=== PATIENT | male | born 1975 | race Caucasian/White ===

== ENCOUNTER 2023-10-17 08:27 | Emergency (ER) | payer OTHER, SELFPAY ==
[2023-10-17] VITALS (18 sets, daily range): BP systolic 139–250; BP diastolic 83–184; PULSE 68–95; O2SAT 97–100; BMI 28.7
--- NOTE | 2023-10-17 08:30 | CT_ITS ---
The [address] [address] Patient Name: LEANN HALL MRN: [id number] date: 1975 Sex: M Assigned Patient Location: ER Current Patient Location: ER Accession/Order Number: [id number] Exam Date: 10/17/2023 08:30 Report Date: 10/17/2023 08:56 At the request of: WALDEMAR LYNNE Procedure: CT stroke head/brain wo con EXAMINATION: CT stroke head/brain wo con HISTORY: Altered mental status COMPARISON: No relevant comparison available. TECHNIQUE: Axial CT images were obtained without IV contrast. Dose reduction techniques were achieved by using automated exposure control and/or adjustment of mA and/or kV according to patient size and/or use of iterative reconstruction technique. FINDINGS: BRAIN: 5.6 x 3.7 cm area of hypoattenuation with loss of casillas-white differentiation the right frontal lobe with extensive acute hemorrhage measuring 5.4 x 2.4 cm on axial image #28 this causes some mass effect with 3 mm of [id number] shift of the falx as well as compression of the right frontal horn CSF SPACES: No hydrocephalus, subarachnoid hemorrhage, or mass. Appropriate for age. SKULL: No fracture, mass, or other significant visible lesion. SINUSES: No significant mucosal thickening or fluid on the limited views. ORBITS: No appreciable abnormality on the limited views. OTHER: Findings discussed with Dr. Lynne by telephone 8:[address]/CT stroke head/brain wo con IMPRESSION: Large right frontal hemorrhagic infarct with mass effect, JESICA distribution Electronically authenticated by: CARLA DUNCAN Date: 10/17/2023 08:56
--- NOTE | 2023-10-17 08:30 | XR_ITS ---
The [address] [address] Patient Name: LEANN HALL MRN: [id number] date: 1975 Sex: M Assigned Patient Location: ED.MAIN Current Patient Location: ER Accession/Order Number: [id number] Exam Date: 10/17/2023 09:00 Report Date: 10/17/2023 09:22 At the request of: WALDEMAR NUNEZ Procedure: XR chest 1V EXAM: Chest x-ray HISTORY: . Altered mental status COMPARISON: None. TECHNIQUE: Single view of the chest. FINDINGS: Endotracheal tube is noted with the tip 4 cm above the amando. Heart and vascularity are unremarkable. Lungs are free of focal infiltrates. EKG leads overlie the chest. XR/XR chest 1V Impression: 1. Endotracheal tube noted with the tip 4 cm above the amando. 2. No acute heart or lung disease identified. Electronically authenticated by: CARLA KENDRICK Date: 10/17/2023 09:22
[2023-10-17 08:46] LABS: Glucometer 137 mg/dL (74-106)
[2023-10-17] MEDS: FENTANYL CITRATE/PF 100 MCG/2 ML VIAL IV (08:54)
[2023-10-17] MEDS: LABETALOL HCL 20 MG/4 ML SYRINGE IVP (08:55)
[2023-10-17] MEDS: THIAMINE HCL 200 MG/2 ML VIAL 100 MG IV (08:56)
[2023-10-17] MEDS: LORAZEPAM 2 MG/ML VIAL IV (08:57)
[2023-10-17] MEDS: ROCURONIUM BROMIDE 50 MG/5 ML VIAL 100 MG IV (09:01)
[2023-10-17] MEDS: PROPOFOL 200 MG/20 ML VIAL 100 MG IVP (09:02)
[2023-10-17] MEDS: ONDANSETRON PF 4 MG/2 ML VIAL IV (09:09)
--- NOTE | 2023-10-17 09:12 | ED.AMS1 ---
HPI - Altered Mental Status General Chief Complaint: Altered Mental Status Stated Complaint: ALTERED MENTAL STATUS Time Seen by Provider: 10/17/23 08:30 Source comment: EMS Mode of arrival: ambulance History of Present Illness HPI narrative: 48-year-old male to the emergency department chief complaint of altered mental status. Patient unable to write history. History is obtained from EMS. Family reported he has been altered for the last 48 hours. He is a daily drinker. Noncompliant hypertensive. He has been increasingly confused. Related Data Home Medications ?Medication ?Instructions ?Recorded ?Confirmed Unobtainable 10/17/23 10/17/23 Allergies Allergy/AdvReac Type Severity Reaction Status Date / Time Unable to Assess Allergy Verified 10/17/23 08:32 Review of Systems ROS Status of ROS 10 or more systems reviewed and unremarkable except as noted in history and below Exam Narrative Exam Narrative: VITALS: I have reviewed the triage vital signs. GENERAL: Confused adult male. NEURO: Alert and oriented x0. GCS 7 ([id number]). NIHSS as below. EYES: PERRL. No scleral icterus or conjunctival injection. No discharge. HENT: Normocephalic, atraumatic. Hearing is grossly intact. Nares grossly patent and without discharge. Mucous membranes dry. NECK: No JVD. Patient moves neck without restriction. CARDIO: Rhythm regular. Normal rate. No murmur, rub, or gallop. Pulses equal bilaterally in the upper and lower extremity. No lower extremity edema. PULM: Lungs clear to auscultation in all moy. No wheezes, rales, or rhonchi. No conversational dyspnea. No splinting, stridor, or accessory muscle use. GI/: Abdomen is soft and non-tender. Normoactive bowel sounds. EXTREMITIES: Symmetric muscle bulk. No joint swelling. No clubbing, cyanosis, or deformity. SKIN: Warm and dry. Normal turgor. No rash or lesions appreciated. PSYCH: Unable to assess NIH Stroke Scale: Level of Consciousness: 2 Current month and age: 2 Open and close eyes/remote sensing technologist release hand: 2 Best gaze: Normal = 0 Visual field testing: No visual field loss = 0 Facial paresis: Normal symmetric movement = 0 Motor function left arm: Normal = 0 Motor function right arm: Normal = 0 Motor function left leg: Normal = 0 Motor function right leg: Normal = 0 Limb ataxia: Unable to test = 0 Sensory: Normal, withdraws in all 4 = 0 Best language: No aphasia =2 Dysarthria: Unable to test, did not speak = 0 Extinction and inattention: Normal = 0 Total Score (severe deficit >22): 8 Constitutional Vital Signs, click to edit/add: Last Vital Signs Pulse 95 H 10/17/23 08:29 Resp 22 H 10/17/23 08:29 BP 230/120 H 10/17/23 08:29 Pulse Ox 97 10/17/23 08:29 O2 Del Method Room Air 10/17/23 08:29 Course Vital Signs Vital signs: Vital Signs Pulse Rate 95 H 10/17/23 08:29 Respiratory Rate 22 H 10/17/23 08:29 Blood Pressure 230/120 H 10/17/23 08:29 Pulse Oximetry 97 10/17/23 08:29 Oxygen Delivery Method Room Air 10/17/23 08:29 Pulse Rate 95 H 10/17/23 08:29 Respiratory Rate 22 H 10/17/23 08:29 Blood Pressure 230/120 H 10/17/23 08:29 Pulse Oximetry 97 10/17/23 08:29 Oxygen Delivery Method Room Air 10/17/23 08:29 MDM - Altered Mental Status MDM Narrative Medical decision making narrative: 48-year-old male to the emergency department chief complaint of altered mental status via EMS. Patient unable to provide history. GCS 7 but protecting airway. Decision made to proceed directly to CT scan. CT scan showed a large right frontal intraparenchymal hemorrhage. NIHSS is not mostly untestable as he does not follow commands. Head of bed at 30 degrees. No anticoagulants to reverse. Blood pressure goal <140. Labetalol 20 mg ordered. Placed in a C-Collar as unknown recent history. Decision was made to proceed with intubation given his altered mental status and need for flight to tertiary care. A call was placed to the local stroke center [facility]. Patient was accepted to the service of Dr. Daigle, NeuroICU. HEMS called. Rapid sequence intubation for altered mental status. Pretreated with Zofran, fentanyl 100 mcg. RSI with 100 mg rocuronium was given. 50 mg propofol bolus given. Successful intubation, see note. Confirmed by chest x-ray. Difficulty in controlling the patient's blood pressure. Several doses of labetalol were given. Decision was made to initiate Cardene drip. Handoff was given at the bedside to the HEMS crew. Lab Data Labs: Lab Results 10/17/23 Range/Units 08:44 POC Glucose 137 H (74-106) mg/dL Critical Care Time Critical Care Time Critical Care Time: Yes Total Critical Care Time: 55 Attestation: Critical Care Procedure Note Authorized and Performed by: Gt Lynne DO Total critical care time: 55 min Due to a high probability of clinically significant, life threatening deterioration, the patient required my highest level of preparedness to intervene emergently and I personally spent this critical care time directly and personally managing the patient. This critical care time included obtaining a history; examining the patient; pulse oximetry; ordering and review of studies; arranging urgent treatment with development of a management plan; evaluation of patient's response to treatment; frequent reassessment; and, discussions with other providers. This critical care time was performed to assess and manage the high probability of imminent, life-threatening deterioration that could result in multi-organ failure. It was exclusive of separately billable procedures and treating other patients and teaching time. Please see MDM section and the rest of the note for further information on patient assessment and treatment. Discharge Plan Discharge Chief Complaint: Altered Mental Status Clinical Impression: Hemorrhagic stroke, Hypertensive emergency Patient Disposition: [facility] Time of Disposition Decision: 09:23 Discharge Location: [facility] Condition: Critical Mode of Transportation: Life Flight Prescriptions / Home Meds: No Action Unobtainable Print Language: Kosovan Referrals: Physician,Non-Staff, MD [Primary Care Provider] - 1 week Procedures ED Procedure Instructions Procedures Procedures: Procedure: Intubation Indication: The patient required emergent endotracheal intubation. Contraindications: None Medications: Propofol, rocuronium After the patient was adequately sedated and paralyzed an S4 blade was used to directly visualize the patient?s vocal cords. Under direct visualization a 8.0 tube was passed easily through the cords. The tube was inserted to a depth of 26 cm at the teeth. The patient bagged easily. Breath sounds were equal bilaterally and there was no gurgling over the gastrum. Qualitative capnography showed appropriate color change with bagging. Tube was secured in the standard fashion. Patient tolerated the procedure well. Chest x-ray confirms tube placement in the appropriate position above the amando. Gt Lynne DO, FAAEM
[2023-10-17] MEDS: LABETALOL HCL 20 MG/4 ML SYRINGE 40 MG IVP (09:13)
[2023-10-17 09:14] LABS: Hematocrit 43.1 % (42.0-54.0); Hemoglobin 15.8 g/dL (14.0-18.0); Mean Corpuscular HGB Conc 36.7 g/dL (29.9-35.2); Mean Corpuscular Hemoglobin 30.9 pg (25.9-34.0); Mean Corpuscular Volume 84.3 fL (80.0-94.0); Mean Platelet Volume 9.6 fL (9.5-13.5); Platelet Count 427 10^3/uL (150-450); Red Blood Count 5.11 10^6/uL (4.70-6.10); Red Cell Distribution Width 13.6 % (11.0-15.0)
[2023-10-17] MEDS: FENTANYL CITRATE/PF 1,000 MCG in 0.9 % SODIUM CHLORIDE 80 ML 4.536 MCG IV (09:14)
[2023-10-17] MEDS: PROPOFOL 1,000 MG/100 ML VIAL 2.722 MG IV ×2 (09:15→10:30)
[2023-10-17 09:16] LABS: Glucometer 125 mg/dL (74-106)
[2023-10-17 09:17] LABS: Ammonia 32 umol/L (11-32)
[2023-10-17 09:22] LABS: White Blood Count 42.1 10^3/uL (4.0-11.0)
[2023-10-17 09:23] LABS: Alanine Aminotransferase 39 U/L (16-63); Albumin Level 3.9 g/dL (3.4-5.0); Alkaline Phosphatase 138 U/L (46-116); Anion Gap 16.3; Aspartate Amino Transferase 57 U/L (15-37); BUN Creatinine Ratio 12.1; Bilirubin Total 1.6 mg/dL (0.2-1.0); Calcium 9.2 mg/dL (8.5-10.1); Carbon Dioxide 26.2 mmol/L (21.0-32.0); Estimated GFR (African America >60 (>=60); Estimated GFR (Non-African Ame >60 (>=60); Glucose 112 mg/dL (74-106); Total Protein 7.9 g/dL (6.4-8.2)
[2023-10-17 09:25] LABS: INR 0.99; Prothrombin Time 10.5 sec (9.0-11.6)
[2023-10-17] MEDS: NICARDIPINE IN NACL, ISO-OSM 40 MG/200 ML PIGGYBACK 25 MG IV (09:26)
[2023-10-17 09:31] LABS: Ethanol <3 mg/dL; Thyroid Stimulating Hormone 0.806 uIU/mL (0.358-3.740)
--- NOTE | 2023-10-17 09:35 | PC.NURSE ---
pt arrived per EMS from home for altered LOC. per ems LKW was 2 days ago and pt has an ETOH history. pt taken for head CT on arrival and nuclear test technician reports bleed upon bringing pt back to ER. Dr. Trevino notified and pt moved to ER room 5 for critical care with intubation. 0900 vitals 236/137 99% RA, [address] Trevino, RT, 3 RNs at bedside for intubation. 0901 meds administered and intubation attempted. [address] trevino good color change with chest rise and audible bilateral breath sounds. Vitals after intubation 209/134, 100% BVM, 88 HR. 0906 RT hooking pt up to vent. 0907 Xray at bedside. 918 C-collar applied per verbal order from dr. Trevino. 923 Labatolol 20mg IV push. 924 18G IV placed in right hand. 930 Mckeon catheter placed.
[2023-10-17 09:37] LABS: Potassium 2.5 mmol/L (3.5-5.1); Sodium 115 mmol/L (136-145)
[2023-10-17 09:38] LABS: Chloride 75 mmol/L (98-107); Lactate/Lactic Acid 4.9 mmol/L (0.4-2.0); Troponin I High Sensitivity 175.8 pg/mL (4.0-76.1)
[2023-10-17 09:45] LABS: Bilirubin Urine NEGATIVE (NEGATIVE); Blood Urine LARGE (NEGATIVE); Clarity Urine CLEAR (CLEAR); Color Urine LT. YELLOW (YELLOW); Glucose Urine UA 250 mg/dL (NEGATIVE); Ketones Urine TRACE mg/dL (NEGATIVE); Leukocyte Esterase Urine NEGATIVE (NEGATIVE); Nitrite Urine NEGATIVE (NEGATIVE); Protein Urine 100 mg/dL (NEG/TRACE); Specific Gravity Urine 1.015 (1.005-1.025); Urobilinogen Urine 0.2 EU/dL (0.2-1.0)
[2023-10-17] MEDS: SODIUM CHLORIDE 3 % 100 ML IV (09:55)
[2023-10-17 09:56] LABS: Amphetamine Screen Urine NEGATIVE (NEGATIVE); Barbiturates Screen Urine NEGATIVE (NEGATIVE); Benzodiazepines Screen Urine NEGATIVE (NEGATIVE); Buprenorphine Screen Urine NEGATIVE (NEGATIVE); Cannabinoid Screen Urine POSITIVE (NEGATIVE); Cocaine Screen Urine NEGATIVE (NEGATIVE); Methadone Screen Urine NEGATIVE (NEGATIVE); Methamphetamines Screen Urine NEGATIVE (NEGATIVE); Opiate Screen Urine NEGATIVE (NEGATIVE); Oxycodone Screen Urine NEGATIVE (NEGATIVE); Phencyclidine Screen Urine NEGATIVE (NEGATIVE); Tricyclic Antidepressant Urine NEGATIVE (NEGATIVE)
[2023-10-17] MEDS: POTASSIUM CHLORIDE 40 MEQ in 0.9 % SODIUM CHLORIDE 250 ML 67.5 MEQ IV (09:56)
[2023-10-17] MEDS: MAGNESIUM SULFATE IN WATER 2 GM/50 ML PREMIX IV (10:00)
[2023-10-17 10:06] LABS: Mucus Urine NONE SEEN (NONE SEEN); Squamous Epithelial Cell Urine RARE #/LPF (NONE/RARE)
[2023-10-17 10:08] LABS: WBC Urine 0-2 #/HPF (NONE SEEN)
[2023-10-17 10:09] LABS: Bacteria Urine TRACE #/HPF (NONE SEEN); Cast Seen? NONE SEEN #/LPF (NONE SEEN); Crystals Seen? None Seen #/HPF (None Seen)
[2023-10-17 10:25] LABS: Lymphocytes Absolute Manual 0.84 10^3/uL (1.20-3.80); Segmented Neut Absolute Manual 38.73 10^3/uL (1.4-6.5)
[2023-10-17 10:26] LABS: Monocytes Absolute Manual 2.52 10^3/uL (0.30-0.80)
== END 2023-10-17 10:54 | disposition short-term general hospital (02) ==
PROVIDERS: Emergency Provider Student in an Organized Health Care Education/Training Program
DX: I62.9 Nontraumatic intracranial hemorrhage, unspecified (principal); R41.82 Altered mental status, unspecified; R29.708 NIHSS score 8; I10 Essential (primary) hypertension
CPT/HCPCS: 31500; 36415; 70450; 71045; 80053; 80307; 80320; 81001; 82140; 82805; 83605; 84443; 84484; 85007; 85027; 85610; 87040; 93005; 94002; 96365; 96366; 96368; 96375; 96376; 99285; J1290; J2060; J2404; J2405; J2704; J3010; J3411; J3475; J3480; J7131

== ENCOUNTER 2024-02-16 00:45 | Emergency (ER) | payer OTHER, SELFPAY ==
[2024-02-16] VITALS (16 sets, daily range): BP systolic 119–157; BP diastolic 81–90; PULSE 53–64; TEMP 36.7; O2SAT 96–100; BMI 22.7
--- OUTSIDE RECORDS SUMMARY | 2024-02-16 00:51 | XMS_ITS | CCD ---
Author Organization [facility] Care Team Providers Care Teenage Babysitter Name Role Phone CHRISS GREEN Attending Unavailable CHRISS GREEN Admitting Unavailable REQUEST, NONE LISTED Primary Care Unavaila igor ZIJANEY, DR JOSSUE Weber Consulting Unavailable CHRISS GREEN Consulting Unavailable REQUEST, DR ALFONSO LISTED Primary Care Unavaila ble MARCIA, DR GARNETT Attending Unavailable HAY, DR GARNETT Admitting Unavailable HAY, DR GARNETT Consulting Unavailable MARKER, DR OSUNA Consulting Unavailable TROTTI, SUZAN Consulting Unavailable DAVE, ISH Consulting Unavailable KLCARLA ROGERS Consulting Unavailable RODRIGUEZ, CHRISTOPHER Referring Unavailable RODRIGUEZ, CHRISTOPHER Referring Unavailable RODRIGUEZ, CHRISTOPHER Referring Unavailable ESSIE GARDNER Attending Unageneti lable RODRIGUEZ, CHRISTOPHER Referring Unavailable RODRIGUEZ, CHRISTOPHER Referring Unavailable RODRIGUEZ, CHRISTOPHER Referring Unavailable RODRIGUEZ, CHRISTOPHER Referring Unavailable RODRIGUEZ, CHRISTOPHER Referring Unavailable RODRIGUEZ, CHRISTOPHER Referring Unavailable RODRIGUEZ, CHRISTOPHER Referring Unavailable RODRIGUEZ, CHRISTOPHER Referring Unavailable RODRIGUEZ, CHRISTOPHER Referring Unavailable CHA BENITEZ Referring Unavailable RODRIGUEZ, FATEMEH Attending Unavailable SELF, REFERRED Referring Unavailable MARKER, THAO West Referring Unavailable STUART LEIGH Attending Unavailable RODRIGUEZ, CHRISTOPHER Admitting Unavailable RODRIGUEZ, CHRISTOPHER Referring Unavailable RODRIGUEZ, CHRISTOPHER Referring Unavailable RODRIGUEZ, CHRISTOPHER Attending Unavailable RODRIGUEZ, CHRISTOPHER Attending Unavailable RODRIGUEZ, CHRISTOPHER Attending Unavailable JOSE, ELY Referring Unavailable JENN JADE Attending Unavailable RODRIGUEZ, CHRISTOPHER Attending Unavailable RODRIGUEZ, CHRISTOPHER Admitting Unavailable RODRIGUEZ, CHRISTOPHER Attending Unavailable RODRIGUEZ, CHRISTOPHER Attending Unavailable RODRIGUEZ, CHRISTOPHER Referring Unavailable ELY GARCIA Referring Unavailable ANGELES ORTIZ Attending Unavailable RODRIGUEZ, CHRISTOPHER Referring Unavailable DAYAN NUNEZ Attending Unavailable ESSIE GARDNER Attending FATEMEH Leung Referring Unavailable MICHAEL, FATEMEH Attending Unavailable SELF, REFERRED Referring Unavailable RODRIGUEZ, FATEMEH Referring Unavailable RODRIGUEZ, FATEMEH Referring Unavailable PROVIDER, UNKNOWN Attending Unavailable PROVIDER, UNKNOWN Admitting Unavailable TIGIST GRECO Attending Unavailable FRANDY WALDROND A Admitting Unavailable GT BLACKBURN Consulting Unavailable AICHHOLZ, SHITAL J Primary Care Unavailable DIONE LÓPEZ Consulting Unavailable QUINN WILLIS Consulting Unavailable LAURIE CRAMER Consulting Unavailable SHALINI WHITTAKER Consulting Unavailable AYLIN, BRIANA F Consulting Unavailable CASTILLOENEIDA Consulting Unavailable AYLIN, BRIANA F Admitting Unavailable AYLIN, BRIANA F Attending Unavailable AICHHOLZ, SHITAL J Primary Care Unavailable BIBI RUDD Consulting Unavailable SELENA PATRICK Consulting Unavailable ANMOL REYNOSO Consulting Unavailable AMADO GAY Consulting Unavailable JUMAA, SHIRLEYUHAMMAD A Consulting Unavailable ALAINAMAA, SHIRLEYUHAMMAD A Attending Unavailable GABBYA, FRANDYD A Referring Unavailable AICHHOLZ, SHITAL J Primary Care Unavailable AICHHOLZ, SHITAL J Referring Unavailable AICHHOLZ, SHITAL J Primary Care Unavailable AICHHOLZ, SHITAL J Primary Care Unavailable AICHHOLZ, SHITAL J Primary Care Unavailable AICHHOLZ, SHITAL J Referring Unavailable AICHHOLZ, SHITAL J Primary Care Unavailable MIKE CHISHOLM Attending Unavailable AICHHOLZ, SHITAL J Referring Unavailable AICHHOLZ, SHITAL J Primary Care Unavailable DAGO, EHAD Attending Unavailable Colby Vickers MD Primary Care Provider Aichholz HEAVY FORGING MACHINE OPERATOR, Shital Unavailable AICHHOLZ, SHITAL Attending Unavailable AICHHOLZ, SHITAL Attending Unavailable Aichholz NAVA, Shital J Primary Care Provider FATEMEH DOBBS Referring Unavailabl e AICHHOLZ, SHITAL J Primary Care Unavailable SAMI ELLISON Attending Unavailable AICHHOLZ, SHITAL J Referring Unavailable AICHHOLZ, SHITAL J Primary Care Unavailable SAMI ELLISON Referring Unavailable AICHHOLZ, SHITAL J Primary Care Unavailable LURING, CHRISTOPHER B Referring SHITAL Horn Primary Care Unavailable FATEMEH DOBBS Referring SHITAL Horn Primary Care Unavailable Medications Current Medications Medication Drug Class(es) Dates Sig (Normalized) Sig (Original) acetaminophen 325 mg oral tablet (12 sources) Start: 11-02-2023 take 2 tablets by mouth every six hours as needed for pain and headache acetaminophen (TYLENOL) 325 mg tablet Take 2 tablets (650 mg total) by mouth every 6 (six) hours as needed for pain or headaches. 11/02/2023 Active aspirin 81 mg delayed release oral tablet (12 sources) Platelet Aggregation Inhibitor, Nonsteroidal Anti-inflammatory Drug Start: 11-15-2023 take 1 tablet by mouth in the morning aspirin 81 mg Take 1 tablet (81 mg total) by mouth in the morning. 11/15/2023 Active carvedilol 25 mg oral tablet (13 sources) alpha-Adrenergic Steve, beta-Adrenergic Steve Start: 11-14-2023 End: 02-14-2024 take 1 tablet by mouth in the morning, then take 1 tablet by mouth at bedtime carvediloL (COREG) 25 mg tablet Take 1 tablet (25 mg total) by mouth in the morning and 1 tablet (25 mg total) before bedtime. For blood pressure. 60 tablet 1 11/14/2023 Active cloNIDine hydrochloride 0.3 mg oral tablet (13 sources) Central alpha-2 Adrenergic Agonist Start: 11-14-2023 End: 02-27-2024 take 1 tablet by mouth three times daily cloNIDine (CATAPRES) 0.3 mg tablet Take 1 tablet (0.3 mg total) by mouth 3 (three) times a day. For blood pressure 90 tablet 11/14/2023 Active diclofenac sodium 0.01 mg/mg topical gel (12 sources) Nonsteroidal Anti-inflammatory Drug Start: 11-14-2023 diclofenac sodium (VOLTAREN) 1 % gel Apply 2 g topically 4 (four) times a day as needed (pain). 11/14/2023 Active gabapentin 100 mg oral capsule (12 sources) Anti-epileptic Agent Start: 11-14-2023 End: 02-12-2024 take 1 capsule by mouth three times daily gabapentin (NEURONTIN) 100 mg capsule Indications: Intraparenchymal hemorrhage of brain (CMS-HCC) Take 1 capsule (100 mg total) by mouth 3 (three) times a day for 90 days. 270 capsule 11/14/2023 02/12/2024 Active losartan potassium 100 mg oral tablet (12 sources) Angiotensin 2 Receptor Steve Start: 11-15-2023 take 1 tablet by mouth in the morning losartan (COZAAR) 100 mg tablet Take 1 tablet (100 mg total) by mouth in the morning. For blood pressure. 90 tablet 11/15/2023 Active 24 hr nicotine 0.292 mg/hr transdermal system (11 sources) Cholinergic Nicotinic Agonist Start: 02-08-2024 End: 03-09-2024 nicotine (Nicoderm CQ) 7 MG/24HR patch Indications: Nicotine abuse Place 1 patch over 24 hours on the skin 1 (one) time each day at the same time 30 patch 02/08/2024 02/08/2024 Discontinued Start: 02-08-2024 End: 03-07-2024 nicotine (Nicoderm, Step 3) 7 MG/24HR patch Indications: Nicotine abuse Place 1 patch on the skin 1 (one) time each day at the same time for 28 days 28 patch 02/08/2024 03/07/2024 Active Start: 12-17-2023 End: 02-08-2024 nicotine (Nicoderm, Step 2) 14 MG/24HR patch Indications: Nicotine abuse Place 1 patch on the skin 1 (one) time each day at the same time for 28 days 28 patch 12/20/2023 02/08/2024 Discontinued NIFEdipine 90 mg osmotic 24 hr extended release oral tablet (12 sources) Dihydropyridine Calcium Channel Steve Start: 11-14-2023 End: 02-12-2024 take 1 tablet by mouth every twenty-four hours in the morning NIFEdipine XL (PROCARDIA XL) 90 mg 24 hr tablet Take 1 tablet (90 mg total) by mouth in the morning for 90 days. For blood pressure. 90 tablet 11/14/2023 02/12/2024 Active pantoprazole 40 mg delayed release oral tablet (12 sources) Proton Pump Inhibitor Start: 11-14-2023 End: 02-12-2024 take 1 tablet by mouth once daily before breakfast pantoprazole (PROTONIX) 40 mg EC tablet Indications: Gastroesophageal reflux disease, unspecified whether esophagitis present , Coffee ground emesis , Melena Take 1 tablet (40 mg total) by mouth every morning before breakfast. 90 tablet 3 12/03/2023 Active QUEtiapine 25 mg oral tablet (12 sources) Atypical Antipsychotic Start: 11-14-2023 take 1 tablet by mouth in the morning, then take 1 tablet by mouth at bedtime QUEtiapine (SEROquel) 25 mg tablet Indications: bipolar disorder in remission Take 1 tablet (25 mg total) by mouth in the morning and 1 tablet (25 mg total) before bedtime. Indications: bipolar disorder in remission. 60 tablet 1 11/14/2023 Active terazosin 5 mg oral capsule (10 sources) alpha-Adrenergic Steve Start: 11-14-2023 End: 02-14-2024 take 1 capsule by mouth at bedtime terazosin (Hytrin) 5 MG capsule Indications: Primary hypertension (CMS/HCC) Take 1 capsule (5 mg) by mouth at bedtime 30 capsule 2 01/15/2024 02/14/2024 Active Problems Active Problems Problem Classification Problem Date Documented Da te Episodic/Chronic Acute cerebrovascular disease (20 sources) Cerebral infarction, unspecified; Translations: [Nontraumatic intracerebral hemorrhage in hemisphere, unspecified] Onset: 4 11-21-2023 Chronic Alcohol-related disorders (14 sources) Alcohol dependence, uncomplicated; Translations: [Alcohol abuse, in remission] Onset: 2 11-21-2023 Chronic Anxiety disorders (2 sources) Post-traumatic stress disorder, unspecified; Translations: [Anxiety disorder, unspecified] Onset: 2 Chronic Cardiac dysrhythmias (1 source) Bradycardia, unspecified; Translations: [Bradycardia, unspecified] Onset: 4 Episodic Diseases of white blood cells (8 sources) Leukocytosis; Translations: [Elevated white blood cell count, unspecified] Onset: 6 11-21-2023 Chronic Esophageal disorders (1 source) Gastro-esophageal reflux disease without esophagitis; Translations: [Gastro-esophageal reflux disease without esophagitis] Onset: 4 Chronic Essential hypertension (20 sources) Essential (primary) hypertension; Translations: [Hypertensive disorder] Onset: 2 Chronic Fluid and electrolyte disorders (2 sources) Dehydration; Translations: [Hypo-osmolality and hyponatremia] Onset: 2 Episodic Fracture of neck of femur (hip) (2 sources) Displaced intertrochanteric fracture of right femur, subsequent encounter for closed fracture with delayed healing; Translations: [Displaced intertrochanteric fracture of right femur, subsequent encounter for closed fracture with delayed healing] Onset: 3 Episodic Gastrointestinal hemorrhage (2 sources) Hematemesis; Translations: [Melena] Onset: 4 Episodic Late effects of cerebrovascular disease (20 sources) Dysphagia following cerebral infarction; Translations: [Unspecified sequelae of cerebral infarction] Onset: 4 11-21-2023 Chronic Mood disorders (16 sources) Bipolar disorder, unspecified; Translations: [Bipolar disorder, current episode depressed, mild or moderate severity, unspecified] Onset: 8 11-21-2023 Chronic Neoplasms of unspecified nature or uncertain behavior (9 sources) Essential thrombocythemia; Translations: [Essential (hemorrhagic) thrombocythemia] Onset: 4 11-21-2023 Chronic Other and ill-defined heart disease (1 source) Cardiomegaly; Translations: [Cardiomegaly] Onset: 4 Chronic Other male genital disorders (12 sources) Male erectile dysfunction, unspecified; Translations: [Impotence of organic origin] Onset: 4 12-26-2023 Chronic Other nervous system disorders (1 source) Unsteadiness on feet; Translations: [Unsteadiness on feet] Onset: 4 Episodic Other nervous system disorders (11 sources) Abnormal gait; Translations: [Unsteadiness on feet] Onset: 4 12-26-2023 Episodic Other screening for suspected conditions (not mental disorders or infectious disease) (2 sources) Abnormal electrocardiogram [ECG] [EKG]; Translations: [Encounter for screening for malignant neoplasm of colon] Onset: 4 Episodic Residual codes; unclassified (1 source) Tobacco use; Translations: [Tobacco use] Onset: 4 Episodic Residual codes; unclassified (1 source) Other amnesia; Translations: [Other amnesia] Onset: 4 Episodic Residual codes; unclassified (1 source) Pain, unspecified; Translations: [Pain, unspecified] Onset: 4 Episodic Residual codes; unclassified (11 sources) Harmful pattern of use of nicotine; Translations: [Tobacco use] Onset: 4 12-20-2023 Episodic Residual codes; unclassified (11 sources) Memory impairment; Translations: [Other amnesia] Onset: 4 12-26-2023 Episodic Respiratory failure; insufficiency; arrest (adult) (1 source) Dependence on respirator [ventilator] status; Translations: [Dependence on respirator (ventilator) status] Onset: 4 Chronic Respiratory failure; insufficiency; arrest (adult) (1 source) Acute respiratory failure, unspecified whether with hypoxia or hypercapnia; Translations: [Acute respiratory failure, unspecified whether with hypoxia or hypercapnia] Onset: 4 Episodic Substance-related disorders (7 sources) Cannabis abuse, uncomplicated; Translations: [Nicotine dependence, cigarettes, uncomplicated] Onset: 2 12-24-2023 Chronic Unclassified (1 source) CONTACT W/AND (SUSP) EXPOS COVID-19; Translations: [CONTACT W/AND (SUSP) EXPOS COVID-19] Onset: 2 Unclassified (1 source) Resistant hypertension; Translations: [Resistant hypertension] Onset: 4 Unclassified (1 source) Supraventricular tachycardia, unspecified; Translations: [Supraventricular tachycardia, unspecified] Onset: 4 Unclassified (1 source) EMS/STROKE ALERT Onset: 4 Past or Other Problems Problem Classification Problem Date Documented Date Episodic/Chronic Acute cerebrovascular disease (1 source) Acute cerebrovascular disease 02-01-2024 Blindness and vision defects (14 sources) Diplopia; Translations: [Diplopia] Onset: 4 11-21-2023 Episodic Fracture of lower limb (2 sources) Unspecified fracture of left femur, initial encounter for closed fracture; Translations: [Unspecified fracture of left femur, initial encounter for closed fracture] Onset: 3 Episodic Fracture of neck of femur (hip) (14 sources) Displaced intertrochanteric fracture of left femur, subsequent encounter for closed fracture with delayed healing; Translations: [Displaced intertrochanteric fracture of left femur, subsequent encounter for closed fracture with routine healing] Onset: 3 Episodic Mood disorders (3 sources) Mood disorders Onset: 4 12-24-2023 Nausea and vomiting (4 sources) Nausea with vomiting, unspecified; Translations: [NAUSEA WITH VOMITING UNSPECIFIED] Onset: 2 Episodic Other aftercare (1 source) Other salvage determiner (current) drug therapy; Translations: [OTH CUSTODIAL CURRENT DRUG THERAPY] Onset: 2 Episodic Other aftercare (2 sources) Encounter for other specified surgical aftercare; Translations: [Encounter for other specified surgical aftercare] Onset: 3 Episodic Other lower respiratory disease (3 sources) Personal history of other diseases of the respiratory system; Translations: [Personal history of other diseases of the respiratory system] Onset: 4 Episodic Other lower respiratory disease (12 sources) History of acute respiratory failure; Translations: [Personal history of other diseases of the respiratory system] Onset: 4 11-21-2023 Episodic Results Test Name Value Interpretation Reference Range Facility COMPLETE BLOOD COUNTon 11-13 Erythrocyte distribution width (RBC) [Ratio] 15.7 % High 11.5-15.0 [facility] Comment on above: Performed By: #### C BC ####[facility] ([id number])5200 [place] [address] Hematocrit (Bld) [Volume fraction] 32.9 % Low 39-49 [facility] Comment on above: Performed By: #### C BC ####[facility] ([id number])5200 [place] [address] Hemoglobin (Bld) [Mass/Vol] 11.4 g/dL Low 13.0-17.0 [facility] Comment on above: Performed By: #### C BC ####[facility] ([id number])5200 [place] [address] MCH (RBC) [Entitic mass] 30.9 pg Normal 27-34 [facility] Comment on above: Performed By: #### C BC ####[facility] ([id number])5[address] [place] [address] MCHC (RBC) [Mass/Vol] 34.5 g/dL Normal 32-36 [facility] Comment on above: Performed By: #### C BC ####[facility] ([id number])5200 [place] [address] MCV (RBC) [Entitic vol] 90 fL Normal 80-100 [facility] Comment on above: Performed By: #### C BC ####[facility] ([id number])5200 [place] [address] Platelet mean volume (Bld) [Entitic vol] 7.1 fL Normal 7-12 [facility] Comment on above: Performed By: #### C BC ####[facility] ([id number])5200 [place] [address] Platelets (Bld) [#/Vol] 603 10*3/uL High 150-450 [facility] Comment on above: Performed By: #### C BC ####[facility] ([id number])5200 [place] [address] RBC COUNT 3.67 X10E12/L Low 4.10-5.70 [facility] Comment on above: Performed By: #### C BC ####[facility] ([id number])5200 [place] [address] WBC (Bld) [#/Vol] 7.1 10*3/uL Normal 4.0-11.0 [facility] Comment on above: Performed By: #### C BC ####[facility] ([id number])5200 [place] [address] COMPLETE BLOOD COUNTon 11-12 Erythrocyte distribution width (RBC) [Ratio] 16.5 % High 11.5-15.0 [facility] Comment on above: Performed By: #### C BC ####[facility] ([id number])5200 [place] [address] Hematocrit (Bld) [Volume fraction] 33.1 % Low 39-49 [facility] Comment on above: Performed By: #### C BC ####[facility] ([id number])5200 [facility] [address] Hemoglobin (Bld) [Mass/Vol] 11.3 g/dL Low 13.0-17.0 [facility] Comment on above: Performed By: #### C BC ####[facility] ([id number])5200 [facility] [address] MCH (RBC) [Entitic mass] 30.6 pg Normal 27-34 [facility] Comment on above: Performed By: #### C BC ####[facility] ([id number])5200 [facility] [address] MCHC (RBC) [Mass/Vol] 34.2 g/dL Normal 32-36 [facility] Comment on above: Performed By: #### C BC ####[facility] ([id number])5200 [place] [address] MCV (RBC) [Entitic vol] 90 fL Normal 80-100 [facility] Comment on above: Performed By: #### C BC ####[facility] ([id number])5200 [facility] [address] Platelet mean volume (Bld) [Entitic vol] 6.8 fL Low 7-12 [facility] Comment on above: Performed By: #### C BC ####[facility] ([id number])5200 [facility] [address] Platelets (Bld) [#/Vol] 681 10*3/uL High 150-450 [facility] Comment on above: Performed By: #### C BC ####[facility] ([id number])5200 [facility] [address] RBC COUNT 3.70 X10E12/L Low 4.10-5.70 [facility] Comment on above: Performed By: #### C BC ####[facility] ([id number])5200 [place] [address] WBC (Bld) [#/Vol] 6.8 10*3/uL Normal 4.0-11.0 [facility] Comment on above: Performed By: #### C BC ####[facility] ([id number])5200 [place] [address] BASIC METABOLIC PANLon 11-11 Anion gap [Moles/Vol] 8 mmol/L Normal 5-15 [facility] Comment on above: Performed By: #### C BC, BMP ####[facility] ([id number])5200 [facility] [place] [address] Calcium [Mass/Vol] 9.6 mg/dL Normal 8.5-10.5 [facility] Comment on above: Performed By: #### C BC, BMP ####[facility] ([id number])5200 [facility] [address] Chloride [Moles/Vol] 107 mmol/L Normal 98-109 [facility] Comment on above: Performed By: #### C BC, BMP ####[facility] ([id number])5200 [facility] [place] [address] CO2 [Moles/Vol] 23 mmol/L Normal 22-32 [facility] Comment on above: Performed By: #### C BC, BMP ####[facility] ([id number])5200 [facility] [place] [address] Creatinine [Mass/Vol] 1.23 mg/dL Normal 0.60-1.30 [facility] Comment on above: Result Comment: METH OD TRACEABLE TO IDMS STANDARD Performed By: #### C BC, BMP ####[facility] ([id number])5200 [facility] [place] [address] GFR/1.73 sq M.predicted among non-blacks MDRD (S/P/Bld) [Vol rate/Area] 72 mL/min/{1.73_m2} Normal >59 [facility] Comment on above: Result Comment: Repo rted eGFR is based on theD-EPI 2020 equation that doesnot use a race coefficient. Performed By: #### C BC, BMP ####[facility] ([id number])5200 [place] [address] Glucose [Mass/Vol] 89 mg/dL Normal 65-99 [facility] Comment on above: Performed By: #### C BC, BMP ####[facility] ([id number])5200 [facility] [address] Potassium [Moles/Vol] 3.7 mmol/L Normal 3.5-5.0 [facility] Comment on above: Performed By: #### C BC, BMP ####[facility] ([id number])5200 [facility] [address] Sodium [Moles/Vol] 138 mmol/L Normal 134-146 [facility] Comment on above: Performed By: #### C BC, BMP ####[facility] ([id number])5200 [facility] [address] Urea nitrogen [Mass/Vol] 18 mg/dL Normal 5-23 [facility] Comment on above: Performed By: #### C BC, BMP ####[facility] ([id number])5200 [facility] [place] [address] COMPLETE BLOOD COUNTon 11-11 Erythrocyte distribution width (RBC) [Ratio] 16.4 % High 11.5-15.0 [facility] Comment on above: Performed By: #### C BC, BMP ####[facility] ([id number])5200 [facility] [place] [address] Hematocrit (Bld) [Volume fraction] 33.9 % Low 39-49 [facility] Comment on above: Performed By: #### C BC, BMP ####[facility] ([id number])5200 [facility] [address] Hemoglobin (Bld) [Mass/Vol] 11.5 g/dL Low 13.0-17.0 [facility] Comment on above: Performed By: #### C BC, BMP ####[facility] ([id number])5200 [facility] [place] [address] MCH (RBC) [Entitic mass] 30.3 pg Normal 27-34 [facility] Comment on above: Performed By: #### C BC, BMP ####[facility] ([id number])5200 [place] [address] MCHC (RBC) [Mass/Vol] 33.8 g/dL Normal 32-36 [facility] Comment on above: Performed By: #### C BC, BMP ####[facility] ([id number])5200 [place] [address] MCV (RBC) [Entitic vol] 90 fL Normal 80-100 [facility] [facility] Comment on above: Performed By: #### C BC, BMP ####[facility] ([id number])5200 [place] [address] Platelet mean volume (Bld) [Entitic vol] 6.9 fL Low 7-12 [facility] Comment on above: Performed By: #### C BC, BMP ####[facility] ([id number])5200 [place] [address] Platelets (Bld) [#/Vol] 713 10*3/uL High 150-450 [facility] Comment on above: Performed By: #### C BC, BMP ####[facility] ([id number])5200 [place] [address] RBC COUNT 3.78 X10E12/L Low 4.10-5.70 [facility] Comment on above: Performed By: #### C BC, BMP ####[facility] ([id number])5200 [place] [address] WBC (Bld) [#/Vol] 7.3 10*3/uL Normal 4.0-11.0 [facility] Comment on above: Performed By: #### C BC, BMP ####[facility] ([id number])5200 [place] [address] COMPLETE BLOOD COUNTon 11-10 Erythrocyte distribution width (RBC) [Ratio] 16.0 % High 11.5-15.0 [facility] Comment on above: Performed By: #### C BC ####[facility] ([id number])5[address] [place] [facility] [place] [address] Hematocrit (Bld) [Volume fraction] 32.0 % Low 39-49 [facility] Comment on above: Performed By: #### C BC ####[facility] ([id number])5200 [facility] [address] Hemoglobin (Bld) [Mass/Vol] 11.1 g/dL Low 13.0-17.0 [facility] Comment on above: Performed By: #### C BC ####[facility] ([id number])5200 [facility] [address] MCH (RBC) [Entitic mass] 31.2 pg Normal 27-34 [facility] Comment on above: Performed By: #### C BC ####[facility] ([id number])5200 [facility] [address] MCHC (RBC) [Mass/Vol] 34.9 g/dL Normal 32-36 [facility] Comment on above: Performed By: #### C BC ####[facility] ([id number])5200 [facility] [address] MCV (RBC) [Entitic vol] 90 fL Normal 80-100 [facility] Comment on above: Performed By: #### C BC ####[facility] ([id number])5200 [facility] [address] Platelet mean volume (Bld) [Entitic vol] 7.0 fL Normal 7-12 [facility] Comment on above: Performed By: #### C BC ####[facility] ([id number])5200 [facility] [address] Platelets (Bld) [#/Vol] 818 10*3/uL High 150-450 [facility] Comment on above: Performed By: #### C BC ####[facility] ([id number])5200 [place] [address] RBC COUNT 3.57 X10E12/L Low 4.10-5.70 [facility] Comment on above: Performed By: #### C BC ####[facility] ([id number])5200 [facility] [place] [address] WBC (Bld) [#/Vol] 6.8 10*3/uL Normal 4.0-11.0 [facility] Comment on above: Performed By: #### C BC ####[facility] ([id number])5200 [place] [address] COMPLETE BLOOD COUNTon 11-09 Erythrocyte distribution width (RBC) [Ratio] 15.8 % High 11.5-15.0 [facility] Comment on above: Performed By: #### C BC ####[facility] ([id number])5200 [facility] [place] [address] Hematocrit (Bld) [Volume fraction] 30.2 % Low 39-49 [facility] Comment on above: Performed By: #### C BC ####[facility] ([id number])5200 [facility] [place] [address] Hemoglobin (Bld) [Mass/Vol] 10.3 g/dL Low 13.0-17.0 [facility] Comment on above: Performed By: #### C BC ####[facility] ([id number])5200 [facility] [place] [address] MCH (RBC) [Entitic mass] 30.6 pg Normal 27-34 [facility] Comment on above: Performed By: #### C BC ####[facility] ([id number])5200 [facility] [place] [address] MCHC (RBC) [Mass/Vol] 34.2 g/dL Normal 32-36 [facility] Comment on above: Performed By: #### C BC ####[facility] ([id number])5[address] [place] [facility] [place] [address] MCV (RBC) [Entitic vol] 90 fL Normal 80-100 [facility] Comment on above: Performed By: #### C BC ####[facility] ([id number])5200 [facility] [address] Platelet mean volume (Bld) [Entitic vol] 7.0 fL Normal 7-12 [facility] Comment on above: Performed By: #### C BC ####[facility] ([id number])5200 [facility] [place] [address] Platelets (Bld) [#/Vol] 813 10*3/uL High 150-450 [facility] Comment on above: Performed By: #### C BC ####[facility] ([id number])5200 [facility] [address] RBC COUNT 3.37 X10E12/L Low 4.10-5.70 [facility] Comment on above: Performed By: #### C BC ####[facility] ([id number])5200 [facility] [address] WBC (Bld) [#/Vol] 7.3 10*3/uL Normal 4.0-11.0 [facility] Comment on above: Performed By: #### C BC ####[facility] ([id number])5200 [facility] [address] COMPLETE BLOOD COUNTon 11-08 Erythrocyte distribution width (RBC) [Ratio] 15.7 % High 11.5-15.0 [facility] Comment on above: Performed By: #### C BC ####[facility] ([id number])5200 [facility] [address] Hematocrit (Bld) [Volume fraction] 31.8 % Low 39-49 [facility] Comment on above: Performed By: #### C BC ####[facility] ([id number])5200 [place] [address] Hemoglobin (Bld) [Mass/Vol] 11.0 g/dL Low 13.0-17.0 [facility] Comment on above: Performed By: #### C BC ####[facility] ([id number])5200 [place] [address] MCH (RBC) [Entitic mass] 31.2 pg Normal 27-34 [facility] Comment on above: Performed By: #### C BC ####[facility] ([id number])5[address] [place] [address] MCHC (RBC) [Mass/Vol] 34.7 g/dL Normal 32-36 [facility] Comment on above: Performed By: #### C BC ####[facility] ([id number])5200 [facility] [address] MCV (RBC) [Entitic vol] 90 fL Normal 80-100 [facility] Comment on above: Performed By: #### C BC ####[facility] ([id number])5200 [place] [address] Platelet mean volume (Bld) [Entitic vol] 7.1 fL Normal 7-12 [facility] Comment on above: Performed By: #### C BC ####[facility] ([id number])5200 [place] [address] Platelets (Bld) [#/Vol] 941 10*3/uL High 150-450 [facility] Comment on above: Performed By: #### C BC ####[facility] ([id number])5200 [place] [address] RBC COUNT 3.54 X10E12/L Low 4.10-5.70 [facility] Comment on above: Performed By: #### C BC ####[facility] ([id number])5200 [place] [address] WBC (Bld) [#/Vol] 8.5 10*3/uL Normal 4.0-11.0 [facility] Comment on above: Performed By: #### Kely BC ####[facility] ([id number])5200 [facility] [place] [address] BASIC METABOLIC PANLon 11-07 Anion gap [Moles/Vol] 7 mmol/L Normal 5-15 [facility] Comment on above: Performed By: #### C BC, BMP ####[facility] ([id number])5200 [place] [address]#### 2284-8, 2131-11 ####[facility] ([id number])[address] [address] Calcium [Mass/Vol] 9.5 mg/dL Normal 8.5-10.5 [facility] Comment on above: Performed By: #### Kely FELIX, BMP ####[facility] ([id number])5200 [place] [address]#### 2284-8, 2131-11 ####[facility] ([id number])[address], [address] [place] [address] Chloride [Moles/Vol] 106 mmol/L Normal 98-109 [facility] Comment on above: Performed By: #### Kely FELIX, BMP ####[facility] ([id number])5200 [place] [address]#### 2284-8, 2131-11 ####[facility] ([id number])[address], [address] [place] [address] CO2 [Moles/Vol] 23 mmol/L Normal 22-32 [facility] Comment on above: Performed By: #### C BC, BMP ####[facility] ([id number])5200 [place] [address]#### 2284-8, 2131-11 ####[facility] ([id number])[address], [address], [place] [address] Creatinine [Mass/Vol] 1.17 mg/dL Normal 0.60-1.30 [facility] Comment on above: Result Comment: METH OD TRACEABLE TO IDMS STANDARD Performed By: #### C ISIDRO, BMP ####[facility] ([id number])5200 [place] [address]#### 2284-8, 2131-11 ####[facility] ([id number])[address], [address] [place] [address] GFR/1.73 sq M.predicted among non-blacks MDRD (S/P/Bld) [Vol rate/Area] 76 mL/min/{1.73_m2} Normal >59 [facility] Comment on above: Result Comment: Repo rted eGFR is based on theCKD-EPI 2020 equation that doesnot use a race coefficient. Performed By: #### Kely FELIX, BMP ####[facility] ([id number])5199 [place] [address]#### 2284-8, 2131-11 ####[facility] ([id number])[address], [address] [place] [address] Glucose [Mass/Vol] 92 mg/dL Normal 65-99 [facility] Comment on above: Performed By: #### Kely FELIX, BMP ####[facility] ([id number])0 [place] [address]#### 2284-8, 2131-11 ####[facility] ([id number])[address], [address] [place] [address] Potassium [Moles/Vol] 4.2 mmol/L Normal 3.5-5.0 [facility] Comment on above: Performed By: #### Kely FELIX, BMP ####[facility] ([id number])0 [place] [address]#### 2284-8, 2131-11 ####[facility] ([id number])[address], [address] [place] [address] Sodium [Moles/Vol] 136 mmol/L Normal 134-146 [facility] Comment on above: Performed By: #### C BC, BMP ####[facility] ([id number])5200 [place] [address]#### 2284-8, 2131-11 ####[facility] ([id number])2130 [facility], [address] [place] [address] Urea nitrogen [Mass/Vol] 18 mg/dL Normal 5-23 [facility] Comment on above: Performed By: #### C ISIDRO, BMP ####[facility] ([id number])5200 [place] [address]#### 2284-8, 2131-11 ####[facility] ([id number])2130 [facility], [address] [place] [address] COMPLETE BLOOD COUNTon 11-07 Erythrocyte distribution width (RBC) [Ratio] 16.2 % High 11.5-15.0 [facility] Comment on above: Performed By: #### C ISIDRO, BMP ####[facility] ([id number])5200 [place] [address]#### 2284-8, 2131-11 ####[facility] ([id number])[address], [address] [place] [address] Hematocrit (Bld) [Volume fraction] 31.4 % Low 39-49 [facility] Comment on above: Performed By: #### C BC, BMP ####[facility] ([id number])5200 [place] [address]#### 2284-8, 2131-11 ####[facility] ([id number])[address], [address], [place] [address] Hemoglobin (Bld) [Mass/Vol] 10.8 g/dL Low 13.0-17.0 [facility] Comment on above: Performed By: #### Kely BC, BMP ####[facility] ([id number])5200 [place] [address]#### 2284-8, 2131-11 ####[facility] ([id number])0 [address] [address] [place] [address] MCH (RBC) [Entitic mass] 30.9 pg Normal 27-34 [facility] Comment on above: Performed By: #### Kely FELIX, BMP ####[facility] ([id number])5199 [place] [address]#### 2284-8, 2131-11 ####[facility] ([id number])[address]129 [address] [address] [place] [address] MCHC (RBC) [Mass/Vol] 34.3 g/dL Normal 32-36 [facility] Comment on above: Performed By: #### Kely FELIX, BMP ####[facility] ([id number])0 [place] [address]#### 2284-8, 2131-11 ####[facility] ([id number])0 [address] [address] [place] [address] MCV (RBC) [Entitic vol] 90 fL Normal 80-100 [facility] Comment on above: Performed By: #### Kely BC, BMP ####[facility] ([id number])5200 [place] [address]#### 2284-8, 2131-11 ####[facility] ([id number])0 [address] [address] [place] [address] Platelet mean volume (Bld) [Entitic vol] 7.1 fL Normal 7-12 [facility] Comment on above: Performed By: #### C BC, BMP ####[facility] ([id number])5200 [place] [address]#### 2284-8, 9 ####[facility] ([id number])[address], [address], [place] [address] Platelets (Bld) [#/Vol] 920 10*3/uL High 150-450 [facility] Comment on above: Performed By: #### C BC, BMP ####[facility] ([id number])5200 [place] [address]#### 2284-8, 9 ####[facility] ([id number])2130 [facility], [address], [place] [address] RBC COUNT 3.49 X10E12/L Low 4.10-5.70 [facility] Comment on above: Performed By: #### C BC, BMP ####[facility] ([id number])5200 [place] [address]#### 2284-8, 9 ####[facility] ([id number])2130 [facility], [address], [place] [address] WBC (Bld) [#/Vol] 8.5 10*3/uL Normal 4.0-11.0 [facility] Comment on above: Performed By: #### C BC, BMP ####[facility] ([id number])5200 [place] [address]#### 2284-8, 2131-11 ####[facility] ([id number])2130 [facility], [address], [place] [address] Folate [Mass/Vol]on 11-08-19 24 FOLIC ACID 10.6 ng/mL Normal >5.8 [facility] Comment on above: Result Comment: NEW REFERENCE RANGE Performed By: #### C BC, BMP ####[facility] ([id number])5200 [place] [address]#### 2284-8, 2131-11 ####[facility] ([id number])2130 [facility], [address] [place] [address] VITAMIN B12on 11-08-2023 Cobalamin (Vitamin B12) [Mass/Vol] 334 pg/mL Normal 180-914 [facility] Comment on above: Performed By: #### C BC, BMP ####[facility] ([id number])5200 [place] [address]#### 2284-8, 9 ####[facility] ([id number])0 [facility], [address] [place] [address] COMPLETE BLOOD COUNTon 11-06 Erythrocyte distribution width (RBC) [Ratio] 16.1 % High 11.5-15.0 [facility] Comment on above: Performed By: #### C BC, DIFFA, 6-4, 51936-7 ####[facility] ([id number])5200 [place] [address]#### FEPR ####[facility] ([id number])[address] [address] Hematocrit (Bld) [Volume fraction] 32.2 % Low 39-49 [facility] Comment on above: Performed By: #### C BC, DIFFA, 6-4, 50460-7 ####[facility] ([id number])5200 [place] [address]#### FEPR ####[facility] ([id number])2130 [facility], [address], [place] [address] Hemoglobin (Bld) [Mass/Vol] 11.1 g/dL Low 13.0-17.0 [facility] Comment on above: Performed By: #### C BC, DIFFA, 2276-4, 14027-7 ####[facility] ([id number])5200 [place] [address]#### FEPR ####[facility] ([id number])[address], [place] [address] MCH (RBC) [Entitic mass] 31.2 pg Normal 27-34 [facility] Comment on above: Performed By: #### C BC, DIFFA, 6-4, 17139-3 ####[facility] ([id number])5200 [place] [address]#### FEPR ####[facility] ([id number])[address], [address] [place] [address] MCHC (RBC) [Mass/Vol] 34.5 g/dL Normal 32-36 [facility] Comment on above: Performed By: #### C BC, DIFFA, 2275-4, 56299-1 ####[facility] ([id number])5200 [place] [address]#### FEPR ####[facility] ([id number])0 [address] [address] [place] [address] MCV (RBC) [Entitic vol] 90 fL Normal 80-100 [facility] Comment on above: Performed By: #### C BC, DIFFA, 6-4, 84539-1 ####[facility] ([id number])5200 [place] [address]#### FEPR ####[facility] ([id number])[address] [address] Platelet mean volume (Bld) [Entitic vol] 6.8 fL Low 7-12 [facility] Comment on above: Performed By: #### C BC, DIFFA, 6-4, 11935-5 ####[facility] ([id number])5200 [place] [address]#### FEPR ####[facility] ([id number])2130 [facility], [address] [place] [address] Platelets (Bld) [#/Vol] 932 10*3/uL High 150-450 [facility] Comment on above: Performed By: #### C BC, DIFFA, 2276-4, 30388-8 ####[facility] ([id number])5200 [place] [address]#### FEPR ####[facility] ([id number])2130 [facility], [address] [place] [address] RBC COUNT 3.56 X10E12/L Low 4.10-5.70 [facility] Comment on above: Performed By: #### C BC, DIFFA, 2276-4, 15581-7 ####[facility] ([id number])5200 [place] [address]#### FEPR ####[facility] ([id number])[address] [place] [address], [address] [address] WBC (Bld) [#/Vol] 8.3 10*3/uL Normal 4.0-11.0 [facility] Comment on above: Performed By: #### C BC, DIFFA, 2276-4, 57650-7 ####[facility] ([id number])5200 [place] [address]#### FEPR ####[facility] ([id number])2130 [facility], [address] [address] Clinical Pathology Blood Sme ar Reviewon 11-07-2023 Clinical Pathology Blood Smear Review Normal [facility] Comment on above: Result Comment: [facility] [address] [place] [address] Clinical Pathology ReportPatient Name:PARISH HALL JR.:1975 (Age: 48)Gender:MTaken:4Reported:11/15/2023hysician(s):Briana Michaels MD ([phone])Copy To: Rec. #:[id number]: #[id number] Pathologic DiagnosisPeripheral blood smear: The thrombocytosis may be reactive, however, an underlying myeloproliferative neoplasm cannot be excluded. Clinical correlation recommended. Report Electronically Signed Outlms/11/15/2023Sydney Dillon MD PhDInter[place] [address], License number: [id number].Clinical YyokwglT40.9, I63.9. BLOOD SMEAR EVALUATIONCBC (11/07/2023 0704): WBC = 8.3 X10E9/L; HGB = 11.1 g/dL; HCT = 32.2%; MCV = 90 fL; PLT = 932 X10E9/LBLOOD SMEAR:Leukocytes: Adequate granulocytes, lymphocytes and monocytes. Unremarkable leukocyte morphology.Erythrocytes: Normocytic, normochromic anemia. No significant RBC morphology.Platelets: Increased in number.Specimen(s) Received Blood Smear ReviewFee Codes(s):1; 78[address] DIFFERENTIALon 11-07-2023 ABSOLUTE BASOPHIL 0.2 X10E9/L Normal 0.0-0.2 [facility] Comment on above: Performed By: #### C BC, DIFFA, 2276-4, 41011-4 ####[facility] ([id number])[address] [place] [address]#### FEPR ####[facility] ([id number])[address] [place] [address], [place] [address] ABSOLUTE NEUTROPHIL 5.9 X10E9/L Normal 1.5-6.6 [facility] Comment on above: Performed By: #### C BC, DIFFA, 2276-4, 69460-4 ####[facility] ([id number])5200 [place] [address]#### FEPR ####[facility] ([id number])[address], [address] [place] [address] Basophils/100 WBC (Bld) 2.6 % Normal [facility] Comment on above: Performed By: #### C BC, DIFFA, 2276-4, 91401-3 ####[facility] ([id number])[address] [place] [address]#### FEPR ####[facility] ([id number])[address], [address] [place] [address] Eosinophils (Bld) [#/Vol] 0.2 10*3/uL Normal 0.0-0.4 [facility] Comment on above: Performed By: #### C BC, DIFFA, 6-4, 59521-6 ####[facility] ([id number])[address] [place] [address]#### FEPR ####[facility] ([id number])[address] [address] [place] [address] Eosinophils/100 WBC (Bld) 2.6 % Normal [facility] Comment on above: Performed By: #### C BC, DIFFA, 6-4, 98897-2 ####[facility] ([id number])[address] [place] [address]#### FEPR ####[facility] ([id number])[address] [address] [place] [address] Lymphocytes (Bld) [#/Vol] 1.1 10*3/uL Normal 1.0-3.5 [facility] Comment on above: Performed By: #### C BC, DIFFA, 2276-4, 00003-7 ####[facility] ([id number])[address] [place] [address]#### FEPR ####[facility] ([id number])[address] [address] Lymphocytes/100 WBC (Bld) 13.6 % Normal [facility] Comment on above: Performed By: #### C BC, DIFFA, 2276-4, 18244-8 ####[facility] ([id number])[address] [place] [address]#### FEPR ####[facility] ([id number])[address] [address] Monocytes (Bld) [#/Vol] 0.8 10*3/uL Normal 0-0.9 [facility] Comment on above: Performed By: #### C BC, DIFFA, 6-4, 41012-2 ####[facility] ([id number])[address] [place] [address]#### FEPR ####[facility] [facility] ([id number])[address] [address] Monocytes/100 WBC (Bld) 9.9 % Normal [facility] Comment on above: Performed By: #### C BC, DIFFA, 6-4, 24132-8 ####[facility] ([id number])[address] [place] [address]#### FEPR ####[facility] ([id number])[address] [address] Neutrophils/100 WBC (Bld) 71.3 % Normal [facility] Comment on above: Performed By: #### C BC, DIFFA, 6-4, 73938-8 ####[facility] ([id number])[address] [place] [address]#### FEPR ####[facility] ([id number])[address] [place] [address] FERRITINon 11-07-2023 Ferritin [Mass/Vol] 46 ng/mL Normal 24-336 [facility] Comment on above: Performed By: #### C BC, DIFFA, 2276-4, 27223-9 ####[facility] ([id number])[address] [place] [address]#### FEPR ####[facility] ([id number])[address], [address] [place] [address] IRON PROFILEon 11-07-2023 Iron [Mass/Vol] 75 ug/dL Normal 50-212 [facility] Comment on above: Performed By: #### C BC, DIFFA, 2276-4, 75609-1 ####[facility] ([id number])[address] [place] [address]#### FEPR ####[facility] ([id number])[address], [address] [place] [address] IRON BINDING 340 ug/dL Normal 250-425 [facility] Comment on above: Performed By: #### C BC, DIFFA, 2276-4, 99878-6 ####[facility] ([id number])[address] [place] [address]#### FEPR ####[facility] ([id number])[address], [address] [place] [address] IRON SATURATION 22 % SATURATION Normal 20-50 [facility] Comment on above: Performed By: #### C BC, DIFFA, 2276-4, 14394-7 ####[facility] ([id number])[address] [place] [address]#### FEPR ####[facility] ([id number])[address], [address] [place] [address] JAK2 gene p.[id number] Molgen Ql (Bld/Tiss)on 11-07-2023 JAK2 V617F MUTATION, BLOOD SEE COMMENTS 11/12/2023 01:30 PM Normal [facility] Comment on above: Result Comment: NOTE Test Result Flag Unit RefValue -------JAK2 V617F Mutation Detection, B JAK2 Result see interpretation JAK2 V617F Mutation Detection, B See Note Peripheral blood, JAK2 V617F mutation analysis: Negative for JAK2 V617F. A negative [id number] test result does not exclude the possibility of a myeloproliferative neoplasm (MPN). If clinical suspicion is high for primary myelofibrosis (PMF) or essential thrombocythemia (ET), consider additional testing for CALR with reflex to MPL (test ID: MPNCM). If clinical suspicion is high for polycythemia vera, the test JAK2 Exon 12 and Other Non-V617F Mutational Detection (test ID: JAKXB or JAKXM) could be considered. Clinicopathologic correlation is recommended for a definitive diagnosis. Signing Pathologist: Coleen Khan M.D. ADDITIONAL INFORMATION Method summary - JAK2 V617F analysis: Quantitative, allele-specific polymerase chain reaction (PCR) assay was performed using extracted genomic DNA to evaluate for the point mutation causing JAK2 V617F. The analytic sensitivity of this assay has been determined at 0.06% (see [facility] Interpretive Handbook for method details). This test was developed and its performance characteristics determined by [facility] in a manner consistent with CLIA requirements. This test has not been cleared or approved by the U.S. Food and Drug Administration. Test Performed by: [facility] - [address] [address] Tile Grader: Enrique Brewer Ph.D.; CLIA# [id number] Performed By: #### C SHEILA FELIX, 2276-4, 49878-2 ####[facility] ([id number])[address] [place] [address]#### FEPR ####[facility] ([id number])[address] [facility], [address] [place] [address] Narrative diagnostic report Molgen Lizandro (Bld/Tiss) [Interp]on 11-07-2023 BCR/ABL PCR w/Reflex SEE COMMENTS 11/12/2023 11:12 AM Normal [facility] Comment on above: Result Comment: NOTE Test Result Flag Unit RefValue -------BCR/ABL1 Reflex, Qual/Quant Specimen Type EDTA WHOLE BLOOD BCR/ABL1 Reflex Result see interpretation Interpretation See Note Peripheral blood, BCR/ABL1 mRNA analysis, qualitative: Negative. No BCR/ABL1 mRNA transcripts were detected. Method summary: The presence or absence of BCR/ABL1 mRNA transcripts was evaluated using a qualitative, reverse fluoroscope operator PCR-based assay. The assay detects nearly all published and theoretical BCR/ABL1 fusion forms including the common e13/e14-a2 (p210) and e1-a2 (p190) transcripts, as well as other rarer variants (e.g. e19-a2 (p230), e13/e14-a3, e1-a3, etc.). The limit of detection for this assay is 0.1%. Please contact the lab at [phone] with questions or if additional testing is required. See [facility] [employer] Test Catalog for additional method details. Signing Pathologist: Coleen Khan M.D. ADDITIONAL INFORMATION This test was developed and its performance characteristics determined by [facility] in a manner consistent with CLIA requirements. This test has not been cleared or approved by the U.S. Food and Drug Administration. Test Performed by: [facility] - [address] [address] Tile Grader: Enrique Brewer Ph.D.; CLIA# [id number] Performed By: #### 5 0398-7 ####[facility] ([id number])[address] [place] [address] comment (Bld) [Interp]on 11-07-2023 STAFF REVIEW NOTE Normal [facility] Comment on above: Result Comment: [facility] [employer] [facility] [address] [place] [address] Clinical Pathology ReportPatient Name:PARISH HALL JR.:1975 (Age:48)Gender:MTaken:4Reported:11/15/2023hysician(s):Briana Michaels MD ([phone])Copy To: Rec.#:[id number]: #[id number] Pathologic DiagnosisPeripheral blood smear: The thrombocytosis may be reactive, however,an underlying myeloproliferative neoplasm cannot be excluded.Clinical correlation recommended. Report Electronically Signed Outlms/11/15/2023Sydney Dillon MD PhDInter[place] [address], License number: [id number].Clinical AylgkwtE44.9, I63.9. BLOOD SMEAR EVALUATIONCBC (11/07/2023 0704): WBC = 8.3 X10E9/L; HGB = 11.1 g/dL; HCT= 32.2%; MCV = 90 fL; PLT = 932 X10E9/LBLOOD SMEAR:Leukocytes: Adequate granulocytes, lymphocytes and monocytes.Unremarkable leukocyte morphology.Erythrocytes: Normocytic, normochromic anemia. No significant RBCmorphology.Platelets: Increased in number.Specimen(s) ReceivedBlood Smear ReviewFee Codes(s):1; 13984 Performed By: #### 1 4869-2 ####[facility] ([id number])[address] [place] [address] BASIC METABOLIC PANLon 11-04 Anion gap [Moles/Vol] 7 mmol/L Normal 5-15 [facility] Comment on above: Performed By: #### C BC, BMP ####[facility] ([id number])[address] [facility] [place] [address] Calcium [Mass/Vol] 9.4 mg/dL Normal 8.5-10.5 [facility] Comment on above: Performed By: #### C BC, BMP ####[facility] ([id number])[address] [place] [address] Chloride [Moles/Vol] 106 mmol/L Normal 98-109 [facility] Comment on above: Performed By: #### C BC, BMP ####[facility] ([id number])[address] [place] [address] CO2 [Moles/Vol] 23 mmol/L Normal 22-32 [facility] Comment on above: Performed By: #### C BC, BMP ####[facility] ([id number])[address] [place] [address] Creatinine [Mass/Vol] 1.12 mg/dL Normal 0.60-1.30 [facility] Comment on above: Result Comment: METH OD TRACEABLE TO IDMS STANDARD Performed By: #### C BC, BMP ####[facility] ([id number])[address] [place] [address] GFR/1.73 sq M.predicted among non-blacks MDRD (S/P/Bld) [Vol rate/Area] 81 mL/min/{1.73_m2} Normal >59 [facility] Comment on above: Result Comment: Repo rted eGFR is based on theCKD-EPI 2020 equation that doesnot use a race coefficient. Performed By: #### C BC, BMP ####[facility] ([id number])[address] [place] [address] Glucose [Mass/Vol] 101 mg/dL High 65-99 [facility] Comment on above: Performed By: #### C BC, BMP ####[facility] ([id number])[address] [place] [address] Potassium [Moles/Vol] 4.2 mmol/L Normal 3.5-5.0 [facility] Comment on above: Performed By: #### C BC, BMP ####[facility] ([id number])[address] [place] [address] Sodium [Moles/Vol] 136 mmol/L Normal 134-146 [facility] Comment on above: Performed By: #### C BC, BMP ####[facility] ([id number])[address] [facility] [place] [address] Urea nitrogen [Mass/Vol] 22 mg/dL Normal 5-23 [facility] Comment on above: Performed By: #### C BC, BMP ####[facility] ([id number])5[address] [facility] [place] [address] COMPLETE BLOOD COUNTon 11-04 Erythrocyte distribution width (RBC) [Ratio] 16.0 % High 11.5-15.0 [facility] Comment on above: Performed By: #### C BC, BMP ####[facility] ([id number])[address] [facility] [place] [address] Hematocrit (Bld) [Volume fraction] 30.7 % Low 39-49 [facility] Comment on above: Performed By: #### C BC, BMP ####[facility] ([id number])[address] [facility] [address] Hemoglobin (Bld) [Mass/Vol] 10.6 g/dL Low 13.0-17.0 [facility] Comment on above: Performed By: #### C BC, BMP ####[facility] ([id number])[address] [facility] [place] [address] MCH (RBC) [Entitic mass] 30.9 pg Normal 27-34 [facility] Comment on above: Performed By: #### C BC, BMP ####[facility] ([id number])5[address] [facility] [place] [address] MCHC (RBC) [Mass/Vol] 34.5 g/dL Normal 32-36 [facility] Comment on above: Performed By: #### C BC, BMP ####[facility] ([id number])[address] [facility] [place] [address] MCV (RBC) [Entitic vol] 90 fL Normal 80-100 [facility] Comment on above: Performed By: #### C BC, BMP ####[facility] ([id number])[address] [place] [address] Platelet mean volume (Bld) [Entitic vol] 6.9 fL Low 7-12 [facility] Comment on above: Performed By: #### C BC, BMP ####[facility] ([id number])[address] [place] [address] Platelets (Bld) [#/Vol] 908 10*3/uL High 150-450 [facility] Comment on above: Performed By: #### C BC, BMP ####[facility] ([id number])[address] [place] [address] RBC COUNT 3.42 X10E12/L Low 4.10-5.70 [facility] Comment on above: Performed By: #### C BC, BMP ####[facility] ([id number])[address] [place] [address] WBC (Bld) [#/Vol] 9.6 10*3/uL Normal 4.0-11.0 [facility] Comment on above: Performed By: #### C BC, BMP ####[facility] ([id number])[address] [place] [address] CBC AND AUTO DIFFon 17- 24 ABSOLUTE BASOPHIL 0.1 X10E9/L Normal 0.0-0.2 [facility] Comment on above: Performed By: #### C BCA, CMP ####[facility] ([id number])[address] [place] [address]#### TSHR, 90071-8, 30247 ####[facility] ([id number])[address], [place] [address] ABSOLUTE NEUTROPHIL 8.1 X10E9/L High 1.5-6.6 [facility] Comment on above: Performed By: #### C BCA, CMP ####[facility] ([id number])0 [place] [address]#### CAROL, 45238-6, 3024-7 ####[facility] ([id number])[address], [place] [address] Basophils/100 WBC (Bld) 1.3 % Normal [facility] Comment on above: Performed By: #### C BCA, CMP ####[facility] ([id number])[address] [place] [address]#### CAROL, 26827-1, 3027 ####[facility] ([id number])[address] [address], [place] [address] Eosinophils (Bld) [#/Vol] 0.2 10*3/uL Normal 0.0-0.4 [facility] Comment on above: Performed By: #### C BCA, CMP ####[facility] ([id number])0 [place] [address]#### CAROL, 20797-2, 30247 ####[facility] ([id number])[address] [address], [place] [address] Eosinophils/100 WBC (Bld) 1.7 % Normal [facility] Comment on above: Performed By: #### C BCA, CMP ####[facility] ([id number])[address] [place] [address]#### CAROL, 30267-4, 3024-7 ####[facility] ([id number])[address] [address], [place] [address] Erythrocyte distribution width (RBC) [Ratio] 15.8 % High 11.5-15.0 [facility] Comment on above: Performed By: #### C BCA, CMP ####[facility] ([id number])[address] [place] [address]#### TSHR, 20301-9, 3024-7 ####[facility] ([id number])[address], [place] [address] Hematocrit (Bld) [Volume fraction] 30.5 % Low 39-49 [facility] Comment on above: Performed By: #### C BCA, CMP ####[facility] ([id number])[address] [place] [address]#### TSHR, 58302-8, 3024-7 ####[facility] ([id number])[address], [address] [place] [address] Hemoglobin (Bld) [Mass/Vol] 10.5 g/dL Low 13.0-17.0 [facility] Comment on above: Performed By: #### C BCA, CMP ####[facility] ([id number])[address] [place] [address]#### TSHR, 47395-3, 3024-7 ####[facility] ([id number])[address] [address] [place] [address] Lymphocytes (Bld) [#/Vol] 1.3 10*3/uL Normal 1.0-3.5 [facility] Comment on above: Performed By: #### C BCA, CMP ####[facility] ([id number])[address] [place] [address]#### TSHR, 72640-5, 3024-7 ####[facility] ([id number])[address], [place] [address] Lymphocytes/100 WBC (Bld) 11.6 % Normal [facility] Comment on above: Performed By: #### C BCA, CMP ####[facility] ([id number])[address] [place] [address]#### TSHR, 69128-0, 3024-7 ####[facility] ([id number])[address] [address] MCH (RBC) [Entitic mass] 30.7 pg Normal 27-34 [facility] Comment on above: Performed By: #### C BCA, CMP ####[facility] ([id number])[address] [place] [address]#### TSHR, 14221-0, 3024-7 ####[facility] ([id number])[address] [address] MCHC (RBC) [Mass/Vol] 34.3 g/dL Normal 32-36 [facility] Comment on above: Performed By: #### C BCA, CMP ####[facility] ([id number])[address] [place] [address]#### TSHR, 06650-0, 3024-7 ####[facility] ([id number])[address] [address] MCV (RBC) [Entitic vol] 89 fL Normal 80-100 [facility] Comment on above: Performed By: #### C BCA, CMP ####[facility] ([id number])[address] [place] [address]#### TSHR, 72638-7, 3024-7 ####[facility] ([id number])[address], [place] [address] Monocytes (Bld) [#/Vol] 1.5 10*3/uL High 0-0.9 [facility] Comment on above: Performed By: #### C BCA, CMP ####[facility] ([id number])[address] [place] [address]#### TSHR, 07774-2, 3023-7 ####[facility] ([id number])[address], [place] [address] Monocytes/100 WBC (Bld) 13.6 % Normal [facility] Comment on above: Performed By: #### C BCA, CMP ####[facility] ([id number])[address] [place] [address]#### TSHR, 47936-1, 3023-7 ####[facility] ([id number])[address], [place] [address] Neutrophils/100 WBC (Bld) 71.8 % Normal [facility] Comment on above: Performed By: #### C BCA, CMP ####[facility] ([id number])[address] [place] [address]#### TSHR, 38090-1, 3023-09 ####[facility] ([id number])[address], [place] [address] Platelet mean volume (Bld) [Entitic vol] 7.3 fL Normal 7-12 [facility] Comment on above: Performed By: #### C BCA, CMP ####[facility] ([id number])0 [place] [address]#### TSHR, 27299-8, 7 ####[facility] ([id number])[address] [address], [place] [address] Platelets (Bld) [#/Vol] 796 10*3/uL High 150-450 [facility] Comment on above: Performed By: #### C BCA, CMP ####[facility] ([id number])0 [place] [address]#### TSHR, 35511-3, 3023-7 ####[facility] ([id number])[address] [facility], [address], [place] [address] RBC COUNT 3.42 X10E12/L Low 4.10-5.70 [facility] Comment on above: Performed By: #### C BCA, CMP ####[facility] ([id number])[address] [place] [address]#### TSHR, 15733-4, 3024-7 ####[facility] ([id number])[address] [facility], [address] [place] [address] WBC (Bld) [#/Vol] 11.2 10*3/uL High 4.0-11.0 [facility] Comment on above: Performed By: #### C BCA, CMP ####[facility] ([id number])[address] [place] [address]#### CRAOL, 06353-4, 3024-7 ####[facility] ([id number])0 [facility], [address] [place] [address] COMPREHENSIVE METABOLIC PANE Chuy 11-03-2023 Albumin [Mass/Vol] 3.4 g/dL Normal 3.2-5.3 [facility] Comment on above: Performed By: #### C BCA, CMP ####[facility] ([id number])[address] [place] [address]#### TSHR, 68714-0, 3024-7 ####[facility] ([id number])[address] [facility], [address] [place] [address] ALP [Catalytic activity/Vol] 115 U/L Normal 39-130 [facility] Comment on above: Performed By: #### C BCA, CMP ####[facility] ([id number])[address] [place] [address]#### TSHR, 49213-3, 3024-7 ####[facility] ([id number])[address] [place] [address] ALT [Catalytic activity/Vol] 46 U/L High 0-40 [facility] Comment on above: Performed By: #### C BCA, CMP ####[facility] ([id number])[address] [place] [address]#### TSHR, 13884-9, 3024-7 ####[facility] ([id number])[address] [place] [address] Anion gap [Moles/Vol] 8 mmol/L Normal 5-15 [facility] Comment on above: Performed By: #### C BCA, CMP ####[facility] ([id number])0 [place] [address]#### TSHR, 72237-0, 3024-7 ####[facility] ([id number])[address] [address] [place] [address] AST [Catalytic activity/Vol] 21 U/L Normal 0-41 [facility] Comment on above: Performed By: #### C BCA, CMP ####[facility] ([id number])[address] [place] [address]#### TSHR, 85252-1, 3024-7 ####[facility] ([id number])[address] [address] [place] [address] Bilirubin [Mass/Vol] 0.3 mg/dL Normal 0.3-1.2 [facility] Comment on above: Performed By: #### C BCA, CMP ####[facility] ([id number])[address] [place] [address]#### TSHR, 37467-2, 3024-7 ####[facility] ([id number])[address] [address] [place] [address] Calcium [Mass/Vol] 9.0 mg/dL Normal 8.5-10.5 [facility] Comment on above: Performed By: #### C BCA, CMP ####[facility] ([id number])[address] [place] [address]#### TSHR, 99659-6, 3024-7 ####[facility] ([id number])[address], [place] [address] Chloride [Moles/Vol] 105 mmol/L Normal 98-109 [facility] Comment on above: Performed By: #### C BCA, CMP ####[facility] ([id number])[address] [place] [address]#### TSHR, 50144-7, 3024-7 ####[facility] ([id number])[address] [facility], [address], [place] [address] CO2 [Moles/Vol] 23 mmol/L Normal 22-32 [facility] Comment on above: Performed By: #### C BCA, CMP ####[facility] ([id number])[address] [place] [address]#### TSHR, 19253-7, 3024-7 ####[facility] ([id number])[address] [facility], [address], [place] [address] Creatinine [Mass/Vol] 1.19 mg/dL Normal 0.60-1.30 [facility] Comment on above: Result Comment: METH OD TRACEABLE TO IDMS STANDARD Performed By: #### C BCA, CMP ####[facility] ([id number])[address] [place] [address]#### TSHR, 17431-4, 3024-7 ####[facility] ([id number])[address], [address] [place] [address] GFR/1.73 sq M.predicted among non-blacks MDRD (S/P/Bld) [Vol rate/Area] 75 mL/min/{1.73_m2} Normal >59 [facility] Comment on above: Result Comment: Repo rted eGFR is based on theD-EPI 2020 equation that doesnot use a race coefficient. Performed By: #### C BCA, CMP ####[facility] ([id number])5200 [place] [address]#### TSHR, 77448-0, 3024-7 ####[facility] ([id number])[address], [place] [address] Glucose [Mass/Vol] 130 mg/dL High 65-99 [facility] Comment on above: Performed By: #### C BCA, CMP ####[facility] ([id number])0 [place] [address]#### TSHR, 77530-8, 3024-7 ####[facility] ([id number])[address], [place] [address] Potassium [Moles/Vol] 4.1 mmol/L Normal 3.5-5.0 [facility] Comment on above: Performed By: #### C BCA, CMP ####[facility] ([id number])0 [place] [address]#### TSHR, 88163-1, 3024-7 ####[facility] ([id number])[address], [place] [address] Protein [Mass/Vol] 6.5 g/dL Normal 6.0-8.0 [facility] Comment on above: Performed By: #### C BCA, CMP ####[facility] ([id number])5200 [place] [address]#### TSHR, 31650-7, 3024-7 ####[facility] ([id number])[address] [place] [address] Sodium [Moles/Vol] 136 mmol/L Normal 134-146 [facility] Comment on above: Performed By: #### C BCA, CMP ####[facility] ([id number])5[address] [place] [address]#### TSHR, 56897-0, 3024-7 ####[facility] ([id number])[address], [address] [place] [address] Urea nitrogen [Mass/Vol] 20 mg/dL Normal 5-23 [facility] Comment on above: Performed By: #### C BCA, CMP ####[facility] ([id number])5[address] [place] [address]#### TSHR, 26615-3, 3024-7 ####[facility] ([id number])[address], [address] [place] [address] FREE T4on 11-03-2023 Free T4 [Mass/Vol] 1.16 ng/dL Normal 0.61-1.60 [facility] Comment on above: Performed By: #### C BCA, CMP ####[facility] ([id number])5[address] [place] [address]#### TSHR, 15342-3, 302-7 ####[facility] ([id number])[address], [address] [address] TSH WITH REFLEXon 11-03-2023 TSH 4.73 uIU/mL High 0.49-4.67 [facility] Comment on above: Performed By: #### C BCA, CMP ####[facility] ([id number])[address] [place] [address]#### TSHR, 13287-9, 3024-7 ####[facility] ([id number])[address], [address] [place] [address] Vitamin D+Metabolites [Mass/ Vol]on 11-03-2023 VITAMIN D 25 HYD TOT 38.3 ng/mL Normal 30-100 [facility] Comment on above: Result Comment: Davida min D status 25 [place] Vitamin D Deficiency <20 ng/mLInsufficiency 20-29 ng/mLSufficiency 30-100 ng/mLToxicity >100 ng/mLNOTE: A pediatric reference range has not beenestablished by the endless track vehicle supervisor of this kit.The [place] [employer] recommendsa Vitamin D level of = or >20ng/mL in infantsand children. Performed By: #### C BCA, CMP ####[facility] ([id number])[address] [place] [address]#### TSHR, 37290-2, 3024-7 ####[facility] ([id number])[address], [address], [place] [address] BASIC METABOLIC PANLon 11-01 Anion gap [Moles/Vol] 10 mmol/L Normal 5-15 [facility] Comment on above: Performed By: #### Kely WONG BMP, 51142-9 ####[facility] ([id number])[address] [address], [place] [address] Calcium [Mass/Vol] 9.3 mg/dL Normal 8.5-10.5 [facility] Comment on above: Performed By: #### Kely WONG BMP, 29756-7 ####[facility] ([id number])[address] [address], [place] [address] Chloride [Moles/Vol] 102 mmol/L Normal 98-109 [facility] Comment on above: Performed By: #### Kely WONG, BMP, 21353-3 ####[facility] ([id number])[address], [address], [place] [address] CO2 [Moles/Vol] 22 mmol/L Normal 22-32 [facility] Comment on above: Performed By: #### Kely WONG BMP, ####[facility] ([id number])[address] [address], [place] [address] Creatinine [Mass/Vol] 1.24 mg/dL Normal 0.60-1.30 [facility] Comment on above: Result Comment: METH OD TRACEABLE TO IDMS STANDARD Performed By: #### C RUBI WONG, ####[facility] ([id number])[address] [address] GFR/1.73 sq M.predicted among non-blacks MDRD (S/P/Bld) [Vol rate/Area] 71 mL/min/{1.73_m2} Normal >59 [facility] Comment on above: Result Comment: Repo rted eGFR is based on theCKD-EPI 2020 equation that doesnot use a race coefficient. Performed By: #### C JUDITH [facility], ####[facility] ([id number])[address] [address] [place] [address] Glucose [Mass/Vol] 89 mg/dL Normal 65-99 [facility] Comment on above: Performed By: #### C JUDITH [facility], ####[facility] ([id number])[address] [address], [place] [address] Potassium [Moles/Vol] 3.7 mmol/L Normal 3.5-5.0 [facility] Comment on above: Performed By: #### C RUBI WONG, ####[facility] ([id number])[address] [address] Sodium [Moles/Vol] 134 mmol/L Normal 134-146 [facility] Comment on above: Performed By: #### C RUBI WONG, ####[facility] ([id number])[address] [address] Urea nitrogen [Mass/Vol] 22 mg/dL Normal 5-23 [facility] Comment on above: Performed By: #### C RUBI WONG, ####[facility] ([id number])[address], [address], [place] [address] CBC AND AUTO DIFFon 11-02-19 24 ABSOLUTE BASOPHIL 0.2 X10E9/L Normal 0.0-0.2 [facility] Comment on above: Performed By: #### RUBI Edge BCA, ####[facility] ([id number])[address], [address], [place] [address] ABSOLUTE NEUTROPHIL 9.8 X10E9/L High 1.5-6.6 [facility] Comment on above: Performed By: #### RUBI Edge BCA, ####[facility] ([id number])[address], [address], [place] [address] Basophils/100 WBC (Bld) 1.3 % Normal [facility] Comment on above: Performed By: #### RUBI Edge BCA, ####[facility] ([id number])[address], [address], [place] [address] Eosinophils (Bld) [#/Vol] 0.2 10*3/uL Normal 0.0-0.4 [facility] Comment on above: Performed By: #### RUBI Edge BCA, ####[facility] ([id number])[address], [address], [place] [address] Eosinophils/100 WBC (Bld) 1.7 % Normal [facility] Comment on above: Performed By: #### RUBI Edge BCA, ####[facility] ([id number])[address], [address], [place] [address] Erythrocyte distribution width (RBC) [Ratio] 16.0 % High 11.5-15.0 [facility] Comment on above: Performed By: #### C RUBI WONG, ####[facility] ([id number])[address], [address] [place] [address] Hematocrit (Bld) [Volume fraction] 32.4 % Low 39-49 [facility] Comment on above: Performed By: #### C RUBI WONG, ####[facility] ([id number])[address], [address], [place] [address] Hemoglobin (Bld) [Mass/Vol] 11.1 g/dL Low 13.0-17.0 [facility] Comment on above: Performed By: #### RUBI Edge BCA, ####[facility] ([id number])[address] [address], [place] [address] Lymphocytes (Bld) [#/Vol] 1.4 10*3/uL Normal 1.0-3.5 [facility] Comment on above: Performed By: #### RUBI Edge BCA, ####[facility] ([id number])[address], [address], [place] [address] Lymphocytes/100 WBC (Bld) 10.0 % Normal [facility] Comment on above: Performed By: #### RUBI Edge BCA, ####[facility] ([id number])[address], [place] [address] MCH (RBC) [Entitic mass] 31.0 pg Normal 27-34 [facility] Comment on above: Performed By: #### RUBI Edge BCA, ####[facility] ([id number])[address] [address] [address] MCHC (RBC) [Mass/Vol] 34.1 g/dL Normal 32-36 [facility] Comment on above: Performed By: #### Kely WONG BMP, ####[facility] ([id number])[address], [address] [place] [address] MCV (RBC) [Entitic vol] 91 fL Normal 80-100 [facility] Comment on above: Performed By: #### C JUDITH, BMP, ####[facility] ([id number])[address], [address] [address] Monocytes (Bld) [#/Vol] 2.0 10*3/uL High 0-0.9 [facility] Comment on above: Performed By: #### Kely WONG BMP, ####[facility] ([id number])[address], [address], [place] [address] Monocytes/100 WBC (Bld) 15.0 % Normal [facility] Comment on above: Performed By: #### Kely WONG [facility], ####[facility] ([id number])[address], [address], [place] [address] Neutrophils/100 WBC (Bld) 72.0 % Normal [facility] Comment on above: Performed By: #### Kely WONG, BMP, ####[facility] ([id number])[address], [address] [place] [address] Platelet mean volume (Bld) [Entitic vol] 7.8 fL Normal 7-12 [facility] Comment on above: Performed By: #### Kely WONG, BMP, ####[facility] ([id number])[address], [address] [place] [address] Platelets (Bld) [#/Vol] 799 10*3/uL High 150-450 [facility] Comment on above: Performed By: #### Kely WONG, BMP, ####[facility] ([id number])[address], [address] [address] RBC COUNT 3.57 X10E12/L Low 4.10-5.70 [facility] Comment on above: Performed By: #### RUBI Edge BCA, ####[facility] ([id number])[address], [address], [place] [address] WBC (Bld) [#/Vol] 13.6 10*3/uL High 4.0-11.0 [facility] Comment on above: Performed By: #### RUBI Edge BCA, ####[facility] ([id number])[address], [address] [address] MAGNESIUMon 11-02-2023 Magnesium [Mass/Vol] 1.8 mg/dL Normal 1.8-2.6 [facility] Comment on above: Performed By: #### RUBI Edge BCA, ####[facility] ([id number])[address] [place] [address] BASIC METABOLIC PANLon 10-31 Anion gap [Moles/Vol] 8 mmol/L Normal 5-15 [facility] Comment on above: Performed By: #### RUBI Edge BCA, ####[facility] ([id number])[address] [place] [address] Calcium [Mass/Vol] 9.0 mg/dL Normal 8.5-10.5 [facility] Comment on above: Performed By: #### RUBI Edge BCA, ####[facility] ([id number])[address], [address] [place] [address] Chloride [Moles/Vol] 104 mmol/L Normal 98-109 [facility] Comment on above: Performed By: #### RUBI Edge BCA, ####[facility] ([id number])[address], [address], [place] [address] CO2 [Moles/Vol] 22 mmol/L Normal 22-32 [facility] Comment on above: Performed By: #### C RUBI WONG, ####[facility] ([id number])[address], [address], [place] [address] Creatinine [Mass/Vol] 1.36 mg/dL High 0.60-1.30 [facility] Comment on above: Result Comment: METH OD TRACEABLE TO IDMS STANDARD Performed By: #### C RUBI WONG, ####[facility] ([id number])[address] [place] [address] GFR/1.73 sq M.predicted among non-blacks MDRD (S/P/Bld) [Vol rate/Area] 64 mL/min/{1.73_m2} Normal >59 [facility] Comment on above: Result Comment: Repo rted eGFR is based on theCKD-EPI 2020 equation that doesnot use a race coefficient. Performed By: #### C RUBI WONG, ####[facility] ([id number])[address], [address], [place] [address] Glucose [Mass/Vol] 113 mg/dL High 65-99 [facility] Comment on above: Performed By: #### RUBI Edge BCA, ####[facility] ([id number])[address] [address], [place] [address] Potassium [Moles/Vol] 3.9 mmol/L Normal 3.5-5.0 [facility] Comment on above: Performed By: #### C RUBI WONG, ####[facility] ([id number])[address], [address], [place] [address] Sodium [Moles/Vol] 134 mmol/L Normal 134-146 [facility] Comment on above: Performed By: #### C RUBI WONG, ####[facility] ([id number])[address] [address] [place] [address] Urea nitrogen [Mass/Vol] 20 mg/dL Normal 5-23 [facility] Comment on above: Performed By: #### RUBI Edge BCA, ####[facility] ([id number])[address] [address] CBC AND AUTO DIFFon 11-01-19 24 Eosinophils (Bld) [#/Vol] 0.1 10*3/uL Normal 0.0-0.4 [facility] Comment on above: Performed By: #### RUBI Edge BCA, ####[facility] ([id number])[address] [address] Eosinophils/100 WBC (Bld) 1.0 % Normal [facility] Comment on above: Performed By: #### RUBI Edge BCA, ####[facility] ([id number])[address] [address] Erythrocyte distribution width (RBC) [Ratio] 16.0 % High 11.5-15.0 [facility] Comment on above: Performed By: #### RUBI Edge BCA, ####[facility] ([id number])[address] [address] Hematocrit (Bld) [Volume fraction] 28.8 % Low 39-49 [facility] Comment on above: Performed By: #### RUBI Edge BCA, ####[facility] ([id number])[address] [address] Hemoglobin (Bld) [Mass/Vol] 9.8 g/dL Low 13.0-17.0 [facility] Comment on above: Performed By: #### Kely WONG [facility], ####[facility] ([id number])[address] [address] [place] [address] Lymphocytes (Bld) [#/Vol] 1.1 10*3/uL Normal 1.0-3.5 [facility] Comment on above: Performed By: #### RUBI Edge BCA, ####[facility] ([id number])[address], [address] [place] [address] Lymphocytes/100 WBC (Bld) 8.0 % Normal [facility] Comment on above: Performed By: #### RUBI Edge BCA, ####[facility] ([id number])[address], [address] [address] MCH (RBC) [Entitic mass] 30.4 pg Normal 27-34 [facility] Comment on above: Performed By: #### Kely WONG [facility], ####[facility] ([id number])[address] [address] MCHC (RBC) [Mass/Vol] 34.2 g/dL Normal 32-36 [facility] Comment on above: Performed By: #### RUBI Edge BCA, ####[facility] ([id number])[address] [address] MCV (RBC) [Entitic vol] 89 fL Normal 80-100 [facility] Comment on above: Performed By: #### Kely WONG, BMP, ####[facility] ([id number])[address] [address] Monocytes (Bld) [#/Vol] 1.2 10*3/uL High 0-0.9 [facility] Comment on above: Performed By: #### Kely WONG BMP, ####[facility] ([id number])[address], [place] [address] Monocytes/100 WBC (Bld) 9.0 % Normal [facility] Comment on above: Performed By: #### RUBI Edge BCA, ####[facility] ([id number])[address], [address], [place] [address] MYELOCYTE 2.0 % Normal [facility] Comment on above: Performed By: #### RUBI Edge BCA, ####[facility] ([id number])[address], [address], [place] [address] Neutrophils (Bld) [#/Vol] 11.0 10*3/uL High 1.5-6.6 [facility] Comment on above: Performed By: #### RUBI Edge BCA, ####[facility] ([id number])[address], [address], [place] [address] Platelet mean volume (Bld) [Entitic vol] 7.6 fL Normal 7-12 [facility] Comment on above: Performed By: #### RUBI Edge BCA, ####[facility] ([id number])[address], [place] [address] Platelets (Bld) [#/Vol] 787 10*3/uL High 150-450 [facility] Comment on above: Performed By: #### RUBI Edge BCA, ####[facility] ([id number])[address], [address], [place] [address] POLYCHROMASIA 1+ Abnormal NONE [facility] Comment on above: Performed By: #### RUBI Edge BCA, ####[facility] ([id number])[address], [address], [place] [address] RBC COUNT 3.23 X10E12/L Low 4.10-5.70 [facility] Comment on above: Performed By: #### RUBI Edge BCA, ####[facility] ([id number])[address], [address] [address] SEG NEUTROPHIL 80.0 % Normal [facility] Comment on above: Performed By: #### RUBI Edge BCA, ####[facility] ([id number])[address], [address] [place] [address] WBC (Bld) [#/Vol] 13.7 10*3/uL High 4.0-11.0 [facility] Comment on above: Performed By: #### RUBI Edge BCA, ####[facility] ([id number])[address], [address], [place] [address] MAGNESIUMon 11-01-2023 Magnesium [Mass/Vol] 1.8 mg/dL Normal 1.8-2.6 [facility] Comment on above: Performed By: #### RUBI Edge BCA, ####[facility] ([id number])[address], [address] [place] [address] BASIC METABOLIC PANLon 10-30 Anion gap [Moles/Vol] 9 mmol/L Normal 5-15 [facility] Comment on above: Performed By: #### RUBI Edge BCA, ####[facility] ([id number])[address] [place] [address] Calcium [Mass/Vol] 8.9 mg/dL Normal 8.5-10.5 [facility] Comment on above: Performed By: #### RUBI Edge BCA, ####[facility] ([id number])[address], [address] [place] [address] Chloride [Moles/Vol] 105 mmol/L Normal 98-109 [facility] Comment on above: Performed By: #### C JUDITH [facility], ####[facility] ([id number])[address] [address] CO2 [Moles/Vol] 22 mmol/L Normal 22-32 [facility] Comment on above: Performed By: #### C JUDITH [facility], ####[facility] ([id number])[address] [address] Creatinine [Mass/Vol] 1.31 mg/dL High 0.60-1.30 [facility] Comment on above: Result Comment: METH OD TRACEABLE TO IDMS STANDARD Performed By: #### C RUBI WONG, ####[facility] ([id number])[address] [address] GFR/1.73 sq M.predicted among non-blacks MDRD (S/P/Bld) [Vol rate/Area] 67 mL/min/{1.73_m2} Normal >59 [facility] Comment on above: Result Comment: Repo rted eGFR is based on theCKD-EPI 2020 equation that doesnot use a race coefficient. Performed By: #### C RUBI WONG, ####[facility] ([id number])[address] [address] Glucose [Mass/Vol] 103 mg/dL High 65-99 [facility] Comment on above: Performed By: #### C JUDITH [facility], ####[facility] ([id number])[address] [address] Potassium [Moles/Vol] 3.7 mmol/L Normal 3.5-5.0 [facility] Comment on above: Performed By: #### C RUBI WONG, ####[facility] ([id number])[address] [address] [place] [address] Sodium [Moles/Vol] 136 mmol/L Normal 134-146 [facility] Comment on above: Performed By: #### Kely WONG [facility], ####[facility] ([id number])[address] [address] Urea nitrogen [Mass/Vol] 18 mg/dL Normal 5-23 [facility] Comment on above: Performed By: #### C JUDITH [facility], ####[facility] ([id number])[address] [address] CBC AND AUTO DIFFon 10-31-19 24 Eosinophils (Bld) [#/Vol] 0.2 10*3/uL Normal 0.0-0.4 [facility] Comment on above: Performed By: #### RUBI Edge BCA, ####[facility] ([id number])[address] [address] Eosinophils/100 WBC (Bld) 1.0 % Normal [facility] Comment on above: Performed By: #### Kely WONG [facility], ####[facility] ([id number])[address] [address] Erythrocyte distribution width (RBC) [Ratio] 15.6 % High 11.5-15.0 [facility] Comment on above: Performed By: #### RUBI Edge BCA, ####[facility] ([id number])[address] [address] Hematocrit (Bld) [Volume fraction] 31.2 % Low 39-49 [facility] Comment on above: Performed By: #### RUBI Edge BCA, ####[facility] ([id number])[address] [address] Hemoglobin (Bld) [Mass/Vol] 10.4 g/dL Low 13.0-17.0 [facility] Comment on above: Performed By: #### RUBI Edge BCA, ####[facility] ([id number])[address] [address] Lymphocytes (Bld) [#/Vol] 1.4 10*3/uL Normal 1.0-3.5 [facility] Comment on above: Performed By: #### RUBI Edge BCA, ####[facility] ([id number])[address], [place] [address] Lymphocytes/100 WBC (Bld) 9.0 % Normal [facility] Comment on above: Performed By: #### RUBI Edge BCA, ####[facility] ([id number])[address] [place] [address] MCH (RBC) [Entitic mass] 30.0 pg Normal 27-34 [facility] Comment on above: Performed By: #### RUBI Edge BCA, ####[facility] ([id number])[address] [address] [place] [address] MCHC (RBC) [Mass/Vol] 33.3 g/dL Normal 32-36 [facility] Comment on above: Performed By: #### RUBI Edge BCA, ####[facility] ([id number])[address] [address] [place] [address] MCV (RBC) [Entitic vol] 90 fL Normal 80-100 [facility] Comment on above: Performed By: #### RUBI Edge BCA, ####[facility] ([id number])[address] [place] [address] Monocytes (Bld) [#/Vol] 0.8 10*3/uL Normal 0-0.9 [facility] Comment on above: Performed By: #### RUBI Edge BCA, ####[facility] ([id number])[address] [place] [address] Monocytes/100 WBC (Bld) 5.0 % Normal [facility] Comment on above: Performed By: #### RUBI Edge BCA, ####[facility] ([id number])[address], [place] [address] MYELOCYTE 2.0 % Normal [facility] Comment on above: Performed By: #### RUBI Edge BCA, ####[facility] ([id number])[address], [place] [address] Neutrophils (Bld) [#/Vol] 13.4 10*3/uL High 1.5-6.6 [facility] Comment on above: Performed By: #### RUBI Edge BCA, ####[facility] ([id number])[address] [address] [address] Platelet mean volume (Bld) [Entitic vol] 7.6 fL Normal 7-12 [facility] Comment on above: Performed By: #### RUBI Edge BCA, ####[facility] ([id number])[address] [address], [place] [address] Platelets (Bld) [#/Vol] 743 10*3/uL High 150-450 [facility] Comment on above: Performed By: #### RUBI Edge BCA, ####[facility] ([id number])[address] [place] [address] RBC COUNT 3.46 X10E12/L Low 4.10-5.70 [facility] Comment on above: Performed By: #### RUBI Edge BCA, ####[facility] ([id number])[address], [place] [address] RBC morphology finding Nom (Bld) REVIEWED Normal [facility] Comment on above: Performed By: #### RUBI Edge BCA, ####[facility] ([id number])[address], [place] [address] SEG NEUTROPHIL 83.0 % Normal [facility] Comment on above: Performed By: #### C JUDITH, [facility], ####[facility] ([id number])[address], [address] [place] [address] WBC (Bld) [#/Vol] 16.1 10*3/uL High 4.0-11.0 [facility] Comment on above: Performed By: #### Kely WONG, [facility], ####[place] [facility] ([id number])[address], [address] [place] [address] FL SWALLOW MOTILITY FUNCTION on 10-31-2023 FL SWALLOW MOTILITY FUNCTION Normal [facility] MAGNESIUMon 10-31-2023 Magnesium [Mass/Vol] 1.8 mg/dL Normal 1.8-2.6 [facility] Comment on above: Performed By: #### Kely WONG, [facility], ####[facility] ([id number])[address] [address] [place] [address] URINALYSISon 10-31-2023 Bilirubin Ql (U) Negative Normal NEG [facility] Comment on above: Performed By: #### U A ####[facility] ([id number])[address] [address] [place] [address]20 BLOOD/HGB Negative Normal NEG [facility] Comment on above: Performed By: #### U A ####[facility] ([id number])[address], [address] [place] [address] 011[address] Color (U) YELLOW Normal YELLOW [facility] Comment on above: Performed By: #### U A ####[facility] ([id number])[address], [address], [place] [address] Glucose Ql (U) Negative Normal NEG [facility] Comment on above: Performed By: #### U A ####[facility] ([id number])[address], [address] [place] [address] Ketones Ql (U) Negative Normal NEG [facility] Comment on above: Performed By: #### U A ####[facility] ([id number])[address], [address] [address] Leukocyte esterase Test strip Ql (U) Trace Abnormal NEG [facility] Comment on above: Performed By: #### U A ####[facility] ([id number])[address], [address] [address] MUCOUS PRESENT Abnormal NONE [facility] Comment on above: Performed By: #### U A ####[facility] ([id number])[address], [address] [place] [address] Nitrite Ql (U) Negative Normal NEG [facility] Comment on above: Performed By: #### U A ####[facility] ([id number])[address], [address] [place] [address] pH (U) 6.5 [pH] Normal 5.0-8.5 [facility] Comment on above: Performed By: #### U A ####[facility] ([id number])[address], [address] [place] [address] Protein Ql (U) Negative Normal NEG [facility] Comment on above: Performed By: #### U A ####[facility] ([id number])[address], [address] [place] [address] 31815 R.B.CELLS 1 /hpf Normal 0-5 [facility] Comment on above: Performed By: #### U A ####[facility] ([id number])[address], [address] [place] [address]57 Specific gravity (U) [Rel density] 1.012 Normal 1.003-1.035 [facility] Comment on above: Performed By: #### U A ####[facility] ([id number])[address], [address] [place] [address] 81337 TURBIDITY CLEAR Normal CLEAR [facility] Comment on above: Performed By: #### U A ####[facility] ([id number])[address], [address] [place] [address] Urobilinogen (U) [Mass/Vol] mg/dL Normal <1.1 [facility] Comment on above: Performed By: #### U A ####[facility] ([id number])[address] [address] [place] [address]957 W.B.CELLS 8 /hpf High 0-5 [facility] Comment on above: Performed By: #### U A ####[facility] ([id number])[address] [address] [place] [address] 74447 XR CHEST 2 VWSon 10-31-2023 XR CHEST 2 VWS Normal [facility] BASIC METABOLIC PANLon 10-29 Anion gap [Moles/Vol] 9 mmol/L Normal 5-15 [facility] Comment on above: Performed By: #### [place], [address]-5, 2777-1, CBCA ####[facility] ([id number])[address], [address] [place] [address], [place] [address] Calcium [Mass/Vol] 9.0 mg/dL Normal 8.5-10.5 [facility] Comment on above: Performed By: #### B JANUSZ, , 2776-03, CBCA ####[facility] ([id number])[address] [address] [place] [address] 40345 Chloride [Moles/Vol] 104 mmol/L Normal 98-109 [facility] Comment on above: Performed By: #### B JANUSZ, , 2776-03, CBCA ####[facility] ([id number])[address], [address], [place] [address] CO2 [Moles/Vol] 22 mmol/L Normal 22-32 [facility] Comment on above: Performed By: #### B JANUSZ, , 2776-03, CBCA ####[facility] ([id number])[address] [address] [place] [address] Creatinine [Mass/Vol] 1.29 mg/dL Normal 0.60-1.30 [facility] Comment on above: Result Comment: METH OD TRACEABLE TO IDMS STANDARD Performed By: #### B JANUSZ, , 2776-03, CBCA ####[facility] ([id number])[address] [address] GFR/1.73 sq M.predicted among non-blacks MDRD (S/P/Bld) [Vol rate/Area] 68 mL/min/{1.73_m2} Normal >59 [facility] Comment on above: Result Comment: Repo rted eGFR is based on theCKD-EPI 2020 equation that doesnot use a race coefficient. Performed By: #### B JANUSZ, , 2776-03, CBCA ####[facility] ([id number])[address] [address] [place] [address] 70585 Glucose [Mass/Vol] 94 mg/dL Normal 65-99 [facility] Comment on above: Performed By: #### B JANUSZ, , 2776-03, CBCA ####[facility] ([id number])[address], [address], [place] [address] Potassium [Moles/Vol] 3.7 mmol/L Normal 3.5-5.0 [facility] Comment on above: Performed By: #### B JANUSZ, , 2776-03, CBCA ####[facility] ([id number])[address], [address] [place] [address] 56758 Sodium [Moles/Vol] 135 mmol/L Normal 134-146 [facility] Comment on above: Performed By: #### B JANUSZ, , 2776-03, CBCA ####[facility] ([id number])[address], [address] [place] [address] 27573 Urea nitrogen [Mass/Vol] 18 mg/dL Normal 5-23 [facility] Comment on above: Performed By: #### B JANUSZ, , 2776-03, CBCA ####[facility] ([id number])[address], [address] [place] [address] 40409 CBC AND AUTO DIFFon 10-30-19 24 ABSOLUTE BASOPHIL 0.2 X10E9/L Normal 0.0-0.2 [facility] Comment on above: Performed By: #### B JANUSZ, , 2776-03, CBCA ####[facility] ([id number])[address], [address] [place] [address] 31688 ABSOLUTE NEUTROPHIL 10.5 X10E9/L High 1.5-6.6 [facility] Comment on above: Performed By: #### B JANUSZ, , 2776-03, CBCA ####[facility] ([id number])[address], [address] [place] [address] 07334 Basophils/100 WBC (Bld) 1.3 % Normal [facility] Comment on above: Performed By: #### B JANUSZ, , 2776-03, CBCA ####[facility] ([id number])[address], [address] [place] [address] 93824 Eosinophils (Bld) [#/Vol] 0.3 10*3/uL Normal 0.0-0.4 [facility] Comment on above: Performed By: #### B JANUSZ, , 2776-03, CBCA ####[facility] ([id number])[address], [address] [place] [address] 52545 Eosinophils/100 WBC (Bld) 2.3 % Normal [facility] Comment on above: Performed By: #### Concepción BOUDREAUX, , 2776-03, CBCA ####[facility] ([id number])[address] [address] [place] [address] 61118 Erythrocyte distribution width (RBC) [Ratio] 15.6 % High 11.5-15.0 [facility] Comment on above: Performed By: #### Concepción BOUDREAUX, , 2776-03, CBCA ####[facility] ([id number])[address] [address] [place] [address] 34246 Hematocrit (Bld) [Volume fraction] 32.2 % Low 39-49 [facility] Comment on above: Performed By: #### Concepción BOUDREAUX, , 2776-03, CBCA ####[facility] ([id number])[address] [address] [place] [address] 00805 Hemoglobin (Bld) [Mass/Vol] 10.8 g/dL Low 13.0-17.0 [facility] Comment on above: Performed By: #### Concepción BOUDREAUX, , 2776-03, CBCA ####[facility] ([id number])[address] [address] [place] [address] 33274 Lymphocytes (Bld) [#/Vol] 1.3 10*3/uL Normal 1.0-3.5 [facility] Comment on above: Performed By: #### B JANUSZ, , 2776-03, CBCA ####[facility] ([id number])[address], [address] [place] [address] Lymphocytes/100 WBC (Bld) 9.1 % Normal [facility] Comment on above: Performed By: #### Concepción BOUDREAUX, , 2776-03, CBCA ####[facility] ([id number])[address], [address] [place] [address] MCH (RBC) [Entitic mass] 30.3 pg Normal 27-34 [facility] Comment on above: Performed By: #### Concepción BOUDREAUX, , 2776-03, CBCA ####[facility] ([id number])[address], [address] [place] [address] MCHC (RBC) [Mass/Vol] 33.7 g/dL Normal 32-36 [facility] Comment on above: Performed By: #### Concepción BOUDREAUX, , 2776-03, CBCA ####[facility] ([id number])[address], [address] [place] [address] MCV (RBC) [Entitic vol] 90 fL Normal 80-100 [facility] Comment on above: Performed By: #### Concepción BOUDREAUX, , 2776-03, CBCA ####[facility] ([id number])[address], [address] [place] [address] Monocytes (Bld) [#/Vol] 1.7 10*3/uL High 0-0.9 [facility] Comment on above: Performed By: #### Concepción BOUDREAUX, , 2776-03, CBCA ####[facility] ([id number])[address], [address] [place] [address] 64665 Monocytes/100 WBC (Bld) 11.9 % Normal [facility] Comment on above: Performed By: #### B JANUSZ, , 2776-03, CBCA ####[facility] ([id number])[address], [address] [place] [address] 38400 Neutrophils/100 WBC (Bld) 75.4 % Normal [facility] Comment on above: Performed By: #### Concepción BOUDREAUX, , 2776-03, CBCA ####[facility] ([id number])[address], [address] [place] [address] 57861 Platelet mean volume (Bld) [Entitic vol] 7.8 fL Normal 7-12 [facility] Comment on above: Performed By: #### Concepción BOUDREAUX, , 2776-03, CBCA ####[facility] ([id number])[address], [address] [place] [address] 53812 Platelets (Bld) [#/Vol] 757 10*3/uL High 150-450 [facility] Comment on above: Performed By: #### Concepción BOUDREAUX, , 2776-03, CBCA ####[facility] ([id number])[address], [address] [place] [address] 39548 RBC COUNT 3.58 X10E12/L Low 4.10-5.70 [facility] Comment on above: Performed By: #### Concepción BOUDREAUX, , 2776-03, CBCA ####[facility] ([id number])[address], [address] [place] [address] 49841 WBC (Bld) [#/Vol] 13.9 10*3/uL High 4.0-11.0 [facility] Comment on above: Performed By: #### Concepción BOUDREAUX, , 2776-03, CBCA ####[facility] ([id number])[address], [address], [place] [address] MAGNESIUMon 10-30-2023 Magnesium [Mass/Vol] 1.9 mg/dL Normal 1.8-2.6 [facility] Comment on above: Performed By: #### B MP, , 2776-03, CBCA ####[facility] ([id number])[address], [address], [place] [address] PHOSPHORUSon 10-30-2023 Phosphate [Mass/Vol] 4.1 mg/dL Normal 2.4-4.9 [facility] Comment on above: Performed By: #### B JANUSZ, , 2776-03, CBCA ####[facility] ([id number])[address], [address], [place] [address] BASIC METABOLIC PANLon 10-28 Anion gap [Moles/Vol] 11 mmol/L Normal 5-15 [facility] Comment on above: Performed By: #### C JUDITH, BMP, , 2776-03 ####[facility] ([id number])[address], [address], [place] [address] Calcium [Mass/Vol] 8.6 mg/dL Normal 8.5-10.5 [facility] Comment on above: Performed By: #### C BCA, BMP, , 2776-03 ####[facility] ([id number])[address], [address], [place] [address] Chloride [Moles/Vol] 103 mmol/L Normal 98-109 [facility] Comment on above: Performed By: #### C BCA, BMP, , 2776-03 ####[facility] ([id number])[address], [address], [place] [address] CO2 [Moles/Vol] 21 mmol/L Low 22-32 [facility] Comment on above: Performed By: #### C BCA, BMP, , 2776-03 ####[facility] ([id number])[address] [address], [place] [address] Creatinine [Mass/Vol] 1.22 mg/dL Normal 0.60-1.30 [facility] Comment on above: Result Comment: METH OD TRACEABLE TO IDMS STANDARD Performed By: #### C JUDITH BMP, , 2776-03 ####[facility] ([id number])[address] [address] GFR/1.73 sq M.predicted among non-blacks MDRD (S/P/Bld) [Vol rate/Area] 73 mL/min/{1.73_m2} Normal >59 [facility] Comment on above: Result Comment: Repo rted eGFR is based on theCKD-EPI 2020 equation that doesnot use a race coefficient. Performed By: #### C JUDITH, BMP, , 2776-03 ####[facility] ([id number])[address] [address] Glucose [Mass/Vol] 115 mg/dL High 65-99 [facility] Comment on above: Performed By: #### C RUBI WONG, , 2776-03 ####[facility] ([id number])[address] [address] Potassium [Moles/Vol] 3.7 mmol/L Normal 3.5-5.0 [facility] Comment on above: Performed By: #### C JUDITH, BMP, , 2776-03 ####[facility] ([id number])[address] [address] Sodium [Moles/Vol] 135 mmol/L Normal 134-146 [facility] Comment on above: Performed By: #### C BCA, BMP, , 2776-03 ####[facility] ([id number])[address], [address], [place] [address] Urea nitrogen [Mass/Vol] 18 mg/dL Normal 5-23 [facility] Comment on above: Performed By: #### C JUDITH, BMP, , 2776-03 ####[facility] ([id number])[address], [address] [place] [address] 90858 CBC AND AUTO DIFFon 10-29-19 24 ABSOLUTE BASOPHIL 0.2 X10E9/L Normal 0.0-0.2 [facility] Comment on above: Performed By: #### C JUDITH, BMP, , 2776-03 ####[facility] ([id number])[address], [address], [place] [address] ABSOLUTE NEUTROPHIL 12.7 X10E9/L High 1.5-6.6 [facility] Comment on above: Performed By: #### C JUDITH, BMP, , 2776-03 ####[facility] ([id number])[address], [address] [place] [address] 31865 Basophils/100 WBC (Bld) 1.2 % Normal [facility] Comment on above: Performed By: #### C JUDITH, BMP, , 2776-03 ####[facility] ([id number])[address], [address] [place] [address] 82595 Eosinophils (Bld) [#/Vol] 0.4 10*3/uL Normal 0.0-0.4 [facility] Comment on above: Performed By: #### C BCA, BMP, , 2776-03 ####[facility] ([id number])[address], [address], [place] [address] Eosinophils/100 WBC (Bld) 2.2 % Normal [facility] Comment on above: Performed By: #### C BCA, BMP, , 2776-03 ####[facility] ([id number])[address] [address], [place] [address] Erythrocyte distribution width (RBC) [Ratio] 15.7 % High 11.5-15.0 [facility] Comment on above: Performed By: #### C JUDITH, [facility], , 2776-03 ####[facility] ([id number])[address] [address] [place] [address] Hematocrit (Bld) [Volume fraction] 31.3 % Low 39-49 [facility] Comment on above: Performed By: #### C JUDITH, [facility], , 2776-03 ####[facility] ([id number])[address] [address], [place] [address] Hemoglobin (Bld) [Mass/Vol] 10.4 g/dL Low 13.0-17.0 [facility] Comment on above: Performed By: #### C JUDITH, [facility], , 2776-03 ####[facility] ([id number])[address] [address] Lymphocytes (Bld) [#/Vol] 1.3 10*3/uL Normal 1.0-3.5 [facility] Comment on above: Performed By: #### Kely WONG, [facility], , 2776-03 ####[facility] ([id number])[address] [address] [place] [address] 6[address] Lymphocytes/100 WBC (Bld) 7.7 % Normal [facility] Comment on above: Performed By: #### C JUDITH, BMP, , 2776-03 ####[facility] ([id number])[address] [address] [address] MCH (RBC) [Entitic mass] 30.0 pg Normal 27-34 [facility] Comment on above: Performed By: #### C JUDITH, BMP, , 2776-03 ####[facility] ([id number])[address], [address] [place] [address] MCHC (RBC) [Mass/Vol] 33.2 g/dL Normal 32-36 [facility] Comment on above: Performed By: #### C JUDITH, BMP, , 2776-03 ####[facility] ([id number])[address], [address] [place] [address] MCV (RBC) [Entitic vol] 90 fL Normal 80-100 [facility] Comment on above: Performed By: #### Kely WONG, BMP, , 2776-03 ####[facility] ([id number])[address] [place] [address] Monocytes (Bld) [#/Vol] 1.8 10*3/uL High 0-0.9 [facility] Comment on above: Performed By: #### Kely WONG, BMP, , 2776-03 ####[facility] ([id number])[address], [address] [place] [address] Monocytes/100 WBC (Bld) 11.2 % Normal [facility] Comment on above: Performed By: #### Kely WONG, BMP, , 2776-03 ####[facility] ([id number])[address], [address] [place] [address] Neutrophils/100 WBC (Bld) 77.7 % Normal [facility] Comment on above: Performed By: #### C JUDITH, BMP, , 2776-03 ####[facility] ([id number])[address], [address] [place] [address] Platelet mean volume (Bld) [Entitic vol] 7.7 fL Normal 7-12 [facility] Comment on above: Performed By: #### C JUDITH, BMP, , 2776-03 ####[facility] ([id number])[address], [address] [place] [address] Platelets (Bld) [#/Vol] 720 10*3/uL High 150-450 [facility] Comment on above: Performed By: #### C JUDITH, BMP, , 2776-03 ####[facility] ([id number])[address], [place] [address] RBC COUNT 3.46 X10E12/L Low 4.10-5.70 [facility] Comment on above: Performed By: #### Kely WONG, BMP, , 2776-03 ####[facility] ([id number])[address], [address] [place] [address] WBC (Bld) [#/Vol] 16.4 10*3/uL High 4.0-11.0 [facility] Comment on above: Performed By: #### Kely WONG, RUBI, , 2776-03 ####[facility] ([id number])[address], [address] [place] [address] MAGNESIUMon 10-29-2023 Magnesium [Mass/Vol] 1.9 mg/dL Normal 1.8-2.6 [facility] Comment on above: Performed By: #### Kely WONG, BMP, , 2776-03 ####[facility] ([id number])[address], [place] [address] PHOSPHORUSon 10-29-2023 Phosphate [Mass/Vol] 3.5 mg/dL Normal 2.4-4.9 [facility] Comment on above: Performed By: #### Kely WONG, BMP, , 2776-03 ####[facility] ([id number])[address], [place] [address] BASIC METABOLIC PANLon 10-27 Anion gap [Moles/Vol] 10 mmol/L Normal 5-15 [facility] Comment on above: Performed By: #### C BCA, BMP, , 2776-03 ####[facility] ([id number])[address], [place] [address] Calcium [Mass/Vol] 9.0 mg/dL Normal 8.5-10.5 [facility] Comment on above: Performed By: #### C JUDITH, BMP, , 2776-03 ####[facility] ([id number])[address], [place] [address] Chloride [Moles/Vol] 101 mmol/L Normal 98-109 [facility] Comment on above: Performed By: #### C JUDITH, BMP, , 2776-03 ####[facility] ([id number])[address], [address] [place] [address] CO2 [Moles/Vol] 25 mmol/L Normal 22-32 [facility] Comment on above: Performed By: #### C BCA, BMP, , 2776-03 ####[facility] ([id number])[address], [address] [place] [address] Creatinine [Mass/Vol] 1.37 mg/dL High 0.60-1.30 [facility] Comment on above: Result Comment: METH OD TRACEABLE TO IDMS STANDARD Performed By: #### C JUDITH, BMP, , 2776-03 ####[facility] ([id number])[address], [address] [place] [address] GFR/1.73 sq M.predicted among non-blacks MDRD (S/P/Bld) [Vol rate/Area] 63 mL/min/{1.73_m2} Normal >59 [facility] Comment on above: Result Comment: Repo rted eGFR is based on theD-EPI 2020 equation that doesnot use a race coefficient. Performed By: #### C RUBI WONG, , 2776-03 ####[facility] ([id number])[address], [address] [address] Glucose [Mass/Vol] 106 mg/dL High 65-99 [facility] Comment on above: Performed By: #### C RUBI WONG, , 2776-03 ####[facility] ([id number])[address] [address] [place] [address] Potassium [Moles/Vol] 3.7 mmol/L Normal 3.5-5.0 [facility] Comment on above: Performed By: #### C RUBI WONG, , 2776-03 ####[facility] ([id number])[address], [place] [address] Sodium [Moles/Vol] 136 mmol/L Normal 134-146 [facility] Comment on above: Performed By: #### C RUBI WONG, , 2776-03 ####[facility] ([id number])[address] [address] [place] [address] Urea nitrogen [Mass/Vol] 23 mg/dL Normal 5-23 [facility] Comment on above: Performed By: #### C JUDITH BMP, , 2776-03 ####[facility] ([id number])[address] [address] [place] [address] CBC AND AUTO DIFFon 10-28-19 24 ABSOLUTE BASOPHIL 0.2 X10E9/L Normal 0.0-0.2 [facility] Comment on above: Performed By: #### C JUDITH, RUBI, , 2776-03 ####[facility] LAB ([id number])[address], [place] [address] ABSOLUTE NEUTROPHIL 10.7 X10E9/L High 1.5-6.6 [facility] Comment on above: Performed By: #### C JUDITH BMP, , 2776-03 ####[facility] ([id number])[address], [place] [address] Basophils/100 WBC (Bld) 1.5 % Normal [facility] Comment on above: Performed By: #### C JUDITH, BMP, , 2776-03 ####[facility] ([id number])[address], [place] [address] Eosinophils (Bld) [#/Vol] 0.3 10*3/uL Normal 0.0-0.4 [facility] Comment on above: Performed By: #### Kely WONG, BMP, , 2776-03 ####[facility] ([id number])[address] [address], [place] [address] Eosinophils/100 WBC (Bld) 1.9 % Normal [facility] Comment on above: Performed By: #### Kely WONG, BMP, , 2776-03 ####[facility] ([id number])[address] [address], [place] [address] Erythrocyte distribution width (RBC) [Ratio] 15.4 % High 11.5-15.0 [facility] Comment on above: Performed By: #### C JUDITH, BMP, , 2776-03 ####[facility] ([id number])[address], [address] [address] Hematocrit (Bld) [Volume fraction] 32.2 % Low 39-49 [facility] Comment on above: Performed By: #### Kely WONG, BMP, , 2776-03 ####[facility] ([id number])[address], [address] [place] [address] Hemoglobin (Bld) [Mass/Vol] 10.6 g/dL Low 13.0-17.0 [facility] Comment on above: Performed By: #### C JUDITH, BMP, , 2776-03 ####[facility] ([id number])[address] [address] [place] [address] Lymphocytes (Bld) [#/Vol] 1.4 10*3/uL Normal 1.0-3.5 [facility] Comment on above: Performed By: #### C JUDITH, BMP, , 2776-03 ####[facility] ([id number])[address] [address] [place] [address] Lymphocytes/100 WBC (Bld) 10.2 % Normal [facility] Comment on above: Performed By: #### C JUDITH, BMP, , 2776-03 ####[facility] ([id number])[address] [address] [place] [address] MCH (RBC) [Entitic mass] 29.8 pg Normal 27-34 [facility] Comment on above: Performed By: #### C JUDITH, BMP, , 2776-03 ####[facility] ([id number])[address] [address] [place] [address] MCHC (RBC) [Mass/Vol] 33.0 g/dL Normal 32-36 [facility] Comment on above: Performed By: #### C JUDITH, BMP, , 2776-03 ####[facility] ([id number])[address] [address] MCV (RBC) [Entitic vol] 90 fL Normal 80-100 [facility] Comment on above: Performed By: #### C JUDITH, BMP, , 2776-03 ####[facility] ([id number])[address] [place] [address] Monocytes (Bld) [#/Vol] 1.5 10*3/uL High 0-0.9 [facility] Comment on above: Performed By: #### C JUDITH, BMP, , 2776-03 ####[facility] ([id number])[address], [address], [place] [address] Monocytes/100 WBC (Bld) 10.4 % Normal [facility] Comment on above: Performed By: #### Kely WONG, BMP, , 2776-03 ####[facility] ([id number])[address], [address] [address] Neutrophils/100 WBC (Bld) 76.0 % Normal [facility] Comment on above: Performed By: #### Kely WONG, BMP, , 2776-03 ####[facility] ([id number])[address] [address] [address] Platelet mean volume (Bld) [Entitic vol] 7.9 fL Normal 7-12 [facility] Comment on above: Performed By: #### Kely WONG, BMP, , 2776-03 ####[facility] ([id number])[address] [address] [place] [address] Platelets (Bld) [#/Vol] 696 10*3/uL High 150-450 [facility] Comment on above: Performed By: #### Kely BCA, BMP, , 2776-03 ####[facility] ([id number])[address] [address], [place] [address] RBC COUNT 3.56 X10E12/L Low 4.10-5.70 [facility] Comment on above: Performed By: #### Kely BCA, BMP, , 2776-03 ####[facility] ([id number])[address], [address] [address] WBC (Bld) [#/Vol] 14.1 10*3/uL High 4.0-11.0 [facility] Comment on above: Performed By: #### C JUDITH, BMP, , 2776-03 ####[facility] ([id number])[address], [address] [place] [address], [place] [address] FL SWALLOW MOTILITY FUNCTION on 10-28-2023 FL SWALLOW MOTILITY FUNCTION Normal [facility] MAGNESIUMon 10-28-2023 Magnesium [Mass/Vol] 2.0 mg/dL Normal 1.8-2.6 [facility] Comment on above: Performed By: #### C JUDITH BMP, , 2776-03 ####[facility] ([id number])[address], [address] [place] [address] PHOSPHORUSon 10-28-2023 Phosphate [Mass/Vol] 3.7 mg/dL Normal 2.4-4.9 [facility] Comment on above: Performed By: #### C JUDITH, BMP, , 2776-03 ####[facility] ([id number])[address] [address] BASIC METABOLIC PANLon 10-26 Anion gap [Moles/Vol] 12 mmol/L Normal 5-15 [facility] Comment on above: Performed By: #### C JUDITH, BMP, ####[facility] ([id number])[address], [address] [address] Calcium [Mass/Vol] 8.6 mg/dL Normal 8.5-10.5 [facility] Comment on above: Performed By: #### Kely WONG, BMP, ####[facility] ([id number])[address], [address], [place] [address] Chloride [Moles/Vol] 104 mmol/L Normal 98-109 [facility] Comment on above: Performed By: #### RUBI Edge BCA, ####[facility] ([id number])[address] [place] [address] CO2 [Moles/Vol] 23 mmol/L Normal 22-32 [facility] Comment on above: Performed By: #### RUBI Edge BCA, ####[facility] ([id number])[address] [address] [address] Creatinine [Mass/Vol] 1.43 mg/dL High 0.60-1.30 [facility] Comment on above: Result Comment: METH OD TRACEABLE TO IDMS STANDARD Performed By: #### RUBI Edge BCA, ####[facility] ([id number])[address] [address] GFR/1.73 sq M.predicted among non-blacks MDRD (S/P/Bld) [Vol rate/Area] 60 mL/min/{1.73_m2} Normal >59 [facility] Comment on above: Result Comment: Repo rted eGFR is based on theCKD-EPI 2020 equation that doesnot use a race coefficient. Performed By: #### C RUBI WONG, ####[facility] ([id number])[address] [address], [place] [address] Glucose [Mass/Vol] 99 mg/dL Normal 65-99 [facility] Comment on above: Performed By: #### RUBI Edge BCA, ####[facility] ([id number])[address] [address] [address] Potassium [Moles/Vol] 3.7 mmol/L Normal 3.5-5.0 [facility] Comment on above: Performed By: #### C RUBI WONG, ####[facility] ([id number])[address], [place] [address] Sodium [Moles/Vol] 139 mmol/L Normal 134-146 [facility] Comment on above: Performed By: #### C RUBI WONG, ####[facility] ([id number])[address], [address] [place] [address] Urea nitrogen [Mass/Vol] 18 mg/dL Normal 5-23 [facility] Comment on above: Performed By: #### RUBI Edge BCA, ####[facility] ([id number])[address], [address] [place] [address] CBC AND AUTO DIFFon 08-20 24 ABSOLUTE BASOPHIL 0.1 X10E9/L Normal 0.0-0.2 [facility] Comment on above: Performed By: #### Kely WONG [facility], ####[facility] ([id number])[address] [address] [place] [address] ABSOLUTE NEUTROPHIL 10.8 X10E9/L High 1.5-6.6 [facility] Comment on above: Performed By: #### RUBI Edge BCA, ####[facility] ([id number])[address] [address] Basophils/100 WBC (Bld) 1.0 % Normal [facility] Comment on above: Performed By: #### RUBI Edge BCA, ####[facility] ([id number])[address] [address] Eosinophils (Bld) [#/Vol] 0.2 10*3/uL Normal 0.0-0.4 [facility] Comment on above: Performed By: #### RUBI Edge BCA, ####[facility] ([id number])[address] [address] [place] [address] Eosinophils/100 WBC (Bld) 1.3 % Normal [facility] Comment on above: Performed By: #### Kely WONG BMP, ####[facility] ([id number])[address] [address] [place] [address] Erythrocyte distribution width (RBC) [Ratio] 15.4 % High 11.5-15.0 [facility] Comment on above: Performed By: #### C JUDITH BMP, ####[facility] ([id number])[address] [address] [place] [address] Hematocrit (Bld) [Volume fraction] 30.2 % Low 39-49 [facility] Comment on above: Performed By: #### RUBI Edge BCA, ####[facility] ([id number])[address] [address] [place] [address] Hemoglobin (Bld) [Mass/Vol] 10.1 g/dL Low 13.0-17.0 [facility] Comment on above: Performed By: #### Kely WONG BMP, ####[facility] ([id number])[address] [address] [place] [address] Lymphocytes (Bld) [#/Vol] 1.3 10*3/uL Normal 1.0-3.5 [facility] Comment on above: Performed By: #### Kely WONG BMP, ####[facility] ([id number])[address] [address] [address] Lymphocytes/100 WBC (Bld) 9.4 % Normal [facility] Comment on above: Performed By: #### Kely WONG BMP, ####[facility] ([id number])[address] [address], [place] [address] MCH (RBC) [Entitic mass] 30.0 pg Normal 27-34 [facility] Comment on above: Performed By: #### RUBI Edge BCA, ####[facility] ([id number])[address], [place] [address] MCHC (RBC) [Mass/Vol] 33.5 g/dL Normal 32-36 [facility] Comment on above: Performed By: #### RUBI Edge BCA, ####[facility] ([id number])[address] [place] [address] MCV (RBC) [Entitic vol] 90 fL Normal 80-100 [facility] Comment on above: Performed By: #### RUBI Edge BCA, ####[facility] ([id number])[address] [place] [address] Monocytes (Bld) [#/Vol] 1.3 10*3/uL High 0-0.9 [facility] Comment on above: Performed By: #### RUBI Edge BCA, ####[facility] ([id number])[address] [place] [address] Monocytes/100 WBC (Bld) 9.2 % Normal [facility] Comment on above: Performed By: #### RUBI Edge BCA, ####[facility] ([id number])[address], [place] [address] Neutrophils/100 WBC (Bld) 79.1 % Normal [facility] Comment on above: Performed By: #### RUBI Edge BCA, ####[facility] ([id number])[address], [place] [address] Platelet mean volume (Bld) [Entitic vol] 7.8 fL Normal 7-12 [facility] Comment on above: Performed By: #### RUBI Edge BCA, ####[facility] ([id number])[address] [address], [place] [address] Platelets (Bld) [#/Vol] 689 10*3/uL High 150-450 [facility] Comment on above: Performed By: #### RUBI Edge BCA, ####[facility] ([id number])[address] [address] RBC COUNT 3.38 X10E12/L Low 4.10-5.70 [facility] Comment on above: Performed By: #### RUBI Edge BCA, ####[facility] ([id number])[address] [address] [place] [address] WBC (Bld) [#/Vol] 13.7 10*3/uL High 4.0-11.0 [facility] Comment on above: Performed By: #### RUBI Edge BCA, ####[facility] ([id number])[address] [address], [place] [address] MAGNESIUMon 10-27-2023 Magnesium [Mass/Vol] 2.0 mg/dL Normal 1.8-2.6 [facility] Comment on above: Performed By: #### RUBI Edge BCA, ####[facility] ([id number])[address] [address] [place] [address] BASIC METABOLIC PANLon 10-25 Anion gap [Moles/Vol] 8 mmol/L Normal 5-15 [facility] Comment on above: Performed By: #### RUBI Edge BCA, ####[facility] ([id number])[address] [address] [place] [address] Calcium [Mass/Vol] 8.7 mg/dL Normal 8.5-10.5 [facility] Comment on above: Performed By: #### C JUDITH [facility], ####[facility] ([id number])[address], [place] [address] Chloride [Moles/Vol] 106 mmol/L Normal 98-109 [facility] Comment on above: Performed By: #### C JUDITH BMP, ####[facility] ([id number])[address] [address] CO2 [Moles/Vol] 25 mmol/L Normal 22-32 [facility] Comment on above: Performed By: #### C RUBI WONG, ####[facility] ([id number])[address], [place] [address] Creatinine [Mass/Vol] 1.09 mg/dL Normal 0.60-1.30 [facility] Comment on above: Result Comment: METH OD TRACEABLE TO IDMS STANDARD Performed By: #### C RUBI WONG, ####[facility] ([id number])[address] [address] [place] [address] GFR/1.73 sq M.predicted among non-blacks MDRD (S/P/Bld) [Vol rate/Area] 83 mL/min/{1.73_m2} Normal >59 [facility] Comment on above: Result Comment: Repo rted eGFR is based on theCKD-EPI 2020 equation that doesnot use a race coefficient. Performed By: #### C BCA, RUBI, ####[facility] ([id number])[address] [address] [place] [address] Glucose [Mass/Vol] 103 mg/dL High 65-99 [facility] Comment on above: Performed By: #### C BCA, BMP, ####[facility] ([id number])[address], [place] [address] Potassium [Moles/Vol] 3.8 mmol/L Normal 3.5-5.0 [facility] Comment on above: Performed By: #### RUBI Edge BCA, ####[facility] ([id number])[address], [place] [address] Sodium [Moles/Vol] 139 mmol/L Normal 134-146 [facility] Comment on above: Performed By: #### RUBI Edge BCA, ####[facility] ([id number])[address], [place] [address] Urea nitrogen [Mass/Vol] 20 mg/dL Normal 5-23 [facility] Comment on above: Performed By: #### RUBI Edge BCA, ####[facility] ([id number])[address], [place] [address] CBC AND AUTO DIFFon 10-26-19 24 ABSOLUTE BASOPHIL 0.1 X10E9/L Normal 0.0-0.2 [facility] Comment on above: Performed By: #### RUBI Edge BCA, ####[facility] ([id number])[address], [place] [address] ABSOLUTE NEUTROPHIL 6.6 X10E9/L Normal 1.5-6.6 [facility] Comment on above: Performed By: #### RUBI Edge BCA, ####[facility] ([id number])[address], [place] [address] Basophils/100 WBC (Bld) 1.0 % Normal [facility] Comment on above: Performed By: #### RUBI Edge BCA, ####[facility] ([id number])[address], [place] [address] Eosinophils (Bld) [#/Vol] 0.3 10*3/uL Normal 0.0-0.4 [facility] Comment on above: Performed By: #### C RUBI WONG, ####[facility] ([id number])[address] [place] [address] Eosinophils/100 WBC (Bld) 3.7 % Normal [facility] Comment on above: Performed By: #### C RUBI WONG, ####[facility] ([id number])[address] [address] Erythrocyte distribution width (RBC) [Ratio] 15.8 % High 11.5-15.0 [facility] Comment on above: Performed By: #### C RUBI WONG, ####[facility] ([id number])[address] [place] [address] Hematocrit (Bld) [Volume fraction] 26.4 % Low 39-49 [facility] Comment on above: Performed By: #### C RUBI WONG, ####[facility] ([id number])[address] [place] [address] Hemoglobin (Bld) [Mass/Vol] 9.2 g/dL Low 13.0-17.0 [facility] Comment on above: Performed By: #### C RUBI WONG, ####[facility] ([id number])[address] [place] [address] Lymphocytes (Bld) [#/Vol] 1.3 10*3/uL Normal 1.0-3.5 [facility] Comment on above: Performed By: #### C RUBI WONG, ####[facility] ([id number])[address] [place] [address] Lymphocytes/100 WBC (Bld) 14.1 % Normal [facility] Comment on above: Performed By: #### C JUDITH BMP, ####[facility] ([id number])[address], [place] [address] MCH (RBC) [Entitic mass] 31.3 pg Normal 27-34 [facility] Comment on above: Performed By: #### Kely WONG BMP, ####[facility] ([id number])[address] [address] MCHC (RBC) [Mass/Vol] 34.8 g/dL Normal 32-36 [facility] Comment on above: Performed By: #### Kely WONG BMP, ####[facility] ([id number])[address], [place] [address] MCV (RBC) [Entitic vol] 90 fL Normal 80-100 [facility] Comment on above: Performed By: #### Kely WONG BMP, ####[facility] ([id number])[address], [place] [address] Monocytes (Bld) [#/Vol] 0.8 10*3/uL Normal 0-0.9 [facility] Comment on above: Performed By: #### Kely WONG BMP, ####[facility] ([id number])[address] [address], [place] [address] Monocytes/100 WBC (Bld) 9.2 % Normal [facility] Comment on above: Performed By: #### Kely WONG BMP, ####[facility] ([id number])[address] [address], [place] [address] Neutrophils/100 WBC (Bld) 72.0 % Normal [facility] Comment on above: Performed By: #### Kely WONG, BMP, ####[facility] ([id number])[address], [place] [address] Platelet mean volume (Bld) [Entitic vol] 7.7 fL Normal 7-12 [facility] Comment on above: Performed By: #### RUBI Edge BCA, ####[facility] ([id number])[address], [place] [address] Platelets (Bld) [#/Vol] 549 10*3/uL High 150-450 [facility] Comment on above: Performed By: #### RUBI Edge BCA, ####[facility] ([id number])[address], [place] [address] RBC COUNT 2.94 X10E12/L Low 4.10-5.70 [facility] Comment on above: Performed By: #### RUBI Edge BCA, ####[facility] ([id number])[address] [address] [place] [address] WBC (Bld) [#/Vol] 9.2 10*3/uL Normal 4.0-11.0 [facility] Comment on above: Performed By: #### RUBI Edge BCA, ####[facility] ([id number])[address] [address] [place] [address] MAGNESIUMon 10-26-2023 Magnesium [Mass/Vol] 2.0 mg/dL Normal 1.8-2.6 [facility] Comment on above: Performed By: #### RUBI Edge BCA, ####[facility] ([id number])[address] [place] [address] POTASSIUMon 10-26-2023 Potassium [Moles/Vol] 3.7 mmol/L Normal 3.5-5.0 [facility] Comment on above: Performed By: #### 2 823-3 ####[facility] ([id number])[address], [place] [address] Potassium [Moles/Vol] 3.4 mmol/L Low 3.5-5.0 [facility] Comment on above: Performed By: #### 2 823-3 ####[facility] ([id number])[address], [place] [address] XR CHEST 1 VWon 10-26-2023 XR CHEST 1 VW Normal [facility] BASIC METABOLIC PANLon 10-24 Anion gap [Moles/Vol] 7 mmol/L Normal 5-15 [facility] Comment on above: Performed By: #### C JUDITH BMP, ####[facility] ([id number])[address], [place] [address] Calcium [Mass/Vol] 8.4 mg/dL Low 8.5-10.5 [facility] Comment on above: Performed By: #### C BCA, BMP, ####[facility] ([id number])[address], [place] [address] Chloride [Moles/Vol] 105 mmol/L Normal 98-109 [facility] Comment on above: Performed By: #### C BCA, BMP, ####[facility] ([id number])[address], [place] [address] CO2 [Moles/Vol] 28 mmol/L Normal 22-32 [facility] Comment on above: Performed By: #### C BCA, BMP, ####[facility] ([id number])[address], [place] [address] Creatinine [Mass/Vol] 1.18 mg/dL Normal 0.60-1.30 [facility] Comment on above: Result Comment: METH OD TRACEABLE TO IDMS STANDARD Performed By: #### C JUDITH, BMP, ####[facility] ([id number])[address] [address], [place] [address] GFR/1.73 sq M.predicted among non-blacks MDRD (S/P/Bld) [Vol rate/Area] 76 mL/min/{1.73_m2} Normal >59 [facility] Comment on above: Result Comment: Repo rted eGFR is based on theCKD-EPI 2020 equation that doesnot use a race coefficient. Performed By: #### C RUBI WONG, ####[facility] ([id number])[address] [address] Glucose [Mass/Vol] 103 mg/dL High 65-99 [facility] Comment on above: Performed By: #### RUBI Edge BCA, ####[facility] ([id number])[address] [address] Potassium [Moles/Vol] 3.8 mmol/L Normal 3.5-5.0 [facility] Comment on above: Performed By: #### Kely WONG [facility], ####[facility] ([id number])[address] [address] [place] [address] Sodium [Moles/Vol] 140 mmol/L Normal 134-146 [facility] Comment on above: Performed By: #### RUBI Edge BCA, ####[facility] ([id number])[address] [address] Urea nitrogen [Mass/Vol] 22 mg/dL Normal 5-23 [facility] Comment on above: Performed By: #### RUBI Edge BCA, ####[facility] [facility] ([id number])[address] [address] CBC AND AUTO DIFFon 10-25-19 24 ABSOLUTE BASOPHIL 0.1 X10E9/L Normal 0.0-0.2 [facility] Comment on above: Performed By: #### RUBI Edge BCA, ####[facility] ([id number])[address], [place] [address] ABSOLUTE NEUTROPHIL 8.6 X10E9/L High 1.5-6.6 [facility] Comment on above: Performed By: #### RUBI Edge BCA, ####[facility] ([id number])[address], [place] [address] Basophils/100 WBC (Bld) 0.8 % Normal [facility] Comment on above: Performed By: #### RUBI Edge BCA, ####[facility] ([id number])[address], [place] [address] Eosinophils (Bld) [#/Vol] 0.2 10*3/uL Normal 0.0-0.4 [facility] Comment on above: Performed By: #### RUBI Edge BCA, ####[facility] ([id number])[address] [address], [place] [address] Eosinophils/100 WBC (Bld) 1.7 % Normal [facility] Comment on above: Performed By: #### RUBI Edge BCA, ####[facility] ([id number])[address] [address], [place] [address] Erythrocyte distribution width (RBC) [Ratio] 15.5 % High 11.5-15.0 [facility] Comment on above: Performed By: #### RUBI Edge BCA, ####[facility] ([id number])[address], [place] [address] Hematocrit (Bld) [Volume fraction] 25.6 % Low 39-49 [facility] Comment on above: Performed By: #### C RUBI WONG, ####[facility] ([id number])[address] [address] [place] [address] Hemoglobin (Bld) [Mass/Vol] 8.6 g/dL Low 13.0-17.0 [facility] Comment on above: Performed By: #### RUBI Edge BCA, ####[facility] ([id number])[address] [address] Lymphocytes (Bld) [#/Vol] 0.8 10*3/uL Low 1.0-3.5 [facility] Comment on above: Performed By: #### RUBI Edge BCA, ####[facility] ([id number])[address] [address] Lymphocytes/100 WBC (Bld) 7.6 % Normal [facility] Comment on above: Performed By: #### Kely WONG [facility], ####[facility] ([id number])[address] [address] MCH (RBC) [Entitic mass] 30.2 pg Normal 27-34 [facility] Comment on above: Performed By: #### RUBI Edge BCA, ####[facility] ([id number])[address] [address] [place] [address] MCHC (RBC) [Mass/Vol] 33.5 g/dL Normal 32-36 [facility] Comment on above: Performed By: #### RUBI Edge BCA, ####[facility] ([id number])[address] [address] MCV (RBC) [Entitic vol] 90 fL Normal 80-100 [facility] Comment on above: Performed By: #### RUBI Edge BCA, ####[facility] ([id number])[address], [place] [address] Monocytes (Bld) [#/Vol] 1.3 10*3/uL High 0-0.9 [facility] Comment on above: Performed By: #### C RUBI WONG, ####[facility] ([id number])[address], [address], [place] [address] Monocytes/100 WBC (Bld) 11.5 % Normal [facility] Comment on above: Performed By: #### Kely WONG, BMP, ####[facility] ([id number])[address], [place] [address] Neutrophils/100 WBC (Bld) 78.4 % Normal [facility] Comment on above: Performed By: #### Kely WONG BMP, ####[facility] ([id number])[address], [place] [address] Platelet mean volume (Bld) [Entitic vol] 7.4 fL Normal 7-12 [facility] Comment on above: Performed By: #### Kely WONG BMP, ####[facility] ([id number])[address], [place] [address] Platelets (Bld) [#/Vol] 497 10*3/uL High 150-450 [facility] Comment on above: Performed By: #### Kely WONG BMP, ####[facility] ([id number])[address], [place] [address] RBC COUNT 2.84 X10E12/L Low 4.10-5.70 [facility] Comment on above: Performed By: #### Kely WONG BMP, ####[facility] ([id number])[address], [place] [address] WBC (Bld) [#/Vol] 11.0 10*3/uL Normal 4.0-11.0 [facility] Comment on above: Performed By: #### C BCA, BMP, 79932-3 ####[facility] ([id number])[address], [place] [address] ELECTROLYTESon 10-25-2023 Anion gap [Moles/Vol] 7 mmol/L Normal 5-15 [facility] Comment on above: Performed By: #### E LEC ####[facility] ([id number])[address], [address], [place] [address] Chloride [Moles/Vol] 107 mmol/L Normal 98-109 [facility] Comment on above: Performed By: #### E LEC ####[facility] ([id number])[address], [address], [place] [address] CO2 [Moles/Vol] 26 mmol/L Normal 22-32 [facility] Comment on above: Performed By: #### E LEC ####[facility] ([id number])[address], [address], [place] [address] Potassium [Moles/Vol] 4.0 mmol/L Normal 3.5-5.0 [facility] Comment on above: Performed By: #### E LEC ####[facility] ([id number])[address], [place] [address] Sodium [Moles/Vol] 140 mmol/L Normal 134-146 [facility] Comment on above: Performed By: #### E LEC ####[facility] ([id number])[address], [place] [address] Anion gap [Moles/Vol] 7 mmol/L Normal 5-15 [facility] Comment on above: Performed By: #### E LEC ####[facility] ([id number])[address] [address] Chloride [Moles/Vol] 106 mmol/L Normal 98-109 [facility] Comment on above: Performed By: #### E LEC ####[facility] ([id number])[address] [address] CO2 [Moles/Vol] 27 mmol/L Normal 22-32 [facility] Comment on above: Performed By: #### E LEC ####[facility] ([id number])[address] [address] Potassium [Moles/Vol] 3.7 mmol/L Normal 3.5-5.0 [facility] Comment on above: Performed By: #### E LEC ####[facility] ([id number])[address] [address] Sodium [Moles/Vol] 140 mmol/L Normal 134-146 [facility] Comment on above: Performed By: #### E LEC ####[facility] ([id number])[address] [address] MAGNESIUMon 10-25-2023 Magnesium [Mass/Vol] 2.0 mg/dL Normal 1.8-2.6 [facility] Comment on above: Performed By: #### C BCA, BMP, 80661-6 ####[facility] ([id number])[address] [place] [address] AMMONIAon 10-24-2023 Ammonia (P) [Moles/Vol] 58 umol/L Normal 18-72 [facility] Comment on above: Result Comment: NEW REFERENCE RANGE Performed By: #### C BCA, 4679-7, 15550-2, 52235-7, 2532-0, 3948-7, FEPR, 2276-4, 2284-8, 2131-11 ####[facility] ([id number])[address], [address] [place] [address] BASIC METABOLIC PANLon 10-23 Anion gap [Moles/Vol] 7 mmol/L Normal 5-15 [facility] Comment on above: Performed By: #### C BCA, BMP, , LIVR ####[facility] ([id number])[address], [address] [place] [address] Calcium [Mass/Vol] 8.6 mg/dL Normal 8.5-10.5 [facility] Comment on above: Performed By: #### C BCA, BMP, , LIVR ####[facility] ([id number])[address] [address] Chloride [Moles/Vol] 105 mmol/L Normal 98-109 [facility] Comment on above: Performed By: #### C BCA, BMP, , LIVR ####[facility] ([id number])[address] [address], [place] [address] CO2 [Moles/Vol] 28 mmol/L Normal 22-32 [facility] Comment on above: Performed By: #### C BCA, BMP, , LIVR ####[facility] ([id number])[address] [address] [address] Creatinine [Mass/Vol] 1.21 mg/dL Normal 0.60-1.30 [facility] Comment on above: Result Comment: METH OD TRACEABLE TO IDMS STANDARD Performed By: #### C BCA, BMP, , LIVR ####[facility] ([id number])[address] [place] [address] GFR/1.73 sq M.predicted among non-blacks MDRD (S/P/Bld) [Vol rate/Area] 73 mL/min/{1.73_m2} Normal >59 [facility] Comment on above: Result Comment: Repo rted eGFR is based on theD-EPI 2020 equation that doesnot use a race coefficient. Performed By: #### C JUDITH, BMP, , LIVR ####[facility] ([id number])[address], [address] [place] [address] Glucose [Mass/Vol] 114 mg/dL High 65-99 [facility] Comment on above: Performed By: #### C JUDITH, BMP, , LIVR ####[facility] ([id number])[address], [address], [place] [address] Potassium [Moles/Vol] 4.3 mmol/L Normal 3.5-5.0 [facility] Comment on above: Performed By: #### C JUDITH, BMP, , LIVR ####[facility] ([id number])[address], [address] [address] Sodium [Moles/Vol] 140 mmol/L Normal 134-146 [facility] Comment on above: Performed By: #### C JUDITH, BMP, , LIVR ####[facility] ([id number])[address], [address] [place] [address] Urea nitrogen [Mass/Vol] 24 mg/dL High 5-23 [facility] Comment on above: Performed By: #### C JUDITH, BMP, , LIVR ####[facility] ([id number])[address], [address], [place] [address] CBC AND AUTO DIFFon 10-24-19 24 ABSOLUTE BASOPHIL 0.1 X10E9/L Normal 0.0-0.2 [facility] Comment on above: Performed By: #### C BCA, 4679-7, 35541-9, 56123-5, 2532-0, 3948-7, FEPR, 2276-4, 2284-8, 2131-11 ####[facility] ([id number])[address], [address] [address] ABSOLUTE NEUTROPHIL 10.3 X10E9/L High 1.5-6.6 [facility] Comment on above: Performed By: #### C BCA, 4679-7, 24487-9, 50162-5, 2532-0, 3948-7, FEPR, 2276-4, 4-8, 2131-11 ####[facility] ([id number])[address], [address], [place] [address] Basophils/100 WBC (Bld) 0.9 % Normal [facility] Comment on above: Performed By: #### C BCA, 4679-7, 55623-2, 64002-3, 2532-0, 3948-7, FEPR, 2276-4, 2283-8, 2131-11 ####[facility] ([id number])[address], [place] [address] Eosinophils (Bld) [#/Vol] 0.2 10*3/uL Normal 0.0-0.4 [facility] Comment on above: Performed By: #### C BCA, 4679-7, 19120-9, 29494-2, 2532-0, 3948-7, FEPR, 2276-4, 2283-8, 2131-11 ####[facility] ([id number])[address], [address] [address] Eosinophils/100 WBC (Bld) 1.2 % Normal [facility] Comment on above: Performed By: #### C BCA, 4679-7, 76991-2, 93745-1, 2532-0, 3948-7, FEPR, 2276-4, 2283-8, 2131-11 ####[facility] ([id number])[address], [address] [address] Erythrocyte distribution width (RBC) [Ratio] 15.5 % High 11.5-15.0 [facility] Comment on above: Performed By: #### C BCA, 4679-7, 68254-7, 92129-9, 2532-0, 3948-7, FEPR, 2276-4, 2284-8, 2131-11 ####[facility] ([id number])[address], [place] [address] Hematocrit (Bld) [Volume fraction] 24.9 % Low 39-49 [facility] Comment on above: Performed By: #### C BCA, 4679-7, 89685-0, 38564-5, 2532-0, 3948-7, FEPR, 2276-4, 2284-8, 2131-11 ####[facility] ([id number])[address], [address], [place] [address] Hemoglobin (Bld) [Mass/Vol] 8.2 g/dL Low 13.0-17.0 [facility] Comment on above: Performed By: #### C BCA, 4679-7, 37454-6, 54347-2, 2532-0, 3948-7, FEPR, 2276-4, 2284-8, 2131-11 ####[facility] ([id number])[address], [address] [place] [address] Lymphocytes (Bld) [#/Vol] 0.8 10*3/uL Low 1.0-3.5 [facility] Comment on above: Performed By: #### C BCA, 4679-7, 35836-8, 14289-3, 2532-0, 3948-7, FEPR, 2276-4, 2284-8, 2131-11 ####[facility] ([id number])[address], [address], [place] [address] Lymphocytes/100 WBC (Bld) 6.4 % Normal [facility] Comment on above: Performed By: #### C BCA, 4679-7, 65272-7, 88835-2, 2532-0, 3948-7, FEPR, 2276-4, 2284-8, 2131-11 ####[facility] ([id number])[address], [place] [address] MCH (RBC) [Entitic mass] 29.7 pg Normal 27-34 [facility] Comment on above: Performed By: #### C BCA, 4679-7, 54252-6, 63173-0, 2532-0, 3948-7, FEPR, 2276-4, 2284-8, 2131-11 ####[facility] ([id number])[address], [address] [place] [address] MCHC (RBC) [Mass/Vol] 32.7 g/dL Normal 32-36 [facility] Comment on above: Performed By: #### C BCA, 4679-7, 21497-9, 91494-0, 2532-0, 3948-7, FEPR, 2276-4, 2284-8, 2131-11 ####[facility] ([id number])[address], [address] [place] [address] MCV (RBC) [Entitic vol] 91 fL Normal 80-100 [facility] Comment on above: Performed By: #### C BCA, 4679-7, 83751-4, 78267-5, 2532-0, 3948-7, FEPR, 2276-4, 2284-8, 2131-11 ####[facility] ([id number])[address], [place] [address] Monocytes (Bld) [#/Vol] 1.2 10*3/uL High 0-0.9 [facility] Comment on above: Performed By: #### C BCA, 4679-7, 88922-0, 45157-7, 2532-0, 3948-7, FEPR, 2276-4, 2284-8, 2131-11 ####[facility] ([id number])[address] [address] Monocytes/100 WBC (Bld) 9.6 % Normal [facility] Comment on above: Performed By: #### C BCA, 4679-7, 41629-3, 31211-0, 2532-0, 3948-7, FEPR, 2276-4, 2284-8, 2131-11 ####[facility] ([id number])[address], [place] [address] Neutrophils/100 WBC (Bld) 81.9 % Normal [facility] Comment on above: Performed By: #### C BCA, 4679-7, 80498-8, 32335-6, 2532-0, 3948-7, FEPR, 2276-4, 2284-8, 2131-11 ####[facility] ([id number])[address], [place] [address] Platelet mean volume (Bld) [Entitic vol] 7.7 fL Normal 7-12 [facility] Comment on above: Performed By: #### C BCA, 4679-7, 42741-0, 14660-4, 2532-0, 3948-7, FEPR, 2276-4, 2284-8, 2131-11 ####[facility] ([id number])[address], [place] [address] Platelets (Bld) [#/Vol] 474 10*3/uL High 150-450 [facility] Comment on above: Performed By: #### C BCA, 4679-7, 75949-5, 67282-5, 2532-0, 3948-7, FEPR, 2276-4, 2284-8, 2131-11 ####[facility] ([id number])[address] [place] [address] RBC COUNT 2.75 X10E12/L Low 4.10-5.70 [facility] Comment on above: Performed By: #### C BCA, 4679-7, 90612-8, 34484-1, 2532-0, 3948-7, FEPR, 2276-4, 2284-8, 2131-11 ####[facility] ([id number])[address], [place] [address] WBC (Bld) [#/Vol] 12.6 10*3/uL High 4.0-11.0 [facility] Comment on above: Performed By: #### C BCA, 4679-7, 96542-5, 61081-6, 2532-0, 3948-7, FEPR, 2276-4, 2284-8, 2131-11 ####[facility] ([id number])[address], [place] [address] Band form neutrophils/100 WBC (Bld) 4.8 % Normal [facility] Comment on above: Performed By: #### C JUDITH, BMP, , LIVR ####[facility] ([id number])[address], [address] [address] Eosinophils (Bld) [#/Vol] 0.2 10*3/uL Normal 0.0-0.4 [facility] Comment on above: Performed By: #### C JUDITH, BMP, , LIVR ####[facility] ([id number])[address], [place] [address] Eosinophils/100 WBC (Bld) 1.0 % Normal [facility] Comment on above: Performed By: #### Kely WNOG, BMP, , LIVR ####[facility] ([id number])[address] [place] [address] Erythrocyte distribution width (RBC) [Ratio] 15.6 % High 11.5-15.0 [facility] Comment on above: Performed By: #### C JUDITH [facility], , LIVR ####[facility] ([id number])[address], [place] [address] Hematocrit (Bld) [Volume fraction] 26.8 % Low 39-49 [facility] Comment on above: Performed By: #### C JUDITH [facility], , LIVR ####[facility] ([id number])[address], [place] [address] Hemoglobin (Bld) [Mass/Vol] 8.8 g/dL Low 13.0-17.0 [facility] Comment on above: Performed By: #### C JUDITH [facility], , LIVR ####[facility] ([id number])[address], [address] [place] [address] Lymphocytes (Bld) [#/Vol] 0.9 10*3/uL Low 1.0-3.5 [facility] Comment on above: Performed By: #### Kely WONG [facility], , LIVR ####[facility] ([id number])[address] [address], [place] [address] Lymphocytes/100 WBC (Bld) 5.8 % Normal [facility] Comment on above: Performed By: #### C JUDITH [facility], , LIVR ####[facility] ([id number])[address], [place] [address] MCH (RBC) [Entitic mass] 29.9 pg Normal 27-34 [facility] Comment on above: Performed By: #### C JUDITH [facility], , LIVR ####[facility] ([id number])[address], [place] [address] MCHC (RBC) [Mass/Vol] 32.9 g/dL Normal 32-36 [facility] Comment on above: Performed By: #### C JUDITH BMP, , LIVR ####[facility] ([id number])[address], [address] [place] [address] MCV (RBC) [Entitic vol] 91 fL Normal 80-100 [facility] Comment on above: Performed By: #### C JUIDTH, BMP, , LIVR ####[facility] ([id number])[address], [address] [place] [address] Monocytes (Bld) [#/Vol] 1.2 10*3/uL High 0-0.9 [facility] Comment on above: Performed By: #### C JUDITH, BMP, , LIVR ####[facility] ([id number])[address], [place] [address] Monocytes/100 WBC (Bld) 7.7 % Normal [facility] Comment on above: Performed By: #### C JUDITH, BMP, , LIVR ####[facility] ([id number])[address] [address] [place] [address] Neutrophils (Bld) [#/Vol] 13.6 10*3/uL High 1.5-6.6 [facility] Comment on above: Performed By: #### Kely WONG BMP, , LIVR ####[facility] ([id number])[address], [place] [address] Platelet mean volume (Bld) [Entitic vol] 7.6 fL Normal 7-12 [facility] Comment on above: Performed By: #### C JUDITH, BMP, , LIVR ####[facility] ([id number])[address], [place] [address] Platelets (Bld) [#/Vol] 470 10*3/uL High 150-450 [facility] Comment on above: Performed By: #### C JUDITH, BMP, , LIVR ####[facility] ([id number])[address], [place] [address] RBC COUNT 2.96 X10E12/L Low 4.10-5.70 [facility] Comment on above: Performed By: #### C JUDITH, BMP, , LIVR ####[facility] ([id number])[address] [address] RBC morphology finding Nom (Bld) NORMAL Normal [facility] Comment on above: Performed By: #### C JUDITH, BMP, , LIVR ####[facility] ([id number])[address], [place] [address] SEG NEUTROPHIL 80.7 % Normal [facility] Comment on above: Performed By: #### C JUDITH, BMP, , LIVR ####[facility] ([id number])[address] [address] [place] [address] WBC (Bld) [#/Vol] 15.9 10*3/uL High 4.0-11.0 [facility] Comment on above: Performed By: #### C BCA, BMP, , LIVR ####[facility] ([id number])[address] [address] FERRITINon 10-24-2023 Ferritin [Mass/Vol] 101 ng/mL Normal 24-336 [facility] Comment on above: Performed By: #### C BCA, 4679-7, 16285-2, 91539-6, 2532-0, 3948-7, FEPR, 2276-4, 2284-8, 2131-9 ####[facility] ([id number])[address], [place] [address] Folate [Mass/Vol]on 10-24-19 FOLIC ACID 5.7 ng/mL Low >5.8 [facility] Comment on above: Result Comment: NEW REFERENCE RANGE Performed By: #### C BCA, 4679-7, 28494-1, 45590-6, 2532-0, 3948-7, FEPR, 2276-4, 2284-8, 2131-11 ####[facility] ([id number])[address] [facility] [address], [place] [address] Haptoglobin Nephelometry [Ma ss/Vol]on 10-24-2023 HAPTOGLOBIN 246 mg/dL High 32-228 [facility] Comment on above: Performed By: #### C BCA, 4679-7, 40824-2, 36506-9, 2532-0, 3948-7, FEPR, 2276-4, 2284-8, 2131-11 ####[facility] ([id number])[address] [facility] [address], [place] [address] IRON PROFILEon 10-24-2023 Iron [Mass/Vol] 35 ug/dL Low 50-212 [facility] Comment on above: Performed By: #### C BCA, 4679-7, 57686-2, 80742-4, 2532-0, 3948-7, FEPR, 2276-4, 2284-8, 2131-11 ####[facility] ([id number])[address] [facility] [address] [place] [address] IRON BINDING 242 ug/dL Low 250-425 [facility] Comment on above: Performed By: #### C BCA, 4679-7, 93639-7, 42362-1, 2532-0, 3948-7, FEPR, 2276-4, 2284-8, 2131-11 ####[facility] ([id number])[address] [facility] [address] [address] IRON SATURATION 14 % SATURATION Low 20-50 [facility] Comment on above: Performed By: #### C BCA, 4679-7, 26337-0, 06368-1, 2532-0, 3948-7, FEPR, 2276-4, 2284-8, 2131-11 ####[facility] ([id number])[address], [place] [address] LDH [Catalytic activity/Vol] on 10-24-2023 LDH 135 U/L Normal 100-235 [facility] Comment on above: Performed By: #### C BCA, 4679-7, 86547-8, 59723-6, 2532-0, 3948-7, FEPR, 2276-4, 2284-8, 2131-11 ####[facility] ([id number])[address], [place] [address] LIVER PANELon 10-24-2023 Albumin [Mass/Vol] 2.7 g/dL Low 3.2-5.3 [facility] Comment on above: Performed By: #### C BCA, BMP, , LIVR ####[facility] ([id number])[address], [place] [address] ALP [Catalytic activity/Vol] 69 U/L Normal 39-130 [facility] Comment on above: Performed By: #### C BCA, BMP, , LIVR ####[facility] ([id number])[address], [place] [address] ALT [Catalytic activity/Vol] 28 U/L Normal 0-40 [facility] Comment on above: Performed By: #### C BCA, BMP, , LIVR ####[facility] ([id number])[address], [place] [address] AST [Catalytic activity/Vol] 29 U/L Normal 0-41 [facility] [facility] Comment on above: Performed By: #### C BCA, BMP, , LIVR ####[facility] ([id number])[address], [address] [place] [address] Bilirubin [Mass/Vol] 0.5 mg/dL Normal 0.3-1.2 [facility] Comment on above: Performed By: #### C JUDITH, BMP, , LIVR ####[facility] ([id number])[address], [address] [place] [address] Bilirubin.direct [Mass/Vol] 0.4 mg/dL Normal 0.0-0.4 [facility] Comment on above: Performed By: #### C JUDITH, BMP, , LIVR ####[facility] ([id number])[address], [address] [place] [address] Protein [Mass/Vol] 5.6 g/dL Low 6.0-8.0 [facility] Comment on above: Performed By: #### C JUDITH, BMP, , LIVR ####[facility] ([id number])[address], [address] [place] [address] MAGNESIUMon 10-24-2023 Magnesium [Mass/Vol] 2.2 mg/dL Normal 1.8-2.6 [facility] Comment on above: Performed By: #### C BCA, BMP, , LIVR ####[facility] ([id number])[address], [address] [place] [address] PHENOBARBITALon 10-24-2023 PHENobarbital [Mass/Vol] 11.5 ug/mL Low 15.0-40.0 [facility] Comment on above: Performed By: #### C BCA, 4679-7, 86465-4, 60618-1, 2532-0, 3948-7, FEPR, 2276-4, 2284-8, 2131-11 ####[facility] ([id number])[address], [address], [place] [address] Reticulocytes/100 RBC (Bld)o n 10-24-2023 RETICULOCYTE COUNT 0.6 % Normal 0.4-2.2 [facility] Comment on above: Performed By: #### C BCA, 4679-7, 31236-7, 30314-1, 2532-0, 3948-7, FEPR, 2276-4, 4-8, 2131-11 ####[facility] ([id number])[address], [address], [place] [address] VITAMIN B12on 10-24-2023 Cobalamin (Vitamin B12) [Mass/Vol] 307 pg/mL Normal 180-914 [facility] Comment on above: Performed By: #### C BCA, 4679-7, 15660-8, 37324-3, 2532-0, 3948-7, FEPR, 6-4, 2283-8, 2131-11 ####[facility] ([id number])[address] [address] [place] [address] XR ABD NG TUBE PLACEMENT 1 V IEWon 10-24-2023 XR ABD NG TUBE PLACEMENT 1 VIEW Normal [facility] XR CHEST 1 VWon 10-24-2023 XR CHEST 1 VW Normal [facility] BASIC METABOLIC PANLon 10-22 Anion gap [Moles/Vol] 6 mmol/L Normal 5-15 [facility] Comment on above: Performed By: #### C BCA, BMP, , 2777-1 ####[facility] ([id number])[address] [address] [place] [address] Calcium [Mass/Vol] 9.0 mg/dL Normal 8.5-10.5 [facility] Comment on above: Performed By: #### C BCA, BMP, , 2777-1 ####[facility] ([id number])[address] [address] [place] [address] Chloride [Moles/Vol] 105 mmol/L Normal 98-109 [facility] Comment on above: Performed By: #### C JUDITH [facility], , 2776-03 ####[facility] ([id number])[address], [address] [place] [address] CO2 [Moles/Vol] 30 mmol/L Normal 22-32 [facility] Comment on above: Performed By: #### C JUDITH [facility], , 2776-03 ####[facility] ([id number])[address] [address] [address] Creatinine [Mass/Vol] 1.08 mg/dL Normal 0.60-1.30 [facility] Comment on above: Result Comment: METH OD TRACEABLE TO IDMS STANDARD Performed By: #### C JUDITH [facility], , 2776-03 ####[facility] ([id number])[address] [address] [address] GFR/1.73 sq M.predicted among non-blacks MDRD (S/P/Bld) [Vol rate/Area] 84 mL/min/{1.73_m2} Normal >59 [facility] Comment on above: Result Comment: Repo rted eGFR is based on theCKD-EPI 2020 equation that doesnot use a race coefficient. Performed By: #### C RUBI WONG, , 2776-03 ####[facility] ([id number])[address] [address] [address] Glucose [Mass/Vol] 96 mg/dL Normal 65-99 [facility] Comment on above: Performed By: #### C RUBI WONG, , 2776-03 ####[facility] ([id number])[address] [address] [place] [address] Potassium [Moles/Vol] 4.8 mmol/L Normal 3.5-5.0 [facility] Comment on above: Performed By: #### C RUBI WONG, , 2776-03 ####[facility] ([id number])[address], [address], [place] [address] Sodium [Moles/Vol] 141 mmol/L Normal 134-146 [facility] Comment on above: Performed By: #### C RUBI WONG, , 2776-03 ####[facility] ([id number])[address], [address], [place] [address] Urea nitrogen [Mass/Vol] 24 mg/dL High 5-23 [facility] Comment on above: Performed By: #### C RUBI WONG, , 2776-03 ####[facility] ([id number])[address], [place] [address] BLOOD CULTUREon 10-23-2023 Bacteria identified Aer cx Nom (Bld) CULTURE RESULTS NO GROWTH 5 DAYS Normal [facility] Bacteria identified Aer cx Nom (Bld) CULTURE RESULTS NO GROWTH 5 DAYS Normal [facility] CBC AND AUTO DIFFon 10-23-19 24 ABSOLUTE BASOPHIL 0.3 X10E9/L High 0.0-0.2 [facility] Comment on above: Performed By: #### C RUBI WONG, , 2776-03 ####[facility] ([id number])[address], [place] [address] Basophils/100 WBC (Bld) 2.0 % Normal [facility] Comment on above: Performed By: #### C RUBI WONG, , 2776-03 ####[facility] ([id number])[address], [address], [place] [address] Erythrocyte distribution width (RBC) [Ratio] 15.6 % High 11.5-15.0 [facility] Comment on above: Performed By: #### C JUDITH, BMP, , 2776-03 ####[facility] ([id number])[address] [address] [place] [address] Hematocrit (Bld) [Volume fraction] 30.4 % Low 39-49 [facility] Comment on above: Performed By: #### C JUDITH, [facility], , 2776-03 ####[facility] ([id number])[address] [address] Hemoglobin (Bld) [Mass/Vol] 10.1 g/dL Low 13.0-17.0 [facility] Comment on above: Performed By: #### C JUDITH, [facility], , 2776-03 ####[facility] ([id number])[address] [address] Lymphocytes (Bld) [#/Vol] 0.7 10*3/uL Low 1.0-3.5 [facility] Comment on above: Performed By: #### C JUDITH, [facility], , 2776-03 ####[facility] ([id number])[address] [address] Lymphocytes/100 WBC (Bld) 5.0 % Normal [facility] Comment on above: Performed By: #### C JUDITH, [facility], , 2776-03 ####[facility] ([id number])[address] [address] [place] [address] MCH (RBC) [Entitic mass] 30.6 pg Normal 27-34 [facility] Comment on above: Performed By: #### C JUDITH, BMP, , 2776-03 ####[facility] ([id number])[address] [address] MCHC (RBC) [Mass/Vol] 33.1 g/dL Normal 32-36 [facility] Comment on above: Performed By: #### C JUDITH, BMP, , 2776-03 ####[facility] ([id number])[address], [address], [place] [address] MCV (RBC) [Entitic vol] 92 fL Normal 80-100 [facility] Comment on above: Performed By: #### C JUDITH, BMP, , 2776-03 ####[facility] ([id number])[address], [address] [place] [address] Monocytes (Bld) [#/Vol] 1.3 10*3/uL High 0-0.9 [facility] Comment on above: Performed By: #### Kely WONG, BMP, , 2776-03 ####[facility] ([id number])[address], [address] [place] [address] Monocytes/100 WBC (Bld) 10.0 % Normal [facility] Comment on above: Performed By: #### Kely WONG, BMP, , 2776-03 ####[facility] ([id number])[address], [address] [place] [address] Neutrophils (Bld) [#/Vol] 11.1 10*3/uL High 1.5-6.6 [facility] Comment on above: Performed By: #### Kely WONG, BMP, , 2776-03 ####[facility] ([id number])[address], [address] [place] [address] Platelet mean volume (Bld) [Entitic vol] 7.6 fL Normal 7-12 [facility] Comment on above: Performed By: #### C JUDITH, BMP, , 2776-03 ####[facility] ([id number])[address], [place] [address] Platelets (Bld) [#/Vol] 434 10*3/uL Normal 150-450 [facility] Comment on above: Performed By: #### C JUDITH, BMP, , 2776-03 ####[facility] ([id number])[address], [address], [place] [address] RBC COUNT 3.29 X10E12/L Low 4.10-5.70 [facility] Comment on above: Performed By: #### Kely WONG, BMP, , 2776-03 ####[facility] ([id number])[address], [address], [place] [address] RBC morphology finding Nom (Bld) NORMAL Normal [facility] Comment on above: Performed By: #### Kely WONG BMP, , 2776-03 ####[facility] ([id number])[address], [address] [place] [address] SEG NEUTROPHIL 83.0 % Normal [facility] Comment on above: Performed By: #### Kely WONG, BMP, , 2776-03 ####[facility] ([id number])[address], [address] [place] [address] WBC (Bld) [#/Vol] 13.4 10*3/uL High 4.0-11.0 [facility] Comment on above: Performed By: #### Kely WONG, BMP, , 2776-03 ####[facility] ([id number])[address], [address] [place] [address] BRAIN WO CONTon CT BRAIN WO CONT Normal [facility] CT CTA CAROTIDon 10-23-2023 CT CTA CAROTID Normal [facility] CT CTA HEADon 10-23-2023 CT CTA HEAD Normal [facility] Calcium.ionized (Bld) [Mass/ Vol]on 10-23-2023 IONIZED CALCIUM 5.0 mg/dL Normal 4.5-5.3 [facility] Comment on above: Performed By: #### 3 8230-9 ####[facility] ([id number])[address], [place] [address] ELECTROLYTESon 10-23-2023 Anion gap [Moles/Vol] 6 mmol/L Normal 5-15 [facility] Comment on above: Performed By: #### E LEC ####[facility] ([id number])[address], [place] [address] Chloride [Moles/Vol] 105 mmol/L Normal 98-109 [facility] Comment on above: Performed By: #### E LEC ####[facility] ([id number])[address], [place] [address] CO2 [Moles/Vol] 29 mmol/L Normal 22-32 [facility] Comment on above: Performed By: #### E LEC ####[facility] ([id number])[address], [place] [address] Potassium [Moles/Vol] 4.5 mmol/L Normal 3.5-5.0 [facility] Comment on above: Performed By: #### E LEC ####[facility] ([id number])[address], [place] [address] Sodium [Moles/Vol] 140 mmol/L Normal 134-146 [facility] Comment on above: Performed By: #### E LEC ####[facility] ([id number])[address], [place] [address] Anion gap [Moles/Vol] 7 mmol/L Normal 5-15 [facility] Comment on above: Performed By: #### E LEC ####[facility] ([id number])[address], [place] [address] Chloride [Moles/Vol] 103 mmol/L Normal 98-109 [facility] Comment on above: Performed By: #### E LEC ####[facility] ([id number])[address] [address] CO2 [Moles/Vol] 30 mmol/L Normal 22-32 [facility] Comment on above: Performed By: #### E LEC ####[facility] ([id number])[address] [address] Potassium [Moles/Vol] 4.4 mmol/L Normal 3.5-5.0 [facility] Comment on above: Performed By: #### E LEC ####[facility] ([id number])[address] [address] Sodium [Moles/Vol] 140 mmol/L Normal 134-146 [facility] Comment on above: Performed By: #### E LEC ####[facility] ([id number])[address], [address] [place] [address], [place] [address] LOWER RESPIRATORY CULTUREon 10-23-2023 Bacteria identified Respiratory culture Nom (Sput) Normal [facility] Comment on above: Performed By: #### 6 24-7 ####[facility] ([id number])[address], [address] [place] [address] MAGNESIUMon 10-23-2023 Magnesium [Mass/Vol] 2.1 mg/dL Normal 1.8-2.6 [facility] Comment on above: Performed By: #### C BCA, BMP, 98322-0, 2777-1 ####[facility] ([id number])[address], [place] [address] MRSA PCR NASALon 10-23-2023 MRSA DNA LEO+probe Ql (Unsp spec) Negative Normal NEG [facility] Comment on above: Performed By: #### 3 5492-8 ####[facility] ([id number])[address], [address] [place] [address] PHOSPHORUSon 10-23-2023 Phosphate [Mass/Vol] 3.9 mg/dL Normal 2.4-4.9 [facility] Comment on above: Performed By: #### C BCA, BMP, 55646-3, 2777-1 ####[facility] ([id number])[address] [place] [address] URINALYSISon 10-23-2023 Bilirubin Ql (U) Negative Normal NEG [facility] Comment on above: Performed By: #### U A ####[facility] ([id number])[address] [address] BLOOD/HGB Small Abnormal NEG [facility] Comment on above: Performed By: #### U A ####[facility] ([id number])[address] [address] Color (U) YELLOW Normal YELLOW [facility] Comment on above: Performed By: #### U A ####[facility] ([id number])[address] [address] Glucose Ql (U) 70 mg/dL Abnormal NEG [facility] Comment on above: Performed By: #### U A ####[facility] ([id number])[address] [address] Ketones Ql (U) Negative Normal NEG [facility] Comment on above: Performed By: #### U A ####[facility] ([id number])[address] [place] [address] Leukocyte esterase Test strip Ql (U) Negative Normal NEG [facility] Comment on above: Performed By: #### U A ####[facility] ([id number])[address], [address] [place] [address] MUCOUS PRESENT Abnormal NONE [facility] Comment on above: Performed By: #### U A ####[facility] ([id number])[address] [address], [place] [address] Nitrite Ql (U) Negative Normal NEG [facility] Comment on above: Performed By: #### U A ####[facility] ([id number])[address] [address] [place] [address] pH (U) 7.5 [pH] Normal 5.0-8.5 [facility] Comment on above: Performed By: #### U A ####[facility] ([id number])[address] [address] [place] [address] Protein Ql (U) Negative Normal NEG [facility] Comment on above: Performed By: #### U A ####[facility] ([id number])[address] [address] [place] [address] R.B.CELLS 1 /hpf Normal 0-5 [facility] Comment on above: Performed By: #### U A ####[facility] ([id number])[address] [address] [place] [address] Specific gravity (U) [Rel density] 1.029 Normal 1.003-1.035 [facility] Comment on above: Performed By: #### U A ####[facility] ([id number])[address] [address] [place] [address] TURBIDITY CLEAR Normal CLEAR [facility] Comment on above: Performed By: #### U A ####[facility] ([id number])[address] [address] [place] [address] Urinalysis dipstick W Reflex Microscopic panel (U) URINE RECEIVED WITHOUT PRESERVATIVE-DELAYS IN TRANSPORT MAY AFFECT RESULTS.INTERPRET WITH CAUTION AND CLINICAL CORRELATION IS RECOMMENDED. Normal [facility] Comment on above: Performed By: #### U A ####[facility] ([id number])[address], [address] [place] [address] Urobilinogen (U) [Mass/Vol] mg/dL Normal <1.1 [facility] Comment on above: Performed By: #### U A ####[facility] ([id number])[address], [address] [place] [address] W.B.CELLS <1 Normal 0-5 [facility] Comment on above: Performed By: #### U A ####[facility] ([id number])[address], [address] [place] [address] XR CHEST 1 VWon 10-23-2023 XR CHEST 1 VW Normal [facility] AMMONIAon 10-22-2023 Ammonia (P) [Moles/Vol] 50 umol/L Normal 18-72 [facility] Comment on above: Result Comment: NEW REFERENCE RANGE Performed By: #### C BCA, 64257-2, BMP, 2157-6, LIVR, 2571-8 ####[facility] ([id number])[address] [address] [place] [address] BASIC METABOLIC PANLon 10-21 Anion gap [Moles/Vol] 7 mmol/L Normal 5-15 [facility] Comment on above: Performed By: #### B MP ####[facility] ([id number])[address], [address] [place] [address] Calcium [Mass/Vol] 8.7 mg/dL Normal 8.5-10.5 [facility] Comment on above: Performed By: #### B MP ####[facility] ([id number])[address], [address] [place] [address] Chloride [Moles/Vol] 107 mmol/L Normal 98-109 [facility] Comment on above: Performed By: #### B MP ####[facility] ([id number])[address] [address] CO2 [Moles/Vol] 27 mmol/L Normal 22-32 [facility] Comment on above: Performed By: #### B MP ####[facility] ([id number])[address] [address] Creatinine [Mass/Vol] 1.13 mg/dL Normal 0.60-1.30 [facility] Comment on above: Result Comment: METH OD TRACEABLE TO IDMS STANDARD Performed By: #### B MP ####[facility] ([id number])[address] [address] Performed By: #### C BCA, 98389-5, BMP, 2156-6, LIVR, 2571-8 ####[facility] ([id number])[address] [place] [address] GFR/1.73 sq M.predicted among non-blacks MDRD (S/P/Bld) [Vol rate/Area] 80 mL/min/{1.73_m2} Normal >59 [facility] Comment on above: Result Comment: Repo rted eGFR is based on theCKD-EPI 2020 equation that doesnot use a race coefficient. Performed By: #### B MP ####[facility] ([id number])[address] [address] Performed By: #### C BCA, 79751-8, BMP, 2157-6, LIVR, 2571-8 ####[facility] ([id number])[address] [address] Glucose [Mass/Vol] 92 mg/dL Normal 65-99 [facility] Comment on above: Performed By: #### B MP ####[facility] ([id number])[address], [place] [address] Potassium [Moles/Vol] 4.7 mmol/L Normal 3.5-5.0 [facility] Comment on above: Performed By: #### B MP ####[facility] ([id number])[address], [place] [address] Urea nitrogen [Mass/Vol] 24 mg/dL High 5-23 [facility] Comment on above: Performed By: #### B MP ####[facility] ([id number])[address], [place] [address] Anion gap [Moles/Vol] 9 mmol/L Normal 5-15 [facility] Comment on above: Performed By: #### C BCA, 35191-2, BMP, 2157-6, LIVR, 2571-8 ####[facility] ([id number])[address], [place] [address] Calcium [Mass/Vol] 9.0 mg/dL Normal 8.5-10.5 [facility] Comment on above: Performed By: #### C BCA, 16376-7, BMP, 2157-6, LIVR, 2571-8 ####[facility] ([id number])[address], [place] [address] Chloride [Moles/Vol] 104 mmol/L Normal 98-109 [facility] Comment on above: Performed By: #### C BCA, 90442-3, BMP, 2157-6, LIVR, 2571-8 ####[facility] ([id number])[address], [place] [address] CO2 [Moles/Vol] 28 mmol/L Normal 22-32 [facility] Comment on above: Performed By: #### C BCA, 11159-9, BMP, 2157-6, LIVR, 2571-8 ####[facility] ([id number])[address], [place] [address] Glucose [Mass/Vol] 98 mg/dL Normal 65-99 [facility] Comment on above: Performed By: #### C BCA, 13940-7, BMP, 2156-6, LIVR, 2571-8 ####[facility] ([id number])[address] [address] [place] [address] Potassium [Moles/Vol] 4.5 mmol/L Normal 3.5-5.0 [facility] Comment on above: Performed By: #### C BCA, 48128-8, BMP, 2156-6, LIVR, 2571-8 ####[facility] ([id number])[address] [address] [place] [id number] Urea nitrogen [Mass/Vol] 23 mg/dL Normal 5-23 [facility] Comment on above: Performed By: #### C BCA, 47831-1, BMP, 6, LIVR, 2571-8 ####[facility] ([id number])[address] [address] CBC AND AUTO DIFFon [id number] 24 ABSOLUTE BASOPHIL 0.1 X10E9/L Normal 0.0-0.2 [facility] Comment on above: Performed By: #### C BCA ####[facility] ([id number])[address] [address] [place] [address] ABSOLUTE NEUTROPHIL 12.0 X10E9/L High 1.5-6.6 [facility] Comment on above: Performed By: #### C BCA ####[facility] ([id number])[address] [address] [place] [address] Basophils/100 WBC (Bld) 0.4 % Normal [facility] Comment on above: Performed By: #### C BCA ####[facility] ([id number])[address] [address] [address] Eosinophils (Bld) [#/Vol] 0.2 10*3/uL Normal 0.0-0.4 [facility] Comment on above: Performed By: #### C BCA ####[facility] ([id number])[address] [address], [place] [address] Eosinophils/100 WBC (Bld) 1.1 % Normal [facility] Comment on above: Performed By: #### C BCA ####[facility] ([id number])[address] [address] [address] Erythrocyte distribution width (RBC) [Ratio] 15.9 % High 11.5-15.0 [facility] Comment on above: Performed By: #### C BCA ####[facility] ([id number])0 [address] [address], [place] [address] Performed By: #### C BCA, 95836-4, BMP, 2157-6, LIVR, 2571-8 ####[facility] ([id number])0 [address] [address] [address] Hematocrit (Bld) [Volume fraction] 28.6 % Low 39-49 [facility] Comment on above: Performed By: #### C BCA ####[facility] ([id number])0 [address] [address] [address] Hemoglobin (Bld) [Mass/Vol] 9.7 g/dL Low 13.0-17.0 [facility] Comment on above: Performed By: #### C BCA ####[facility] ([id number])[address] [address] [address] Lymphocytes (Bld) [#/Vol] 1.0 10*3/uL Normal 1.0-3.5 [facility] Comment on above: Performed By: #### C BCA ####[facility] ([id number])[address] [address], [place] [address] Performed By: #### C JUDITH, 80530-8, BMP, 2156-08, LIVR, 2571-8 ####[facility] ([id number])[address] [address], [place] [address] Lymphocytes/100 WBC (Bld) 6.8 % Normal [facility] Comment on above: Performed By: #### C BCA ####[facility] ([id number])0 [address] [address], [place] [address] MCH (RBC) [Entitic mass] 30.8 pg Normal 27-34 [facility] Comment on above: Performed By: #### C BCA ####[facility] ([id number])[address] [address] [place] [address] MCHC (RBC) [Mass/Vol] 34.0 g/dL Normal 32-36 [facility] Comment on above: Performed By: #### C BCA ####[facility] ([id number])0 [address] [address] [place] [address] MCV (RBC) [Entitic vol] 91 fL Normal 80-100 [facility] Comment on above: Performed By: #### C BCA ####[facility] ([id number])0 [address] [address], [place] [address] Performed By: #### C BCA, 06130-3, BMP, 2156-, LIVR, 2571-8 ####[facility] ([id number])0 [address] [address] [place] [address] Monocytes (Bld) [#/Vol] 1.3 10*3/uL High 0-0.9 [facility] Comment on above: Performed By: #### C BCA ####[facility] ([id number])[address], [address] [place] [address] Monocytes/100 WBC (Bld) 8.7 % Normal [facility] Comment on above: Performed By: #### C BCA ####[facility] ([id number])[address], [address] [place] [address] Neutrophils/100 WBC (Bld) 83.0 % Normal [facility] Comment on above: Performed By: #### C BCA ####[facility] ([id number])[address], [address] [place] [address] Performed By: #### C BCA, 09248-7, BMP, 2157-6, LIVR, 2571-8 ####[facility] ([id number])[address], [address] [place] [address] Platelet mean volume (Bld) [Entitic vol] 7.6 fL Normal 7-12 [facility] Comment on above: Performed By: #### C BCA ####[facility] ([id number])[address] [address] [place] [address] Platelets (Bld) [#/Vol] 413 10*3/uL Normal 150-450 [facility] Comment on above: Performed By: #### C BCA ####[facility] ([id number])[address], [address] [place] [address] RBC COUNT 3.16 X10E12/L Low 4.10-5.70 [facility] Comment on above: Performed By: #### C BCA ####[facility] ([id number])[address] [address] [place] [address] WBC (Bld) [#/Vol] 14.5 10*3/uL High 4.0-11.0 [facility] Comment on above: Performed By: #### C BCA ####[facility] ([id number])[address], [address] [address] ABSOLUTE BASOPHIL 0.2 X10E9/L Normal 0.0-0.2 [facility] Comment on above: Performed By: #### C BCA, 40805-7, BMP, 2156-08, LIVR, 257-8 ####[facility] ([id number])[address], [address], [place] [address] ABSOLUTE NEUTROPHIL 13.7 X10E9/L High 1.5-6.6 [facility] Comment on above: Performed By: #### C BCA, 77363-2, BMP, 2156-, LIVR, 2570-8 ####[facility] ([id number])[address], [address], [place] [address] Basophils/100 WBC (Bld) 1.1 % Normal [facility] Comment on above: Performed By: #### C BCA, 05626-5, BMP, 2156-08, LIVR, 2578 ####[facility] ([id number])[address], [address], [place] [address] Eosinophils (Bld) [#/Vol] 0.1 10*3/uL Normal 0.0-0.4 [facility] Comment on above: Performed By: #### C BCA, 01327-8, BMP, 2156-08, LIVR, 2578 ####[facility] ([id number])[address], [address] [place] [address] Eosinophils/100 WBC (Bld) 0.7 % Normal [facility] Comment on above: Performed By: #### C BCA, 90039-3, BMP, 2156-08, LIVR, 257-8 ####[facility] ([id number])[address], [address], [place] [address] Hematocrit (Bld) [Volume fraction] 30.3 % Low 39-49 [facility] Comment on above: Performed By: #### C BCA, 43547-5, BMP, 2157-6, LIVR, 257-8 ####[facility] ([id number])[address] [address] [place] [address] Hemoglobin (Bld) [Mass/Vol] 10.1 g/dL Low 13.0-17.0 [facility] Comment on above: Performed By: #### C BCA, 21678-2, BMP, 2157-6, LIVR, 257-8 ####[facility] ([id number])[address] [address] [place] [address] Lymphocytes/100 WBC (Bld) 5.9 % Normal [facility] Comment on above: Performed By: #### C BCA, 30011-5, BMP, 2157-6, LIVR, 257-8 ####[facility] ([id number])[address], [address] [place] [address] MCH (RBC) [Entitic mass] 30.4 pg Normal 27-34 [facility] Comment on above: Performed By: #### C BCA, 72406-8, BMP, 7-6, LIVR, 257-8 ####[facility] ([id number])[address] [address] [place] [address] MCHC (RBC) [Mass/Vol] 33.5 g/dL Normal 32-36 [facility] Comment on above: Performed By: #### C BCA, 39041-7, BMP, 2157-6, LIVR, 2571-8 ####[facility] ([id number])[address] [address] Monocytes (Bld) [#/Vol] 1.5 10*3/uL High 0-0.9 [facility] Comment on above: Performed By: #### C BCA, 55040-6, BMP, 2157-6, LIVR, 2571-8 ####[facility] ([id number])[address], [address] [place] [address] Monocytes/100 WBC (Bld) 9.3 % Normal [facility] Comment on above: Performed By: #### C BCA, 32757-4, BMP, 2157-6, LIVR, 257-8 ####[facility] ([id number])[address], [address] [place] [address] Platelet mean volume (Bld) [Entitic vol] 7.9 fL Normal 7-12 [facility] Comment on above: Performed By: #### C BCA, 48232-7, BMP, 2156-6, LIVR, 2578 ####[facility] ([id number])[address] [address] [address] Platelets (Bld) [#/Vol] 396 10*3/uL Normal 150-450 [facility] Comment on above: Performed By: #### C BCA, 98116-1, BMP, 2156-6, LIVR, 2578 ####[facility] ([id number])[address] [address] [place] [address] RBC COUNT 3.34 X10E12/L Low 4.10-5.70 [facility] Comment on above: Performed By: #### C BCA, 33624-4, BMP, 2156-6, LIVR, 2578 ####[facility] ([id number])[address] [address] [place] [address] WBC (Bld) [#/Vol] 16.5 10*3/uL High 4.0-11.0 [facility] Comment on above: Performed By: #### C BCA, 70954-2, BMP, 2157-6, LIVR, 257-8 ####[facility] ([id number])[address], [address] [place] [address] CK [Catalytic activity/Vol]o n 10-22-2023 CPK 837 U/L High 24-195 [facility] Comment on above: Performed By: #### C BCA, 54291-7, BMP, 2157-6, LIVR, 2571-8 ####[facility] ([id number])[address], [address] [place] [address] Calcium.ionized (Bld) [Mass/ Vol]on 10-22-2023 IONIZED CALCIUM 4.9 mg/dL Normal 4.5-5.3 [facility] Comment on above: Performed By: #### 3 8230-9, 43294-6 ####[facility] ([id number])[address], [address] [place] [address] LIVER PANELon 10-22-2023 Albumin [Mass/Vol] 3.1 g/dL Low 3.2-5.3 [facility] Comment on above: Performed By: #### C BCA, 07766-5, BMP, 2157-6, LIVR, 2571-8 ####[facility] ([id number])[address], [address] [place] [address] ALP [Catalytic activity/Vol] 57 U/L Normal 39-130 [facility] Comment on above: Performed By: #### C BCA, 21933-4, BMP, 2157-6, LIVR, 2571-8 ####[facility] ([id number])[address], [address] [address] ALT [Catalytic activity/Vol] 26 U/L Normal 0-40 [facility] Comment on above: Performed By: #### C BCA, 51000-8, BMP, 2157-6, LIVR, 2571-8 ####[facility] ([id number])[address], [address] [place] [address] AST [Catalytic activity/Vol] 34 U/L Normal 0-41 [facility] Comment on above: Performed By: #### C BCA, 88749-5, BMP, 2156-6, LIVR, 2571-8 ####[facility] ([id number])[address], [address] [place] [address] Bilirubin [Mass/Vol] 0.6 mg/dL Normal 0.3-1.2 [facility] Comment on above: Performed By: #### C BCA, 81757-6, BMP, 2156-6, LIVR, 257-8 ####[facility] ([id number])[address], [address], [place] [address] Bilirubin.direct [Mass/Vol] 0.1 mg/dL Normal 0.0-0.4 [facility] Comment on above: Performed By: #### C BCA, 86868-7, BMP, 2156-6, LIVR, 257-8 ####[facility] ([id number])[address], [address] [place] [address] Protein [Mass/Vol] 6.0 g/dL Normal 6.0-8.0 [facility] Comment on above: Performed By: #### C BCA, 05948-9, BMP, 6, LIVR, 257-8 ####[facility] ([id number])[address], [address] [place] [address] Magnesium Ionized ISE (Bld) [Moles/Vol]on 10-22-2023 Magnesium [Moles/Vol] 0.59 mmol/L Normal 0.45-0.74 [facility] Comment on above: Result Comment: NEW REFERENCE RANGE Performed By: #### 3 8230-9, 63263-5 ####[facility] ([id number])[address], [address], [place] [address] SODIUMon 10-22-2023 Sodium [Moles/Vol] 141 mmol/L Normal 134-146 [facility] Comment on above: Performed By: #### 2 951-2 ####[facility] ([id number])[address], [address], [place] [address] Performed By: #### B MP ####[facility] ([id number])[address], [address] [address] Performed By: #### C BCA, 65125-1, BMP, 2156-6, LIVR, 2571-8 ####[facility] ([id number])[address], [address], [place] [address] TRIGLYCERIDEon 10-22-2023 Triglyceride [Mass/Vol] 38 mg/dL Normal 27-150 [facility] Comment on above: Performed By: #### C BCA, 88880-8, BMP, 2156-6, LIVR, 2571-8 ####[facility] ([id number])[address], [address] [place] [address] XR CHEST 1 VWon 10-22-2023 XR CHEST 1 VW Normal [facility] ARTERIAL BLOOD GASon 024 DIONE'S TEST Normal [facility] Comment on above: Performed By: #### A BG ####[facility] ([id number])[address] [place] [address] BASE,DEFICIT 1.0 MMOL/L Normal 0.0-2.0 [facility] Comment on above: Performed By: #### A BG ####[facility] ([id number])[address]141 [place] [address] Body temperature 98.6 [degF] Normal 37.0 [facility] Comment on above: Performed By: #### A BG ####[facility] ([id number])[address]141 [place] [address] HCO3 (Bld) [Moles/Vol] 24.7 mmol/L Normal 22-26 [facility] Comment on above: Performed By: #### A BG ####[facility] ([id number])[address] [facility] [address] INSP. O2 CONC. 40 % Normal [facility] Comment on above: Performed By: #### A BG ####[facility] ([id number])[address] [facility] [address] Oxygen (Bld) [Partial pressure] 96 mm[Hg] Normal 80-100 [facility] Comment on above: Performed By: #### A BG ####[facility] ([id number])[address] [facility] [address] Oxygen saturation in Blood 97.0 % Normal >90 [facility] Comment on above: Performed By: #### A BG ####[facility] ([id number])[address] [facility] [address] OXYGEN SOURCE Vent [facility] Comment on above: Performed By: #### A BG ####[facility] ([id number])[address] [facility] [address] PCO2 42.3 MMHG Normal 35-45 [facility] Comment on above: Performed By: #### A BG ####[facility] ([id number])[address] [facility] [address] pH (Bld) 7.375 [pH] Normal 7.350-7.450 [facility] Comment on above: Performed By: #### A BG ####[facility] ([id number])[address] [facility] [address] SAMPLE SITE Darryn [facility] Comment on above: Performed By: #### A BG ####[facility] ([id number])[address] [facility] [address] SAMPLE TYPE ARTERIAL [facility] Comment on above: Performed By: #### A BG ####[facility] ([id number])[address] [place] [address] BASIC METABOLIC PANLon 10-20 Anion gap [Moles/Vol] 8 mmol/L Normal 5-15 [facility] Comment on above: Performed By: #### B JANUSZ, 2156-08, LIVR, 2571-8 ####[facility] ([id number])[address], [address] [place] [address] Calcium [Mass/Vol] 9.0 mg/dL Normal 8.5-10.5 [facility] Comment on above: Performed By: #### B JANUSZ, 2156-08, LIVR, 2571-8 ####[facility] ([id number])[address], [address] [place] [address] Chloride [Moles/Vol] 104 mmol/L Normal 98-109 [facility] Comment on above: Performed By: #### B JANUSZ, 2156-08, LIVR, 257-8 ####[facility] ([id number])[address], [address] [place] [address] CO2 [Moles/Vol] 26 mmol/L Normal 22-32 [facility] Comment on above: Performed By: #### B JANUSZ, 2156-08, LIVR, 2571-8 ####[facility] ([id number])[address], [address] [place] [address] Creatinine [Mass/Vol] 1.27 mg/dL Normal 0.60-1.30 [facility] Comment on above: Result Comment: METH OD TRACEABLE TO IDMS STANDARD Performed By: #### B JANUSZ, 2156-08, LIVR, 2571-8 ####[facility] ([id number])[address], [address], [place] [address] GFR/1.73 sq M.predicted among non-blacks MDRD (S/P/Bld) [Vol rate/Area] 69 mL/min/{1.73_m2} Normal >59 [facility] Comment on above: Result Comment: Repo rted eGFR is based on theCKD-EPI 2020 equation that doesnot use a race coefficient. Performed By: #### B JANUSZ, 2156-08, LIVR, 8 ####[facility] ([id number])[address], [address], [place] [address] Glucose [Mass/Vol] 107 mg/dL High 65-99 [facility] Comment on above: Performed By: #### B JANUSZ, 2156-08, LIVR, 2570-10 ####[facility] ([id number])[address] [address] [place] [address] Potassium [Moles/Vol] 4.1 mmol/L Normal 3.5-5.0 [facility] Comment on above: Performed By: #### Concepción BOUDREAUX, 2156-08, LIVR, 2570-10 ####[facility] ([id number])[address] [address], [place] [address] Urea nitrogen [Mass/Vol] 26 mg/dL High 5-23 [facility] Comment on above: Performed By: #### Concepción BOUDREAUX, 2156-08, LIVR, 2570-10 ####[facility] ([id number])[address] [address] [place] [address] CK [Catalytic activity/Vol]o n 10-21-2023 CPK 1826 U/L High 24-195 [facility] Comment on above: Performed By: #### Concepción BOUDREAUX, 2156-08, LIVR, 8 ####[facility] ([id number])[address] [address] [address] LIVER PANELon 10-21-2023 Albumin [Mass/Vol] 3.1 g/dL Low 3.2-5.3 [facility] Comment on above: Performed By: #### Concepción BOUDREAUX, 6, LIVR, 8 ####[facility] ([id number])[address], [place] [address] ALP [Catalytic activity/Vol] 61 U/L Normal 39-130 [facility] Comment on above: Performed By: #### B MP, 6, LIVR, 257-8 ####[facility] ([id number])[address], [address], [place] [address] ALT [Catalytic activity/Vol] 25 U/L Normal 0-40 [facility] Comment on above: Performed By: #### B JANUSZ, 6, LIVR, 8 ####[facility] ([id number])[address], [address], [place] [address] AST [Catalytic activity/Vol] 44 U/L High 0-41 [facility] Comment on above: Performed By: #### B JANUSZ, 2156-08, LIVR, 2570-10 ####[facility] ([id number])[address], [address], [place] [address] Bilirubin [Mass/Vol] 0.6 mg/dL Normal 0.3-1.2 [facility] Comment on above: Performed By: #### B JANUSZ, 6, LIVR, 2570-10 ####[facility] ([id number])[address], [place] [address] Bilirubin.direct [Mass/Vol] 0.2 mg/dL Normal 0.0-0.4 [facility] Comment on above: Performed By: #### B MP, 6, LIVR, 257-8 ####[facility] ([id number])[address], [place] [address] Protein [Mass/Vol] 5.9 g/dL Low 6.0-8.0 [facility] Comment on above: Performed By: #### B JANUSZ, 2156-08, LIVR, 257-8 ####[facility] ([id number])[address], [place] [address] SODIUMon 10-21-2023 Sodium [Moles/Vol] 138 mmol/L Normal 134-146 [facility] Comment on above: Performed By: #### 2 951-2 ####[facility] ([id number])[address], [place] [address] Sodium [Moles/Vol] 138 mmol/L Normal 134-146 [facility] Comment on above: Performed By: #### 2 951-2, 4086-5 ####[facility] ([id number])[address] [place] [address] Performed By: #### 2 951-2 ####[facility] ([id number])[address], [place] [address] Performed By: #### B JANUSZ, 2156-08, LIVR, 257-8 ####[facility] ([id number])[address], [place] [address] Sodium [Moles/Vol] 137 mmol/L Normal 134-146 [facility] Comment on above: Performed By: #### 2 951-2 ####[facility] ([id number])[address], [place] [address] TRIGLYCERIDEon 10-21-2023 Triglyceride [Mass/Vol] 113 mg/dL Normal 27-150 [facility] Comment on above: Performed By: #### B JANUSZ, 2156-08, LIVR, 257-8 ####[facility] ([id number])[address], [place] [address] Valproate [Mass/Vol]on 10-20 VALPROIC ACID 50 ug/mL Normal 50-100 [facility] Comment on above: Performed By: #### 2 951-2, 4086-5 ####[facility] ([id number])[address] [place] [address] AMMONIAon 10-20-2023 Ammonia (P) [Moles/Vol] 36 umol/L Normal 18-72 [facility] Comment on above: Result Comment: NEW REFERENCE RANGE Performed By: #### 1 6362-6 ####[facility] ([id number])[address] [place] [address] ARTERIAL BLOOD GASon 024 DIONE'S TEST Normal [facility] Comment on above: Performed By: #### A BG ####[facility] ([id number])[address] [place] [address] Base excess Calc (Bld) [Moles/Vol] 0.0 mmol/L Normal 0.0-2.0 [facility] Comment on above: Performed By: #### A BG ####[facility] ([id number])[address] [place] [address] Body temperature 98.6 [degF] Normal 37.0 [facility] Comment on above: Performed By: #### A BG ####[facility] ([id number])[address] [place] [address] HCO3 (Bld) [Moles/Vol] 24.4 mmol/L Normal 22-26 [facility] Comment on above: Performed By: #### A BG ####[facility] ([id number])[address] [place] [address] INSP. O2 CONC. 40 % Normal [facility] Comment on above: Performed By: #### A BG ####[facility] ([id number])[address] [place] [address] Oxygen (Bld) [Partial pressure] 76 mm[Hg] Low 80-100 [facility] Comment on above: Performed By: #### A BG ####[facility] ([id number])[address] [place] [address] Oxygen saturation in Blood 95.0 % Normal >90 [facility] Comment on above: Performed By: #### A BG ####[facility] ([id number])[address] [place] [address] OXYGEN SOURCE Vent [facility] Comment on above: Performed By: #### A BG ####[facility] ([id number])[address] [place] [address] PCO2 37.2 MMHG Normal 35-45 [facility] Comment on above: Performed By: #### A BG ####[facility] ([id number])[address] [place] [address] pH (Bld) 7.424 [pH] Normal 7.350-7.450 [facility] Comment on above: Performed By: #### A BG ####[facility] ([id number])[address] [place] [address] SAMPLE SITE Darryn [facility] Comment on above: Performed By: #### A BG ####[facility] ([id number])[address] [place] [address] SAMPLE TYPE ARTERIAL Normal [facility] Comment on above: Performed By: #### A BG ####[facility] ([id number])[address] [place] [address] BASIC METABOLIC PANLon 10-19 Anion gap [Moles/Vol] 9 mmol/L Normal 5-15 [facility] Comment on above: Performed By: #### C BCA, BMP, 2157-6, 2639-3 ####[facility] ([id number])[address] [facility] [address] [address] Calcium [Mass/Vol] 8.9 mg/dL Normal 8.5-10.5 [facility] Comment on above: Performed By: #### C RUBI WONG, 2156-08, 2638-05 ####[facility] ([id number])[address] [address] [address] Chloride [Moles/Vol] 101 mmol/L Normal 98-109 [facility] Comment on above: Performed By: #### C JUDITH, RUBI, 2156-08, 2638-05 ####[facility] ([id number])[address] [address], [place] [address] CO2 [Moles/Vol] 25 mmol/L Normal 22-32 [facility] Comment on above: Performed By: #### C RUBI WONG, 2156-08, 2638-05 ####[facility] ([id number])[address] [address], [place] [address] Creatinine [Mass/Vol] 1.21 mg/dL Normal 0.60-1.30 [facility] Comment on above: Result Comment: METH OD TRACEABLE TO IDMS STANDARD Performed By: #### C JUDITH, RUBI, 2156-08, 2638-05 ####[facility] ([id number])[address] [address] GFR/1.73 sq M.predicted among non-blacks MDRD (S/P/Bld) [Vol rate/Area] 73 mL/min/{1.73_m2} Normal >59 [facility] Comment on above: Result Comment: Repo rted eGFR is based on theCKD-EPI 2020 equation that doesnot use a race coefficient. Performed By: #### C BCA, BMP, 2156-08, 2638-05 ####[facility] ([id number])[address] [address] [place] [address] Glucose [Mass/Vol] 115 mg/dL High 65-99 [facility] Comment on above: Performed By: #### C JUDITH, BMP, 2156-08, 2638-05 ####[facility] ([id number])[address], [address] [place] [address] Potassium [Moles/Vol] 3.5 mmol/L Normal 3.5-5.0 [facility] Comment on above: Performed By: #### C BCA, BMP, 2156-08, 2638-05 ####[facility] ([id number])[address], [address] [place] [address] Sodium [Moles/Vol] 135 mmol/L Normal 134-146 [facility] Comment on above: Performed By: #### C JUDITH, BMP, 2156-08, 2638-05 ####[facility] ([id number])[address], [address] [place] [address] Urea nitrogen [Mass/Vol] 21 mg/dL Normal 5-23 [facility] Comment on above: Performed By: #### C JUDITH, BMP, 2156-08, 2638-05 ####[facility] ([id number])[address] [address] CBC AND AUTO DIFFon 10-20-19 24 Eosinophils (Bld) [#/Vol] 0.2 10*3/uL Normal 0.0-0.4 [facility] Comment on above: Performed By: #### C BCA, BMP, 2156-08, 2638-05 ####[facility] ([id number])[address] [address] Eosinophils/100 WBC (Bld) 1.0 % Normal [facility] Comment on above: Performed By: #### C BCA, BMP, 2156-08, 2638-05 ####[facility] ([id number])[address], [address] [place] [address] Erythrocyte distribution width (RBC) [Ratio] 15.5 % High 11.5-15.0 [facility] Comment on above: Performed By: #### C JUDITH [facility], 2156-08, 2638-05 ####[facility] ([id number])[address] [address] Hematocrit (Bld) [Volume fraction] 34.8 % Low 39-49 [facility] Comment on above: Performed By: #### C JUDITH, [facility], 2156-08, 2638-05 ####[facility] ([id number])[address] [address] Hemoglobin (Bld) [Mass/Vol] 12.0 g/dL Low 13.0-17.0 [facility] Comment on above: Performed By: #### C JUDITH, [facility], 2156-08, 2638-05 ####[facility] ([id number])[address] [address] Lymphocytes (Bld) [#/Vol] 0.9 10*3/uL Low 1.0-3.5 [facility] Comment on above: Performed By: #### C JUDITH, BMP, 2156-08, 2638-05 ####[facility] ([id number])[address] [address] Lymphocytes/100 WBC (Bld) 3.8 % Normal [facility] Comment on above: Performed By: #### C JUDITH, BMP, 2156-08, 2638-05 ####[facility] ([id number])[address] [address] MCH (RBC) [Entitic mass] 30.6 pg Normal 27-34 [facility] Comment on above: Performed By: #### C JUDITH, BMP, 2156-08, 2638-05 ####[facility] ([id number])[address] [address], [place] [address] MCHC (RBC) [Mass/Vol] 34.4 g/dL Normal 32-36 [facility] Comment on above: Performed By: #### C JUDITH, BMP, 2156-08, 2638-05 ####[facility] ([id number])[address] [address], [place] [address] MCV (RBC) [Entitic vol] 89 fL Normal 80-100 [facility] Comment on above: Performed By: #### C JUDITH, BMP, 2156-08, 2638-05 ####[facility] ([id number])[address] [address] [place] [address] Monocytes (Bld) [#/Vol] 1.7 10*3/uL High 0-0.9 [facility] Comment on above: Performed By: #### C JUDITH, BMP, 2156-08, 2638-05 ####[facility] ([id number])[address] [address] [place] [address] Monocytes/100 WBC (Bld) 7.6 % Normal [facility] Comment on above: Performed By: #### Kely WONG, BMP, 2156-08, 2638-05 ####[facility] ([id number])[address] [address] [place] [address] Neutrophils (Bld) [#/Vol] 19.6 10*3/uL High 1.5-6.6 [facility] Comment on above: Performed By: #### C JUDITH, BMP, 2156-08, 2638-05 ####[facility] ([id number])[address] [address] [place] [address] Platelet mean volume (Bld) [Entitic vol] 7.8 fL Normal 7-12 [facility] Comment on above: Performed By: #### C BCA, BMP, 2156-08, 2638-05 ####[facility] ([id number])[address], [address] [place] [address] Platelets (Bld) [#/Vol] 370 10*3/uL Normal 150-450 [facility] Comment on above: Performed By: #### C JUDITH, BMP, 2156-08, 2638-05 ####[facility] ([id number])[address], [address] [place] [address] RBC COUNT 3.91 X10E12/L Low 4.10-5.70 [facility] Comment on above: Performed By: #### C JUDITH, BMP, 2156-08, 2638-05 ####[facility] ([id number])[address], [address] [place] [address] RBC morphology finding Nom (Bld) NORMAL Normal [facility] Comment on above: Performed By: #### C JUDITH, BMP, 2156-08, 2638-05 ####[facility] ([id number])[address] [address] SEG NEUTROPHIL 87.6 % Normal [facility] Comment on above: Performed By: #### C BCA, BMP, 2156-08, 2638-05 ####[facility] ([id number])[address], [address] [place] [address] WBC (Bld) [#/Vol] 22.4 10*3/uL High 4.0-11.0 [facility] Comment on above: Performed By: #### C JUDITH, BMP, 2156-08, 2638-05 ####[facility] ([id number])[address], [address] [address] CK [Catalytic activity/Vol]o n 08--2023 CPK 1541 U/L High 24-195 [facility] Comment on above: Performed By: #### 2 157-6, 2571-8 ####[facility] ([id number])[address], [address], [place] [address] CPK 1104 U/L High 24-195 [facility] Comment on above: Performed By: #### C RUBI WONG, 2156-08, 3 ####[facility] ([id number])[address], [address], [place] [address] Glucose Glucometer (BldC) [M ass/Vol]on 10-20-2023 Glucose [Mass/Vol] 105 mg/dL High 65-99 [facility] Methylmalonate [Moles/Vol]on 10-20-2023 Methylmalonic Acid, QN, P 0.22 nmol/mL Normal <=0.40 [facility] Comment on above: Result Comment: NOTE ADDITIONAL INFORMATION This test was developed and its performance characteristicsdetermined by [facility] in a manner consistent with CLIArequirements. This test has not been cleared or approved bythe U.S. Food and Drug Administration.Test Performed by:[address] [address]Gfb Director: Enrique Brewer Ph.D.; CLIA# [id number] Performed By: #### C RUBI WONG, 2156-08, 2638-05 ####[facility] ([id number])[address], [address] [place] [address] Myoglobin [Mass/Vol]on 10-19 SERUM MYOGLOBIN 587.8 ng/mL High 17.4-105.7 [facility] Comment on above: Performed By: #### C RUBI WONG, 2156-08, 93 ####[facility] ([id number])[address], [address], [place] [address] POTASSIUMon 10-20-2023 Potassium [Moles/Vol] 4.4 mmol/L Normal 3.5-5.0 [facility] Comment on above: Performed By: #### 2 823-3 ####[facility] ([id number])[address], [address], [place] [address] Potassium [Moles/Vol] 3.8 mmol/L Normal 3.5-5.0 [facility] Comment on above: Performed By: #### 2 823-3, 2951-2 ####[facility] ([id number])[address], [address], [place] [address] SODIUMon 10-20-2023 Sodium [Moles/Vol] 138 mmol/L Normal 134-146 [facility] Comment on above: Performed By: #### 2 951-2 ####[facility] ([id number])[address], [address], [place] [address] Sodium [Moles/Vol] 135 mmol/L Normal 134-146 [facility] Comment on above: Performed By: #### 2 951-2 ####[facility] ([id number])[address], [address], [place] [address] Sodium [Moles/Vol] 135 mmol/L Normal 134-146 [facility] Comment on above: Performed By: #### 2 951-2 ####[facility] ([id number])[address], [address], [place] [address] Sodium [Moles/Vol] 136 mmol/L Normal 134-146 [facility] Comment on above: Performed By: #### 2 823-3, 2951-2 ####[facility] ([id number])[address], [address], [place] [address] Performed By: #### 2 951-2 ####[facility] ([id number])[address], [address], [place] [address] TRIGLYCERIDEon 10-20-2023 Triglyceride [Mass/Vol] 113 mg/dL Normal 27-150 [facility] Comment on above: Performed By: #### 2 157-6, 2571-8 ####[facility] ([id number])[address], [address] [place] [address] ANTI CARDIOLIPIN AB IGG IGA IGMon 10-19-2023 JESICA IgA <2.0 Normal 0-19.9 [facility] Comment on above: Performed By: #### 1 396-9, 1987-07, 2951-2, 77640-8, 11568-5, 34978-3, ENAP, JESICA, B2G, 23101-8 ####[facility] ([id number])[address], [address] [place] [address] JESICA IgG <1.6 Normal 0-19.9 [facility] Comment on above: Performed By: #### 1 3964-9, 1987-07, 2950-2, 67747-6, 95350-2, 41581-5, ENAP, JESICA, B2G, 83569-6 ####[facility] ([id number])[address], [address] [place] [address] JESICA IgM <1.5 Normal 0-19.9 [facility] Comment on above: Performed By: #### 1 9, 1987-07, 2950-2, 89975-0, 85075-4, 67733-3, ENAP, JESICA, B2G, 51924-8 ####[facility] ([id number])[address], [address] [place] [address] BASIC METABOLIC PANLon 10-18 Anion gap [Moles/Vol] 10 mmol/L Normal 5-15 [facility] Comment on above: Performed By: #### C BCA, BMP ####[facility] ([id number])[address] [address] Calcium [Mass/Vol] 8.6 mg/dL Normal 8.5-10.5 [facility] Comment on above: Performed By: #### C BCA, BMP ####[facility] ([id number])[address] [address] Chloride [Moles/Vol] 93 mmol/L Low 98-109 [facility] Comment on above: Performed By: #### C BCA, BMP ####[facility] ([id number])[address] [address] CO2 [Moles/Vol] 24 mmol/L Normal 22-32 [facility] Comment on above: Performed By: #### C BCA, BMP ####[facility] ([id number])[address] [address] Creatinine [Mass/Vol] 1.61 mg/dL High 0.60-1.30 [facility] Comment on above: Result Comment: METH OD TRACEABLE TO IDMS STANDARD Performed By: #### C BCA, BMP ####[facility] ([id number])[address] [address] GFR/1.73 sq M.predicted among non-blacks MDRD (S/P/Bld) [Vol rate/Area] 52 mL/min/{1.73_m2} Low >59 [facility] Comment on above: Result Comment: Repo rted eGFR is based on theCKD-EPI 2020 equation that doesnot use a race coefficient. Performed By: #### C BCA, BMP ####[facility] ([id number])[address] [address] Glucose [Mass/Vol] 82 mg/dL Normal 65-99 [facility] Comment on above: Performed By: #### C BCA, BMP ####[facility] ([id number])[address] [place] [address] Potassium [Moles/Vol] 3.6 mmol/L Normal 3.5-5.0 [facility] Comment on above: Performed By: #### C BCA, BMP ####[facility] ([id number])[address], [address], [place] [address] Sodium [Moles/Vol] 127 mmol/L Low 134-146 [facility] Comment on above: Performed By: #### C BCA, BMP ####[facility] ([id number])[address], [address] [place] [address] Urea nitrogen [Mass/Vol] 33 mg/dL High 5-23 [facility] Comment on above: Performed By: #### C BCA, BMP ####[facility] ([id number])[address], [address] [place] [address] BETA-2 GP1 AB PANELon 2023 BETA-2 GP1 IgA <2.0 Normal 0.0-19.9 [facility] Comment on above: Performed By: #### 1 3965-9, 1987-07, 2951-2, 55989-0, 07485-0, 24083-4, ENAP, JESICA, B2G, 14733-3 ####[facility] ([id number])[address], [address] [place] [address] BETA-2 GP1 IgG <1.4 Normal 0.0-19.9 [facility] Comment on above: Performed By: #### 1 3965-9, 1987-07, 295-2, 38007-7, 55729-8, 20582-6, ENAP, JESICA, B2G, 57440-7 ####[facility] ([id number])[address], [address] [place] [address], [place] [address] BETA-2 GP1 IgM <1.5 Normal 0.0-19.9 [facility] Comment on above: Performed By: #### 1 3965-9, 1987-5, 2951-2, 18666-9, 18434-5, 82720-6, ENAP, JESICA, B2G, 47143-0 ####[facility] ([id number])[address] [address] CBC AND AUTO DIFFon 10-19-19 24 Band form neutrophils/100 WBC (Bld) 1.9 % Normal [facility] Comment on above: Performed By: #### C JUDITH, BMP ####[facility] ([id number])[address] [address] Erythrocyte distribution width (RBC) [Ratio] 15.6 % High 11.5-15.0 [facility] Comment on above: Performed By: #### C JUDITH, BMP ####[facility] ([id number])[address] [address] Hematocrit (Bld) [Volume fraction] 35.8 % Low 39-49 [facility] Comment on above: Performed By: #### C JUDITH, BMP ####[facility] ([id number])[address] [address] Hemoglobin (Bld) [Mass/Vol] 12.1 g/dL Low 13.0-17.0 [facility] Comment on above: Performed By: #### C BCA, BMP ####[facility] ([id number])[address] [address] Lymphocytes (Bld) [#/Vol] 0.6 10*3/uL Low 1.0-3.5 [facility] Comment on above: Performed By: #### C BCA, BMP ####[facility] ([id number])[address] [address] Lymphocytes/100 WBC (Bld) 2.9 % Normal [facility] Comment on above: Performed By: #### C JUDITH, BMP ####[facility] ([id number])[address] [address] MCH (RBC) [Entitic mass] 30.2 pg Normal 27-34 [facility] Comment on above: Performed By: #### C JUDITH, BMP ####[facility] ([id number])[address], [address], [place] [address] MCHC (RBC) [Mass/Vol] 33.8 g/dL Normal 32-36 [facility] Comment on above: Performed By: #### C JUDITH, BMP ####[facility] ([id number])[address] [address] [place] [address] MCV (RBC) [Entitic vol] 89 fL Normal 80-100 [facility] Comment on above: Performed By: #### C JUDITH, BMP ####[facility] ([id number])[address] [address] [place] [address] Monocytes (Bld) [#/Vol] 2.2 10*3/uL High 0-0.9 [facility] Comment on above: Performed By: #### C JUDITH, BMP ####[facility] ([id number])[address] [address] Monocytes/100 WBC (Bld) 10.6 % Normal [facility] Comment on above: Performed By: #### C JUDITH, BMP ####[facility] ([id number])[address] [address] [place] [address], [place] [address] Neutrophils (Bld) [#/Vol] 18.3 10*3/uL High 1.5-6.6 [facility] Comment on above: Performed By: #### C JUDITH, BMP ####[facility] ([id number])[address] [address] [place] [address], [place] [address] Platelet mean volume (Bld) [Entitic vol] 8.0 fL Normal 7-12 [facility] Comment on above: Performed By: #### C JUDITH, BMP ####[facility] ([id number])[address], [address] [place] [address] Platelets (Bld) [#/Vol] 365 10*3/uL Normal 150-450 [facility] Comment on above: Performed By: #### C JUDITH, BMP ####[facility] ([id number])[address] [address], [place] [address] RBC COUNT 4.01 X10E12/L Low 4.10-5.70 [facility] Comment on above: Performed By: #### C JUDITH, BMP ####[facility] ([id number])[address] [address], [place] [address] RBC morphology finding Nom (Bld) NORMAL Normal [facility] Comment on above: Performed By: #### C JUDITH, BMP ####[facility] ([id number])[address] [address], [place] [address] SEG NEUTROPHIL 84.6 % Normal [facility] Comment on above: Performed By: #### C JUDITH, BMP ####[facility] ([id number])[address] [address] [place] [address] WBC (Bld) [#/Vol] 21.1 10*3/uL High 4.0-11.0 [facility] Comment on above: Performed By: #### C JUDITH, BMP ####[facility] ([id number])[address] [address] [place] [address] CRP [Mass/Vol]on 10-19-2023 C REACTIVE PROTEIN 10.4 mg/dL High 0.000-0.744 [facility] Comment on above: Performed By: #### 1 3965-9, 1987-5, 2951-2, 43767-5, 76792-2, 34865-9, ENAP, JESICA, B2G, 32736-3 ####[facility] ([id number])[address] [place] [address], [address] [place] [address] CT [address]RAIN WO CONTon CT BRAIN WO CONT Normal [facility] Clinical Pathology Blood Sme ar Reviewon 10-19-2023 Clinical Pathology Blood Smear Review Normal [facility] Comment on above: Result Comment: [facility] [employer] [facility] [address] [place] [address] Clinical Pathology ReportPatient Name:PARISH HALL JR.:1975 (Age: 48)Gender:MTaken:4Reported:4Physician(s):ARNOLDO PELAEZ M.D. ([phone])Copy To: Rec. #:[id number]: #[id number] Pathologic DiagnosisPeripheral blood smear: Marked neutrophilia and slight normochromic, normocytic anemia. See note.Comment0 note: The etiology is not evident from the morphology. There are no features typically seen with infection such as left shifting and toxic granulation and no blasts. This may be due to infections, medications, autoimmune disorders, renal disease, etc. Report Electronically Signed [facility]/10/19/2023Suarnulfo Tavera MDInterpretation performed at [place] [address], License number: [id number].Clinical AlvinstH53.9, E87.1, J96.00, Z99.11, I62.9, I61.9, J63.9. BLOOD SMEAR EVALUATIONCB (10/19/2023 0325): WBC = 21.1 X10E9/L; HGB = 12.1 g/dL; HCT = 35.8%; MCV = 89 fL; PLT = 365 X10E9/LBLOOD SMEAR:Leukocytes: There is a marked neutrophilia composed primarily of mature granulocytes and only rare bands, but no toxic granulation, vacuolization or blasts. Lymphocytes are decreased but unremarkable monocytes are increased but unremarkable.Erythrocytes: Slight anisocytosis.Platelets: Morphologically unremarkable, no clumping.Specimen(s) Received Blood Smear ReviewFee Codes(s):1; [address] MARILY PANELon 10-19-2023 ANTI-[place] AB IGG <0.2 Normal <1.0 [facility] Comment on above: Performed By: #### 1 3964-11, 1987-07, 2950-2, 59341-4, 36901-8, 49425-4, ENAP, JESICA, B2G, 49619-0 ####[facility] ([id number])[address] [facility], [address] [place] [address] JO1 ANTIBODY <0.2 Normal <1.0 [facility] Comment on above: Performed By: #### 1 3964-11, 1987-07, 2, 00931-7, 33086-0, 28912-0, ENAP, JESICA, B2G, 49006-8 ####[facility] ([id number])2[address] [facility], [address] [address] [employer] ANTIBODY IGG <0.2 Normal <1.0 [facility] Comment on above: Performed By: #### 1 3964-11, 1987-07, 2950-04, 88814-8, 99980-6, 86624-5, ENAP, JESICA, B2G, 51846-7 ####[facility] ([id number])[address] [facility], [address] [place] [address] SCL 70 ANTIBODY <0.2 Normal <1.0 [facility] Comment on above: Performed By: #### 1 3964-11, 1987-07, 2950-2, 30764-5, 39578-3, 89135-2, ENAP, JESICA, B2G, 05071-9 ####[facility] ([id number])[address] [address] [place] [address] SSA ANTIBODY <0.2 Normal <1.0 [facility] Comment on above: Performed By: #### 1 3964-9, 1987-07, 2950-2, 85721-5, 71017-8, 95955-9, ENAP, JESICA, B2G, 93291-1 ####[facility] ([id number])[address] [address] SSB ANTIBODY <0.2 Normal <1.0 [facility] Comment on above: Performed By: #### 1 9, 1987-07, 2950-04, 77042-7, 00289-2, 87654-3, ENAP, JESICA, B2G, 42271-5 ####[facility] ([id number])[address] [address] ESR Photometric method (Bld) [Velocity]on 10-19-2023 ESR, ERYTHROCYTE SEDIMENTATION RATE 47 mm/h High 0-15 [facility] Comment on above: Performed By: #### 1 9, 1987-07, 2, 44425-7, 27458-5, 12741-3, ENAP, JESICA, B2G, 21973-8 ####[facility] ([id number])[address] [address] Folate [Mass/Vol]on 10-19-19 24 FOLIC ACID 6.6 ng/mL Normal >5.8 [facility] Comment on above: Result Comment: NEW REFERENCE RANGE Performed By: #### 2 284-8, 9, 295-2 ####[facility] ([id number])[address] [address] Glucose Glucometer (BldC) [M ass/Vol]on 10-19-2023 Glucose [Mass/Vol] 100 mg/dL High 65-99 [facility] Glucose [Mass/Vol] 84 mg/dL Normal 65-99 [facility] HIV 1+2 Ab+HIV1 p24 Ag IA Ql on 10-19-2023 HIV 1 and 2 Ab/Ag Screen Non-Reactive Normal NRCT [facility] Comment on above: Result Comment: This information has been disclosed to youfrom confidential records protected fromdisclosure by state law. You shall make nofurther disclosure of this information withoutthe specific, written and informed releaseof the individual to whom it pertains, or asotherwise permitted by state law. A generalauthorization for the release of medical orother information is not sufficient for thepurpose of the release of HIV test resultsor diagnoses. Performed By: #### 1 3964-9, 1987-07, 2950-2, 50166-8, 97695-4, 17224-7, ENAP, JESICA, B2G, 85781-8 ####[facility] ([id number])0 [facility], [address] [place] [address] Homocysteine [Moles/Vol]on 0 10-19-2023 HOMOCYSTEINE 24.85 mcmol/L High 5.90-16.00 [facility] Comment on above: Performed By: #### 1 9, 1987-07, 2950-2, 86669-0, 54942-3, 44957-2, ENAP, JESICA, B2G, 05924-6 ####[facility] ([id number])0 [facility], [address] [place] [address] MR BRAIN W WO CONTon 024 MR BRAIN W WO CONT Normal [facility] Neutrophil cytoplasmic Ab pa lula IF (S)on 10-19-2023 c-ANCA Negative Normal Negative [facility] Comment on above: Performed By: #### 2 284-8, 9, 295-2 ####[facility] ([id number])[address] [address] p-ANCA Negative Normal Negative [facility] Comment on above: Result Comment: NOTE Negative for cANCA and pANCA patterns by immunofluorescence. ADDITIONAL INFORMATION This test was developed and its performance characteristicsdetermined by [facility] in a manner consistent with CLIArequirements. This test has not been cleared or approved bythe U.S. Food and Drug Administration.Test Performed by:[place] [id number] Director: Enrique Brewer Ph.D.; CLIA# [id number] Performed By: #### 2 284-8, 9, 295-2 ####[facility] ([id number])[address] [address] Nuclear Ab IA Ql (S)on 10-18 FAN Screen w/reflex Negative Normal NEG [facility] Comment on above: Result Comment: Test ing performed using multiplex flowimmunoassay. Eleven different antigensassociated with systemic autoimmunediseases (dsDNA,Sm,Sm/GROUNDWATER PROGRAMS DIRECTOR,GROUNDWATER PROGRAMS DIRECTOR,Chromatin,SSA,SSB,Kaylee-1,Scl70,Ribo P,Centromere B)are included in this screening test. Performed By: #### 1 3965-9, 1987-5, 2950-2, 96634-4, 57018-6, 91701-1, ENAP, JESICA, B2G, 29451-6 ####[facility] ([id number])[address] [address] POTASSIUMon 10-19-2023 Potassium [Moles/Vol] 4.1 mmol/L Normal 3.5-5.0 [facility] Comment on above: Performed By: #### 2 823-3, 295-2 ####[facility] ([id number])[address] comment (Bld) [Interp]on 10-19-2023 STAFF REVIEW NOTE Normal [facility] Comment on above: Result Comment: [facility] [address] [place] [address] Clinical Pathology ReportPatient Name:PARISH HALL JR.:1975 (Age:48)Gender:MTaken:10/19/2023eported:10/19/2023hysician(s):ARNOLDO ARAUJO M.D. ([phone])Copy To: Rec.#:[id number]: #[id number] Pathologic DiagnosisPeripheral blood smear: Marked neutrophilia and slight normochromic,normocytic anemia. See note.Comment0 note: The etiology is not evident from the morphology. There areno features typically seen with infection such as left shifting andtoxic granulation and no blasts. This may be due to infections,medications, autoimmune disorders, renal disease, etc. Report Electronically Signed Outsps/10/19/2023Suarnulfo Tavera MDInter[place] [address], License number: [id number].Clinical CrhfcdyS73.9, E87.1, J96.00, Z99.11, I62.9, I61.9, J63.9. BLOOD SMEAR EVALUATIONCBC (10/19/2023 0325): WBC = 21.1 X10E9/L; HGB = 12.1 g/dL; HCT= 35.8%; MCV = 89 fL; PLT = 365 X10E9/LBLOOD SMEAR:Leukocytes: There is a marked neutrophilia composed primarily ofmature granulocytes and only rare bands, but no toxic granulation,vacuolization or blasts. Lymphocytes are decreased but unremarkablemonocytes are increased but unremarkable.Erythrocytes: Slight anisocytosis.Platelets: Morphologically unremarkable, no clumping.Specimen(s) ReceivedBlood Smear ReviewFee Codes(s):1; 73[address] SODIUMon 10-19-2023 Sodium [Moles/Vol] 135 mmol/L Normal 134-146 [facility] Comment on above: Performed By: #### 2 951-2 ####[facility] ([id number])[address], [address], [place] [address] Sodium [Moles/Vol] 134 mmol/L Normal 134-146 [facility] Comment on above: Performed By: #### 2 951-2 ####[facility] ([id number])[address], [address], [place] [address] Performed By: #### 1 3965-9, 1987-5, 295-2, 94514-4, 67140-0, 14196-5, ENAP, JESICA, B2G, 72980-0 ####[facility] ([id number])[address], [address], [place] [address] Sodium [Moles/Vol] 135 mmol/L Normal 134-146 [facility] Comment on above: Performed By: #### 2 284-8, 2131-9, 295-2 ####[facility] ([id number])[address], [address], [place] [address] Sodium [Moles/Vol] 132 mmol/L Low 134-146 [facility] Comment on above: Performed By: #### 2 951-2 ####[facility] ([id number])[address], [address], [place] [address] Sodium [Moles/Vol] 132 mmol/L Low 134-146 [facility] Comment on above: Performed By: #### 2 823-3, 2951-2 ####[facility] ([id number])[address], [address], [place] [address] Sodium [Moles/Vol] 133 mmol/L Low 134-146 [facility] Comment on above: Performed By: #### 2 951-2 ####[facility] ([id number])[address], [address], [place] [address] Sodium [Moles/Vol] 132 mmol/L Low 134-146 [facility] Comment on above: Performed By: #### 2 951-2 ####[facility] ([id number])[address], [address], [place] [address] Sodium [Moles/Vol] 130 mmol/L Low 134-146 [facility] Comment on above: Performed By: #### 2 951-2 ####[facility] ([id number])[address], [address], [place] [address] Sodium [Moles/Vol] 130 mmol/L Low 134-146 [facility] Comment on above: Performed By: #### 2 951-2 ####[facility] ([id number])[address], [address] [place] [address] Sodium [Moles/Vol] 128 mmol/L Low 134-146 [facility] Comment on above: Performed By: #### 2 951-2 ####[facility] ([id number])[address], [address] [place] [address] Sodium [Moles/Vol] 127 mmol/L Low 134-146 [facility] Comment on above: Performed By: #### 2 951-2 ####[facility] ([id number])[address], [address], [place] [address] T. pallidum IgG+IgM IA Ql (S )on 10-19-2023 Syphilis Total <0.2 Normal 0.0-0.8 [facility] Comment on above: Result Comment: NON REACTIVENo serologic evidence of infection to Treponema pallidum (syphilis).Repeat testing may be considered in patients with suspected acute or primary syphilis in 2 to 4 weeks. Performed By: #### 1 3965-9, 1987-5, 2951-2, 89262-6, 51635-5, 48433-8, ENAP, JESICA, B2G, 69979-4 ####[facility] ([id number])[address], [address] [place] [address], [place] [address] VITAMIN B12on 10-19-2023 Cobalamin (Vitamin B12) [Mass/Vol] 508 pg/mL Normal 180-914 [facility] Comment on above: Performed By: #### 2 284-8, 9, 2951-2 ####[facility] ([id number])[address], [address] [place] [address] dRVVT/dRVVT.excess phospholi pid Coag (PPP) [Ratio]on 10-19-2023 DILUTE KRUPA'S VIPER VENOM Negative Normal [facility] Comment on above: Performed By: #### 5 0410-0 ####[facility] ([id number])[address], [address] [place] [address] BASIC METABOLIC PANLon 10-17 Anion gap [Moles/Vol] 12 mmol/L Normal 5-15 [facility] Comment on above: Performed By: #### C BCA, BMP ####[facility] ([id number])[address], [address] [place] [address], [place] [address] Calcium [Mass/Vol] 8.4 mg/dL Low 8.5-10.5 [facility] Comment on above: Performed By: #### C BCA, BMP ####[facility] ([id number])[address] [address] [place] [address], [place] [address] Chloride [Moles/Vol] 82 mmol/L Low 98-109 [facility] Comment on above: Performed By: #### C BCA, BMP ####[facility] ([id number])[address], [address] [place] [address], [place] [address] CO2 [Moles/Vol] 25 mmol/L Normal 22-32 [facility] Comment on above: Performed By: #### C BCA, BMP ####[facility] ([id number])[address] [address] [place] [address] Creatinine [Mass/Vol] 1.63 mg/dL High 0.60-1.30 [facility] Comment on above: Result Comment: METH OD TRACEABLE TO IDMS STANDARD Performed By: #### C BCA, BMP ####[facility] ([id number])[address] [address] GFR/1.73 sq M.predicted among non-blacks MDRD (S/P/Bld) [Vol rate/Area] 51 mL/min/{1.73_m2} Low >59 [facility] Comment on above: Result Comment: Repo rted eGFR is based on theCKD-EPI 2020 equation that doesnot use a race coefficient. Performed By: #### C BCA, BMP ####[facility] ([id number])0 [address] [address] [place] [address] Glucose [Mass/Vol] 96 mg/dL Normal 65-99 [facility] Comment on above: Performed By: #### C BCA, BMP ####[facility] ([id number])[address] [address] [place] [address] Potassium [Moles/Vol] 3.1 mmol/L Low 3.5-5.0 [facility] Comment on above: Performed By: #### C BCA, BMP ####[facility] ([id number])[address] [address] Urea nitrogen [Mass/Vol] 28 mg/dL High 5-23 [facility] Comment on above: Performed By: #### C BCA, BMP ####[facility] ([id number])[address] [address] CBC AND AUTO DIFFon 10-18-19 24 ABSOLUTE BASOPHIL 0.0 X10E9/L Normal 0.0-0.2 [facility] Comment on above: Performed By: #### C JUDITH, BMP ####[facility] ([id number])[address], [address], [place] [address] ABSOLUTE NEUTROPHIL 24.1 X10E9/L High 1.5-6.6 [facility] Comment on above: Performed By: #### C JUDITH, BMP ####[facility] ([id number])0 [address] [address] [place] [address] Basophils/100 WBC (Bld) 0.1 % Normal [facility] Comment on above: Performed By: #### C JUDITH, BMP ####[facility] ([id number])0 [address] [address] [place] [address] Eosinophils (Bld) [#/Vol] 0.0 10*3/uL Normal 0.0-0.4 [facility] Comment on above: Performed By: #### C JUDITH, BMP ####[facility] ([id number])0 [address] [address] [place] [address] Eosinophils/100 WBC (Bld) 0.0 % Normal [facility] Comment on above: Performed By: #### C JUDITH, BMP ####[facility] ([id number])0 [address] [address] [place] [address] Erythrocyte distribution width (RBC) [Ratio] 15.6 % High 11.5-15.0 [facility] Comment on above: Performed By: #### C JUDITH, BMP ####[facility] ([id number])[address] [address] Hematocrit (Bld) [Volume fraction] 41.3 % Normal 39-49 [facility] Comment on above: Performed By: #### C JUDITH, BMP ####[facility] ([id number])[address], [address] [place] [address] Hemoglobin (Bld) [Mass/Vol] 14.2 g/dL Normal 13.0-17.0 [facility] Comment on above: Performed By: #### C BCA, BMP ####[facility] ([id number])[address], [address] [place] [address] Lymphocytes (Bld) [#/Vol] 1.4 10*3/uL Normal 1.0-3.5 [facility] Comment on above: Performed By: #### C JUDITH, BMP ####[facility] ([id number])[address], [address] [place] [address] Lymphocytes/100 WBC (Bld) 4.9 % Normal [facility] Comment on above: Performed By: #### C JUDITH, BMP ####[facility] ([id number])[address], [address] [address] MCH (RBC) [Entitic mass] 29.9 pg Normal 27-34 [facility] Comment on above: Performed By: #### C JUDITH, BMP ####[facility] ([id number])[address], [address] [place] [address] MCHC (RBC) [Mass/Vol] 34.3 g/dL Normal 32-36 [facility] Comment on above: Performed By: #### C JUDITH, BMP ####[facility] ([id number])[address], [address] [place] [address] MCV (RBC) [Entitic vol] 87 fL Normal 80-100 [facility] Comment on above: Performed By: #### C BCA, BMP ####[facility] ([id number])[address], [address] [place] [address] Monocytes (Bld) [#/Vol] 3.1 10*3/uL High 0-0.9 [facility] Comment on above: Performed By: #### C BCA, BMP ####[facility] ([id number])[address], [place] [address] Monocytes/100 WBC (Bld) 10.7 % Normal [facility] Comment on above: Performed By: #### C BCA, BMP ####[facility] ([id number])[address], [place] [address] Neutrophils/100 WBC (Bld) 84.3 % Normal [facility] Comment on above: Performed By: #### C JUDITH, BMP ####[facility] ([id number])[address], [address], [place] [address] Platelet mean volume (Bld) [Entitic vol] 7.9 fL Normal 7-12 [facility] Comment on above: Performed By: #### C JUDITH, BMP ####[facility] ([id number])[address], [address], [place] [address] Platelets (Bld) [#/Vol] 359 10*3/uL Normal 150-450 [facility] Comment on above: Performed By: #### C BCA, BMP ####[facility] ([id number])[address], [address], [place] [address] RBC COUNT 4.73 X10E12/L Normal 4.10-5.70 [facility] Comment on above: Performed By: #### C BCA, BMP ####[facility] ([id number])[address], [address], [place] [address] WBC (Bld) [#/Vol] 28.6 10*3/uL High 4.0-11.0 [facility] Comment on above: Performed By: #### C BCA, BMP ####[facility] ([id number])[address], [address], [place] [address] CT BRAIN WO CONTon CT BRAIN WO CONT Normal [facility] HGB AND HCTon 10-18-2023 Hematocrit (Bld) [Volume fraction] 37.1 % Low 39-49 [facility] Comment on above: Performed By: #### H H ####[facility] ([id number])[address] [address], [place] [address] Hemoglobin (Bld) [Mass/Vol] 12.9 g/dL Low 13.0-17.0 [facility] Comment on above: Performed By: #### H H ####[facility] ([id number])0 [address] [address] [place] [address] Hematocrit (Bld) [Volume fraction] 39.5 % Normal 39-49 [facility] Comment on above: Performed By: #### H H ####[facility] ([id number])[address] [address] [place] [address] Hemoglobin (Bld) [Mass/Vol] 13.3 g/dL Normal 13.0-17.0 [facility] Comment on above: Performed By: #### H H ####[facility] ([id number])[address] [address] [place] [address] POTASSIUMon 10-18-2023 Potassium [Moles/Vol] 3.5 mmol/L Normal 3.5-5.0 [facility] Comment on above: Performed By: #### 2 823-3, 2951-2 ####[facility] ([id number])[address] [address] [place] [address] Potassium [Moles/Vol] 3.6 mmol/L Normal 3.5-5.0 [facility] Comment on above: Performed By: #### 2 823-3, 2951-2 ####[facility] ([id number])[address], [place] [address] Potassium [Moles/Vol] 3.7 mmol/L Normal 3.5-5.0 [facility] Comment on above: Performed By: #### 2 951-2, 2823-3 ####[facility] ([id number])[address], [place] [address] Potassium [Moles/Vol] 2.9 mmol/L Low 3.5-5.0 [facility] Comment on above: Performed By: #### 2 823-3, 2951-2 ####[facility] ([id number])[address], [address], [place] [address] SODIUMon 10-18-2023 Sodium [Moles/Vol] 125 mmol/L Low 134-146 [facility] Comment on above: Performed By: #### 2 823-3, 2951-2 ####[facility] ([id number])[address], [place] [address] Sodium [Moles/Vol] 126 mmol/L Low 134-146 [facility] Comment on above: Performed By: #### 2 951-2 ####[facility] ([id number])[address], [address], [place] [address] Sodium [Moles/Vol] 127 mmol/L Low 134-146 [facility] Comment on above: Performed By: #### 2 951-2 ####[facility] ([id number])[address], [place] [address] Sodium [Moles/Vol] 126 mmol/L Low 134-146 [facility] Comment on above: Performed By: #### 2 823-3, 2951-2 ####[facility] ([id number])[address], [place] [address] Sodium [Moles/Vol] 124 mmol/L Low 134-146 [facility] Comment on above: Performed By: #### 2 951-2, 2823-3 ####[facility] ([id number])[address], [place] [address] Performed By: #### 2 951-2 ####[facility] ([id number])[address], [place] [address] Sodium [Moles/Vol] 119 mmol/L Critically low 134-146 [facility] Comment on above: Performed By: #### 2 951-2 ####[facility] ([id number])[address], [place] [address] Performed By: #### C BCA, BMP ####[facility] ([id number])[address], [place] [address] Sodium [Moles/Vol] 122 mmol/L Low 134-146 [facility] Comment on above: Performed By: #### 2 951-2 ####[facility] ([id number])[address], [place] [address] Sodium [Moles/Vol] 121 mmol/L Low 134-146 [facility] Comment on above: Performed By: #### 2 951-2 ####[facility] ([id number])[address], [place] [address] Sodium [Moles/Vol] 121 mmol/L Low 134-146 [facility] Comment on above: Performed By: #### 2 823-3, 2951-2 ####[facility] ([id number])[address], [place] [address] Sodium [Moles/Vol] 120 mmol/L Low 134-146 [facility] Comment on above: Performed By: #### 2 951-2 ####[facility] ([id number])[address], [place] [address] Sodium [Moles/Vol] 119 mmol/L Critically low 134-[address] [facility] Comment on above: Performed By: #### 2 951-2 ####[facility] ([id number])[address] [place] [address] XR CHEST 1 VWon 10-18-2023 XR CHEST 1 VW Normal [facility] AMMONIAon 10-17-2023 Ammonia (P) [Moles/Vol] 48 umol/L Normal 18-72 [facility] Comment on above: Result Comment: NEW REFERENCE RANGE Performed By: #### 1 6362-6 ####[facility] ([id number])[address] [address] BLOOD CULTUREon 10-17-2023 Bacteria identified Aer cx Nom (Bld) CULTURE RESULTS NO GROWTH 5 DAYS Normal [facility] Bacteria identified Aer cx Nom (Bld) CULTURE RESULTS NO GROWTH 5 DAYS Normal [facility] CBC AND AUTO DIFFon 10-17-19 24 Band form neutrophils/100 WBC (Bld) 2.8 % Normal [facility] Comment on above: Performed By: #### Kely WONG, 97718-7 ####[facility] ([id number])[address] [address] [address] Erythrocyte distribution width (RBC) [Ratio] 15.5 % High 11.5-15.0 [facility] Comment on above: Performed By: #### Kely WONG, 93188-9 ####[facility] ([id number])[address] [place] [address] Hematocrit (Bld) [Volume fraction] 43.7 % Normal 39-49 [facility] Comment on above: Performed By: #### Kely WONG, 75140-8 ####[facility] ([id number])[address], [place] [address] Hemoglobin (Bld) [Mass/Vol] 14.9 g/dL Normal 13.0-17.0 [facility] Comment on above: Performed By: #### Kely WONG, 90840-2 ####[facility] ([id number])[address] [place] [address] Lymphocytes (Bld) [#/Vol] 0.4 10*3/uL Low 1.0-3.5 [facility] Comment on above: Performed By: #### Kely WONG, 68209-4 ####[facility] ([id number])[address] [place] [address] Lymphocytes/100 WBC (Bld) 0.9 % Normal [facility] Comment on above: Performed By: #### Kely WONG, 12989-2 ####[facility] ([id number])[address] [place] [address] MCH (RBC) [Entitic mass] 30.1 pg Normal 27-34 [facility] Comment on above: Performed By: #### Kely WONG, 11311-5 ####[facility] ([id number])[address], [place] [address] MCHC (RBC) [Mass/Vol] 34.2 g/dL Normal 32-36 [facility] Comment on above: Performed By: #### Kely WONG, 68309-0 ####[facility] ([id number])[address] [place] [address] MCV (RBC) [Entitic vol] 88 fL Normal 80-100 [facility] Comment on above: Performed By: #### Kely WONG, [id number] ####[facility] ([id number])[address] [place] [address] Monocytes (Bld) [#/Vol] 3.1 10*3/uL High 0-0.9 [facility] Comment on above: Performed By: #### Kely WONG, [id number] ####[facility] ([id number])[address] [address] Monocytes/100 WBC (Bld) 7.5 % Normal [facility] Comment on above: Performed By: #### Kely WONG, 14768-4 ####[facility] ([id number])[address] [place] [address] Neutrophils (Bld) [#/Vol] 37.4 10*3/uL High 1.5-6.6 [facility] Comment on above: Performed By: #### Kely WONG, 53216-3 ####[facility] ([id number])[address] [place] [address] Platelet mean volume (Bld) [Entitic vol] 7.7 fL Normal 7-12 [facility] Comment on above: Performed By: #### Kely WONG, 85471-7 ####[facility] ([id number])[address] [address] Platelets (Bld) [#/Vol] 350 10*3/uL Normal 150-450 [facility] Comment on above: Performed By: #### Kely WONG, 93581-7 ####[facility] ([id number])[address], [place] [address] RBC COUNT 4.97 X10E12/L Normal 4.10-5.70 [facility] Comment on above: Performed By: #### Kely WONG, 89835-2 ####[facility] ([id number])[address], [address], [place] [address] RBC morphology finding Nom (Bld) NORMAL Normal [facility] Comment on above: Performed By: #### Kely WONG, 33989-1 ####[facility] ([id number])[address], [address] [address] SEG NEUTROPHIL 88.8 % Normal [facility] Comment on above: Performed By: #### C BCA, 19228-9 ####[facility] ([id number])[address], [address] [address] WBC (Bld) [#/Vol] 40.9 10*3/uL High 4.0-11.0 [facility] Comment on above: Performed By: #### C BCA, 47746-0 ####[facility] ([id number])[address] [address] CK [Catalytic activity/Vol]o n 10-17-2023 CPK 1360 U/L High 24-195 [facility] Comment on above: Performed By: #### P INR, 75518-4, 41888-1, THYR, CMP, 2157-6, 40351-1, 2639-3, 2777-1, HA1C ####[facility] ([id number])[address], [address] [place] [address] COMPREHENSIVE METABOLIC PANE Chuy 10-17-2023 Albumin [Mass/Vol] 4.1 g/dL Normal 3.2-5.3 [facility] Comment on above: Performed By: #### P INR, 32173-1, 13899-8, THYR, CMP, 2157-6, 10287-8, 2639-3, 2777-1, HA1C ####[facility] ([id number])[address] [address] ALP [Catalytic activity/Vol] 115 U/L Normal 39-130 [facility] Comment on above: Performed By: #### P INR, 10988-6, 96953-9, THYR, CMP, 2157-6, 46024-6, 2639-3, 2777-1, HA1C ####[facility] ([id number])[address], [address], [place] [address] ALT [Catalytic activity/Vol] 23 U/L Normal 0-40 [facility] Comment on above: Performed By: #### P INR, 17536-6, 82379-4, THYR, CMP, 2157-6, 28586-6, 2639-3, 2777-1, HA1C ####[facility] ([id number])[address], [address], [place] [address] Anion gap [Moles/Vol] 12 mmol/L Normal 5-15 [facility] Comment on above: Performed By: #### P INR, 66597-5, 67794-6, THYR, CMP, 2157-6, 13005-8, 2639-3, 2777-1, HA1C ####[facility] ([id number])[address], [address] [place] [address] AST [Catalytic activity/Vol] 50 U/L High 0-41 [facility] Comment on above: Performed By: #### P INR, 90511-0, 99817-4, THYR, CMP, 2157-6, 64319-5, 2639-3, 2777-1, HA1C ####[facility] ([id number])[address], [address] [place] [address] Bilirubin [Mass/Vol] 1.5 mg/dL High 0.3-1.2 [facility] Comment on above: Performed By: #### P INR, 12452-9, 53540-3, THYR, CMP, 2157-6, 84830-6, 2639-3, 2777-1, HA1C ####[facility] ([id number])[address], [address], [place] [address] Calcium [Mass/Vol] 9.2 mg/dL Normal 8.5-10.5 [facility] Comment on above: Performed By: #### P INR, 26831-1, 88494-0, THYR, CMP, 2157-6, 93303-9, 2639-3, 2777-1, HA1C ####[facility] ([id number])[address], [address], [place] [address] Chloride [Moles/Vol] 76 mmol/L Low 98-109 [facility] Comment on above: Performed By: #### P INR, 17214-4, 83132-4, THYR, CMP, 2157-6, 28642-8, 2639-3, 2777-1, HA1C ####[facility] ([id number])[address], [address] [place] [address] CO2 [Moles/Vol] 25 mmol/L Normal 22-32 [facility] Comment on above: Performed By: #### P INR, 63854-6, 91647-2, THYR, CMP, 2157-6, 44441-3, 2639-3, 2777-1, HA1C ####[facility] ([id number])[address], [address] [place] [address] Creatinine [Mass/Vol] 1.19 mg/dL Normal 0.60-1.30 [facility] Comment on above: Result Comment: METH OD TRACEABLE TO IDMS STANDARD Performed By: #### P INR, 93369-6, 01054-8, THYR, CMP, 2157-6, 95326-4, 2639-3, 2777-1, HA1C ####[facility] ([id number])[address], [address] [place] [address] GFR/1.73 sq M.predicted among non-blacks MDRD (S/P/Bld) [Vol rate/Area] 75 mL/min/{1.73_m2} Normal >59 [facility] Comment on above: Result Comment: Repo rted eGFR is based on theCKD-EPI 2020 equation that doesnot use a race coefficient. Performed By: #### P INR, 21227-7, 82722-0, THYR, CMP, 2157-6, 91879-9, 2639-3, 2777-1, HA1C ####[facility] ([id number])[address], [address], [place] [address] Glucose [Mass/Vol] 111 mg/dL High 65-99 [facility] Comment on above: Performed By: #### P INR, 05629-8, 87748-2, THYR, CMP, 2157-6, 15881-8, 2639-3, 2777-1, HA1C ####[facility] ([id number])[address] [facility], [address], [place] [address] Potassium [Moles/Vol] 3.0 mmol/L Low 3.5-5.0 [facility] Comment on above: Performed By: #### P INR, 74784-6, 56327-8, THYR, CMP, 2157-6, 19646-5, 2639-3, 2777-1, HA1C ####[facility] ([id number])[address] [facility], [address], [place] [address] Protein [Mass/Vol] 7.1 g/dL Normal 6.0-8.0 [facility] Comment on above: Performed By: #### P INR, 09069-8, 29852-4, THYR, CMP, 2157-6, 42432-5, 2639-3, 2777-1, HA1C ####[facility] ([id number])[address], [address], [place] [address] Sodium [Moles/Vol] 113 mmol/L Critically low 134-[address] [facility] Comment on above: Performed By: #### P INR, 66459-9, 86114-6, THYR, CMP, 2157-6, 92561-2, 2639-3, 2777-1, HA1C ####[facility] ([id number])[address] [facility], [address] [place] [address] Urea nitrogen [Mass/Vol] 17 mg/dL Normal 5-23 [facility] Comment on above: Performed By: #### P INR, 64825-2, 94908-0, THYR, CMP, 2157-6, 18775-0, 2639-3, 2777-1, HA1C ####[facility] ([id number])[address], [address] [place] [address]RAIN WO CONT[address] BRAIN WO CONT Normal [facility] CT CTA CAROTIDon 10-17-2023 CT CTA CAROTID Normal [facility] CT CTA HEADon 10-17-2023 CT CTA HEAD Normal [facility] Creatinine (U) [Mass/Vol]on 10-17-2023 URINE CREATININE,RDM 68.00 mg/dL Normal [facility] Comment on above: Performed By: #### 2 161-8, 2955-3 ####[facility] ([id number])[address], [address] [place] [address] DRUG SCREEN, URINEon 024 AMPHETAMINE/METHAM P Negative Normal NEG [facility] Comment on above: Result Comment: AMPH /METH screening cut off = 1000 ng/mL Performed By: #### D STAHL ####[facility] ([id number])[address], [address] [place] [address] BARBITURATES Negative Normal NEG [facility] Comment on above: Result Comment: Kelsey iturates screening cut off value = 200 ng/mL Performed By: #### D STAHL ####[facility] ([id number])[address], [address] [place] [address] BENZODIAZEPINES Negative Normal NEG [facility] Comment on above: Result Comment: Mehdi odiazepines screening cut off value = 200 ng/mL Performed By: #### D STAHL ####[facility] ([id number])[address], [address], [place] [address] CANNABINOIDS Positive Abnormal NEG [facility] Comment on above: Result Comment: Conf irmation available upon request.Cannabinoids/THC screening cut off value = 50 ng/mL Performed By: #### D STAHL ####[facility] ([id number])[address], [address] [address] COCAINE METABOLITE Negative Normal NEG [facility] Comment on above: Result Comment: Coca ine screening cut off value = 300 ng/mL Performed By: #### D STAHL ####[facility] ([id number])[address], [address] [place] [address] ECSTASY Negative Normal NEG [facility] Comment on above: Result Comment: Ecst asy screening cut off value = 500 ng/mLThis report is intended for use in clinicalmonitoring or management of patients. Performed By: #### D STAHL ####[facility] ([id number])[address] [address] METHADONE Negative Normal NEG [facility] Comment on above: Result Comment: Meth adone screening cut off value = 300 ng/mL. Performed By: #### D STAHL ####[facility] ([id number])[address], [address] [place] [address] OPIATES Negative Normal NEG [facility] Comment on above: Result Comment: Opia seth screening cut off value = 300 ng/mLNOTE:This test is used for the detection ofcodeine, hydrocodone (>1000 ng/mL), morphineand hydromorphone (>900 ng/mL) in urine. Performed By: #### D STAHL ####[facility] ([id number])[address], [address] [place] [address] OXYCODONE Negative Normal NEG [facility] Comment on above: Result Comment: Oxyc odone screening cut off value = 300 ng/mLNOTE:This test is used for the detection ofoxycodone and oxymorphone in urine. Performed By: #### D STAHL ####[facility] ([id number])[address] [address] PHENCYCLIDINE Negative Normal NEG [facility] Comment on above: Result Comment: Phen cyclidine screening cut off value = 25 ng/mL Performed By: #### D STAHL ####[facility] ([id number])[address], [address] [place] [address] Glucose Glucometer (BldC) [M ass/Vol]on 10-17-2023 Glucose [Mass/Vol] 107 mg/dL High 65-99 [facility] HGB A1C (GLYCO-HGB)on 2023 Glucose [Mass/Vol] 108 mg/dL Normal [facility] Comment on above: Performed By: #### P INR, 84736-2, 87511-8, THYR, CMP, 7-6, 29464-4, 2639-3, 2777-1, HA1C ####[facility] ([id number])[address] [address] HbA1c (Bld) [Mass fraction] 5.4 % Normal 4.4-5.6 [facility] Comment on above: Result Comment: NOTE ADA Guidelines Result HgbA1c Normal : less than 5.7 % Prediabetes : 5.7 % to 6.4 % Diabetes : > 6.4 %Use with caution in patients with abnormal hemoglobin variants asthe half-life of red blood cells and in vivo glycation rates areaffected. Performed By: #### P INR, 26890-1, 11548-6, THYR, CMP, 2157-6, 35108-9, 2639-3, 2777-1, HA1C ####[facility] ([id number])[address], [address] [address] Lactate (P mel) [Moles/Vol]o n 10-17-2023 LACTATE W/REFLEX 1.5 mmol/L Normal 0.4-2.0 [facility] Comment on above: Result Comment: Resu lt did not trigger repeat Lactate,re-order if needed. Performed By: #### 3 213-1 ####[facility] ([id number])[address], [address] [place] [address] MAGNESIUMon 10-17-2023 Magnesium [Mass/Vol] 2.5 mg/dL Normal 1.8-2.6 [facility] Comment on above: Performed By: #### P INR, 68951-4, 68182-8, THYR, CMP, 2157-6, 16860-3, 2639-3, 2777-1, HA1C ####[facility] ([id number])[address], [address] [place] [address] Myoglobin [Mass/Vol]on 10-16 SERUM MYOGLOBIN 1634.6 ng/mL High 17.4-105.7 [facility] Comment on above: Performed By: #### P INR, 98171-9, 25671-5, THYR, CMP, 2157-6, 45715-9, 2639-3, 2777-1, HA1C ####[facility] ([id number])[address], [address] [place] [address] Natriuretic peptide B [Mass/ Vol]on 10-17-2023 Natriuretic peptide B (Bld) [Mass/Vol] 730 pg/mL High <100.0 [facility] Comment on above: Performed By: #### C BCA, 59055-2 ####[facility] ([id number])[address], [address] [place] [address] Osmolality (U) [Osmolality]o n 10-17-2023 URINE OSMOLALITY 399 mOsm/kg H2 Normal 300-1300 [facility] Comment on above: Performed By: #### 2 695-5 ####[facility] ([id number])[address] [place] [address] PHOSPHORUSon 10-17-2023 Phosphate [Mass/Vol] 2.7 mg/dL Normal 2.4-4.9 [facility] Comment on above: Performed By: #### P INR, 70930-1, 70226-6, THYR, CMP, 2157-6, 71648-1, 2639-3, 2777-1, HA1C ####[facility] ([id number])[address], [address] [address] POTASSIUMon 10-17-2023 Potassium [Moles/Vol] 2.8 mmol/L Low 3.5-5.0 [facility] Comment on above: Performed By: #### 2 823-3, 2951-2 ####[facility] ([id number])[address] [place] [address] PROTIME AND INRon 10-17-2023 INR Coag (PPP) [Relative time] 0.9 {INR} Normal 0.8-1.1 [facility] Comment on above: Performed By: #### P INR, 13513-2, 69449-2, THYR, CMP, 2157-6, 99948-3, 2639-3, 2777-1, HA1C ####[facility] ([id number])[address], [address] [place] [address] PT Coag (PPP) [Time] 10.6 s Normal 9.8-13.2 [facility] Comment on above: Performed By: #### P INR, 35002-6, 29873-0, THYR, CMP, 2157-6, 22089-8, 2639-3, 2777-1, HA1C ####[facility] ([id number])[address], [address] [place] [address] Procalcitonin IA [Mass/Vol]o n 07-31-2024 PROCALCITONIN 0.26 ng/mL High <0.05 [facility] Comment on above: Result Comment: NOTE <0.50 ng/mL - Low risk of severe sepsis and/or septic shock.<2.00 ng/mL - Recommend retesting within 6-24 hours.>2.00 ng/mL - High risk of sepsis and/or septic shock. Performed By: #### 8 9579-7, THYR, 3084-1, 2951-2, 14323-2 ####[facility] ([id number])[address] [address] [place] [address] SODIUMon 10-17-2023 Sodium [Moles/Vol] 118 mmol/L Critically low 134-146 [facility] Comment on above: Performed By: #### 2 823-3, 2951-2 ####[facility] ([id number])[address] [address] [place] [address] Performed By: #### 2 951-2 ####[facility] ([id number])[address] [address] Performed By: #### 8 9579-7, THYR, 3084-1, 2951-2, 82540-9 ####[facility] ([id number])[address] [address] [place] [address] THYROID PROFILEon 10-17-2023 Free T4 [Mass/Vol] 1.57 ng/dL Normal 0.61-1.60 [facility] Comment on above: Performed By: #### 8 9579-7, THYR, 3084-1, 2951-2, 55586-1 ####[facility] ([id number])[address] [address] [place] [address] TSH 1.02 uIU/mL Normal 0.49-4.67 [facility] Comment on above: Performed By: #### 8 9579-7, THYR, 3084-1, 2951-2, 04405-4 ####[facility] ([id number])[address] [address] Free T4 [Mass/Vol] 1.06 ng/dL Normal 0.61-1.60 [facility] Comment on above: Performed By: #### P INR, 65813-8, 59284-4, THYR, CMP, 2157-6, 59047-7, 2639-3, 2777-1, HA1C ####[facility] ([id number])[address], [address], [place] [address] TSH 1.17 uIU/mL Normal 0.49-4.67 [facility] Comment on above: Performed By: #### P INR, 13294-5, 08552-3, THYR, CMP, 2157-6, 52947-2, 2639-3, 2777-1, HA1C ####[facility] ([id number])[address], [address] [place] [address] Troponin I.cardiac High sens itivity method [Mass/Vol]on 10-17-2023 1 HOUR TROP I, HIGH SENSITIVITY 293 ng/L High <21 [facility] Comment on above: Result Comment: Elev ations of hs-Troponin may be due to causesother than myocardial ischemia.Recommend serial hs-Troponin testing be performed.For the initial evaluation and management of chestpain patients, refer to the algorithms linked below.Emergency Patient:[email or web address]:[email or web address] Performed By: #### 8 9579-7, THYR, 3084-1, 2951-2, 68741-8 ####[facility] ([id number])[address] [address] [place] [address] TROPONIN I, HIGH SENSITIVITY 346 ng/L High <21 [facility] Comment on above: Result Comment: Elev ations of hs-Troponin may be due to causesother than myocardial ischemia.Recommend serial hs-Troponin testing be performed.For the initial evaluation and management of chestpain patients, refer to the algorithms linked below.Emergency Patient:[email or web address]:[email or web address] Performed By: #### P INR, 39963-6, 29849-1, THYR, CMP, 2157-6, 54278-5, 2639-3, 2777-1, HA1C ####[facility] ([id number])[address] [address] URIC ACIDon 10-17-2023 Urate [Mass/Vol] 6.5 mg/dL Normal 2.6-7.2 [facility] Comment on above: Performed By: #### 8 9579-7, THYR, 3084-1, 2951-2, 89038-7 ####[facility] ([id number])[address] [address] URINALYSISon 10-17-2023 Bilirubin Ql (U) Negative Normal NEG [facility] Comment on above: Performed By: #### U A ####[facility] ([id number])[address] [address] BLOOD/HGB Large Abnormal NEG [facility] Comment on above: Performed By: #### U A ####[facility] ([id number])[address] [address] Color (U) YELLOW Normal YELLOW [facility] Comment on above: Performed By: #### U A ####[facility] ([id number])[address] [place] [address] Glucose Ql (U) 70 mg/dL Abnormal NEG [facility] Comment on above: Performed By: #### U A ####[facility] ([id number])[address] [place] [address] Ketones Ql (U) Negative Normal NEG [facility] Comment on above: Performed By: #### U A ####[facility] ([id number])[address] [address] Leukocyte esterase Test strip Ql (U) Negative Normal NEG [facility] Comment on above: Performed By: #### U A ####[facility] ([id number])[address] [address] MUCOUS PRESENT Abnormal NONE [facility] Comment on above: Performed By: #### U A ####[facility] ([id number])[address] [address] Nitrite Ql (U) Negative Normal NEG [facility] Comment on above: Performed By: #### U A ####[facility] ([id number])[address] [place] [address] pH (U) 6.5 [pH] Normal 5.0-8.5 [facility] Comment on above: Performed By: #### U A ####[facility] ([id number])[address] [place] [address] Protein Ql (U) 50 mg/dL Abnormal NEG [facility] Comment on above: Performed By: #### U A ####[facility] ([id number])[address], [place] [address] R.B.CELLS 22 /hpf High 0-5 [facility] Comment on above: Performed By: #### U A ####[facility] ([id number])[address] [address], [place] [address] Specific gravity (U) [Rel density] 1.010 Normal 1.003-1.035 [facility] Comment on above: Performed By: #### U A ####[facility] ([id number])[address] [address] [place] [address] SQUAMOUS EPITHELIUM <1 Normal 0-5 [facility] Comment on above: Performed By: #### U A ####[facility] ([id number])[address] [address] [place] [address], [place] [address] TURBIDITY CLEAR Normal CLEAR [facility] Comment on above: Performed By: #### U A ####[facility] ([id number])[address] [address], [place] [address] Urobilinogen (U) [Mass/Vol] mg/dL Normal <1.1 [facility] Comment on above: Performed By: #### U A ####[facility] ([id number])[address] [address] [place] [address], [place] [address] W.B.CELLS 4 /hpf Normal 0-5 [facility] Comment on above: Performed By: #### U A ####[facility] ([id number])[address] [address] [place] [address], [place] [address] URINE SODIUM,RANDOMon 2023 Sodium (U) [Moles/Vol] 20 mmol/L Normal [facility] Comment on above: Performed By: #### 2 161-8, 2955-3 ####[facility] ([id number])[address] [address] [place] [address], [place] [address] XR CHEST 1 VWon 10-17-2023 XR CHEST 1 VW Normal [facility] aPTT Coag (PPP) [Time]on aPTT Coag (Bld) [Time] 33 s Normal 26-37 [facility] Comment on above: Performed By: #### P INR, 12154-6, 41126-7, THYR, CMP, 2157-6, 90992-3, 2639-3, 2777-1, HA1C ####[facility] ([id number])[address] [place] [address], [id number], [place] [address] Follow-Upon 11-01-2022 Follow-Up [id number] Champion 1975 M Date Provider Department Center 11/01/2022 FATEMEH JORDAN MP Family History Family history unknown: Yes Level of Service:97312 PA OFFICE/OUTPATIENT ESTABLISHED LOW MDM 20-29 MIN (GC) Reason for Visit and Comments: Follow-up [245148] [facility] Treatmenton 09-28-2022 Treatment [id number] Champion 1975 M Date Provider Department Center 09/28/2022 DAYAN CHURCH MP PT [facility] Family History Family history unknown: Yes [facility] Follow-Upon 09-27-2022 Follow-Up [id number] Champion 1975 M Date Provider Department Center 09/27/2022 FATEMEH JORDAN MP Family History Family history unknown: Yes Level of Service:59937 PA POSTOP FOLLOW UP VISIT RELATED TO ORIGINAL PX (GC) Reason for Visit and Comments: Pain [136] [facility] 36on 09-22-2022 36 Pt is requesting a r efill on pain med Tramadol. Delfina Davenport in [facility] Telephoneon 09-22-2022 Telephone [id number] Champion 1975 M Date Provider Department Center 09/22/2022 [id number], CHRISTOPHER MP ORTHO MPORTHO Family History Family history unknown: Yes Reason for Visit and Comments: Med Refill [[id number]] [facility] Treatmenton 09-21-2022 Treatment [id number] RichParish 1975 M Date Provider Department Center 09/21/2022 [id number]-DAISY GARDNERMP PT Medical [facility] Family History Family history unknown: Yes [facility] 09-13-2022 36 Attempt to reach pat ient to inform of message below, patient was not available and I was unable to leave a message due to voicemail not being set up. [facility] 09-12-2022 36 Patient called in re questing for a refill on Oxycodone. Medication was last filled on 09/05/22 Surgery-07/05/2022 Last seen 08/18/2022 Next appointment [facility] Orders Onlyon 09-12-2022 Orders Only [id number] [facility] 1975 M Date Provider Department Center 09/12/2022 AYANA BAE MP [facility] Family History Family history unknown: Yes [facility] Orders Onlyon 09-05-2022 Orders Only [id number] SimmnosRich Parish 1975 M Date Provider Department Center 09/05/2022 AYANA BAE MP ORTHO [facility] Family History Family history unknown: Yes [facility] Telephoneon 09-05-2022 Telephone [id number] [place] 1975 M Date Provider Department Center 09/05/2022 FATEMEH JORDAN MP [facility] Family History Family history unknown: Yes Reason for Visit and Comments: Follow-up [[id number]] - Patient calling for refill of oxycodone be sent to Delfina andres [facility] 36on 08-28-2022 36 Approving, but needs appt for additional refills. [facility] 36 Patient called in re questing or a refill on pain medication for the oxycodone. Rx was last filled on 08/16/22 Surgery 07/03/2022 Last seen on 08/18/2022 Next appt 09/27/2022 Medication order was added and routed to physician for review and approval. [facility] Office Visiton 08-18-2022 Follow-up visit [id number] [place] 1975 M Date Provider Department Center 08/18/2022 FATEMEH JORDAN MP [facility] Family History Family history unknown: Yes Level of Service:91301 PA POSTOP FOLLOW UP VISIT RELATED TO ORIGINAL PX (GC) Reason for Visit and Comments: Post-op [483] [facility] Orders Onlyon 08-16-2022 Orders Only [id number] [place] 1975 M Date Provider Department [place] 08/16/2022 ELY SHARMA MP ORTHO MPORTHO No family history on file [facility] Telephoneon 08-15-2022 Telephone [id number] [place] 1975 M [facility] Provider Department [place] 08/15/2022 FATEMEH JORDAN MP MPORTHO No family history on file Reason for Visit and Comments: Follow-up [[id number]] - Patient called in asking for refill of pain meds. Delfina andres [facility] 36on 08-05-2022 36 Approving, but needs appt for additional refills. [facility] Orders Onlyon 08-05-2022 Orders Only [id number] [place] 1975 M Date Provider Department Center 08/05/2022 AYANA BAE MP ORTHO [facility]THO No family history on file [facility] 36on 08-04-2022 36 Patient calling in requesting for a refill medication was last filled on 07/28/2022. [facility] Orders Onlyon 07-28-2022 Orders Only [id number] [place] 1975 M Date Provider Department Center 07/28/2022 AYANA BAE MP ORTHO [facility] No family history on file Normal [facility] Telephoneon 07-28-2022 Telephone [id number] [place] 1975 M Date Provider Department Center 07/28/2022 FATEMEH JORDAN MP ORTHO [facility] No family history on file Reason for Visit and Comments: Follow-up [[id number]] - Patient's significant other called stating patient needs refill of oxycodone sent to [place] [facility] Normal [facility] Office Visiton 07-19-2022 Follow-up visit [id number] [place] 1975 M Date Provider Department Center 07/19/2022 FATEMEH JORDAN MP ORTHO [facility]O No family history on file Level of Service:52139 PA POSTOP FOLLOW UP VISIT RELATED TO ORIGINAL PX (GC) Reason for Visit and Comments: Post-op [483] Normal [facility] Orders Onlyon 07-13-2022 Orders Only [id number] [place] 1975 M [facility] Provider Department Center 07/13/[address] [facility]TH[facility] [place] [facility] No family history on file Normal [facility] CBC WITH AUTO DIFFERENTIALon 07-07-2022 Basophils (Bld) [#/Vol] 0.13 10*3/uL Normal 0.00-0.20 [facility] Comment on above: Performed By: #### L [id number] #### [facility] ([facility]) [address] [place] [address] Basophils/100 WBC (Bld) 0.7 % Normal 0.0-1.0 [facility] Comment on above: Performed By: #### L [id number] #### [facility] ([facility]) [address] [place] [address] Eosinophils (Bld) [#/Vol] 0.10 10*3/uL Normal 0.00-0.50 [facility] Comment on above: Performed By: #### L [id number] #### [facility] ([facility]) [address] [place] [address] Eosinophils/100 WBC (Bld) 0.5 % Normal 0.0-6.0 [facility] Comment on above: Performed By: #### L [id number] #### [facility] ([facility]) [address] [place] [address] Erythrocyte distribution width (RBC) [Ratio] 14.1 % Normal 11.5-15.0 [facility] Comment on above: Performed By: #### L [id number] #### [facility] ([facility]) [address] [place] [address] ERYTHROCYTE MEAN CORPUSCULAR HEMOGLOBIN CONCENTRATION (G/DL) BY AUTOMATED 34.4 g/dL Normal 32.0-35.0 [facility] Comment on above: Performed By: #### L [id number] #### [facility] ([facility]) [address] [place] [address] Hematocrit (Bld) [Volume fraction] 25.0 % Low 39.0-55.0 [facility] Comment on above: Performed By: #### L [id number] #### [facility] ([facility]) [address] [place] [address] Hemoglobin (Bld) [Mass/Vol] 8.6 g/dL Low 13.0-17.0 [facility] Comment on above: Performed By: #### L [id number] #### [facility] ([facility]) [address] [place] [address] Immature granulocytes (Bld) [#/Vol] 0.36 10*3/uL High 0.00-0.20 [facility] Comment on above: Performed By: #### L [id number] #### [facility] ([facility]) [address] [facility] [place] [address] Immature granulocytes/100 WBC (Bld) 1.9 % High 0.0-1.0 [facility] Comment on above: Performed By: #### L [id number] #### [facility] [address] [place] [address] Lymphocytes (Bld) [#/Vol] 1.70 10*3/uL Normal 1.20-4.00 [facility] Comment on above: Performed By: #### L [id number] #### [facility] ([facility]) [address] [place] [address] Lymphocytes/100 WBC (Bld) 8.8 % Low 20.0-45.0 [facility] Comment on above: Performed By: #### L [id number] #### [facility] ([facility]) [address] [place] [address] MCH (RBC) [Entitic mass] 29.8 pg Normal 27.0-33.0 [facility] Comment on above: Performed By: #### L [id number] #### [facility] ([facility]) [address] [place] [address] MCV (RBC) [Entitic vol] 86.5 fL Normal 82.0-98.0 [facility] Comment on above: Performed By: #### L [id number] #### [facility] ([facility]) [address] [place] [address] Monocytes (Bld) [#/Vol] 1.10 10*3/uL High 0.10-1.00 [facility] Comment on above: Performed By: #### L [id number] #### [facility] ([facility]) [address] [place] [address] Monocytes/100 WBC (Bld) 5.7 % Normal 5.0-12.0 [facility] Comment on above: Performed By: #### L [id number] #### [facility] ([facility]) [address] [place] [address] Neutrophils (Bld) [#/Vol] 15.97 10*3/uL High 1.60-7.60 [facility] Comment on above: Performed By: #### L [id number] #### [facility] ([facility]) [address] [place] [address] Neutrophils/100 WBC (Bld) 82.4 % High 40.0-72.0 [facility] Comment on above: Performed By: #### L [id number] #### [facility] ([facility]) [address] [place] [address] NRBC (PER 100 WBCS) BY AUTOMATED COUNT 0.0 % Normal 0.0-0.0 [facility] Comment on above: Performed By: #### L [id number] #### [facility] [address] [place] [address] PLATELETS (10*3/UL) IN BLOOD AUTOMATED COUNT 692 10*3/uL High 150-400 [facility] Comment on above: Performed By: #### L [id number] #### [facility] ([facility]) [address] [place] [address] RBC (Bld) [#/Vol] 2.89 10*6/uL Low 4.20-5.70 [facility] Comment on above: Performed By: #### L [id number] #### [facility] ([facility]) [address] [place] [address] WBC (Bld) [#/Vol] 19.36 10*3/uL High 4.00-10.60 [facility] Comment on above: Performed By: #### L [id number] #### [facility] ([facility]) [address] [place] [address] DSon 07-07-2022 DS Admission Admitted 07/03/2022 for Intertrochanteric fracture of left with malunion Discharge Diagnosis Closed displaced intertrochanteric fracture of left femur, initial encounter ([facility]) with malunion Discharge Disposition Home or Self Care Discharge Medications Your medication list START taking these medications Instructions Last Dose Given Next Dose Due acetaminophen 325 mg tablet Commonly known as: Tylenol Take 2 tablets (650 mg) by mouth every 6 (six) hours if needed for mild pain (1-3 pain score) for up to 385 doses. aspirin 325 mg EC tablet Take 1 tablet (325 mg) by mouth in the morning. docusate sodium 100 mg tablet Commonly known as: Colace Take 1 tablet (100 mg) by mouth if needed in the morning and at bedtime for constipation for up to 10 days. enoxaparin 40 mg/0.4 mL syringe Commonly known as: Lovenox Inject 0.4 mL (40 mg) under the skin in the morning for 96 doses. Do not start before July 07, 2022. oxyCODONE 5 mg immediate release tablet Commonly known as: Roxicodone Take 1 tablet (5 mg) by mouth every 6 (six) hours if needed for moderate pain (4-7 pain score) for up to 7 days. CONTINUE taking these medications Instructions Last Dose Given Next Dose Due amLODIPine 10 mg tablet Commonly known as: Norvasc Take 1 tablet (10 mg) by mouth in the morning. Do not start before May 04, 2022. calcium carbonate 500 mg calcium (1,250 mg) chewable tablet Commonly known as: Os-Fernie Chew 1 tablet (500 mg) in the morning. calcium carbonate 500 mg calcium (1,250 mg) chewable tablet Commonly known as: Os-Fernie Chew 1 tablet (500 mg) in the morning. cholecalciferol 25 MCG (1000 units) tablet Commonly known as: Vitamin D-3 Take 2 tablets (2,000 Units) by mouth in the morning. hydrALAZINE 25 mg tablet Commonly known as: Apresoline Take 1 tablet (25 mg) by mouth every 8 (eight) hours. lidocaine-menthol 4-1 % adhesive patch,medicated To be applied once a day as needed for pain lisinopril 5 mg tablet Take 1 tablet (5 mg) by mouth in the morning. Do not start before May 04, 2022. naloxone 4 mg/0.1 mL nasal spray Commonly known as: Narcan Administer 1 spray (4 mg) into affected nostril(s) if needed for opioid reversal. May repeat every 2-3 minutes if needed, alternating nostrils, until medical assistance becomes available. STOP taking these medications oxyCODONE-acetaminophen 5-325 mg tablet Commonly known as: Percocet Where to Get Your Medications These medications were sent to [facility] [place], [place] - [address] [place] [address], [facility] [address] acetaminophen 325 mg tablet aspirin 325 mg EC tablet docusate sodium 100 mg tablet enoxaparin 40 mg/0.4 mL syringe oxyCODONE 5 mg immediate release tablet Activity Do not drive or drink alcohol while taking narcotic pain medications. No tub baths, swimming, or submerging your incision. Keep clean and dry until your follow-up visit Diet Allergies Patient has no known allergies. Hospital Course Underwent surgery 07/03 and was discharged when pain controlled. He did receive one unit PRBC to help with postop anemia. Completed postoperative antibiotics. Pertinent Physical Exam At Time of Discharge Physical Exam Soft compartments, clean dressings, grossly equal leg lengths and rotations. Lab Results Labs Reviewed MRSA/MSSA DNA NASAL - Abnormal Result Value MSSA DNA Positive (*) MRSA DNA Negative CBC - Abnormal Auto WBC 17.21 (*) RBC 4.19 (*) Hemoglobin 12.3 (*) Hematocrit 37.2 (*) MCV 88.8 MCH 29.4 MCHC 33.1 RDW 13.7 Platelets 564 (*) POCT GLUCOSE METER UNSOLICITED RESULTS - Abnormal Glucose POC 107 (*) CBC - Abnormal Auto WBC 20.13 (*) RBC 2.23 (*) Hemoglobin 6.7 (*) Hematocrit 19.5 (*) MCV 87.4 MCH 30.0 MCHC 34.4 RDW 14.0 Platelets 413 (*) CBC - Abnormal Auto WBC 19.61 (*) RBC 2.83 (*) Hemoglobin 8.4 (*) Hematocrit 24.6 (*) MCV 86.9 MCH 29.7 MCHC 34.1 RDW 14.3 Platelets 498 (*) BASIC METABOLIC PANEL - Abnormal Sodium 132 (*) Potassium 3.8 Chloride 101 CO2 26 BUN 8 Creatinine 0.86 Glucose 101 (*) Calcium 8.5 (*) Anion Gap 9 eGFR 106.8 BUN/Creatinine Ratio 9.3 CBC WITH AUTO DIFFERENTIAL - Abnormal Auto WBC 19.36 (*) RBC 2.89 (*) Hemoglobin 8.6 (*) Hematocrit 25.0 (*) MCV 86.5 MCH 29.8 MCHC 34.4 RDW 14.1 Neutrophils Relative 82.4 (*) Lymphocytes Relative 8.8 (*) Monocytes Relative 5.7 Eosinophils Relative 0.5 Basophils Relative 0.7 Neutrophils Absolute 15.97 (*) Lymphocytes Absolute 1.70 Monocytes Absolute 1.10 (*) Eosinophils Absolute 0.10 Basophils Absolute 0.13 Platelets 692 (*) nRBC % 0.0 Immature Granulocytes Relative 1.9 (*) Immature Granulocytes Absolute 0.36 (*) TROPONIN I - Normal Troponin I 0.03 POCT SARS COV2 ANTIGEN - Normal SARS COV2 ANTIGEN Value: Negativ (more content not included)... Normal [facility] 07-06-2022 30 The patient is Moder ately Stable - Low risk of patient condition declining or worsening The patient's goals for the shift include comfort/pain control/rest The clinical goals for the shift include vss/pain management Problem: Safety - Adult Goal: Free from fall injury Outcome: Progressing Problem: Chronic Conditions and Co-morbidities Goal: Patient's chronic conditions and co-morbidity symptoms are monitored and maintained or improved Outcome: Progressing Normal [facility] 30on 07-05-2022 30 The patient is Moder ately Stable - Low risk of patient condition declining or worsening The patient's goals for the shift include comfort/pain control/rest The clinical goals for the shift include vss/pain management Over the shift, the patient did not make progress toward the following goals. Barriers to progression include fall risk and pain status. Recommendations to address these barriers include fall risk and pain status Normal [facility] 30 The patient is Moder ately Stable - Low risk of patient condition declining or worsening The patient's goals for the shift include comfort/pain control/rest The clinical goals for the shift include vss/pain management Problem: Pain - Adult Goal: Verbalizes/displays adequate comfort level or baseline comfort level Outcome: Progressing Problem: Safety - Adult Goal: Free from fall injury Outcome: Progressing Flowsheets (Taken 07/04/20222039) Free from fall injury: Assess patient frequently for physical needs Educate patient/family on patient safety, including physical limitations Instruct patient to call for assistance with activity based on assessment Problem: Discharge Planning Goal: Discharge to home or other facility with appropriate resources Outcome: Progressing Problem: Chronic Conditions and Co-morbidities Goal: Patient's chronic conditions and co-morbidity symptoms are monitored and maintained or improved Outcome: Progressing Normal [facility] BASIC METABOLIC PANELon 06-17 Anion gap [Moles/Vol] 9 mmol/L Normal - [facility] Comment on above: Performed By: #### L [id number] #### [facility] ([facility]) [address] [facility] [place] [address] Calcium [Mass/Vol] 8.5 mg/dL Low 8.6-10.3 [facility] Comment on above: Performed By: #### L [id number] #### [facility] ([facility]) [address] [place] [address] Chloride [Moles/Vol] 101 mmol/L Normal 98-107 [facility] Comment on above: Performed By: #### L [id number] #### [facility] ([facility]) [address] [place] [address] CO2 [Moles/Vol] 26 mmol/L Normal 21-31 [facility] Comment on above: Performed By: #### L [id number] #### [facility] ([facility]) [address] [place] [address] Creatinine [Mass/Vol] 0.86 mg/dL Normal 0.70-1.30 [facility] Comment on above: Performed By: #### L [id number] #### [facility] ([facility]) [address] [place] [address] GLOMERULAR FILTRATION RATE ML/MIN/1.73 SQ M.PREDICTED 106.8 mL/min/1.73m*2 Normal >60.0 [facility] Comment on above: Result Comment: The [facility]???s estimated glomerular filtration rate (eGFR) will no longer include consideration of race in its calculation. The National Kid[employer] Foundation???s eGFR Task Force developed new recommendations for the estimation of the glomerular filtration rate in the [place] They recommend immediate implementation of the new equation refit without the race variable in all laboratories because the calculation does not include race. In addition to not including race in the calculation and reporting, it included diversity in its development, and has acceptable performance characteristics and potential consequences that do not disproportionately affect any one group of individuals. Performed By: #### L [id number] #### [facility] ([facility]) [address] [place] [address] Glucose [Mass/Vol] 101 mg/dL High 70-100 [facility] Comment on above: Performed By: #### L [id number] #### [facility] ([facility]) [address] [place] [address] Potassium [Moles/Vol] 3.8 mmol/L Normal 3.5-5.1 [facility] Comment on above: Performed By: #### L [id number] #### [facility] ([facility]) [address] [place] [address] Sodium [Moles/Vol] 132 mmol/L Low 136-145 [facility] Comment on above: Performed By: #### L [id number] #### [facility] [address] [place] [address] Urea nitrogen [Mass/Vol] 8 mg/dL Normal 7-25 [facility] Comment on above: Performed By: #### L [id number] #### [facility] ([facility] [address] [place] [address] UREA NITROGEN/CREATININ E (MASS RATIO) IN SER/PLAS 9.3 Normal [facility] Comment on above: Performed By: #### L [id number] #### [facility] ([facility]) [address] [place] [address] CBCon 07-05-2022 Erythrocyte distribution width (RBC) [Ratio] 14.3 % Normal 11.5-15.0 [facility] Comment on above: Performed By: #### L [id number] ####[facility] ([facility])[address] [place] [address] ERYTHROCYTE MEAN CORPUSCULAR HEMOGLOBIN CONCENTRATION (G/DL) BY AUTOMATED 34.1 g/dL Normal 32.0-35.0 [facility] Comment on above: Performed By: #### L [id number] ####[facility] ([facility])[address] [place] [address] Hematocrit (Bld) [Volume fraction] 24.6 % Low 39.0-55.0 [facility] Comment on above: Performed By: #### L [id number] ####[facility] ([facility])[address] [place] [address] Hemoglobin (Bld) [Mass/Vol] 8.4 g/dL Low 13.0-17.0 [facility] Comment on above: Performed By: #### L [id number] ####[facility] ([facility])[address] [place] [address] MCH (RBC) [Entitic mass] 29.7 pg Normal 27.0-33.0 [facility] Comment on above: Performed By: #### L [id number] ####[facility] ([facility])[address] [place] [address] MCV (RBC) [Entitic vol] 86.9 fL Normal 82.0-98.0 [facility] Comment on above: Performed By: #### L [id number] ####[facility] ([facility])[address] [place] [address] PLATELETS (10*3/UL) IN BLOOD AUTOMATED COUNT 498 10*3/uL High 150-400 [facility] Comment on above: Performed By: #### L [id number] ####[facility] ([facility])[address] [place] [address] RBC (Bld) [#/Vol] 2.83 10*6/uL Low 4.20-5.70 [facility] Comment on above: Performed By: #### L [id number] ####[facility] ([facility])[address] [place] [address] WBC (Bld) [#/Vol] 19.61 10*3/uL High 4.00-10.60 [facility] Comment on above: Performed By: #### L [id number] ####[facility] ([facility])[address] [place] [address] NURSNOTEon 07-05-2022 NURSNOTE Pt transferred to [facility] via bed, transported with all belongings including cell phone. Pt. Has no c/o of pain, or Sob at the time of transfer. Ice cont. On to hip area. Normal [facility] NURSNOTE Ice renewed to hip area Normal [facility] NURSNOTE Report called to Manjinder choudhary, 6 AB nurse. Normal [facility] NURSNOTE Eyes closed, resp. E asy @ 18/min Normal [facility] NURSNOTE Ice renew to hip area [facility] repositions himse lf in bed Normal [facility] NURSNOTE Pt refused, to get o ut of bed, pt. Refused bath, and refused to have sheets changed at this time, bedding is dry, urinal at bedside Normal [facility] NURSNOTE Pt eats lunch Normal [facility] NURSNOTE Pt rests peacefully Normal [facility] HOB up @ 50 degrees, pt. Watches TV, no c/o of SOB at this time [facility] NURSNOTE Pt refused to get ou t of bed at this time, Pt repositions himself in bed, resp. Easy @ 18/min [facility] 29on 07-04-2022 29 Addendum created 2249 by Sheron Quispe MD Clinical Note Signed, SmartForm saved [facility] 30on 07-04-2022 30 The patient is Moder ately Stable - Low risk of patient condition declining or worsening The patient's goals for the shift include comfort The clinical goals for the shift include stable vs and pain control Normal [facility] 30 The patient is Moder ately Stable - Low risk of patient condition declining or worsening The patient's goals for the shift include comfort The clinical goals for the shift include stable vs and pain control Over the shift, the patient did not make progress toward the following goals. Barriers to progression include pain. Recommendations to address these barriers include continue ice therapy, pain regimen, and decrease stimuli. Problem: Pain - Adult Goal: Verbalizes/displays adequate comfort level or baseline comfort level Outcome: Not Progressing Normal [facility] CBCon 07-04-2022 Erythrocyte distribution width (RBC) [Ratio] 14.0 % Normal 11.5-15.0 [facility] Comment on above: Performed By: #### L [id number] ####[facility] ([facility])[address] [place] [address] ERYTHROCYTE MEAN CORPUSCULAR HEMOGLOBIN CONCENTRATION (G/DL) BY AUTOMATED 34.4 g/dL Normal 32.0-35.0 [facility] Comment on above: Performed By: #### L [id number] ####[facility] ([facility])[address] [place] [address] Hematocrit (Bld) [Volume fraction] 19.5 % Low 39.0-55.0 [facility] Comment on above: Performed By: #### L [id number] ####[facility] ([facility])[address] [place], [place] [address] Hemoglobin (Bld) [Mass/Vol] 6.7 g/dL Low 13.0-17.0 [facility] Comment on above: Performed By: #### L [id number] ####[facility] ([facility])[address] [place] [address] MCH (RBC) [Entitic mass] 30.0 pg Normal 27.0-33.0 [facility] Comment on above: Performed By: #### L [id number] ####[facility] ([facility])[address] [place], [place] [address] MCV (RBC) [Entitic vol] 87.4 fL Normal 82.0-98.0 [facility] Comment on above: Performed By: #### L [id number] ####[facility] ([facility])[address] [place] [address] PLATELETS (10*3/UL) IN BLOOD AUTOMATED COUNT 413 10*3/uL High 150-400 [facility] Comment on above: Performed By: #### L [id number] ####[facility] ([facility])[address] [place], [place] [address] RBC (Bld) [#/Vol] 2.23 10*6/uL Low 4.20-5.70 [facility] Comment on above: Performed By: #### L [id number] ####[facility] ([facility])[address] [place] [address] WBC (Bld) [#/Vol] 20.13 10*3/uL High 4.00-10.60 [facility] Comment on above: Performed By: #### L [id number] ####[facility] (MICHAEL)[address] [place] [address] CONSULTon 07-04-2022 CONSULT -------- Attestation signed by Thomas Galloway MD at 07/05/2022 9:36 AM I personally saw and examined the patient on the same date of service as resident. I discussed the findings and therapeutic plan with the resident. I agree with the documentation, except for any edits/updates below. 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 # HTN urgency. # Acute post-anemia, s/p transfusion. # Noncompliance. PLAN: Restart his old regimen, amlodipine, hydralazine and lisinopril. Pain control. Monitor BP closely. GIM Inpatient Consult Note Patient - Parish Hall Age - 47 y.o. - 1975 Date of Admission - 07/03/2022 5:46 AM Reason for Consult Hypertension History of Present Illness Parish Hall is a 47 y.o. male with past medical history significant for essential hypertension, vitamin D deficiency and fall with intertrochanteric fracture of the left femur. He is admitted to [facility] after having hardware removal and nail insertion and his left femur 07/03 with orthopedic surgery. Medicine is consulted 07/04 for uncontrolled hypertension. Upon my evaluation the patient is resting comfortably in bed in mild distress. He notes that he is having significant pain from his left femur at the surgical site. Has received his oral pain medications however he only has 1 IV and has been receiving a blood transfusion for the last few hours so has been unable to receive any breakthrough medication. Patient states that though he is supposed to take blood pressure medicine he does not. He was lost to follow-up after his last discharge and does not have any of his medication at home. Review of Systems: Review of Systems Constitutional: Negative for chills and fever. HENT: Negative for congestion and rhinorrhea. Respiratory: Negative for cough and shortness of breath. Cardiovascular: Negative for chest pain and leg swelling. Gastrointestinal: Negative for abdominal pain and diarrhea. Genitourinary: Negative for difficulty urinating and dysuria. Musculoskeletal: Negative for back pain. Left leg pain at surgical site Skin: Negative for pallor and rash. Neurological: Negative for dizziness and headaches. Psychiatric/Behavioral: Negative for agitation and confusion. Past Medical History: Patient has a past medical history of Bipolar I disorder, most recent episode depressed ([facility] (09/25/2017) and Hypertension (04/27/2022). Past Surgical History: Patient has a past surgical history that includes Leg Surgery (Left) and Leg Surgery (Right). Social History: Patient reports that he has been smoking cigarettes. He has been smoking an average of .25 packs per day. He has never used smokeless tobacco. He reports current drug use. Drug: Marijuana. He reports that he does not drink alcohol. Alc/Tobacco/Drug: Patient reports no history of alcohol use. reports that he has been smoking cigarettes. He has been smoking an average of .25 packs per day. He has never used smokeless tobacco. reports current drug use. Drug: Marijuana. Family History: Patient family history is not on file. Medications: Patient Current Facility-Administered Medications: acetaminophen (Tylenol) tablet 650 mg, 650 mg, oral, q6h, Ely Ayon MD, 650 mg at 07/04/22 1141 amLODIPine (Norvasc) tablet 10 mg, 10 mg, oral, Daily, Ely Ayon MD, 10 mg at 07/04/22 0973 calcium carbonate (Tums) chewable tablet 500 mg, 500 mg, oral, Daily, Ely Ayon MD, 500 mg at 07/04/22 09 ceFAZolin in dextrose (iso-os) (Ancef) IVPB 2 g, 2 g, intravenous, q8h, Ely Ayon MD, Stopped at 07/04/22 0502 cholecalciferol (Vitamin D-3) tablet 2,000 Units, 2,000 Units, oral, Daily, Ely Ayon MD, 2,000 Units at 07/04/22 09 enoxaparin (Lovenox) syringe 40 mg, 40 mg, subcutaneous, Daily, Ely Ayon MD, 40 mg at 07/04/22 0931 hydrALAZINE (Apresoline) tablet 25 mg, 25 mg, oral, q8h ALEXIS, Ely Ayon MD, 25 mg at 07/04/22 0604 HYDROmorphone (Dilaudid) injection 0.4 mg, 0.4 mg, intravenous, q3h PRN, Van Bryant MD, 0.4 mg at 07/04/22 0519 lisinopril tablet 5 mg, 5 mg, oral, Daily, Ely Ayon MD, 5 mg at 07/04/22 09 LORazepam (Ativan) tablet 1 mg, 1 mg, oral, q1h PRN OR LORazepam (Ativan) tablet 2 mg, 2 mg, oral, q1h PRN OR LORazepam (Ativan) tablet 3 mg, 3 mg, oral, q1h PRN OR LORazepam (Ativan) tablet 4 mg, 4 mg, oral, q1h PRN, Ayana Rodriguez MD ondansetron ODT (Zofran-ODT) disintegrating tablet 4 mg, 4 mg, oral, q8h PRN OR ondansetron HCl (PF) (Zofran) injection 4 mg, 4 mg, intravenous, q6h PRN, Ely Ayon MD, 4 mg at 07/03/22 175 oxyCODONE (Roxicodone) immediate release tablet 5 mg, 5 mg, oral, q6h PRN OR oxyCODONE (Roxicodone) immediate release tablet 10 mg, 10 mg, oral, q6h PRN, Ely Ayon MD, 10 mg at 0 (more content not included)... Normal [facility] NURSNOTEon 07-04-2022 NURSNOTE Pt complains of ches t pain stating it feels like pulled muscles and a little sore, I don't think its serious though . Nurse called ortho and Ayana stated she will come see the pt. Normal [facility] NURSNOTE Pt is currently yell ing and thrashing in the bed complaining of pain 12/26 stating that Dilaudid IV that RN gave at 0215 only took the edge off . RN provided ice, offered and assisted with repositioning, and notified ortho regarding patient complaint. RN will continue to monitor patient. Normal [facility] TROPONIN Ion 07-04-2022 Troponin I.cardiac [Mass/Vol] 0.03 ng/mL Normal 0.00-0.04 [facility] Comment on above: Performed By: #### L [id number] ####[facility] ([facility])[address] [place] [address] 30on 07-03-2022 30 The patient is Moder ately Stable - Low risk of patient condition declining or worsening The patient's goals for the shift include rest The clinical goals for the shift include stable vitals Over the shift, the patient did not make progress toward the following goals. Problem: Pain - Adult Goal: Verbalizes/displays adequate comfort level or baseline comfort level Outcome: Progressing Problem: Safety - Adult Goal: Free from fall injury Outcome: Progressing Problem: Discharge Planning Goal: Discharge to home or other facility with appropriate resources Outcome: Progressing Flowsheets (Taken 07/03/2022 1700) Discharge to home or other facility with appropriate resources: Identify barriers to discharge with patient and caregiver Arrange for needed discharge resources and transportation as appropriate Problem: Chronic Conditions and Co-morbidities Goal: Patient's chronic conditions and co-morbidity symptoms are monitored and maintained or improved Outcome: Progressing Flowsheets (Taken 07/03/2022 1700) Care Plan - Patient's Chronic Conditions and Co-Morbidity Symptoms are Monitored and Maintained or Improved: Monitor and assess patient's chronic conditions and comorbid symptoms for stability, deterioration, or improvement Normal [facility] Anesthesiaon 07-03-2022 Anesthesia [id number] Parish Hall 1975 M Date Provider Department Center 07/03/2022 RILEY D[facility]ONT [facility] OR IN Medical C No family history on file Normal [facility] BASIC METABOLIC PANELon 06-17 Anion gap [Moles/Vol] 12 mmol/L Normal 7-20 [facility] Comment on above: Order Comment: Pleas e draw labs in pre-op on 07/03/22 Performed By: #### L [id number] #### [facility] ([facility]) [address] [place] [address] Calcium [Mass/Vol] 9.4 mg/dL Normal 8.6-10.3 [facility] Comment on above: Order Comment: Pleas e draw labs in pre-op on 07/03/22 Performed By: #### L [id number] #### [facility] ([facility]) [address] [place] [address] Chloride [Moles/Vol] 103 mmol/L Normal 98-107 [facility] Comment on above: Order Comment: Pleas e draw labs in pre-op on 07/03/22 Performed By: #### L [id number] #### [facility] ([facility]) [address] [place] [address] CO2 [Moles/Vol] 27 mmol/L Normal 21-31 [facility] Comment on above: Order Comment: Pleas e draw labs in pre-op on 07/03/22 Performed By: #### L [id number] #### [facility] ([facility]) [address] [place] [address] Creatinine [Mass/Vol] 1.06 mg/dL Normal 0.70-1.30 [facility] Comment on above: Order Comment: Pleas e draw labs in pre-op on 07/03/22 Performed By: #### L [id number] #### [facility] ([facility]) [address] [place] [address] GLOMERULAR FILTRATION RATE ML/MIN/1.73 SQ M.PREDICTED 86.6 mL/min/1.73m*2 Normal >60.0 [facility] Comment on above: Order Comment: Pleas e draw labs in pre-op on 07/03/22 Result Comment: The [facility]???s estimated glomerular filtration rate (eGFR) will no longer include consideration of race in its calculation. The [employer]???s eGFR Task Force developed new recommendations for the estimation of the glomerular filtration rate in the [place] They recommend immediate implementation of the new equation refit without the race variable in all laboratories because the calculation does not include race. In addition to not including race in the calculation and reporting, it included diversity in its development, and has acceptable performance characteristics and potential consequences that do not disproportionately affect any one group of individuals. Performed By: #### L [id number] #### [facility] ([facility]) [address] [place] [address] Glucose [Mass/Vol] 94 mg/dL Normal 70-100 [facility] Comment on above: Order Comment: Pleas e draw labs in pre-op on 07/03/22 Performed By: #### L [id number] #### [facility] ([facility]) [address] [place] [address] Potassium [Moles/Vol] 4.2 mmol/L Normal 3.5-5.1 [facility] Comment on above: Order Comment: Pleas e draw labs in pre-op on 07/03/22 Performed By: #### L [id number] #### [facility] ([facility]) [address] [place] [address] Sodium [Moles/Vol] 138 mmol/L Normal 136-145 [facility] Comment on above: Order Comment: Pleas e draw labs in pre-op on 07/03/22 Performed By: #### L [id number] #### [facility] ([facility]) [address] [place] [address] Urea nitrogen [Mass/Vol] 10 mg/dL Normal 7-25 [facility] Comment on above: Order Comment: Pleas e draw labs in pre-op on 07/03/22 Performed By: #### L [id number] #### [facility] ([facility]) [address] [place] [address] UREA NITROGEN/CREATININ E (MASS RATIO) IN SER/PLAS 9.4 Normal [facility] Comment on above: Order Comment: Pleas e draw labs in pre-op on 07/03/22 Performed By: #### L [id number] #### [facility] ([facility]) [address] [place] [address] CBCon 07-03-2022 Erythrocyte distribution width (RBC) [Ratio] 13.7 % Normal 11.5-15.0 [facility] Comment on above: Order Comment: Pleas e draw labs in pre-op on 07/03/22 Performed By: #### L [id number] #### [facility] ([facility]) [address] [place] [address] ERYTHROCYTE MEAN CORPUSCULAR HEMOGLOBIN CONCENTRATION (G/DL) BY AUTOMATED 33.1 g/dL Normal 32.0-35.0 [facility] Comment on above: Order Comment: Pleas e draw labs in pre-op on 07/03/22 Performed By: #### L [id number] #### [facility] ([facility]) [address] [place] [address] Hematocrit (Bld) [Volume fraction] 37.2 % Low 39.0-55.0 [facility] Comment on above: Order Comment: Pleas e draw labs in pre-op on 07/03/22 Performed By: #### L [id number] #### [facility] ([facility]) [address] [place] [address] Hemoglobin (Bld) [Mass/Vol] 12.3 g/dL Low 13.0-17.0 [facility] Comment on above: Order Comment: Pleas e draw labs in pre-op on 07/03/22 Performed By: #### L [id number] #### [facility] ([facility]) [address] [place] [address] MCH (RBC) [Entitic mass] 29.4 pg Normal 27.0-33.0 [facility] Comment on above: Order Comment: Pleas e draw labs in pre-op on 07/03/22 Performed By: #### L [id number] #### [facility] ([facility]) [address] [place] [address] MCV (RBC) [Entitic vol] 88.8 fL Normal 82.0-98.0 [facility] Comment on above: Order Comment: Pleas e draw labs in pre-op on 07/03/22 Performed By: #### L [id number] #### [facility] ([facility]) [address] [place] [address] PLATELETS (10*3/UL) IN BLOOD AUTOMATED COUNT 564 10*3/uL High 150-400 [facility] Comment on above: Order Comment: Pleas e draw labs in pre-op on 07/03/22 Performed By: #### L [id number] #### [facility] ([facility]) [address] [place] [address] RBC (Bld) [#/Vol] 4.19 10*6/uL Low 4.20-5.70 [facility] Comment on above: Order Comment: Pleas e draw labs in pre-op on 07/03/22 Performed By: #### L [id number] #### [facility] ([facility]) [address] [place] [address] WBC (Bld) [#/Vol] 17.21 10*3/uL High 4.00-10.60 [facility] Comment on above: Order Comment: Pleas e draw labs in pre-op on 07/03/22 Performed By: #### L [id number] #### [facility] ([facility]) [address] [facility] [place] [address] HPon 07-03-2022 HP H&P reviewed. The matilde monge was examined and there are no changes to the H&P. Normal [facility] Letter (Out)on 07-03-2022 Letter (Out) [id number] Parish Hall 1975 M Date Provider Department Center 07/03/2022 None-None [facility] AUTH [facility] No family history on file Normal [facility] MRSA/MSSA DNA NASALon 2022 MRSA DNA Negative Normal Negative [facility] Comment on above: Performed By: #### L [id number] ####[facility] ([facility])[address] [place] [address] MSSA DNA Positive Abnormal Negative [facility] Comment on above: Performed By: #### L [id number] ####[facility] ([facility])[address] [place] [address] OPNOTEon 07-03-2022 OPNOTE FEMORAL NAIL REMOVAL and FEMORAL PLATE REMOVAL (L), INSERTION OF TFNA (L) Operative Note Date: 07/03/2022 Location: [facility] OR Name: Parish Hall, : 1975, Diagnosis Pre-op Diagnosis * Intertrochanteric fracture of left femur, closed, with delayed healing, subsequent encounter [S72.142G] Post-op Diagnosis * Intertrochanteric fracture of left femur, closed, with delayed healing, subsequent encounter [S72.142G] Procedures 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 (Removed) Specimens ID Source Type Tests Collected By Collected At [facility]? Priority Lab ID 1 Hip Tissue TISSUE CULTURE AND ANAEROBIC CULTURE Fatemeh Rodriguez MD 07/03/22 0841 Today [id number], [id number] Description: left hip Implants Type Name Action Serial No. Pin PIN,STEINMANN,#5,[id number] - [id number] Used, Not Implanted Pin PIN,STEINMANN,#5,[id number] - [id number] Used, Not Implanted Nail TFNA Implanted HELICAL BLADE Implanted TI LOCKING SCREW Implanted TI LOCKING SCREW Implanted Screw SCREW,2.7M,T8,34M - [id number] Implanted Screw SCREW,2.7M,T8,36M - [id number] Explanted Screw SCREW,2.7M,T8,48M - [id number] Implanted Screw SCREW,2.7M,T8,60M - [id number] Implanted Screw SCREW,2.7M,T8,30M - [id number] Implanted Screw SCREW,CORTEX,SLF-TAP,3.5X65M M - [id number] Explanted Screw SCREW,CORTEX,SLF-TAP,3.5X75M M - [id number] Explanted Plate PLATE,2.7M,LOCK,10 HOLES,94M - [id number] Implanted Staff: Broker In Charge: Aleena Diallo RN Relief Broker In Charge: Mariah Hunt RN Relief Scrub: Johanne Prescott, STEPHEN Scrub Person: Taty Tay Indications: Parish Hall is an 47 y.o. male who is having surgery for Intertrochanteric fracture of left femur, closed, with delayed healing, subsequent encounter [S72.679G]. Procedure Details: The patient was seen in the preoperative area. The risks, benefits, complications, treatment options, non-operative alternatives, expected recovery and outcomes were discussed with the patient. The possibilities of reaction to medication, pulmonary aspiration, injury to surrounding structures, bleeding, recurrent infection, the need for additional procedures, failure to diagnose a condition, and creating a complication requiring transfusion or operation were discussed with the patient. The patient concurred with the proposed plan, giving informed consent. The site of surgery was properly noted/marked if necessary per policy. The patient has been actively warmed in preoperative area. Preoperative antibiotics have been ordered and given within 1 hours of incision. Venous thrombosis prophylaxis have been ordered including unilateral sequential compression device Patient was brought back to the operating room placed under excellent general anesthesia. He was then placed in a partial lateral position using a beanbag, and the left lower extremity was prepped and draped in usual sterile fashion. Preoperative timeout was performed seeing 2 separate patient identifiers, and the left lower extremity was confirmed by all surgeons. We began by making a previous incision over the lateral hip, which was extended a little bit more proximally to help with placement of the planned anterograde nail. We dissected down to the level of the IT band, and then incised it longitudinally and performed a subvastus approach to the plate. Hemostasis was achieved using Bovie electrocautery. Once down to the level of the plate, it was removed with the aid of intraoperative fluoroscopy, and all hardware except for the broken screw in the femoral head was able to be retrieved without difficulty. Several screws were loose. We then turned our attention distally to the knee, and made a lateral incision over the previous distal interlock incision, and used fluoroscopy to assist with removal of the 2 distal interlock screws. We then made an incision over the anterior knee and split the patella tendon in line with the fibers centrally. The pin was placed up into the nail, and a soft tissue protector was slid intra-articularly to protect the surrounding cartilage and soft tissue structures. We started by using a reamer to clear off any bone on the end of the nail, and subsequently used a universal extractor to thread into the nail. Once were satisfied with the purchase, we then moved back proximally to take out the proximal interlocking screws through an anterior incision. The nail was then removed without much difficulty, and the knee was copiously irrigated with normal saline. His intertrochanteric malunion fracture (more content not included)... Normal [facility] POCT GLUCOSE METER UNSOLICIT ED RESULTSon 07-03-2022 Glucose [Mass/Vol] 107 mg/dL High 70-105 [facility] Comment on above: Result Comment: [facility] Performed By: #### L [id number] #### [facility] ([facility]) [address] [place] [address] TISSUE CULTUREon 07-03-2022 Bacteria identified Cx Nom (Unsp spec) No growth at 5 days Normal [facility] Comment on above: Order Comment: Pre-o p diagnosis:Intertrochanteric fracture of left femur, closed, with delayed healing, subsequent encounter [S72.141G] Performed By: #### L [id number] #### [facility] ([facility]) [address] [place] [address] GRAM STAIN RESULT Normal [facility] Comment on above: Order Comment: Pre-o p diagnosis:Intertrochanteric fracture of left femur, closed, with delayed healing, subsequent encounter [S72.141G] Result Comment: Many Polymorphonuclear leukocytes No organisms seen Performed By: #### L [id number] #### [facility] ([facility]) [address] [facility] [place] [address] TYPE AND SCREENon 07-03-2022 AB SCREEN Negative Normal [facility] Comment on above: Performed By: #### L [id number] ####[facility], ABO group Nom (Bld) O Normal [facility] Comment on above: Performed By: #### L [id number] ####[facility], RH TYPE IN BLOOD Positive Normal [facility] Comment on above: Performed By: #### L [id number] ####[facility], VITAMIN D 1,25 DIHYDROXYon 0 07-03-2022 VITAMIN D 1,25-DIHYDROXY 28.6 pg/mL Normal 19.9-79.3 [facility] Comment on above: Order Comment: Preston e draw labs in pre-op on 07/03/22 Result Comment: INTE RPRETIVE INFORMATION: Vitamin D, 1,25-Dihydroxy This test is primarily indicated during patient evaluation for hypercalcemia and renal failure. A normal result does not rule out Vitamin D deficiency. The recommended test for diagnosing Vitamin D deficiency is Vitamin D 25-hydroxy. Performed By: [facility] [address] [place] [address] Job Foreman: Brandon Clark MD, PhD Performed By: #### L [id number] #### [facility] ([facility]) [address] [facility] [place] [address] Follow-Upon 06-30-2022 Follow-Up [id number] Rich ,Daniel 1975 M Date Provider Department Center 06/30/2022 FATEMEH JORDAN ORTHO MPORTHO No family history on file Level of Service:77104 PA POSTOP FOLLOW UP VISIT RELATED TO ORIGINAL PX (GC,57) Reason for Visit and Comments: Pain [136] Normal [facility] HPon 06-30-2022 HP Orthopaedic Surgery Subjective 06/30/22 Parish Hall is a 47 y.o. year old male who returns to clinic today follow-up of his left kanwal-implant intertrochanteric femur fracture status post ORIF (DOS 04/27/2022). He continues to report left hip pain at the site of his hardware. He has been compliant with toe touch weightbearing. He has been ambulating with the walker and using Percocet and medical marijuana for pain control. He would like to discuss surgical revision for his hardware loosening and failure. 06/09/22 Parish Hall is a 47 y.o. year old male who returns to clinic today follow-up of his left kanwal-implant intertrochanteric femur fracture status post ORIF (DOS 04/27/2022). He is now just over 6 weeks out from surgery. He reports he remains compliant with toe-touch weightbearing status. He has been ambulating with the use of a walker. Continues to take Percocet for pain control as well as medical marijuana. He reports he continues to have significant pain about his left hip near his greater trochanter. No falls or injuries since last visit. Patient has completed 2 sessions of physical therapy. Patient History Past Surgical History: Procedure Laterality Date LEG SURGERY Left LEG SURGERY Right Past Medical History: Diagnosis Date Bipolar I disorder, most recent episode depressed ([facility]) 09/25/2017 Hypertension 04/27/2022 Objective General: Body mass index is 21.84 kg/m???. No acute distress, comfortable Respiratory: Unlabored breathing with normal rate, no cough Cardiovascular: Warm well perfused extremities Psych: Appropriate mood and behavior Focused exam of the left hip: Surgical incisions are well-healed without erythema, warmth, or drainage. Scar well healed with tenderness to palpation over lateral hip hardware. Minimal tenderness to palpation distally about the incision. Patient with full flexion of the hip. Internal rotation to about 10 degrees, external rotation to about 20 degrees, limited by pain. Rotational profile of the leg is equal to the contralateral side. Left leg is approximately 1.5 cm shorter than the contralateral side. 5/5 quadricep strength. Neurovascular intact distally. Imaging: X-rays of the left hip obtained 06/30/2022 personally reviewed and interpreted and demonstrate previously placed surgical hardware about kanwal-implant intertrochanteric femur fracture. There has been interval breakage of the third screw from the proximal aspect of the plate. The second screw from the proximal end of the plate remains in a semi-backed out position, but this appears unchanged compared to last visit images. Assessment/Plan Parish Hall is a 47 y.o. year old male with kanwal-implant intertrochanteric femur fracture status post ORIF (DOS 04/27/2022) with mild varus collapse and slight hardware failure. -Discussed clinical and imaging findings at length with the patient today -Discussed operative intervention of left femur hardware removal including plate and nail as well as left cephalomedullary nail placement with LAURA autograft harvest from ipsilateral femur to help correct deformity, leg lengths, and improve healing potential -Consented and booked for OR on 07/03/2022 -All patient questions were addressed, and he is in agreement with plan. -Continue toe-touch weightbearing to left lower extremity AYANA RODRIGUEZ MD Orthopedic Surgery, PGY-1 Ortho Pager [phone] 06/30/22 11:51 AM [facility] Letter (Out)on 06-30-2022 Letter (Out) [id number] Parish Hall 1975 M Date Provider Department [place] 06/30/2022 None-None [facility] AUTH IN Medical C No family history on file [facility] 36on 06-28-2022 36 Attempted to call matilde monge again, ws not set up [facility] Orders Onlyon 06-28-2022 Orders Only [id number] Parish Hall 1975 M Date Provider Department Center 06/28/2022 803-MELCHOR BARR ORTHO MPORTHO No family history on file [facility] Orders Onlyon 06-26-2022 Orders Only [id number] Parish Hall 1975 M Date Provider Department Center 06/26/2022 [id number]-RYEVUEAYANA RODRIGUEZ ORTHO MPORTHO No family history on file [facility] 36on 06-23-2022 36 Attempted to call matilde monge to get him an appointment today and the is not set up will attempt to call back in a little bit. [facility] 36on 06-15-2022 36 He can have 14 5 mg flexeril 14 5 mg oxycodone Vitamin d2 50,000 international units weekly for 6 weeks (#6) Vitamin d3 2,000 international units daily (#90 with one refill) Calcium 1200 mg daily (#90 with one refill) Thank you! [facility] Refillon 06-15-2022 Refill [id number] Parish Hall 1975 M Date Provider Department [place] 06/15/2022 351KENY LIMON MP No family history on file Reason for Visit and Comments: Med Refill [[id number]] [facility] Telephoneon 06-15-2022 Telephone [id number] Parish Hall 1975 [facility] Provider Department [place] 06/15/2022 FATEMEH JORDAN MP No family history on file Reason for Visit and Comments: Med Refill [[id number]] - Pt lvm on script line requesting a refill on his pain medication and on vitamins that he states he was supposed to receive in the beginning of this week. He would like a call back [facility] 36on 06-09-2022 36 Left message with Brooklynn Bennett at [employer] informing her we have not received any paper work on patient and I tried to email her the off work note to [email or web address] and it bounced back undeliverable. We need her to fax the forms to [phone]. [facility] Follow-Upon 06-09-2022 Follow-Up [id number] Parish Hall 1975 M Date [facility] Department [place] 06/09/2022 FATEMEH JORDAN MP No family history on file Level of Service:08226 PA POSTOP FOLLOW UP VISIT RELATED TO ORIGINAL PX (GC) Reason for Visit and Comments: Pain [136] [facility] 36on 06-08-2022 36 Patient requested re fill on pain medication, lidocain patches and flexeril. Dr. Rodriguez approved a refill of oxycodone #15 quanity and flexeril, with a box of lidocaine patches. [facility] Refillon 06-08-2022 Refill [id number] Parish Hall 1975 M Date Provider Department [place] 06/08/2022 FATEMEH JORDAN MP No family history on file [facility] 05-31-2022 36 User notified patien t and informed that the script was approved and sent to the pharmacy. No further action needed. [facility] 05-30-2022 36 Patient critical care rn kely austin in and left a voicemail requesting for a refill on pain medication. [facility] Refillon 05-30-2022 Refill [id number] Parish Hall 1975 M Date Provider Department Center 05/30/2022 FATEMEH JORDAN MP ORTHO MPORTHO No family history on file Reason for Visit and Comments: Med Refill [[id number]] [facility] Treatmenton 05-30-2022 Treatment [id number] Parish Hall 1975 M Date Provider Department [place] 05/30/2022 JENN MONTGOMERY MP PT Medical Pavi No family history on file [facility] 05-23-2022 36 Patient called in re questing flexeril as well stating it made a big difference, Dr. Rodriguez approved this request. [facility] 36 Unable to reach anabelle ent to inform request approved and will be sent to Delfina Andres. [facility] Follow-Upon 05-12-2022 Follow-Up [id number] Parish Hall 1975 M Date Provider Department Center 05/12/2022 FATEMEH JORDAN MP MPORTHO No family history on file Level of Service:30328 PA POSTOP FOLLOW UP VISIT RELATED TO ORIGINAL PX (GC) Reason for Visit and Comments: Post-op [483] - Patient is here for first post op on left femur fracture. [facility] 05-04-2022 36 Spoke with patient a nd his significant other (Naomi) regarding his recent discharge (05/03) as well as his upcoming appointment with Dr. Rodriguez on 05/12. Patient stated that he was able to pick-up all of his medications and has been taking them as prescribed, including his Lovenox. Patient has also denied any unusual symptoms such as shortness of breath, fever, and/or uncontrolled pain. Patient stated that his pain has been well controlled and that he is getting around just fine with his rolling walker. I made the patient and his significant other aware of his weightbearing status and the importance of not pushing himself too hard as to not re-aggravate his injury. Both stated understanding and agreed that they would call me if any questions or complications arise. The patient confirmed his upcoming appointment and I provided him and his significant other with my contact information. [facility] 30on 05-03-2022 30 Problem: Pain - Adul t Goal: Verbalizes/displays adequate comfort level or baseline comfort level Outcome: Progressing Flowsheets (Taken 05/03/2022726) Verbalizes/displays adequate comfort level or baseline comfort level: Encourage patient to monitor pain and request assistance Assess pain using appropriate pain scale Administer analgesics based on type and severity of pain and evaluate response Implement non-pharmacological measures as appropriate and evaluate response Problem: Safety - Adult Goal: Free from fall injury Outcome: Progressing Flowsheets (Taken 05/03/2022726) Free from fall injury: Assess patient frequently for physical needs Identify cognitive and physical deficits and behaviors that affect risk of falls [place] fall precautions as indicated by assessment Instruct patient to call for assistance with activity based on assessment Educate patient/family on patient safety, including physical limitations Modify environment to reduce risk of injury Consider OT/PT consult to assist with strengthening/mobility Problem: Discharge Planning Goal: Discharge to home or other facility with appropriate resources Outcome: Progressing Flowsheets (Taken 05/03/2022726) Discharge to home or other facility with appropriate resources: Identify barriers to discharge with patient and caregiver Arrange for needed discharge resources and transportation as appropriate Identify discharge learning needs (meds, wound care, etc) Problem: Chronic Conditions and Co-morbidities Goal: Patient's chronic conditions and co-morbidity symptoms are monitored and maintained or improved Outcome: Progressing Flowsheets (Taken 05/03/2022726) Care Plan - Patient's Chronic Conditions and Co-Morbidity Symptoms are Monitored and Maintained or Improved: Monitor and assess patient's chronic conditions and comorbid symptoms for stability, deterioration, or improvement Collaborate with multidisciplinary team to address chronic and comorbid conditions and prevent exacerbation or deterioration Update acute care plan with appropriate goals if chronic or comorbid symptoms are exacerbated and prevent overall improvement and discharge Normal [facility] BASIC METABOLIC PANELon 04-19 Anion gap [Moles/Vol] 11 mmol/L Normal 7-20 [facility] Comment on above: Performed By: #### L [id number] #### [facility] ([facility]) [address] [place] [address] Calcium [Mass/Vol] 8.9 mg/dL Normal 8.6-10.3 [facility] Comment on above: Performed By: #### L [id number] #### [facility] ([facility]) [address] [place] [address] Chloride [Moles/Vol] 98 mmol/L Normal 98-107 [facility] Comment on above: Performed By: #### L [id number] #### [facility] ([facility]) [address] [place] [address] CO2 [Moles/Vol] 27 mmol/L Normal 21-31 [facility] Comment on above: Performed By: #### L [id number] #### [facility] ([facility]) [address] [place] [address] Creatinine [Mass/Vol] 0.77 mg/dL Normal 0.70-1.30 [facility] Comment on above: Performed By: #### L [id number] #### [facility] ([facility]) [address] [place] [address] GLOMERULAR FILTRATION RATE ML/MIN/1.73 SQ M.PREDICTED 107.3 mL/min/1.73m*2 Normal >60.0 [facility] Comment on above: Result Comment: The [facility]???s estimated glomerular filtration rate (eGFR) will no longer include consideration of race in its calculation. The National Kidney Foundation???s eGFR Task Force developed new recommendations for the estimation of the glomerular filtration rate in the [place] They recommend immediate implementation of the new equation refit without the race variable in all laboratories because the calculation does not include race. In addition to not including race in the calculation and reporting, it included diversity in its development, and has acceptable performance characteristics and potential consequences that do not disproportionately affect any one group of individuals. Performed By: #### L [id number] #### [facility] ([facility]) [address] [place] [address] Glucose [Mass/Vol] 86 mg/dL Normal 70-100 [facility] Comment on above: Performed By: #### L [id number] #### [facility] ([facility]) [address] [place] [address] Potassium [Moles/Vol] 3.7 mmol/L Normal 3.5-5.1 [facility] Comment on above: Performed By: #### L [id number] #### [facility] ([facility]) [address] [place] [address] Sodium [Moles/Vol] 132 mmol/L Low 136-145 [facility] Comment on above: Performed By: #### L [id number] #### [facility] ([facility]) [address] [place] [address] Urea nitrogen [Mass/Vol] 15 mg/dL Normal 7-25 [facility] Comment on above: Performed By: #### L [id number] #### [facility] ([facility]) [address] [place] [address] UREA NITROGEN/CREATININ E (MASS RATIO) IN SER/PLAS 19.48 Normal [facility] Comment on above: Performed By: #### L [id number] #### [facility] ([facility]) [address] [place] [address] CBCon 05-03-2022 Erythrocyte distribution width (RBC) [Ratio] 13.7 % Normal 11.5-15.0 [facility] Comment on above: Performed By: #### L [id number] #### [facility] ([facility]) [address] [place] [address] ERYTHROCYTE MEAN CORPUSCULAR HEMOGLOBIN CONCENTRATION (G/DL) BY AUTOMATED 34.7 g/dL Normal 32.0-35.0 [facility] Comment on above: Performed By: #### L [id number] #### [facility] ([facility]) [address] [place] [address] Hematocrit (Bld) [Volume fraction] 26.5 % Low 39.0-55.0 [facility] Comment on above: Performed By: #### L [id number] #### [facility] ([facility] [address] [place] [address] Hemoglobin (Bld) [Mass/Vol] 9.2 g/dL Low 13.0-17.0 [facility] Comment on above: Performed By: #### L [id number] #### [facility] ([facility]) [address] [place] [address] MCH (RBC) [Entitic mass] 30.9 pg Normal 27.0-33.0 [facility] Comment on above: Performed By: #### L [id number] #### [facility] ([facility]) [address] [place] [address] MCV (RBC) [Entitic vol] 88.9 fL Normal 82.0-98.0 [facility] Comment on above: Performed By: #### L [id number] #### [facility] ([facility]) [address] [place] [address] PLATELETS (10*3/UL) IN BLOOD AUTOMATED COUNT 593 10*3/uL High 150-400 [facility] Comment on above: Performed By: #### L [id number] #### [facility] ([facility]) [address] [place] [address] RBC (Bld) [#/Vol] 2.98 10*6/uL Low 4.20-5.70 [facility] Comment on above: Performed By: #### L [id number] #### [facility] ([facility]) [address] [place] [address] WBC (Bld) [#/Vol] 11.17 10*3/uL High 4.00-10.60 [facility] Comment on above: Performed By: #### L [id number] #### [facility] ([facility]) [address] [place] [address] MAGNESIUMon 05-03-2022 Magnesium [Mass/Vol] 1.8 mg/dL Low 1.9-2.7 [facility] Comment on above: Performed By: #### L [id number] ####[facility] ([facility])[address] [place] [address] PHOSPHORUSon 05-03-2022 Magnesium [Mass/Vol] 3.2 mg/dL Normal 2.5-5.0 [facility] Comment on above: Performed By: #### L [id number] ####[facility] ([facility])[address] [place] [address] BASIC METABOLIC PANELon 04-19 Anion gap [Moles/Vol] 7 mmol/L Normal 7-20 [facility] Comment on above: Performed By: #### L [id number] #### [facility] ([facility]) [address] [place] [address] Calcium [Mass/Vol] 8.8 mg/dL Normal 8.6-10.3 [facility] Comment on above: Performed By: #### L [id number] #### [facility] ([facility]) [address] [place] [address] Chloride [Moles/Vol] 96 mmol/L Low 98-107 [facility] Comment on above: Performed By: #### L [id number] #### [facility] ([facility]) [address] [place] [address] CO2 [Moles/Vol] 31 mmol/L Normal 21-31 [facility] Comment on above: Performed By: #### L [id number] #### [facility] ([facility]) [address] [place] [address] Creatinine [Mass/Vol] 0.77 mg/dL Normal 0.70-1.30 [facility] Comment on above: Performed By: #### L [id number] #### [facility] ([facility]) [address] [place] [address] GLOMERULAR FILTRATION RATE ML/MIN/1.73 SQ M.PREDICTED 107.3 mL/min/1.73m*2 Normal >60.0 [facility] Comment on above: Result Comment: The [facility]???s estimated glomerular filtration rate (eGFR) will no longer include consideration of race in its calculation. The National Kidney Foundation???s eGFR Task Force developed new recommendations for the estimation of the glomerular filtration rate in the [place] They recommend immediate implementation of the new equation refit without the race variable in all laboratories because the calculation does not include race. In addition to not including race in the calculation and reporting, it included diversity in its development, and has acceptable performance characteristics and potential consequences that do not disproportionately affect any one group of individuals. Performed By: #### L [id number] #### [facility] ([facility]) [address] [place] [address] Glucose [Mass/Vol] 96 mg/dL Normal 70-100 [facility] Comment on above: Performed By: #### L [id number] #### [facility] ([facility]) [address] [place] [address] Potassium [Moles/Vol] 3.7 mmol/L Normal 3.5-5.1 [facility] Comment on above: Performed By: #### L [id number] #### [facility] ([facility]) [address] [place] [address] Sodium [Moles/Vol] 130 mmol/L Low 136-145 [facility] Comment on above: Performed By: #### L [id number] #### [facility] ([facility]) [address] [place] [address] Urea nitrogen [Mass/Vol] 11 mg/dL Normal 7-25 [facility] Comment on above: Performed By: #### L [id number] #### [facility] ([facility]) [address] [facility] [place] [address] UREA NITROGEN/CREATININ E (MASS RATIO) IN SER/PLAS 14.29 Normal [facility] Comment on above: Performed By: #### L [id number] #### [facility] ([facility]) [address] [place] [address] CBCon 05-02-2022 Erythrocyte distribution width (RBC) [Ratio] 13.4 % Normal 11.5-15.0 [facility] Comment on above: Performed By: #### L [id number] #### [facility] ([facility]) [address] [place] [address] ERYTHROCYTE MEAN CORPUSCULAR HEMOGLOBIN CONCENTRATION (G/DL) BY AUTOMATED 33.8 g/dL Normal 32.0-35.0 [facility] Comment on above: Performed By: #### L [id number] #### [facility] ([facility]) [address] [place] [place] [address] Hematocrit (Bld) [Volume fraction] 20.4 % Low 39.0-55.0 [facility] Comment on above: Performed By: #### L [id number] #### [facility] ([facility]) [address] [place] [address] Hemoglobin (Bld) [Mass/Vol] 6.9 g/dL Low 13.0-17.0 [facility] Comment on above: Performed By: #### L [id number] #### [facility] ([facility]) [address] [place] [place] [address] MCH (RBC) [Entitic mass] 30.7 pg Normal 27.0-33.0 [facility] Comment on above: Performed By: #### L [id number] #### [facility] ([facility]) [address] [place] [address] MCV (RBC) [Entitic vol] 90.7 fL Normal 82.0-98.0 [facility] Comment on above: Performed By: #### L [id number] #### [facility] ([facility]) [address] [place] [address] PLATELETS (10*3/UL) IN BLOOD AUTOMATED COUNT 522 10*3/uL High 150-400 [facility] Comment on above: Performed By: #### L [id number] #### [facility] ([facility]) [address] [place] [address] RBC (Bld) [#/Vol] 2.25 10*6/uL Low 4.20-5.70 [facility] Comment on above: Performed By: #### L [id number] #### [facility] ([facility]) [address] [place] [address] WBC (Bld) [#/Vol] 9.99 10*3/uL Normal 4.00-10.60 [facility] Comment on above: Performed By: #### L [id number] #### [facility] ([facility]) [address] [place] [address] HEMOGLOBIN AND HEMATOCRIT, B LOODon 05-02-2022 Hematocrit (Bld) [Volume fraction] 24.4 % Low 39.0-55.0 [facility] Comment on above: Order Comment: 1 josé miguel r post transfusion. Performed By: #### L [id number] #### [facility] ([facility]) [address] [place] [address] Hemoglobin (Bld) [Mass/Vol] 8.3 g/dL Low 13.0-17.0 [facility] Comment on above: Order Comment: 1 josé miguel r post transfusion. Performed By: #### L [id number] #### [facility] ([facility]) [address] [place] [address] MAGNESIUMon 05-02-2022 Magnesium [Mass/Vol] 1.8 mg/dL Low 1.9-2.7 [facility] Comment on above: Performed By: #### L [id number] #### [facility] ([facility]) [address] [place] [address] PHOSPHORUSon 05-02-2022 Magnesium [Mass/Vol] 2.7 mg/dL Normal 2.5-5.0 [facility] Comment on above: Performed By: #### L [id number] ####[facility] ([facility])[address] [place] [address] TYPE AND SCREENon 05-02-2022 AB SCREEN Negative Normal [facility] Comment on above: Performed By: #### L [id number] #### [facility] , ABO group Nom (Bld) O Normal [facility] Comment on above: Performed By: #### L [id number] #### [facility] , RH TYPE IN BLOOD Positive Normal [facility] Comment on above: Performed By: #### L [id number] #### [facility] , 30on 05-01-2022 30 The patient is Moder ately Stable - Low risk of patient condition declining or worsening The patient's goals for the shift include pain control The clinical goals for the shift include comfort Over the shift, the patient did not make progress toward the following goals. Barriers to progression include Impaired mobility . Recommendations to address these barriers include Pain management. Normal [facility] 30 Problem: Pain - Adul t Goal: Verbalizes/displays adequate comfort level or baseline comfort level Outcome: Progressing Problem: Chronic Conditions and Co-morbidities Goal: Patient's chronic conditions and co-morbidity symptoms are monitored and maintained or improved Outcome: Progressing The patient is Moderately Stable - Low risk of patient condition declining or worsening The patient's goals for the shift include pain control The clinical goals for the shift include comfort Over the shift, the patient did not make progress toward the following goals. Barriers to progression include pain. Recommendations to address these barriers include pain management. Normal [facility] BASIC METABOLIC PANELon 04-19 Anion gap [Moles/Vol] 8 mmol/L Normal 7-20 [facility] Comment on above: Performed By: #### L [id number] #### [facility] ([facility]) [address] [place] [address] Calcium [Mass/Vol] 8.8 mg/dL Normal 8.6-10.3 [facility] Comment on above: Performed By: #### L [id number] #### [facility] ([facility]) [address] [place] [address] Chloride [Moles/Vol] 96 mmol/L Low 98-107 [facility] Comment on above: Performed By: #### L [id number] #### [facility] ([facility]) [address] [place] [address] CO2 [Moles/Vol] 31 mmol/L Normal 21-31 [facility] Comment on above: Performed By: #### L [id number] #### [facility] ([facility]) [address] [place] [address] Creatinine [Mass/Vol] 0.84 mg/dL Normal 0.70-1.30 [facility] Comment on above: Performed By: #### L [id number] #### [facility] ([facility]) [address] [place] [address] GLOMERULAR FILTRATION RATE ML/MIN/1.73 SQ M.PREDICTED 103.5 mL/min/1.73m*2 Normal >60.0 [facility] Comment on above: Result Comment: The [facility]???s estimated glomerular filtration rate (eGFR) will no longer include consideration of race in its calculation. The National Kidney Foundation???s eGFR Task Force developed new recommendations for the estimation of the glomerular filtration rate in the [place] They recommend immediate implementation of the new equation refit without the race variable in all laboratories because the calculation does not include race. In addition to not including race in the calculation and reporting, it included diversity in its development, and has acceptable performance characteristics and potential consequences that do not disproportionately affect any one group of individuals. Performed By: #### L [id number] #### [facility] ([facility]) [address] [place] [address] Glucose [Mass/Vol] 102 mg/dL High 70-100 [facility] Comment on above: Performed By: #### L [id number] #### [facility] ([facility]) [address] [place] [address] Potassium [Moles/Vol] 3.9 mmol/L Normal 3.5-5.1 [facility] Comment on above: Performed By: #### L [id number] #### [facility] ([facility]) [address] [place] [address] Sodium [Moles/Vol] 131 mmol/L Low 136-145 [facility] Comment on above: Performed By: #### L AB15 #### [facility] [address] [place] [address] Urea nitrogen [Mass/Vol] 10 mg/dL Normal 7-25 [facility] Comment on above: Performed By: #### L [id number] #### [facility] ([facility]) [address] [place] [address] UREA NITROGEN/CREATININ E (MASS RATIO) IN SER/PLAS 11.90 Normal [facility] Comment on above: Performed By: #### L [id number] #### [facility] ([facility]) [address] [place] [address] CBCon 05-01-2022 Erythrocyte distribution width (RBC) [Ratio] 13.4 % Normal 11.5-15.0 [facility] Comment on above: Performed By: #### L [id number] ####[facility] ([facility])[address] [place] [address] ERYTHROCYTE MEAN CORPUSCULAR HEMOGLOBIN CONCENTRATION (G/DL) BY AUTOMATED 34.0 g/dL Normal 32.0-35.0 [facility] Comment on above: Performed By: #### L [id number] ####[facility] ([facility])[address] [place] [address] Hematocrit (Bld) [Volume fraction] 20.9 % Low 39.0-55.0 [facility] Comment on above: Performed By: #### L [id number] ####[facility] ([facility])[address] [place] [address] Hemoglobin (Bld) [Mass/Vol] 7.1 g/dL Low 13.0-17.0 [facility] Comment on above: Performed By: #### L [id number] ####[facility] ([facility])[address] [place] [address] MCH (RBC) [Entitic mass] 31.3 pg Normal 27.0-33.0 [facility] Comment on above: Performed By: #### L [id number] ####[facility] ([facility])[address] [place] [address] MCV (RBC) [Entitic vol] 92.1 fL Normal 82.0-98.0 [facility] Comment on above: Performed By: #### L [id number] ####[facility] ([facility])[address] [place] [address] PLATELETS (10*3/UL) IN BLOOD AUTOMATED COUNT 457 10*3/uL High 150-400 [facility] Comment on above: Performed By: #### L [id number] ####[facility] ([facility])[address] [place] [address] RBC (Bld) [#/Vol] 2.27 10*6/uL Low 4.20-5.70 [facility] Comment on above: Performed By: #### L [id number] ####[facility] ([facility])[address] [place] [address] WBC (Bld) [#/Vol] 11.43 10*3/uL High 4.00-10.60 [facility] Comment on above: Performed By: #### L [id number] ####[facility] ([facility])[address] [place] [address] MAGNESIUMon 05-01-2022 Magnesium [Mass/Vol] 2.0 mg/dL Normal 1.9-2.7 [facility] Comment on above: Performed By: #### L [id number] #### [facility] ([facility]) [address] [place] [address] NURSNOTEon 05-01-2022 NURSNOTE 05/12/2022 at [address] [place] will follow-up with Orthopedics, Dr. Rodriguez. Normal [facility] PHOSPHORUSon 05-01-2022 Magnesium [Mass/Vol] 2.8 mg/dL Normal 2.5-5.0 [facility] Comment on above: Performed By: #### L [id number] #### [facility] ([facility]) [address] [place] [address] 30on 04-30-2022 30 The patient is Moder ately Stable - Low risk of patient condition declining or worsening The patient's goals for the shift include pain control The clinical goals for the shift include comfort Over the shift, the patient did not make progress toward the following goals. Barriers to progression include Impaired mobility. Recommendations to address these barriers include pain management . Normal [facility] 30 The patient is Moder ately Stable - Low risk of patient condition declining or worsening The patient's goals for the shift include pain control The clinical goals for the shift include comfort Over the shift, the patient did not make progress toward the following goals. Barriers to progression include Impaired mobility. Recommendations to address these barriers include Pain medications/ repositioning. Normal [facility] 30 Problem: Pain - Adul t Goal: Verbalizes/displays adequate comfort level or baseline comfort level Outcome: Progressing Problem: Safety - Adult Goal: Free from fall injury Outcome: Progressing The patient is Moderately Stable - Low risk of patient condition declining or worsening The patient's goals for the shift include pain control The clinical goals for the shift include comfort pain control Over the shift, the patient did not make progress toward the following goals. Barriers to progression include pain. Recommendations to address these barriers include pain management. Normal [facility] BASIC METABOLIC PANELon 04-19 Anion gap [Moles/Vol] 7 mmol/L Normal 7-20 [facility] Comment on above: Performed By: #### L [id number] ####[facility])[address] [place] [address] Calcium [Mass/Vol] 8.4 mg/dL Low 8.6-10.3 [facility] Comment on above: Performed By: #### L [id number] ####[facility])[address] [place] [address] Chloride [Moles/Vol] 95 mmol/L Low 98-107 [facility] Comment on above: Performed By: #### L [id number] ####[facility] ([facility])[address] [place] [address] CO2 [Moles/Vol] 31 mmol/L Normal 21-31 [facility] Comment on above: Performed By: #### L [id number] ####[facility] ([facility])[address] [place] [address] Creatinine [Mass/Vol] 0.81 mg/dL Normal 0.70-1.30 [facility] Comment on above: Performed By: #### L [id number] ####[facility] ([facility])[address] [place] [address] GLOMERULAR FILTRATION RATE ML/MIN/1.73 SQ M.PREDICTED 105.1 mL/min/1.73m*2 Normal >60.0 [facility] Comment on above: Result Comment: The [facility]???s estimated glomerular filtration rate (eGFR) will no longer include consideration of race in its calculation. The National Kidney Foundation???s eGFR Task Force developed new recommendations for the estimation of the glomerular filtration rate in the [place] They recommend immediate implementation of the new equation refit without the race variable in all laboratories because the calculation does not include race. In addition to not including race in the calculation and reporting, it included diversity in its development, and has acceptable performance characteristics and potential consequences that do not disproportionately affect any one group of individuals. Performed By: #### L [id number] ####[facility] ([facility])[address] [place] [address] Glucose [Mass/Vol] 119 mg/dL High 70-100 [facility] Comment on above: Performed By: #### L [id number] ####[facility] ([facility])[address] [place] [address] Potassium [Moles/Vol] 3.2 mmol/L Low 3.5-5.1 [facility] Comment on above: Performed By: #### L [id number] ####[facility] ([facility])[address] [place] [address] Sodium [Moles/Vol] 130 mmol/L Low 136-145 [facility] Comment on above: Performed By: #### L [id number] ####[facility] ([facility])[address] [place] [address] Urea nitrogen [Mass/Vol] 12 mg/dL Normal 7-25 [facility] Comment on above: Performed By: #### L [id number] ####[facility] ([facility])[address] [place] [address] UREA NITROGEN/CREATININ E (MASS RATIO) IN SER/PLAS 14.81 Normal [facility] Comment on above: Performed By: #### L [id number] ####[facility] ([facility])[address] [place] [address] CBCon 04-30-2022 Erythrocyte distribution width (RBC) [Ratio] 13.3 % Normal 11.5-15.0 [facility] Comment on above: Performed By: #### L [id number] #### [facility] ([facility]) [address] [place] [address] ERYTHROCYTE MEAN CORPUSCULAR HEMOGLOBIN CONCENTRATION (G/DL) BY AUTOMATED 33.2 g/dL Normal 32.0-35.0 [facility] Comment on above: Performed By: #### L [id number] #### [facility] ([facility]) [address] [place] [address] Hematocrit (Bld) [Volume fraction] 21.4 % Low 39.0-55.0 [facility] Comment on above: Performed By: #### L [id number] #### [facility] ([facility]) [address] [place] [address] Hemoglobin (Bld) [Mass/Vol] 7.1 g/dL Low 13.0-17.0 [facility] Comment on above: Performed By: #### L [id number] #### [facility] ([facility]) [address] [place] [address] MCH (RBC) [Entitic mass] 30.5 pg Normal 27.0-33.0 [facility] Comment on above: Performed By: #### L [id number] #### [facility] ([facility]) [address] [place] [address] MCV (RBC) [Entitic vol] 91.8 fL Normal 82.0-98.0 [facility] Comment on above: Performed By: #### L [id number] #### [facility] ([facility]) [address] [place] [address] PLATELETS (10*3/UL) IN BLOOD AUTOMATED COUNT 404 10*3/uL High 150-400 [facility] Comment on above: Performed By: #### L [id number] #### [facility] ([facility]) [address] [place] [address] RBC (Bld) [#/Vol] 2.33 10*6/uL Low 4.20-5.70 [facility] Comment on above: Performed By: #### L [id number] #### [facility] ([facility]) [address] [place] [address] WBC (Bld) [#/Vol] 14.69 10*3/uL High 4.00-10.60 [facility] Comment on above: Performed By: #### L [id number] #### [facility] ([facility]) [address] [place] [address] HEMOGLOBIN AND HEMATOCRIT, B LOODon 04-30-2022 Hematocrit (Bld) [Volume fraction] 20.8 % Low 39.0-55.0 [facility] Comment on above: Performed By: #### L [id number] #### [facility] ([facility]) [address] [place] [address] Hemoglobin (Bld) [Mass/Vol] 7.1 g/dL Low 13.0-17.0 [facility] Comment on above: Performed By: #### L [id number] #### [facility] ([facility]) [address] [place] [address] MAGNESIUMon 04-30-2022 Magnesium [Mass/Vol] 1.7 mg/dL Low 1.9-2.7 [facility] Comment on above: Performed By: #### L [id number] #### [facility] ([facility]) [address] [place] [address] PHOSPHORUSon 04-30-2022 Magnesium [Mass/Vol] 2.3 mg/dL Low 2.5-5.0 [facility] Comment on above: Performed By: #### L [id number] ####[facility] ([facility])[address] [place] [address] 30on 04-29-2022 30 The patient is Moder ately Stable - Low risk of patient condition declining or worsening The patient's goals for the shift include pain control The clinical goals for the shift include comfort Over the shift, the patient did not make progress toward the following goals. Barriers to progression include Impaired mobility . Recommendations to address these barriers include Medication management . Normal [facility] 30 Problem: Pain - Adul t Goal: Verbalizes/displays adequate comfort level or baseline comfort level Outcome: Progressing Problem: Safety - Adult Goal: Free from fall injury Outcome: Progressing The patient is Moderately Stable - Low risk of patient condition declining or worsening The patient's goals for the shift include pain control The clinical goals for the shift include comfort Over the shift, the patient did not make progress toward the following goals. Barriers to progression include pain. Recommendations to address these barriers include pain management. Normal [facility] BASIC METABOLIC PANELon 04-19 Anion gap [Moles/Vol] 6 mmol/L Low 7-20 [facility] Comment on above: Performed By: #### L [id number] #### [facility] ([facility]) [address] [place] [address] Calcium [Mass/Vol] 8.4 mg/dL Low 8.6-10.3 [facility] Comment on above: Performed By: #### L [id number] #### [facility] ([facility]) [address] [place] [address] Chloride [Moles/Vol] 99 mmol/L Normal 98-107 [facility] Comment on above: Performed By: #### L [id number] #### [facility] ([facility]) [address] [place] [address] CO2 [Moles/Vol] 31 mmol/L Normal 21-31 [facility] Comment on above: Performed By: #### L [id number] #### [facility] [address] [place] [address] Creatinine [Mass/Vol] 0.86 mg/dL Normal 0.70-1.30 [facility] Comment on above: Performed By: #### L [id number] #### [facility] ([facility]) [address] [place] [address] GLOMERULAR FILTRATION RATE ML/MIN/1.73 SQ M.PREDICTED 102.5 mL/min/1.73m*2 Normal >60.0 [facility] Comment on above: Result Comment: The [facility]'s estimated glomerular filtration rate (eGFR) will no longer include consideration of race in its calculation. The National Kid[employer] Foundation's eGFR Task Force developed new recommendations for the estimation of the glomerular filtration rate in the [place] They recommend immediate implementation of the new equation refit without the race variable in all laboratories because the calculation does not include race. In addition to not including race in the calculation and reporting, it included diversity in its development, and has acceptable performance characteristics and potential consequences that do not disproportionately affect any one group of individuals. Performed By: #### L [id number] #### [facility] ([facility]) [address] [place] [address] Glucose [Mass/Vol] 102 mg/dL High 70-100 [facility] Comment on above: Performed By: #### L [id number] #### [facility] ([facility]) [address] [place] [address] Potassium [Moles/Vol] 3.7 mmol/L Normal 3.5-5.1 [facility] Comment on above: Performed By: #### L [id number] #### [facility] ([facility]) [address] [place] [address] Sodium [Moles/Vol] 132 mmol/L Low 136-145 [facility] Comment on above: Performed By: #### L [id number] #### [facility] ([facility]) [address] [place] [address] Urea nitrogen [Mass/Vol] 14 mg/dL Normal 7-25 [facility] Comment on above: Performed By: #### L [id number] #### [facility] ([facility]) [address] [place] [address] UREA NITROGEN/CREATININ E (MASS RATIO) IN SER/PLAS 16.28 Normal [facility] Comment on above: Performed By: #### L [id number] #### [facility] ([facility]) [address] [place] [address] CBCon 04-29-2022 Erythrocyte distribution width (RBC) [Ratio] 13.3 % Normal 11.5-15.0 [facility] Comment on above: Performed By: #### L [id number] ####[facility] ([facility])[address] [place] [address] ERYTHROCYTE MEAN CORPUSCULAR HEMOGLOBIN CONCENTRATION (G/DL) BY AUTOMATED 33.5 g/dL Normal 32.0-35.0 [facility] Comment on above: Performed By: #### L [id number] ####[facility] ([facility])[address] [place] [address] Hematocrit (Bld) [Volume fraction] 23.6 % Low 39.0-55.0 [facility] Comment on above: Performed By: #### L [id number] ####[facility] ([facility])[address] [place] [address] Hemoglobin (Bld) [Mass/Vol] 7.9 g/dL Low 13.0-17.0 [facility] Comment on above: Performed By: #### L [id number] ####[facility] ([facility])[address] [place] [address] MCH (RBC) [Entitic mass] 30.7 pg Normal 27.0-33.0 [facility] Comment on above: Performed By: #### L [id number] ####[facility] ([facility])[address] [place] [address] MCV (RBC) [Entitic vol] 91.8 fL Normal 82.0-98.0 [facility] Comment on above: Performed By: #### L [id number] ####[facility] ([facility])[address] [place] [address] PLATELETS (10*3/UL) IN BLOOD AUTOMATED COUNT 390 10*3/uL Normal 150-400 [facility] Comment on above: Performed By: #### L [id number] ####[facility] ([facility])[address] [place] [address] RBC (Bld) [#/Vol] 2.57 10*6/uL Low 4.20-5.70 [facility] Comment on above: Performed By: #### L [id number] ####[facility] ([facility])[address] [place] [address] WBC (Bld) [#/Vol] 14.41 10*3/uL High 4.00-10.60 [facility] Comment on above: Performed By: #### L [id number] ####[facility] ([facility])[address] [place] [address] MAGNESIUMon 04-29-2022 Magnesium [Mass/Vol] 1.9 mg/dL Normal 1.9-2.7 [facility] Comment on above: Performed By: #### L [id number] #### [facility] ([facility]) [address] [place] [address] PHOSPHORUSon 04-29-2022 Magnesium [Mass/Vol] 1.8 mg/dL Low 2.5-5.0 [facility] Comment on above: Performed By: #### L [id number] ####[facility] ([facility])[address] [place] [address] 30on 04-28-2022 30 Problem: Pain - Adul t Goal: Verbalizes/displays adequate comfort level or baseline comfort level Outcome: Progressing Problem: Chronic Conditions and Co-morbidities Goal: Patient's chronic conditions and co-morbidity symptoms are monitored and maintained or improved Outcome: Progressing The patient is Moderately Stable - Low risk of patient condition declining or worsening The patient's goals for the shift include pain control The clinical goals for the shift include comfort Over the shift, the patient did not make progress toward the following goals. Barriers to progression include pain. Recommendations to address these barriers include pain management. Normal [facility] BASIC METABOLIC PANELon 04-19 Anion gap [Moles/Vol] 6 mmol/L Low 7-20 [facility] Comment on above: Performed By: #### L [id number] ####[facility] ([facility])[address] [place] [address] Calcium [Mass/Vol] 8.3 mg/dL Low 8.6-10.3 [facility] Comment on above: Performed By: #### L [id number] ####[facility] ([facility])[address] [place] [address] Chloride [Moles/Vol] 98 mmol/L Normal 98-107 [facility] Comment on above: Performed By: #### L [id number] ####[facility] ([facility])[address] [place] [address] CO2 [Moles/Vol] 25 mmol/L Normal 21-31 [facility] Comment on above: Performed By: #### L [id number] ####[facility] ([facility])[address] [place] [address] Creatinine [Mass/Vol] 1.26 mg/dL Normal 0.70-1.30 [facility] Comment on above: Performed By: #### L [id number] ####[facility] ([facility])[address] [place] [address] GLOMERULAR FILTRATION RATE ML/MIN/1.73 SQ M.PREDICTED 67.0 mL/min/1.73m*2 Normal >60.0 [facility] Comment on above: Result Comment: The [facility]???s estimated glomerular filtration rate (eGFR) will no longer include consideration of race in its calculation. The National Kidney Foundation???s eGFR Task Force developed new recommendations for the estimation of the glomerular filtration rate in the [place] They recommend immediate implementation of the new equation refit without the race variable in all laboratories because the calculation does not include race. In addition to not including race in the calculation and reporting, it included diversity in its development, and has acceptable performance characteristics and potential consequences that do not disproportionately affect any one group of individuals. Performed By: #### L [id number] ####[facility] ([facility])[address] [place] [address] Glucose [Mass/Vol] 99 mg/dL Normal 70-100 [facility] Comment on above: Performed By: #### L [id number] ####[facility] ([facility])[address] [place] [address] Potassium [Moles/Vol] 4.1 mmol/L Normal 3.5-5.1 [facility] Comment on above: Performed By: #### L [id number] ####[facility] ([facility])[address] [place] [address] Sodium [Moles/Vol] 129 mmol/L Low 136-145 [facility] Comment on above: Performed By: #### L [id number] ####[facility] ([facility])[address] [place] [address] Urea nitrogen [Mass/Vol] 22 mg/dL Normal 7-25 [facility] Comment on above: Performed By: #### L [id number] ####[facility] ([facility])[address] [place] [address] UREA NITROGEN/CREATININ E (MASS RATIO) IN SER/PLAS 17.46 Normal [facility] Comment on above: Performed By: #### L [id number] ####[facility] ([facility])[address] [place] [address] CBCon 04-28-2022 Erythrocyte distribution width (RBC) [Ratio] 13.3 % Normal 11.5-15.0 [facility] Comment on above: Performed By: #### L [id number] #### [facility] ([facility]) [address] [place] [address] ERYTHROCYTE MEAN CORPUSCULAR HEMOGLOBIN CONCENTRATION (G/DL) BY AUTOMATED 33.1 g/dL Normal 32.0-35.0 [facility] Comment on above: Performed By: #### L [id number] #### [facility] ([facility]) [address] [place] [address] Hematocrit (Bld) [Volume fraction] 25.1 % Low 39.0-55.0 [facility] Comment on above: Performed By: #### L [id number] #### [facility] [address] [place] [address] Hemoglobin (Bld) [Mass/Vol] 8.3 g/dL Low 13.0-17.0 [facility] Comment on above: Result Comment: Per Sagar RN, the patient is post op and believes results to be accurate. Performed By: #### L [id number] #### [facility] ([facility]) [address] [place] [address] MCH (RBC) [Entitic mass] 30.7 pg Normal 27.0-33.0 [facility] Comment on above: Performed By: #### L [id number] #### [facility] ([facility]) [address] [place] [address] MCV (RBC) [Entitic vol] 93.0 fL Normal 82.0-98.0 [facility] Comment on above: Performed By: #### L [id number] #### [facility] ([facility]) [address] [place] [address] PLATELETS (10*3/UL) IN BLOOD AUTOMATED COUNT 404 10*3/uL High 150-400 [facility] Comment on above: Performed By: #### L [id number] #### [facility] ([facility]) [address] [place] [address] RBC (Bld) [#/Vol] 2.70 10*6/uL Low 4.20-5.70 [facility] Comment on above: Performed By: #### L [id number] #### [facility]) [address] [place] [address] WBC (Bld) [#/Vol] 17.19 10*3/uL High 4.00-10.60 [facility] Comment on above: Performed By: #### L [id number] #### [facility] [address] [place] [address] HEMOGLOBIN AND HEMATOCRIT, B LOODon 04-28-2022 Hematocrit (Bld) [Volume fraction] 22.0 % Low 39.0-55.0 [facility] Comment on above: Performed By: #### L [id number] ####[facility] ([facility])[address] [place] [address] Hemoglobin (Bld) [Mass/Vol] 7.7 g/dL Low 13.0-17.0 [facility] Comment on above: Performed By: #### L [id number] ####[facility] ([facility])[address] [place] [address] Hematocrit (Bld) [Volume fraction] 23.7 % Low 39.0-55.0 [facility] Comment on above: Performed By: #### L [id number] #### [facility] ([facility]) [address] [place] [address] Hemoglobin (Bld) [Mass/Vol] 7.8 g/dL Low 13.0-17.0 [facility] Comment on above: Performed By: #### L [id number] #### [facility] ([facility]) [address] [place] [address] MAGNESIUMon 04-28-2022 Magnesium [Mass/Vol] 1.7 mg/dL Low 1.9-2.7 [facility] Comment on above: Performed By: #### L [id number] #### [facility] ([facility]) [address] [place] [address] PHOSPHORUSon 04-28-2022 Magnesium [Mass/Vol] 4.3 mg/dL Normal 2.5-5.0 [facility] Comment on above: Performed By: #### L [id number] #### [facility] ([facility]) [address] [place] [address] VITAMIN D 25 HYDROXYon 04-28 CALCIDIOL (25 [place] VITAMIN D3) (NG/ML) IN SER/PLAS 24.5 ng/mL Low 30.0-80.0 [facility] Comment on above: Result Comment: >80. 0 Toxicity possible Performed By: #### L [id number] #### [facility] ([facility]) [address] [place] [address] APTTon 04-27-2022 ACTIVATED PARTIAL THROMBOPLASTIN TIME IN PPP BY COAGULATION ASSAY 31.6 Seconds Normal 25.0-35.0 [facility] Comment on above: Performed By: #### L [id number] #### [facility] ([facility]) [address] [place] [address] BASIC METABOLIC PANELon Anion gap [Moles/Vol] 4 mmol/L Low 7-20 [facility] Comment on above: Performed By: #### L [id number] ####[facility] ([facility])[address] [place] [address] Calcium [Mass/Vol] 8.9 mg/dL Normal 8.6-10.3 [facility] Comment on above: Performed By: #### L [id number] ####[facility] ([facility])[address] [place] [address] Chloride [Moles/Vol] 99 mmol/L Normal 98-107 [facility] Comment on above: Performed By: #### L [id number] ####[facility] ([facility])[address] [place] [address] CO2 [Moles/Vol] 28 mmol/L Normal 21-31 [facility] Comment on above: Performed By: #### L [id number] ####[facility] ([facility])[address] [place] [address] Creatinine [Mass/Vol] 1.30 mg/dL Normal 0.70-1.30 [facility] Comment on above: Performed By: #### L [id number] ####[facility] ([facility])[address] [place] [address] GLOMERULAR FILTRATION RATE ML/MIN/1.73 SQ M.PREDICTED 64.5 mL/min/1.73m*2 Normal >60.0 [facility] Comment on above: Result Comment: The [facility]???s estimated glomerular filtration rate (eGFR) will no longer include consideration of race in its calculation. The National Kidney Foundation???s eGFR Task Force developed new recommendations for the estimation of the glomerular filtration rate in the [place] They recommend immediate implementation of the new equation refit without the race variable in all laboratories because the calculation does not include race. In addition to not including race in the calculation and reporting, it included diversity in its development, and has acceptable performance characteristics and potential consequences that do not disproportionately affect any one group of individuals. Performed By: #### L [id number] ####[facility] ([facility])[address] [place] [address] Glucose [Mass/Vol] 96 mg/dL Normal 70-100 [facility] Comment on above: Performed By: #### L [id number] ####[facility] ([facility])[address] [place] [address] Potassium [Moles/Vol] 3.7 mmol/L Normal 3.5-5.1 [facility] Comment on above: Performed By: #### L [id number] ####[facility] ([facility])[address] [place] [address] Sodium [Moles/Vol] 131 mmol/L Low 136-145 [facility] Comment on above: Performed By: #### L [id number] ####[facility] ([facility])[address] [place] [address] Urea nitrogen [Mass/Vol] 16 mg/dL Normal 7-25 [facility] Comment on above: Performed By: #### L [id number] ####[facility] ([facility])[address] [place] [address] UREA NITROGEN/CREATININ E (MASS RATIO) IN SER/PLAS 12.31 Normal [facility] Comment on above: Performed By: #### L [id number] ####[facility] ([facility])[address] [place] [address] CBC WITH AUTO DIFFERENTIALon 04-27-2022 Basophils (Bld) [#/Vol] 0.11 10*3/uL Normal 0.00-0.20 [facility] Comment on above: Performed By: #### L [id number] ####[facility] ([facility])[address] [place] [address] Basophils/100 WBC (Bld) 0.7 % Normal 0.0-1.0 [facility] Comment on above: Performed By: #### L [id number] ####[facility] ([facility])[address] [place] [address] Eosinophils (Bld) [#/Vol] 0.05 10*3/uL Normal 0.00-0.50 [facility] Comment on above: Performed By: #### L [id number] ####[facility] ([facility])[address] [place] [address] Eosinophils/100 WBC (Bld) 0.3 % Normal 0.0-6.0 [facility] Comment on above: Performed By: #### L [id number] ####[facility] ([facility])[address] [place] [address] Erythrocyte distribution width (RBC) [Ratio] 13.2 % Normal 11.5-15.0 [facility] Comment on above: Performed By: #### L [id number] ####[facility] ([facility])[address] [place] [address] ERYTHROCYTE MEAN CORPUSCULAR HEMOGLOBIN CONCENTRATION (G/DL) BY AUTOMATED 34.3 g/dL Normal 32.0-35.0 [facility] Comment on above: Performed By: #### L [id number] ####[facility] ([facility])[address] [place] [address] Hematocrit (Bld) [Volume fraction] 32.4 % Low 39.0-55.0 [facility] Comment on above: Performed By: #### L [id number] ####[facility] ([facility])[address] [place] [address] Hemoglobin (Bld) [Mass/Vol] 11.1 g/dL Low 13.0-17.0 [facility] Comment on above: Performed By: #### L [id number] ####[facility] ([facility])[address] [place] [address] Immature granulocytes (Bld) [#/Vol] 0.07 10*3/uL Normal 0.00-0.20 [facility] Comment on above: Performed By: #### L [id number] ####[facility] ([facility])[address] [place] [address] Immature granulocytes/100 WBC (Bld) 0.4 % Normal 0.0-1.0 [facility] Comment on above: Performed By: #### L [id number] ####[facility] ([facility])[address] [place] [address] Lymphocytes (Bld) [#/Vol] 2.06 10*3/uL Normal 1.20-4.00 [facility] Comment on above: Performed By: #### L [id number] ####[facility] ([facility])[address] [place] [address] Lymphocytes/100 WBC (Bld) 12.4 % Low 20.0-45.0 [facility] Comment on above: Performed By: #### L [id number] ####[facility] ([facility])[address] [place] [address] MCH (RBC) [Entitic mass] 30.8 pg Normal 27.0-33.0 [facility] Comment on above: Performed By: #### L [id number] ####[facility] ([facility])[address] [place] [address] MCV (RBC) [Entitic vol] 90.0 fL Normal 82.0-98.0 [facility] Comment on above: Performed By: #### L [id number] ####[facility] ([facility])[address] [place] [address] Monocytes (Bld) [#/Vol] 1.45 10*3/uL High 0.10-1.00 [facility] Comment on above: Performed By: #### L [id number] ####[facility] ([facility])[address] [place] [address] Monocytes/100 WBC (Bld) 8.7 % Normal 5.0-12.0 [facility] Comment on above: Performed By: #### L [id number] ####[facility] [place] [address] Neutrophils (Bld) [#/Vol] 12.92 10*3/uL High 1.60-7.60 [facility] Comment on above: Performed By: #### L [id number] ####[facility] ([facility])[address] [place] [address] Neutrophils/100 WBC (Bld) 77.5 % High 40.0-72.0 [facility] Comment on above: Performed By: #### L [id number] ####[facility] ([facility])[address] [place] [address] NRBC (PER 100 WBCS) BY AUTOMATED COUNT 0.0 % Normal 0.0-0.0 [facility] Comment on above: Performed By: #### L [id number] ####[facility] ([facility])[address] [place] [address] PLATELETS (10*3/UL) IN BLOOD AUTOMATED COUNT 432 10*3/uL High 150-400 [facility] Comment on above: Performed By: #### L [id number] ####[facility] [place] [address] RBC (Bld) [#/Vol] 3.60 10*6/uL Low 4.20-5.70 [facility] Comment on above: Performed By: #### L [id number] ####[facility] [place] [address] WBC (Bld) [#/Vol] 16.66 10*3/uL High 4.00-10.60 [facility] Comment on above: Performed By: #### L [id number] ####[facility] ([facility])[address] [place] [address] CONSULTon 04-27-2022 CONSULT -------- Attestation signed by Khadijah Elise DO at 04/27/2022 3:54 PM By using the attestations below, the signing clinician agrees that I have read and verify that the documentation has been personally reviewed by me and ensure that the documentation accurately reflects the encounter. GC: I personally saw this patient on the day of the encounter, performed the mena portion(s) of the service and participated in the management and confirm the resident's documentation. Please note there may be an additional personal documentation from me. Patient seen in Preop holding Complains of pain but resting comfortably, patient recently received analgesia, he is going in and out of sleep. Patient denies any history of myocardial infarction, cerebrovascular disease, has at baseline activity is consistent with METS>4, no prior complications with anesthesia, no history of diabetes mellitus, no chronic kidney disease no history of congestive heart failure Generally: Drowsy but able to answer questions when awakened CV: Regular rate and rhythm, no murmur Pulm: CTA anteriorly Abd: soft, +BS MSK: no stressed due to acute fracture A/p See above GIM Inpatient Consult Note Patient - Parish Hall Age - 47 y.o. - 1975 Date of Admission - 04/27/2022 1:24 AM History of Present Illness Parish Hall is a 47 y.o. male with history of essential HTN not on home meds, presented with left hip/femur fracture after falling off skateboard. History was gathered from chart as patient has been in OR all morning and we couldn't see him before. Ortho were consulted, plan was to take to OR for internal fixation of Femur MAEVE. BP was elevated at presentation and highest reading was 184/95, for which we were consulted. Past Medical History: Patient has a past medical history of Bipolar I disorder, most recent episode depressed ([facility]/HCC) (09/25/2017) and Hypertension (04/27/2022). Past Surgical History: Patient has a past surgical history that includes Leg Surgery (Left) and Leg Surgery (Right). Social History: Patient reports that he has been smoking cigarettes. He does not have any smokeless tobacco history on file. He reports current alcohol use. He reports current drug use. Drug: Marijuana. Alc/Tobacco/Drug: Patient reports current alcohol use. reports that he has been smoking cigarettes. He does not have any smokeless tobacco history on file. reports current drug use. Drug: Marijuana. Family History: Patient family history is not on file. Medications: Patient Current Facility-Administered Medications: [MAY Hold] acetaminophen (Tylenol) tablet 1,000 mg, 1,000 mg, oral, q8h ALEXIS, Chuy Hollins MD [MAY Hold] amLODIPine (Norvasc) tablet 5 mg, 5 mg, oral, Daily, Hetal Jimenez, HEAVY FORGING MACHINE OPERATOR, 5 mg at 04/27/22 0437 [MAY Hold] calcium tablet 500 mg, 500 mg, oral, BID with meals, Chuy Holilns MD [MAY Hold] ceFAZolin (Ancef) IVPB 2 g in 100 mL (Mini-Bag Plus) in NS, 2 g, intravenous, q8h, Chuy Hollins MD, Stopped at 04/27/22 0303 ceFAZolin (Ancef) IVPB 2 g in 100 mL (Mini-Bag Plus) in NS, 2 g, intravenous, Once, Chuy Hollins MD [MAY Hold] cholecalciferol (Vitamin D-3) tablet 2,000 Units, 2,000 Units, oral, Daily, Chuy Hollins MD [MAY Hold] enoxaparin (Lovenox) syringe 30 mg, 30 mg, subcutaneous, BID, MATILDE Thorpe [MAY Hold] ergocalciferol (Vitamin D-2) capsule 50,000 Units, 50,000 Units, oral, Weekly, Chuy Hollins MD, 50,000 Units at 04/27/22 0620 [MAY Hold] hydrALAZINE (Apresoline) injection 10 mg, 10 mg, intravenous, q6h PRN, Vicente Wills [MAY Hold] HYDROmorphone (Dilaudid) injection 0.2 mg, 0.2 mg, intravenous, q4h PRN, Chuy Hollins MD HYDROmorphone (Dilaudid) injection 0.5 mg, 0.5 mg, intravenous, q10 min PRN, Arvind Lindsay MD, 0.5 mg at 04/27/22 0933 lactated Ringer's infusion, 30 mL/hr, intravenous, Continuous, Arvind Lindsay MD [May] melatonin tablet 3 mg, 3 mg, oral, Nightly PRN, Chuy Hollins MD [May] ondansetron ODT (Zofran-ODT) disintegrating tablet 4 mg, 4 mg, oral, q8h PRN OR [May] ondansetron HCl (PF) (Zofran) injection 4 mg, 4 mg, intravenous, q6h PRN, Chuy Hollins MD [May] oxyCODONE (Roxicodone) immediate release tablet 10 mg, 10 mg, oral, q4h PRN, Chuy Hollins MD, 10 mg at 04/27/22 0359 [MAY Hold] oxyCODONE (Roxicodone) immediate release tablet 5 mg, 5 mg, oral, q4h PRN, Chuy Hollins MD [May] Oxygen Therapy, , inhalation, Continuous, Chuy Hollins MD [May] polyethylene glycol (Glycolax) packet 17 g, 17 g, oral, Daily, MATILDE Thorpe [May] sennosides-docusate sodium (Kanwal-Colace) 8.6-50 mg per tablet 2 tablet, 2 tablet, oral, BID, Chuy Hollins MD sodium chloride 0.9 % infusion, 75 mL/hr, intravenous, Natasha (more content not included)... [facility] CONSULT -------- Attestation signed by Fatemeh Rodriguez MD at 04/27/2022 10:41 AM I agree with above. Patient community ambulator but uses a cane sometimes. Previous BLE trauma and femoral nails. Had a fall onto his left hip yesterday while on a longboard. Pain isolated to the left hip. AAOX3. No distress. Unlabored respirations. LLE- skin intact. No open wounds. Mild swelling. Previous surgical incisions healed. Compartments soft and compressible. Motion deferred due to known fracture. Intact DF/PF/EHL. Full sensation distally. 2+ DP pulse. X-rays show a left comminuted left intertrochanteric femur fracture above a left retrograde femoral nail. Plan will be OR today for ORIF of the left IT fracture. Will plan to keep the femoral nail in place and fixate around. NPO. Consented. Marked. All questions answered and he wishes to proceed. Reason For Consult intertroch femur fx Referring Provider: [facility]. History Of Present Illness Parish Hall is a 47 y.o. male with medical history concerning for hypertension, bipolar, PTSD, migraines, anxiety, presenting as a transfer from an outside hospital for left hip fracture. Patient states that he was riding his long board earlier today, fell and landed on his left hip and hit his head. He endorses significant pain to his left hip and minimal pain to his head. Of note, he does have a history of left femur fracture in 2000 status post intramedullary nail. He also has a history of fractures to his left tibia with IM fixation and history of right tibia fracture with IM fixation. He also mentions that on his right posterior forearm he has erythema that he first noticed several days ago. No antecedent trauma. He does have a history of cellulitis. Past Medical History He has no past medical history on file. Surgical History He has no past surgical history on file. Family History No family history on file. Social History He reports that he has been smoking cigarettes. He does not have any smokeless tobacco history on file. He reports current alcohol use. He reports current drug use. Drug: Marijuana. Allergies Patient has no known allergies. Medications (Not in a hospital admission) Active Hospital Medications Medication Dose Route Frequency Last Admin labetaloL 10 mg intravenous Once Review of Systems See HPI. Last Recorded Vitals Patient Vitals for the past 24 hrs: BP Temp Pulse Resp SpO2 Height Weight 04/27/22 0136 (!) 179/112 37.1 ???C (98.8 ???F) 75 18 100 % 1.829 m (6') 68 kg (150 lb) Physical Exam General: Alert, oriented, no acute distress. Respiratory: Breathing comfortably. Right upper extremity: Inspection-erythema along the posterior forearm. Palpation-area of erythema along posterior forearm is slightly tender to palpation. Left lower extremity: Inspection-skin is intact along the anterior and lateral proximal thigh. Palpation-the compartments of the thigh are soft and easily compressible. Motors-fires ankle dorsiflexors and plantar flexors. Sensory-sensory intact to light touch in superficial peroneal, deep peroneal, tibial nerve distribution. Vascular-PT pulse 2+. Relevant Results Admission on 04/27/2022 Component Date Value Ref Range Status SARS COV2 ANTIGEN 04/27/2022 Negative. For use under an Emergency Use Authorization (EUA) only. For use with anterior nasal/nasopharygeal. For in vitro diagnostic use only. Negative. For use under an Emergency Use Authorization (EUA) only. For use with anterior nasal/nasopharygeal. For in vitro diagnostic use only. Final QC Pass/Fail 04/27/2022 Passed Final QC LOT # 04/27/2022 [id number] Final QC Expiration Date 04/27/2022 02/07/2023 Final Left hip xray's demonstrate an intertrochanteric femur fracture. There is an intramedullary nail just distal to the fracture. Assessment/Plan Active Problems: There are no active Hospital Problems. 47-year-old male presenting today after a fall with left intertrochanteric femur fracture just proximal to prior intramedullary nail. Patient will benefit from surgical fixation. -We will obtain consent from patient for surgical fixation. -Please keep NPO. -Please hold blood thinners. -We will appreciate medicine consult for help with medical management. -We will start Ancef for concern of cellulitis along the right forearm. Chuy Novak PGY3 Normal [facility] Covid-19 PCR ([facility])on SARS-CoV-2 (COVID-19) RNA LEO+probe Ql (Unsp spec) Not detected Normal NOT DETECTED [facility] Comment on above: Result Comment: When diagnostic testing is negative, the possibility of a false negative should be considered in the context of a patient's recent exposures and the presence of clinical signs and symptoms consistent with SARS-CoV-2. This test is not yet approved or cleared by the [place] FDA. When there are no FDA-approved or cleared tests available, and other criteria are met, FDA can make tests available under an emergency access mechanism called an Emergency Use Authorization (EUA). The EUA for this test is supported by the Ship Pilot Dispatcher of Health and Human Service's declaration that circumstances exist to justify the emergency use of in vitro diagnostics for the detection and/or diagnosis of the virus that causes COVID-19. This EUA will remain in effect for the duration of the COVID-19 declaration justifying emergency of IVDs, unless it is terminated or revoked by the FDA (after which the test may no longer be used). Performed By: #### [facility] ####[facility] [id number] [place], [place] [address]Fq. Judie Palomino EDNURSon 04-27-2022 EDNURS The following is a s ummary note of events that occurred in ED during pt. Stay, for hourly updates correlated with medication administration please refer to ED narrator. Pt presented to ED with CC of L hip/femur fracture. PT was transferred from outside facility. PT palced on BP O2 and front desk monitor, pt has 20g IV in L forearm. PT giving pain medicaiton, x-rays completed, pt alert and oriented x4. PT endorses falling from long board. PMS intact distal to injury, LLE cooler then RLE, Ortho aware. Pt currently resting at this time, denies any additional needs at this time. Lexy Tay RN 04/27/22 0325 Normal [facility] EDNURS Patient transferred from [facility]. Patient states he was skateboarding and fell sustaining a left femur fx. Patient has hx of hardware to affected limb. Normal [facility] EDPROVon 04-27-2022 EDPROV [facility] [address] [facility] [id number] EMERGENCY DEPARTMENT ENCOUNTER CHIEF COMPLAINT Chief Complaint Patient presents with femur fx left HISTORY OF PRESENT ILLNESS 47 y/o male with a h/o HTN presents to the ED as a transfer from OSH for evaluation of left intertrochanteric femur fx after mechanical fall off a skateboard. Pt with h/o multiple orthopedic surgeries to BLE d/t prior trauma. Pt reports he hit his head, but denies LOC, IBANEZ, visual changes. Pt hypertensive upon arrival, reportedly received IV BB at OSH. Pt denies dizziness, CP, SOB. Pt denies bladder/bowel incontinence. Pt denies n/w/t of extremities. Pt denies neck/back pain. Pt denies anticoagulation. Pt reports he is noncompliant with his home antihypertensives REVIEW OF SYSTEMS Review of Systems Constitutional: Negative for chills and fever. HENT: Negative for congestion and sore throat. Eyes: Negative for redness and visual disturbance. Respiratory: Negative for cough and shortness of breath. Cardiovascular: Negative for chest pain. Gastrointestinal: Negative for abdominal pain, diarrhea and vomiting. Genitourinary: Negative for dysuria and frequency. Musculoskeletal: Negative for back pain and neck pain. Positive for left hip pain/injury. Skin: Negative for rash. Neurological: Negative for dizziness, syncope, weakness, numbness and headaches. Psychiatric/Behavioral: Negative for confusion and hallucinations. All other systems reviewed and are negative. PAST MEDICAL HISTORY has no past medical history on file. SURGICAL HISTORY has no past surgical history on file. CURRENT MEDICATIONS Previous Medications No medications on file ALLERGIES has No Known Allergies. FAMILY HISTORY has no family status information on file. family history is not on file. SOCIAL HISTORY reports that he has been smoking cigarettes. He does not have any smokeless tobacco history on file. He reports current alcohol use. He reports current drug use. Drug: Marijuana. PHYSICIAL EXAM INITIAL VITALS: height is 1.829 m (6') and weight is 68 kg (150 lb). His temperature is 37.1 ???C (98.8 ???F). His blood pressure is 145/101 (abnormal) and his pulse is 67. His respiration is 13 and oxygen saturation is 100%. Physical Exam Vitals reviewed. Constitutional: General: He is not in acute distress. Appearance: Normal appearance. He is not ill-appearing or toxic-appearing. HENT: Head: Normocephalic and atraumatic. Mouth/Throat: Mouth: Mucous membranes are moist. Eyes: Extraocular Movements: Extraocular movements intact. Conjunctiva/sclera: Conjunctivae normal. Cardiovascular: Rate and Rhythm: Normal rate and regular rhythm. Pulses: Normal pulses. Heart sounds: Normal heart sounds. Pulmonary: Effort: Pulmonary effort is normal. No respiratory distress. Breath sounds: Normal breath sounds. Chest: Chest wall: No tenderness. Musculoskeletal: Cervical back: Normal range of motion and neck supple. No tenderness. Thoracic back: No tenderness. Lumbar back: No tenderness. Left hip: Tenderness present. Decreased range of motion. Left upper leg: Tenderness present. Comments: Except as noted, nontender extremities with FROM. Skin: General: Skin is warm and dry. Neurological: General: No focal deficit present. Mental Status: He is alert and oriented to person, place, and time. Gait: Gait is intact. Gait normal. Comments: No saddle anesthesia. Psychiatric: Mood and Affect: Mood normal. Behavior: Behavior normal. DIAGNOSTIC RESULTS EKG: Not indicated RADIOLOGY: Radiologist interpretation of the radiologic studies: XR femur left 2+ views Final Result Acute comminuted left femoral neck/intertrochanteric fracture. Approved by:Francisco Iordanouon2/11/2022 2:37 AM. XR transfer of outside films Final Result LABS: Labs Reviewed BASIC METABOLIC PANEL - Abnormal Result Value Sodium 131 (*) Potassium 3.7 Chloride 99 CO2 28 BUN 16 Creatinine 1.30 Glucose 96 Calcium 8.9 Anion Gap 4 (*) eGFR 64.5 BUN/Creatinine Ratio 12.31 CBC WITH AUTO DIFFERENTIAL - Abnormal Auto WBC 16.66 (*) RBC 3.60 (*) Hemoglobin 11.1 (*) Hematocrit 32.4 (*) MCV 90.0 MCH 30.8 MCHC 34.3 RDW 13.2 Neutrophils Relative 77.5 (*) Lymphocytes Relative 12.4 (*) Monocytes Relative 8.7 Eosinophils Relative 0.3 Basophils Relative 0.7 Neutrophils Absolute 12.92 (*) Lymphocytes Absolute 2.06 Monocytes Absolute 1.45 (*) Eosinophils Absolute 0.05 Basophils Absolute 0.11 Platelets 432 (*) nRBC % 0.0 Immature Granulocytes Relative 0.4 Immature Granulocytes Absolute 0.07 PROTIME-INR - Normal Protime 13.0 INR 0.98 APTT - Normal aPTT 31.6 POCT SARS COV2 ANTIGEN - Normal SARS COV2 ANTIGEN Value: Negative. For use under an Emergency Use Authorization (EUA) only. For use with anterior nasal/nasophar (more content not included)... Normal [facility] ETHANOLon 04-27-2022 ETHANOL (MG/DL) IN SER/PLAS <10 Normal [facility] Comment on above: Result Comment: No E thanol detected Performed By: #### L [id number] ####[facility] ([facility])[address] [place] [address] ETHANOL CALCULATED (%) Normal [facility] Comment on above: Performed By: #### L [id number] ####[facility] ([facility])[address] [place] [address] HPon 04-27-2022 Chief Complaint: Tra tiffany Fall Mechanism of Injury (History of what occurred prior to arrival): 47 y.o. year old male who was brought in via EMS. He had no C-collar or back board in place. Circumstances of injury: Patient presented from outside hospital for left hip/femur fracture. injury occurred after falling off skateboard. Patient has history of multiple orthopedic surgeries to bilateral lower extremities due to previous history of trauma. Patient reports striking his head but denies loss of consciousness. Patient denies headache, vision changes, nausea, vomiting, diarrhea. Patient denies numbness, weakness, tingling of extremities. Patient denies neck or back pain. Of note patient is not on anticoagulant/antiplatelets. Review of Systems: General: No For Chills, Fatigue, Fever, recent weight loss or weight gain Head/Neck: no blurry vision, tinnitus, headache Respiratory: No Cough, Shortness Of Breath, Or Wheezing Cardiovascular: No Chest Pain Or Dyspnea On Exertion Gastrointestinal: No Abdominal Pain, Nausea, Vomiting Or Diarrhea. No Hematochezia Genito-Urinary: No Dysuria, Trouble Voiding, Or Hematuria Musculoskeletal: No Gait Disturbance, Joint Pain, Weakness. Left hip pain. Endocrine: no heat or cold intolerance, no hyperglycemia, no polyuria Neurological: No TIA Or Stroke Symptoms, Dizziness, Confusion, Numbness/Tingling, Visual Changes Psych: No history of depression, anxiety or substance abuse Dermatological: No Skin Changes, Rash, Nail Or Hair Changes History History collected from medical chart review and patient. Past Medical History: has a past medical history of Bipolar I disorder, most recent episode depressed ([facility] (09/25/2017) and Hypertension (04/27/2022). Past Surgical History: Denies significant past surgical history. Allergies: Patient has no known allergies. Home Medications: No medications prior to admission. Social History: reports that he has been smoking cigarettes. He does not have any smokeless tobacco history on file. He reports current alcohol use. He reports current drug use. Drug: Marijuana. Family History: Reviewed not pertinent to today's admission. Objective Vitals: Patient Vitals for the past 24 hrs: BP Temp Temp src Pulse Resp SpO2 Height Weight 04/27/22 0412 (!) 170/97 36.4 ???C (97.5 ???F) Oral 71 17 97 % -- -- 04/27/22 0400 -- -- Oral -- -- -- 1.829 m (6') 70.3 kg (154 lb 15.7 oz) 04/27/22 0310 (!) 151/98 -- -- 71 12 98 % -- -- 04/27/22 0240 (!) 145/101 -- -- 67 13 100 % -- -- 04/27/22 0200 -- -- -- -- -- 100 % -- -- 04/27/22 0136 (!) 179/112 37.1 ???C (98.8 ???F) -- 75 18 100 % 1.829 m (6') 68 kg (150 lb) Emily Coma Scale Score: 15 Physical Exam: General: Awake, Alert, No acute distress Head: Normocephalic. Small hematoma on left forehead. No abrasion or active bleeding. Mid Face Stable. Tympanic Membranes Intact. Nares Patent Bilaterally, No Epistaxis. Mouth Clear Of Foreign Bodies, No Lacerations Or Abrasions, Teeth Intact. No fluid or blood draining from the ear, nose or mouth. Eyes: PERRL, EOMI Neurologic: Alert And Oriented to self, place and time. Moving Extremities and Following Commands. CN 2-12 Grossly Intact, GCS 15 Neck: Immobilized In Cervical Collar. Cervical Spine Is Nontender To Palpation Without Step-Offs, Crepitus, Or Deformity. No Abrasions, Contusions, Or Ecchymosis Noted Back: Thoracic and Lumbar Spine Are Nontender To Palpation Without Step-Offs, Crepitus, Or Deformity. No Abrasions, Contusions, Or Ecchymosis Noted Lungs: Clear to Auscultation Bilaterally With Normal Work Of Breathing Chest Wall: Chest Rise Symmetrical. No Crepitus, Deformities, Lacerations, Or Abrasions Cardiovascular: regular rate and rhythm. Palpable femoral/radial/DP pulses bilaterally Abdomen: Soft, Nontender, and Nondistended With Normoactive Bowel Sounds. No Guarding. No bruising or abrasions noted, no seat belt signs Pelvis: Pelvis Is Stable to Compression Rectal exam: deferred- patient able to squeeze buttocks Extremities: Area tender along left hip. Skin intact over left lateral thigh. Compartments of the thigh are soft and easily compressible. Plantar and dorsiflexion intact. Skin: Warm And Dry. Normal For Ethnicity Psych: Friendly, Cooperative Labs: Recent Results (from the past 12 hour(s)) Type and screen Collection Time: 04/27/22 2:02 AM Result Value Ref Range ABO Grouping O Rh Type POS Ab Scrn NEG Basic metabolic panel Collection Time: 04/27/22 2:02 AM Result Value Ref Range Sodium 131 (L) 136 - 145 mmol/L Potassium 3.7 3.5 - 5.1 mmol/L Chloride 99 98 - 107 mmol/L CO2 28 21 - 31 mmol/L BUN 16 7 - 25 mg/dL Creatinine 1.30 0.70 - 1.30 mg/dL Glucose 96 70 - 100 mg/dL Calcium 8.9 8.6 - 10.3 mg/dL Anion Gap 4 (L) 7 - 20 mmol/L eGFR 64.5 >60.0 mL/min/1.73m*2 BUN/Creatinine Ratio 12.31 Protime-INR Collection Time: 04/27/22 2:02 AM Result Value Ref Range Protime 13.0 12. (more content not included)... Normal [facility] OPNOTEon 04-27-2022 [facility] ORTHOPAEDIC SURGERY OPERATIVE REPORT Date of Surgery: 04/27/2022 Surgeon: Fatemeh Rodriguez MD Assistants: MD Carla Kaur MD Preoperative Diagnosis: Left intertrochanteric femur fracture in the setting of prior retrograde femoral nailing for distal femoral shaft fracture Postoperative Diagnosis: Left intertrochanteric femur fracture in the setting of prior retrograde femoral nailing for distal femoral shaft fracture Procedures Performed: Left intertrochanteric femur fracture open reduction and internal fixation (CPT 23550) Anesthesia: General anesthesia IV Fluids: Per anesthesia record Estimated Blood Loss: 100 mL Complications: None Implants: Synthes 4.5 mm 6 hole LCP proximal femur hook plate with associated cortical screws Synthes 6.5 mm fully threaded cancellous screw x1 with Nahid washer Specimens: None Intraoperative Findings: Safe extra-articular hardware placement and stable fracture fixation noted at the completion of the case. Indications For Procedure: Parish Hall is a 47 y.o. male who suffered a fall onto his left hip while long boarding. Initially presented to outside facility where x-rays obtained demonstrated a left intertrochanteric femur fracture. Of note, the patient does have a history of a retrograde left femoral nail placed in 1999 due to a distal femur fracture which healed uneventfully. The patient was transferred for higher level of care and operative management. Patient was indicated for operative stabilization given the nature of the fracture. Risk, benefits, and alternatives to the procedure were discussed and the patient was agreeable to proceed. The patient was then brought to the preoperative holding area on the day of surgery. Procedure Detail: The patient was met in the preoperative holding area where their identity, procedure to be performed, and correct operative site were identified. The operative site was marked with the attending's initials. The patient was taken back to the operative theater where they were placed under general anesthesia on the fracture table without complication. The patient's left lower extremity was then prepped and draped in the usual sterile fashion. A preoperative timeout was performed, confirming the patient's identity, procedure to be performed, and correct operative site. Everyone present was in agreement. Preoperative antibiotics were administered. We began by making a direct lateral approach to the proximal femur. Incision was taken through skin and subcutaneous tissue. Blunt dissection was taken down until the IT band was identified. This was noted to be quite diminutive. The IT band was incised longitudinally and we then elevated the vastus from its posterior attachment, obtaining excellent hemostasis as we went. We were then able to elevate the vastus off of the lateral femur. Proximally, we did perform a release of the vastus origin for appropriate exposure. We then used a bone hook and a ball spike pusher to obtain our fracture reduction. Fluoroscopy obtained at this time demonstrated appropriate fracture reduction. We then placed a Synthes 4.5 mm LCP proximal femoral locking plate in position. At thistime, we did note that the plate was not fitting properly and there appeared to be some loss of reduction. Plate was removed and the fracture was reevaluated. It was noted that the greater trochanter appeared to be a somewhat separate piece, which was elevated proximally. We brought this down with an additional bone hook and pinned this into position. Fluoroscopy obtained at this time demonstrated a much better reduction. Due to the nature of the greater trochanteric fragment, we elected to place a Synthes 4.5 mm LCP proximal femur hook plate to capture this. We first reduced our fracture again using bone hooks and ball spike pusher and placed several K wires from distal and lateral into the femoral head. We then put our plate into position and pinned this as well. We then secured the plate to the bone distally. The hook was impacted into the greater trochanter. Appropriate plate fixation was noted withfluoroscopy. We then secured the remainder of the plate distally, taking care to place our screws around the previously placed intramedullary nail. We then placed a 4.5 mm cortical screw into the femoral head under fluoroscopic guidance. We then placed an additional 6.5 mm fully threaded cancellous screw after drilling the near cortex to place this in a lag by technique fashion. A washer was used to buttress against the plate. This was fully seated and noted to have excellent purchase. Fracture compression was noted. We then tightened the previously placed 4.5 millimeter screw. We placed 1 additional 4.5 millimeter screw distally which was aimed proximally into the femoral neck. This is fully advanced and had excellent purchase. At this time we are very (more content not included)... Normal [facility] PROTIME-INRon 04-27-2022 INR IN PPP BY COAGULATION ASSAY 0.98 Normal 0.90-1.10 [facility] Comment on above: Result Comment: ACCC P RECOMMENDED INR FOR WARFARIN THERAPY CONDITION INR PROPHYLAXIS OF VENOUS THROMBOSIS 2-3 (HIGH-RISK SURGERY) TREATMENT OF VENOUS THROMBOSIS 2-3 TREATMENT OF PULMONARY EMBOLISM 2-3 PREVENTION OF SYSTEMIC EMBOLISM: 2-3 ACUTE MYOCARDIAL INFARCTION TISSUE HEART VALVES VALVULAR HEART DISEASE ATRIAL FIBRILLATION RECURRENT SYSTEMIC EMBOLISM MECHANICAL HEART VALVE 2.5-3.5 FROM: ORAL ANTICOAGULANTS. MECHANISM OF ACTION, CLINICAL EFFECTIVENESS, AND OPTIMAL THERAPEUTIC RANGE. CHEST 1995;108:231S-246S. Performed By: #### L [id number] #### [facility] ([facility]) [address] [place] [address] PROTHROMBIN TIME (PT) IN PPP BY COAGULATION ASSAY 13.0 Seconds Normal 12.3-14.8 [facility] Comment on above: Performed By: #### L [id number] #### [facility] ([facility]) [address] [place] [address] TOXICOLOGY PANEL URINEon AMPHETAMINE+METHAM PHETAMINE SCREEN (PRESENCE) IN URINE Positive Abnormal Negative [facility] Comment on above: Performed By: #### L [id number] #### [facility] ([facility]) [address] [place] [address] BARBITURATES PRESENCE IN URINE BY SCREEN METHOD Negative Normal Negative [facility] Comment on above: Performed By: #### L [id number] #### [facility] ([facility]) [address] [place] [address] Benzodiazepines Ql (U) Negative Normal Negative [facility] Comment on above: Performed By: #### L [id number] #### [facility] ([facility]) [address] [place] [address] CANNABINOID (PRESENCE) IN URINE BY SCREEN METHOD Positive Abnormal Negative [facility] Comment on above: Performed By: #### L [id number] #### [facility] ([facility]) [address] [place] [address] Cocaine Ql (U) Negative Normal Negative [facility] Comment on above: Performed By: #### L [id number] #### [facility] ([facility]) [address] [place] [address] METHADONE (PRESENCE) IN URINE BY SCREEN METHOD Negative Normal Negative [facility] Comment on above: Performed By: #### L [id number] #### [facility] ([facility]) [address] [place] [address] OPIATES (PRESENCE) IN URINE BY SCREEN METHOD Positive Abnormal Negative [facility] Comment on above: Performed By: #### L [id number] #### [facility] ([facility]) [address] [place] [address] PHENCYCLIDINE PRESENCE IN URINE BY SCREEN METHOD Negative Normal Negative [facility] Comment on above: Performed By: #### L [id number] #### [facility] ([facility]) [address] [place] [address] Propoxyphene Screen Ql (U) Negative Normal Negative [facility] Comment on above: Performed By: #### L [id number] #### [facility] ([facility]) [address] [place] [address] TRICYCLIC ANTIDEPRESSANTS (PRESENCE) IN URINE Negative Normal Negative [facility] Comment on above: Performed By: #### L [id number] #### [facility] ([facility]) [address] [place] [address] TYPE AND SCREENon 04-27-2022 AB SCREEN Negative Normal [facility] Comment on above: Performed By: #### L [id number] #### [facility] , ABO group Nom (Bld) O Normal [facility] Comment on above: Performed By: #### L [id number] #### [facility] , RH TYPE IN BLOOD Positive Normal [facility] Comment on above: Performed By: #### L [id number] #### [facility] , VITAMIN D 25 HYDROXYon 04-27 CALCIDIOL (25 [place] VITAMIN D3) (NG/ML) IN SER/PLAS 24.4 ng/mL Low 30.0-80.0 [facility] Comment on above: Result Comment: >80. 0 Toxicity possible Performed By: #### L [id number] ####[facility] ([facility])[address] [place] [address] CBC AUTO DIFFon 04-26-2022 BASO # 0.2 103/ul Critically high 0.0-0.1 [facility] Comment on above: Performed By: #### C BC #### [facility] [address] [address] [address] Judie Palomino Basophils/100 WBC (Bld) 0.7 % Normal 0.2-2.0 [facility] Comment on above: Performed By: #### C BC #### [facility] [address] [place] [address] Dr. Judie Palomino EO # 0.1 103/ul Normal 0.0-0.7 [facility] Comment on above: Performed By: #### C BC #### [facility] [address] [address] [address] Judie Palomino Eosinophils/100 WBC (Bld) 0.3 % Critically low 0.9-7.0 [facility] Comment on above: Performed By: #### C BC #### [facility] [address] [place] [address] Dr. Judie Palomino Erythrocyte distribution width (RBC) [Ratio] 13.0 % Normal 11.0-15.0 [facility] Comment on above: Performed By: #### C BC #### [facility] [address] [address] [address] Judie Palomino Hematocrit (Bld) [Volume fraction] 36.4 % Critically low 42.0-54.0 [facility] Comment on above: Performed By: #### C BC #### [facility] [address] [place] [address] Dr. Judie Palomino Hemoglobin (Bld) [Mass/Vol] 12.5 g/dL Critically low 14.0-18.0 [facility] Comment on above: Performed By: #### C BC #### [facility] [address] [place] [address] Dr. Judie Palomino IG # 0.13 10e3/ul Critically high 0.00-0.03 [facility] Comment on above: Performed By: #### C BC #### [facility] [address] [place] [address] Dr. Judie Palomino IG % 0.6 % Critically high 0.0-0.5 [facility] Comment on above: Performed By: #### C BC #### [facility] [address] [place] [address] Dr. Judie Palomino LYMPH # 1.5 103/ul Normal 1.2-3.8 [facility] Comment on above: Performed By: #### C BC #### [facility] [address] [place] [address] Dr. Judie Palomino Lymphocytes/100 WBC (Bld) 6.5 % Critically low 20.5-60.0 [facility] Comment on above: Performed By: #### C BC #### [facility] [address] [place] [address] Dr. Judie Palomino MANUAL DIFF REQ NO Normal [facility] Comment on above: Performed By: #### C BC #### [facility] [address] [place] [address] Dr. Judie Palomino MCH (RBC) [Entitic mass] 30.9 pg Normal 25.9-34.0 [facility] Comment on above: Performed By: #### C BC #### [facility] [id number] Judie Palomino MCHC (RBC) [Mass/Vol] 34.3 g/dL Normal 29.9-35.2 [facility] Comment on above: Performed By: #### C BC #### [facility] [id number] Judie Palomino MCV (RBC) [Entitic vol] 90.1 fL Normal 80.0-94.0 [facility] Comment on above: Performed By: #### C BC #### [facility] [address] [address] [address] Judie Palomino MONO # 1.4 103/ul Critically high 0.3-0.8 [facility] Comment on above: Performed By: #### C BC #### [facility] [address] [address] [address] Judie Palomino Monocytes/100 WBC (Bld) 6.0 % Normal 1.7-12.0 [facility] Comment on above: Performed By: #### C BC #### [facility] [address] [address] [address] Judie Palomino NEUT # 19.8 103/ul Critically high 1.4-6.5 [facility] Comment on above: Performed By: #### C BC #### [facility] [address] [address] [address] Judie Palomino Neutrophils/100 WBC (Bld) 85.9 % Critically high 43.0-75.0 [facility] Comment on above: Performed By: #### C BC #### [facility] [id number] Judie Palomino Platelet mean volume (Bld) [Entitic vol] 8.8 fL Critically low 9.5-13.5 [facility] Comment on above: Performed By: #### C BC #### [facility] [id number] Judie Palomino PLT 479 103/ul Critically high 150-450 [facility] Comment on above: Performed By: #### C BC #### [facility] [address] [place], [place] [address] Dr. Judie Palomino RBC 4.04 106/ul Critically low 4.70-6.10 [facility] Comment on above: Performed By: #### C BC #### [facility] [address] [place], [place] [address] Dr. Judie Palomino WBC 23.1 103/ul Critically high 4.0-11.0 [facility] Comment on above: Performed By: #### C BC #### [facility] [address] [place], [place] [address] CSPINE WO CONon 3 CT CSPINE WO CON EXAMINATION: CT CSPI NE WO CON HISTORY: Left hip pain after fall skateboarding. No neck complaints COMPARISON: None. TECHNIQUE: CT Cervical spine without IV contrast. Coronal and sagittal reformations were performed. Dose reduction techniques were achieved by using automated exposure control and/or adjustment of mA and/or kV according to patient size and/or use of iterative reconstruction technique. FINDINGS: Chronic straightening of the normal cervical lordosis. Multilevel large endplate osteophytes. Age-related uncovertebral and to a lesser degree facet arthrosis. Vertebral body heights and alignments are unremarkable. Intervertebral disc spaces are unremarkable for patient's age. The dens and lateral masses of C1 are symmetric. No prevertebral soft tissue edema. Narrowing of the left C3-C4, C5-C6, C6-C7 and C7-T1 left neural foramina, and the right C7-T1 and C4-C5 neural foramina. The visualized skull base is unremarkable. Mastoid air cells are pneumatized. IMPRESSION: Cervical DISH and chronic straightening of the normal cervical lordosis. Electronically authenticated by: CARLA FRANKLIN Date: 2022-04-26 21:25 Normal [facility] CT HEAD WO CONon 04-26-2022 CT HEAD WO CON HEAD CT WITHOUT CONT RAST, 04/26/2022 7:44 PM EST: COMPARISON: None CLINICAL HISTORY: History of fall with head injury. Patient fell to the left while skateboarding. TECHNIQUE: 3 mm axial images performed through the head without contrast. 3 mm sagittal and coronal MPR reconstructions performed. Dose reduction techniques were achieved by using automated exposure control and/or adjustment of mA and/or kV according to patient size and/or use of iterative reconstruction technique. FINDINGS: Allowing for some motion near the convexity, no acute hemorrhage, mass effect, or midline shift. The ventricles are normal in size, shape, and position. Visualized paranasal sinuses, mastoid air cells and bony structures are unremarkable. IMPRESSION: Allowing for some motion near the convexity of the calvarium, no acute intracranial abnormality identified. Electronically authenticated by: Traci DONOVAN Date: 2022-04-26 21:06 Normal [facility] ER URINE PROFILEon 3 Bilirubin Ql (U) Negative Normal NEGATIVE [facility] Comment on above: Performed By: #### U MICRO, ERUR #### [facility] [address] [place] [address] Dr. Judie Palomino Clarity (U) CLEAR Normal CLEAR [facility] Comment on above: Performed By: #### U MICRO, ERUR #### [facility] [address] [place] [address] Dr. Judie Palomino Color (U) YELLOW Normal YELLOW [facility] Comment on above: Performed By: #### U MICRO, ERUR #### [facility] [address] [place] [address] Dr. Judie Palomino ERUAHD A micrscopic examina tion will be performed if indicated. Normal [facility] Comment on above: Performed By: #### U MICRO, ERUR #### [facility] [address] [place] [address] Dr. Judie Palomino Glucose Ql (U) Negative Normal NEGATIVE [facility] Comment on above: Performed By: #### U MICRO, ERUR #### [facility] [address] [address] [address] Judie Palomino Hemoglobin Ql (U) TRACE-LYSED Abnormal NEGATIVE [facility] Comment on above: Performed By: #### U MICRO, ERUR #### [facility] [address] [place] [address] Dr. Judie Palomino Ketones Ql (U) TRACE Abnormal NEGATIVE [facility] Comment on above: Performed By: #### U MICRO, ERUR #### [facility] [address] [address] [address] Judie Palomino LEUKOCYTES Negative Normal NEGATIVE [facility] Comment on above: Performed By: #### U MICRO, ERUR #### [facility] [address] [address] [address] Judie Palomino Nitrite Ql (U) Negative Normal NEGATIVE [facility] Comment on above: Performed By: #### U MICRO, ERUR #### [facility] [address] [address] [address] Judie Palomino pH (U) 6.0 [pH] Normal 5-9 [facility] Comment on above: Performed By: #### U MICRO, ERUR #### [facility] [address] [place] [address] Dr. Judie Palomino SPEC GRAVITY 1.015 Normal 1.005-<=1.0 25 [facility] Comment on above: Performed By: #### U MICRO, ERUR #### [facility] [address] [place] [address] Dr. Judie Palomino UA PROTEIN Negative Normal NEGATIVE/ TRACE [facility] Comment on above: Performed By: #### U MICRO, ERUR #### [facility] [address] [place] [address] Dr. Judie Palomino UR MICRO IND INDICATED [facility] Comment on above: Performed By: #### U MICRO, ERUR #### [facility] [address] [place] [address] Dr. Judie Palomino Urobilinogen Qn (U) 0.2 {Ashanti'U}/dL Normal 0.2 - 1.0 [facility] Comment on above: Performed By: #### U MICRO, ERUR #### [facility] [address] [place] [address] Dr. Judie Palomino PROF 14(COMP METB)on 023 Albumin [Mass/Vol] 4.0 g/dL Normal 3.4-5.0 [facility] Comment on above: Performed By: #### C MP ####[facility] [address] [place] [address]Dr. Judie Palomino Albumin/Globulin [Mass ratio] 1.2 {ratio} [facility] Comment on above: Performed By: #### C MP ####[facility] [address]rr[address] [place] [phone]. Judie Candelario ALP [Catalytic activity/Vol] 125 U/L Critically high 46-116 [facility] Comment on above: Performed By: #### C MP ####[facility] Waudtixffr[address] [place] [phone]. Judie Candelario ALT [Catalytic activity/Vol] 36 U/L Normal 16-63 [facility] Comment on above: Performed By: #### C MP ####[facility] [address] [place], [place] [address]Dr. Judie Candelario Anion gap [Moles/Vol] 13.0 mmol/L Normal [facility] Comment on above: Performed By: #### C MP ####[facility] [address] [place], [place] [address]Dr. Judie Candelario AST [Catalytic activity/Vol] 43 U/L Critically high 15-37 [facility] Comment on above: Performed By: #### C MP ####[facility] [address] [place], [place] [address]Dr. Judie Candelario Bilirubin [Mass/Vol] 0.5 mg/dL Normal 0.2-1.0 [facility] Comment on above: Performed By: #### C MP ####[facility] [address] [place], [place] [address]Dr. Judie Candelario Calcium [Mass/Vol] 9.2 mg/dL Normal 8.5-10.1 [facility] Comment on above: Performed By: #### C MP ####[facility] [address] [place], [place] [address]Dr. Judie Palomino Chloride [Moles/Vol] 95 mmol/L Critically low 98-107 [facility] Comment on above: Performed By: #### C MP ####[facility] [address] [place] [phone]. Judie Palomino CO2 [Moles/Vol] 27.5 mmol/L Normal 21.0-32.0 [facility] Comment on above: Performed By: #### C MP ####[facility] Yq[address]rz[address]ws[address] [place] [phone]. Judie Palomino Creatinine [Mass/Vol] 1.48 mg/dL Critically high 0.70-1.30 [facility] Comment on above: Performed By: #### C MP ####[facility] Tfegsdoexi[address] [place] [phone]. Judie Candelario EGFR-AF KAZAKH >60 Normal >=60 [facility] Comment on above: Performed By: #### C MP ####[facility] Riupzihtwf[address] [place] [phone]. Judie Candelario EGFR-NON AF KAZAKH 51 mL/min/1.73m2 Critically low >=60 [facility] Comment on above: Performed By: #### C MP ####[facility] [address]keow[address] [place] [address]Dr. Judie Candelario Globulin (S) [Mass/Vol] 3.3 g/dL [facility] Comment on above: Performed By: #### C MP ####[facility] Tibmtiktgl[address] [place] [address]Dr. Judie Candelario Glucose [Mass/Vol] 97 mg/dL Normal 74-106 [facility] Comment on above: Performed By: #### C MP ####[facility] Jsxofgyfak[address] [place] [phone]. Judie Candelario Potassium [Moles/Vol] 3.5 mmol/L Normal 3.5-5.1 [facility] Comment on above: Performed By: #### C MP ####[facility] Cpwtfnipay6[address] [place] [phone]. Judie Candelario Protein [Mass/Vol] 7.3 g/dL Normal 6.4-8.2 [facility] Comment on above: Performed By: #### C MP ####[facility] S[address]hfvjcym[address] [place] [phone]. Judie Candelario Sodium [Moles/Vol] 132 mmol/L Critically low 136-145 [facility] Comment on above: Result Comment: Prev iously reported as: 132 On 04/26/2022 20:26 By MH01 Performed By: #### C MP ####[facility] [address] [place] [address]Dr. Judie Palomino Urea nitrogen [Mass/Vol] 16.0 mg/dL Normal 7.0-18.0 [facility] Comment on above: Performed By: #### C MP ####[facility] [address]yrzh[address] [place] [address]Dr. Judie Palomino Urea nitrogen/Creatinin e [Mass ratio] 10.8 mg/mg Normal [facility] Comment on above: Performed By: #### C MP ####[facility] [address]pecr[address] [place] [address]Dr. Judie Palomino URINE MICROSCOPIC ONLYon BACTERIA TRACE Abnormal NONE SEEN [facility] Comment on above: Performed By: #### U MICRO, ERUR #### [facility] [address] [place] [address] [address] Judie Palomino Bacteria identified Cx Nom (U) NOT INDICATED Normal [facility] Comment on above: Performed By: #### U MICRO, ERUR #### [facility] [address] [address] [address] Judie Palomino CAST NONE SEEN Normal NONE SEEN [facility] Comment on above: Performed By: #### U MICRO, ERUR #### [facility] [address] [address] [address] Judie Palomino Crystals LM Nom (Urine sed) NONE SEEN Normal NONE SEEN [facility] Comment on above: Performed By: #### U MICRO, ERUR #### [facility] [address] [address] [address] Judie Palomino Epithelial cells LM Ql (Urine sed) RARE Normal NONE SEEN /RARE [facility] Comment on above: Performed By: #### U MICRO, ERUR #### [facility] [address] [address] [address] Judie Palomino MUCOUS NONE SEEN Normal NONE SEEN [facility] Comment on above: Performed By: #### U MICRO, ERUR #### [facility] [address] [address] [address] Judie Palomino RBC 0-2 Normal 0-2 [facility] Comment on above: Performed By: #### U MICRO, ERUR #### [facility] [address] [address] [address] Judie Palomino WBC NONE SEEN Normal NONE SEEN [facility] Comment on above: Performed By: #### U MICRO, ERUR #### [facility] [address] [place] [address] [address] Judie Palomino XR CHEST 1 Von 04-26-2022 XR CHEST 1 V CXR HISTORY: 47-year-old male with left hip pain after fall while skateboarding COMPARISON: 08/30/2021 TECHNIQUE: 1 view of the chest submitted for review. FINDINGS: The lungs are hyperaerated. The cardiac silhouette measures within normal. Pulmonary vascularity is unremarkable. Osseous structures do not demonstrate any acute abnormality allowing for limitations of a 1 view chest IMPRESSION: No plain film evidence of acute cardiopulmonary abnormality. Electronically authenticated by: ISH DAVE Date: 2022-04-26 20:41 Normal [facility] XR HIP LT 2 3V W PELVISon XR HIP LT 2 3V W PELVIS EXAM: XR HIP LT 2 3V W PELVIS HISTORY: History of fall COMPARISON: None. TECHNIQUE: 3 views FINDINGS: IMPRESSION: Comminuted displaced intertrochanteric fracture of the left proximal femur. Patient is status post retrograde intramedullary fixation of the femur. The remainder of the osseous structures are unremarkable. Orthopedic surgical intervention is necessary. Electronically authenticated by: CARLA FRANKLIN Date: 2022-04-26 20:14 Normal [facility] AMYLASEon 08-30-2021 Amylase [Catalytic activity/Vol] 32 U/L Normal 25-115 [facility] Comment on above: Performed By: #### C MP, LIPA, HELEN #### [facility] [address] [address] [address] Judie Palomino CBC AUTO DIFFon 08-30-2021 BASO # 0.1 103/ul Normal 0.0-0.1 [facility] Comment on above: Performed By: #### C BC ####[facility] [address] [place] [phone]. Judie Palomino Basophils/100 WBC (Bld) 0.5 % Normal 0.2-2.0 [facility] Comment on above: Performed By: #### C BC ####[facility] [address] [place], [place] [address]Dr. Judie Palomino EO # 0.0 103/ul Normal 0.0-0.7 [facility] Comment on above: Performed By: #### C BC ####[facility] [address] [place], [place] [address]Dr. Judie Palomino Eosinophils/100 WBC (Bld) 0.1 % Critically low 0.9-7.0 [facility] Comment on above: Performed By: #### C BC ####[facility] [address] [place], [place] [address]Dr. Judie Palomino Erythrocyte distribution width (RBC) [Ratio] 13.0 % Normal 11.0-15.0 [facility] Comment on above: Performed By: #### C BC ####[facility] [address]un[address] [place], [place] [address]Dr. Judie Palomino Hematocrit (Bld) [Volume fraction] 45.0 % Normal 42.0-54.0 [facility] Comment on above: Performed By: #### C BC ####[facility] [address] [place], [place] [address]Dr. Judie Palomino Hemoglobin (Bld) [Mass/Vol] 15.7 g/dL Normal 14.0-18.0 [facility] Comment on above: Performed By: #### C BC ####[facility] [address] [place], [place] [address]Dr. Judie Palomino IG # 0.06 10e3/ul Critically high 0.00-0.03 [facility] Comment on above: Performed By: #### C BC ####[facility] [address] [place], [place] [address]Dr. Judie Palomino IG % 0.4 % Normal 0.0-0.5 [facility] Comment on above: Performed By: #### C BC ####[facility] [address]neyswh[address] [place] [phone]. Judie Palomino LYMPH # 1.1 103/ul Critically low 1.2-3.8 [facility] Comment on above: Performed By: #### C BC ####[facility] [address]fkszibv[address] [place] [phone]. Judie Palomino Lymphocytes/100 WBC (Bld) 7.5 % Critically low 20.5-60.0 [facility] Comment on above: Performed By: #### C BC ####[facility] Eoeihyxatk[address] [place] [phone]. Judie Palomino MANUAL DIFF REQ NO Normal [facility] Comment on above: Performed By: #### C BC ####[facility] [address]xnot[address]jla[address] [place] [phone]. Judie Palomino MCH (RBC) [Entitic mass] 30.0 pg Normal 25.9-34.0 [facility] Comment on above: Performed By: #### C BC ####[facility] Laqoosfyec[address] [place] [phone]. Judie Palomino MCHC (RBC) [Mass/Vol] 34.9 g/dL Normal 29.9-35.2 [facility] Comment on above: Performed By: #### C BC ####[facility] Taqhinvmbr[address] [place] [phone]. Judie Palomino MCV (RBC) [Entitic vol] 85.9 fL Normal 80.0-94.0 [facility] Comment on above: Performed By: #### C BC ####[facility] Wgcaseywml[address] [place] [phone]. Judie Palomino MONO # 1.5 103/ul Critically high 0.3-0.8 [facility] Comment on above: Performed By: #### C BC ####[facility] Twh[address]bxwvp[address] [place] [phone]. Judie Palomino Monocytes/100 WBC (Bld) 10.0 % Normal 1.7-12.0 [facility] Comment on above: Performed By: #### C BC ####[facility] [address] [place], [place] [address]Bn. Judie Palomino NEUT # 12.3 103/ul Critically high 1.4-6.5 [facility] Comment on above: Performed By: #### C BC ####[facility] Y[address] [place] [phone]. Judie Palomino Neutrophils/100 WBC (Bld) 81.5 % Critically high 43.0-75.0 [facility] Comment on above: Performed By: #### C BC ####[facility] Weruqpcxdi36[address] [place] [phone]. Judie Palomino Platelet mean volume (Bld) [Entitic vol] 8.7 fL Critically low 9.5-13.5 [facility] Comment on above: Performed By: #### C BC ####[facility] Vbpsuirmti[address] [place] [phone]. Judie Palomino PLT 362 103/ul Normal 150-450 [facility] Comment on above: Performed By: #### C BC ####[facility] Vjhwtlejmy[address] [place] [phone]. Judie Palomino RBC 5.24 106/ul Normal 4.70-6.10 [facility] Comment on above: Performed By: #### C BC ####[facility] Lwn[address]ihjrjr[address] [place] [phone]. Judie Palomino WBC 15.1 103/ul Critically high 4.0-11.0 [facility] Comment on above: Performed By: #### C BC ####[facility] B[address]rbuxslw[address] [place] [phone]. Judie Palomino [facility]17 SARS-CoV-2 (COVID-19) RNA LEO+probe Ql (Unsp spec) Not detected Normal NOT DETECTED [facility] Comment on above: Result Comment: When diagnostic testing is negative, the possibility of a false negative should be considered in the context of a patient's recent exposures and the presence of clinical signs and symptoms consistent with SARS-CoV-2. This test is not yet approved or cleared by the [place] FDA. When there are no FDA-approved or cleared tests available, and other criteria are met, FDA can make tests available under an emergency access mechanism called an Emergency Use Authorization (EUA). The EUA for this test is supported by the [place] of Health and Human Service's declaration that circumstances exist to justify the emergency use of in vitro diagnostics for the detection and/or diagnosis of the virus that causes COVID-19. This EUA will remain in effect for the duration of the COVID-19 declaration justifying emergency of IVDs, unless it is terminated or revoked by the FDA (after which the test may no longer be used). Performed By: #### C VDTB ####[facility] [address] [place], [place] [address]Dr. Judie Palomino DRUG SCREEN RAPID (URINE)on 08-30-2021 AMP Positive Abnormal NEGATIVE [facility] Comment on above: Performed By: #### Lalita HOPKINS DRUGRPJulio UMICRO ####[facility] [address] [place], [place] [address]Dr. Judie Palomino BAR Negative Normal NEGATIVE [facility] Comment on above: Performed By: #### Lalita RUR DRUGELBERT UMICRO ####[facility] Y[address]ts[address] [place], [place] [address]Dr. Judie Palomino BUP Negative Normal NEGATIVE [facility] Comment on above: Performed By: #### E RUR DRUGRPD UMICRO ####[facility] [address]wsff[address] [place], [place] [address]Dr. Judie Palomino BZO Negative Normal NEGATIVE [facility] Comment on above: Performed By: #### E RUR, DRUGRPD, UMICRO ####[facility] Rdntnnxpst[address] [place], [place] [address]Dr. Judie Palomino MONISHA Negative Normal NEGATIVE [facility] Comment on above: Performed By: #### E RUR DRUGRPD, UMICRO ####[facility] [address]wrotjn[address] [place], [place] [address]Dr. Judie Palomino CUT-OFFS SEE BELOW Normal [facility] Comment on above: Result Comment: AMP (Amphetamine): 500ng/mL, BAR (Barbituates): 200 ng/mL, BZO (Benzodiazepines): 150 ng/mL, BUP (Buprenorphine): 10 ng/mL, MONISHA (Cocaine): 150 ng/mL, mAMP (Methamphetamine): 500 ng/mL, MTD (Methadone): 200 ng/mL, OPI (Opiates): 100 ng/mL, OXY (Oxycodone): 100 ng/mL, PCP (Phencyclidine): 25 ng/mL, PPX (Propoxyphene): 300 ng/mL, THC (Cannabinoids): 50 ng/mL, TCA (Trycyclic Antidepressants): 300 ng/mL Performed By: #### E RUR DRUGRPD UMICRO ####[facility] F[address]ok[address] [place], [place] [address]Dr. [facility] DRUG CUT HEADER DRUG CLASS TEST SYST EM CUT-OFF CONCENTRATIONS ARE FOLLOWS: Normal [facility] Comment on above: Performed By: #### E RUR DRUGRPD, UMICRO ####[facility] [address] [place], [place] [address]Dr. Judie [facility] mAMP Negative Normal NEGATIVE [facility] Comment on above: Performed By: #### Lalita RUR DRUGRPD, UMICRO ####[facility] [address]cr[address] [place], [place] [address]Dr. Judie [facility] MTD Negative Normal NEGATIVE [facility] Comment on above: Performed By: #### E RUR DRUGRPD, UMICRO ####[facility] [address]my[address]uaw[address] [place], [place] [address]Dr. Judie [facility] OPI Negative Normal NEGATIVE [facility] Comment on above: Performed By: #### E RUR, DRUGRPD, UMICRO ####[facility] [address] [place], [place] [address]Dr. Judie [facility] OXY Negative Normal NEGATIVE [facility] Comment on above: Performed By: #### E RUR, DRUGRPD, UMICRO ####[facility] [address] [place], [place] [address]Dr. Yicarolyn Palomino PCP Negative Normal NEGATIVE [facility] Comment on above: Performed By: #### E RUR, DRUGRPD, UMICRO ####[facility] [address]xt[address] [place] [address]Dr. Judie Palomino PPX Negative Normal NE[facility]IVE [facility] Comment on above: Performed By: #### E RUR, DRUGRPD, UMICRO ####[facility] R[address] [place] [address]Dr. Judie Palomino TCA Negative Normal NEGATIVE [facility] Comment on above: Performed By: #### E RUR, DRUGRPD, UMICRO ####[facility] B[address]wmxvrcj[address] [place] [address]Dr. Judie Palomino THC Positive Abnormal NEGATIVE [facility] Comment on above: Performed By: #### E RUR, DRUGRPD, UMICRO ####[facility] Qiojqctedz[address] [place] [address]Dr. Judie Palomino ER URINE PROFILEon 2 Bilirubin Ql (U) SMALL Abnormal NEGATIVE [facility] Comment on above: Performed By: #### E RUR, DRUGRPD, UMICRO ####[facility] Ad[address]px[address]pcx[address] [place] [address]Dr. Judie Palomino Clarity (U) CLEAR Normal CLEAR [facility] Comment on above: Performed By: #### E RUR, DRUGRPD, UMICRO ####[facility] Z[address]cyzcbwu[address] [place] [address]Dr. Judie Palomino Color (U) YELLOW Normal YELLOW [facility] Comment on above: Performed By: #### E RUR, DRUGRPD, UMICRO ####[facility] D[address]nsrcdne[address] [place] [address]Dr. Judie Palomino ERUAHD A micrscopic examina tion will be performed if indicated. Normal [facility] Comment on above: Performed By: #### E RUR, DRUGRPD, UMICRO ####[facility] Izhxuzdtlf[address] [place] [address]Dr. Judie Palomino Glucose Ql (U) Negative Normal NEGATIVE [facility] Comment on above: Performed By: #### E RUR, DRUGRPD, UMICRO ####[facility] Kjyyfmuxuz[address] [place] [address]Dr. Judie Palomino Hemoglobin Ql (U) SMALL Abnormal NEGATIVE [facility] Comment on above: Performed By: #### E RUR, DRUGRPD, UMICRO ####[facility] [address] [place] [address]Dr. Judie Palomino Ketones Ql (U) TRACE Abnormal NEGATIVE [facility] Comment on above: Performed By: #### E RUR, DRUGRPD, UMICRO ####[facility] Y[address]xsl[address] [place] [address]Dr. Judie Palomino LEUKOCYTES Negative Normal NEGATIVE [facility] Comment on above: Performed By: #### E RUR, DRUGRPD, UMICRO ####[facility] Tomqfrnmbm[address] [place] [address]Dr. Judie Palomino Nitrite Ql (U) Negative Normal NEGATIVE [facility] Comment on above: Performed By: #### Lalita RUR, DRUGRPD, UMICRO ####[facility] O[address]qef[address] [place] [address]Dr. Judie Palomino pH (U) 6.0 [pH] Normal 5-9 [facility] Comment on above: Performed By: #### E RUR, DRUGRPD, UMICRO ####[facility] Yjjdry[address]eg[address] [place] [address]Dr. Judie Palomino SPEC GRAVITY 1.020 Normal 1.005-<=1.0 25 [facility] Comment on above: Performed By: #### E RUR, DRUGRPD, UMICRO ####[facility] X[address]sprchgor[address] [place] [address]Dr. Judie Palomino UA PROTEIN TRACE Normal NEGATIVE/ TRACE [facility] Comment on above: Performed By: #### E RUR, DRUGRPD, UMICRO ####[facility] V[address]kmzsv[address] [place] [address]Dr. Judie Palomino UR MICRO IND INDICATED Normal [facility] Comment on above: Performed By: #### E RUR, DRUGRPD, UMICRO ####[facility] [address] [place] [address]Dr. Judie Palomino Urobilinogen Qn (U) 0.2 {Ashanti'U}/dL Normal 0.2 - 1.0 [facility] Comment on above: Performed By: #### E RUR, DRUGRPD, UMICRO ####[facility] [address]fcuc[address] [place] [address]Dr. Judie Palomino LIPASEon 08-30-2021 Lipase [Catalytic activity/Vol] 42.0 U/L Critically low 73.0-393.0 [facility] Comment on above: Performed By: #### C MP, LIPA, HELEN #### [facility] [address] [address] [address] Judie Palomino PROF 14(COMP METB)on 022 Albumin [Mass/Vol] 3.5 g/dL Normal 3.4-5.0 [facility] Comment on above: Performed By: #### C MP LIPA, HELEN #### [facility] [address] [address] [address] Judie Palomino Albumin/Globulin [Mass ratio] 0.9 {ratio} Normal [facility] Comment on above: Performed By: #### C MP, LIPA, HELEN #### [facility] [address] [address] [address] Judie Palomino ALP [Catalytic activity/Vol] 108 U/L Normal 46-116 [facility] Comment on above: Performed By: #### C MP, LIPA, HELEN #### [facility] [address] [address] [address] Judie Palomino ALT [Catalytic activity/Vol] 31 U/L Normal 16-63 [facility] Comment on above: Performed By: #### C MP, LIPA, HELEN #### [facility] [address] [address] [address] Judie Palomino Anion gap [Moles/Vol] 11.8 mmol/L Normal [facility] Comment on above: Performed By: #### C MP LIPA, HELEN #### [facility] [address] [address] [address] Judie Palomino AST [Catalytic activity/Vol] 21 U/L Normal 15-37 [facility] Comment on above: Performed By: #### C MP, LIPA, HELEN #### [facility] [address] [place] [address] Dr. Judie Palomino Bilirubin [Mass/Vol] 0.9 mg/dL Normal 0.2-1.0 [facility] Comment on above: Performed By: #### C MP LIPA, HELEN #### [facility] [address] [place] [address] Dr. Judie Palomino Calcium [Mass/Vol] 9.3 mg/dL Normal 8.5-10.1 [facility] Comment on above: Performed By: #### C MP LIPA, HELEN #### [facility] [address] [place] [address] Dr. Judie Palomino Chloride [Moles/Vol] 96 mmol/L Critically low 98-107 [facility] Comment on above: Performed By: #### C JANUSZ LIPA, HELEN #### [facility] [address] [place] [address] Dr. Judie Palomino CO2 [Moles/Vol] 26.8 mmol/L Normal 21.0-32.0 [facility] Comment on above: Performed By: #### C MP LIPA, HELEN #### [facility] [address] [place] [address] Dr. Judie Palomino Creatinine [Mass/Vol] 1.18 mg/dL Normal 0.70-1.30 [facility] Comment on above: Performed By: #### C MP LIPA, HELEN #### [facility] [address] [place] [address] Dr. Judie Palomino EGFR-AF KAZAKH >60 Normal >=60 [facility] Comment on above: Performed By: #### C MP, LIPA, HELEN #### [facility] [address] [place] [address] Dr. Judie Palomino EGFR-NON AF KAZAKH >60 Normal >=60 [facility] Comment on above: Performed By: #### C TAYLA BOUDREAUX, HELEN #### [facility] [address] [place] [address] Dr. Judie Palomino Globulin (S) [Mass/Vol] 3.8 g/dL Normal [facility] Comment on above: Performed By: #### C TAYLA BOUDREAUX, HELEN #### [facility] [address] [place] [address] Dr. Judie Palomino Glucose [Mass/Vol] 98 mg/dL Normal 74-106 [facility] Comment on above: Performed By: #### C TAYLA BOUDREAUX, HELEN #### [facility] [address] [place] [address] Dr. Judie Palomino Potassium [Moles/Vol] 3.6 mmol/L Normal 3.5-5.1 [facility] Comment on above: Performed By: #### C TAYLA BOUDREAUX, HELEN #### [facility] [address] [place] [address] Dr. Judie Palomino Protein [Mass/Vol] 7.3 g/dL Normal 6.4-8.2 [facility] Comment on above: Performed By: #### C TAYLA BOUDREAUX, HELEN #### [facility] [address] [place] [address] Dr. Judie Palomino Sodium [Moles/Vol] 131 mmol/L Critically low 136-145 Th [facility] Comment on above: Performed By: #### C TAYLA BOUDREAUX, HELEN #### [facility] [address] [place] [address] Dr. Juide Palomino Urea nitrogen [Mass/Vol] 13.0 mg/dL Normal 7.0-18.0 [facility] Comment on above: Performed By: #### C TAYLA BOUDREAUX, HELEN #### [facility] [address] [place] [address] Dr. Judie Palomino Urea nitrogen/Creatinin e [Mass ratio] 11.0 mg/mg [facility] Comment on above: Performed By: #### C TAYLA BOUDREAUX, HELEN #### [facility] [address] [address] [address] Judie Palomino URINE MICROSCOPIC ONLYon BACTERIA NONE SEEN Normal NONE SEEN [facility] Comment on above: Performed By: #### Lalita HOPKINS DRUGELBERT, UMICRO ####[facility] [address] [address]Dr. Judie Palomino Bacteria identified Cx Nom (U) NOT INDICATED Normal [facility] Comment on above: Performed By: #### Lalita HOPKINS DRUGELBERT, UMICRO ####[facility] [address] [address]Dr. Judie Palomino CAST SEEN Abnormal NONE SEEN [facility] Comment on above: Performed By: #### JUAN ELLIOTT, UMICRO ####[facility] [address] [address]Dr. Judie Palomino Crystals LM Nom (Urine sed) NONE SEEN Normal NONE SEEN [facility] Comment on above: Performed By: #### JUAN ELLIOTT, UMICRO ####[facility] [address] [address]Dr. Judie Palomino Epithelial cells LM Ql (Urine sed) RARE Normal NONE SEEN /RARE [facility] Comment on above: Performed By: #### JUAN ELLIOTT, UMICRO ####[facility] [address] [address]Dr. Judie Palomino HYALINE CAST RARE Normal [facility] Comment on above: Performed By: #### Lalita HOPKINS DRUGELBERT, UMICRO ####[facility] [address] [address]Dr. Judie Palomino MUCOUS NONE SEEN Normal NONE SEEN [facility] Comment on above: Performed By: #### JUAN ELLIOTT, UMICRO ####[facility] [address] [address]Dr. Judie Palomino RBC 2-5 Abnormal 0-2 [facility] Comment on above: Performed By: #### Lalita HOPKINS DRUGELBERT, UMICRO ####[facility] [address] [place], [place] [address]Pz. Judie Palomino WBC NONE SEEN Normal NONE SEEN [facility] Comment on above: Performed By: #### JUAN ELLIOTT UMICRO ####[facility] [address] [place], [place] [address]Mz. Judie Palomino XR CHEST 1 Von 08-30-2021 XR CHEST 1 V EXAMINATION: XR CHES T 1 V HISTORY: COUGH COMPARISON: XR chest 08/27/2019 FINDINGS: LUNGS: No significant pulmonary parenchymal abnormalities. VASCULATURE: No increased pulmonary vasculature. PLEURA: No pneumothorax, effusion, or pleural thickening. CARDIAC: No cardiomegaly or cardiac silhouette abnormality. MEDIASTINUM: No visible mass or adenopathy. BONES: No fracture or visible bone lesion. OTHER: Negative. IMPRESSION: 1. No acute cardiopulmonary process. Stable chest. Electronically authenticated by: JOSSUE GARCIA Date: 2021-08-30 11:06 Normal [facility] Vital Signs Date Time Vital Sign Value Performing Clinician Facility 12-26-2023 14:130400 Body height 181.6 cm Shital Ke HEAVY FORGING MACHINE OPERATOR Work Phone: [facility] 12-26-2023 14:13-0400 Body mass index (BMI) [Ratio] 22.61 kg/m2 Shital Ke HEAVY FORGING MACHINE OPERATOR Work Phone: [facility] 12-26-2023 14:13-0400 Body temperature 98.8 [degF] Shital Ke HEAVY FORGING MACHINE OPERATOR Work Phone: [facility] 12-26-2023 14:13-0400 Body weight 74.57 kg Shital Ke HEAVY FORGING MACHINE OPERATOR Work Phone: [facility] 12-26-2023 14:13-0400 Diastolic blood pressure 72 mm[Hg] Shital Ke HEAVY FORGING MACHINE OPERATOR Work Phone: [facility] 12-26-2023 14:13-0400 Heart rate 66 /min Shital Ke HEAVY FORGING MACHINE OPERATOR Work Phone: [facility] 12-26-2023 14:13-0400 Respiratory rate 18 /min Shital Dempsey HEAVY FORGING MACHINE OPERATOR Work Phone: [facility] 12-26-2023 14:13-0400 SaO2% (BldA) [Mass fraction] 99 % Shital Dempsey HEAVY FORGING MACHINE OPERATOR Work Phone: [facility] 12-26-2023 14:13-0400 Systolic blood pressure 102 mm[Hg] Shital Dempsey HEAVY FORGING MACHINE OPERATOR Work Phone: [facility] 10-21-2023 06:15-0400 SaO2% (BldA) [Mass fraction] 99 % [facility] Comment on above: Performed By: #### ABG ####[facility] ([id number])2142 [place] [address] 10-20-2023 04:35-0400 SaO2% (BldA) [Mass fraction] 96 % [facility] Comment on above: Performed By: #### ABG ####[facility] ([id number])2142 [place] [address] Encounters Encounter Date Encounter Type Care Provider Facility Start: 02-10-2024 End: 02-10-2024 Refill Fatemeh Dobbs DO Work Phone: [facility] Start: 02-08-2024 End: 02-08-2024 Refill Fatemeh Dobbs DO Work Phone: [facility] Comment on above: Nicotine abuse Start: 02-01-2024 End: 02-01-2024 Telephone encounter [facility] Comment on above: Results Start: 01-31-2024 ambulatory FATEMEH DOBBS Pr [facility] Start: 01-28-2024 End: 01-28-2024 Refill Shital Ellerclaudia HEAVY FORGING MACHINE OPERATOR Work Phone: [facility] Comment on above: Essential (hemorrhag ic) thrombocythemia (CMS/HCC) Start: 01-15-2024 End: 01-15-2024 Refill Shital Aichholz HEAVY FORGING MACHINE OPERATOR Work Phone: [facility] Comment on above: Primary hypertension (CMS/HCC) (Primary Dx) Start: 12-26-2023 End: 12-26-2023 ambulatory SHITAL AICHHOLZ Not Available Start: 12-26-2023 End: 12-26-2023 Bamboo flowsheet Shital Aichholz HEAVY FORGING MACHINE OPERATOR Work Phone: [facility] Start: 12-26-2023 End: 12-26-2023 Bamboo flowsheet Shital Aichholz HEAVY FORGING MACHINE OPERATOR Work Phone: [facility] Start: 12-26-2023 End: 12-26-2023 Office outpatient visit 25 minutes Shital Aichholz HEAVY FORGING MACHINE OPERATOR Work Phone: [facility] Comment on above: Primary hypertension (CMS/HCC) (Primary Dx); Intraparenchymal hemorrhage of brain (CMS/HCC) Start: 12-24-2023 End: 12-24-2023 ambulatory SHITAL J [facility] Start: 12-21-2023 End: 12-27-2023 Telephone encounter Mikaela RIVERO [facility] Start: 12-20-2023 End: 12-20-2023 Refill Shital Aichholz HEAVY FORGING MACHINE OPERATOR Work Phone: [facility] Comment on above: Nicotine abuse Start: 12-18-2023 [facility] Start: 12-04-2023 End: 01-28-2024 ambulatory [facility] Start: 12-03-2023 End: 12-03-2023 ambulatory SHITAL J [facility] Start: 11-21-2023 End: 11-21-2023 ambulatory SHITAL AICHHOLZ Not Available Start: 11-16-2023 [facility] Start: 11-05-2023 End: [facility] Start: 11-02-2023 End: 11-14-2023 Evaluation and management of inpatient BRIANA MICHAELS [facility] Start: 10-17-2023 ambulatory SHITAL [facility] Start: 10-17-2023 End: 10-17-2023 ambulatory UNKNOWN PROVIDER Facility:[facility] Start: 10-17-2023 End: 11-03-2023 Emergency department patient visit ELDER WALDRON [facility] Start: 10-17-2023 End: 11-02-2023 Evaluation and management of inpatient TIGIST Fernando FLOWERSFANNIE [facility] Start: 11-01-2022 End: 11-02-2022 ambulatory [facility] Start: 09-28-2022 ambulatory [facility] Start: 09-27-2022 End: 09-28-2022 ambulatory [facility] Start: 09-21-2022 ambulatory ESSIE WALSH [facility] Start: 09-01-2022 ambulatory ESSIE SALCIDO [facility] Start: 08-18-2022 End: 08-19-2022 ambulatory [facility] Start: 07-19-2022 End: 07-20-2022 ambulatory [facility] Start: 07-04-2022 Evaluation and management of inpatient [facility] Start: 07-03-2022 Evaluation and management of inpatient [facility] Start: 07-03-2022 End: 07-04-2022 Evaluation and management of inpatient [facility] Start: 07-03-2022 End: 07-07-2022 Evaluation and management of inpatient [facility] Start: 06-30-2022 End: 07-01-2022 ambulatory [facility] Start: 06-28-2022 End: 06-29-2022 ambulatory [facility] Start: 06-09-2022 End: 06-10-2022 ambulatory [facility] Start: 06-08-2022 End: 06-09-2022 ambulatory [facility] Start: 05-30-2022 ambulatory [facility] Start: 05-17-2022 ambulatory [facility] Start: 05-12-2022 End: 05-13-2022 ambulatory [facility] Start: 05-01-2022 Evaluation and management of inpatient [facility] Start: 04-27-2022 Evaluation and management of inpatient [facility] Start: 04-27-2022 Evaluation and management of inpatient [facility] Start: 04-27-2022 Emergency department patient visit CHA BENITEZ [facility] Start: 04-27-2022 End: 05-03-2022 Evaluation and management of inpatient THAO [place] YUMIKO [facility] Start: 04-26-2022 End: 04-27-2022 ambulatory NONE LISTED REQUEST Facility: Start: 08-30-2021 End: 08-30-2021 ambulatory CHRISS GREEN Facility: Procedures Date Procedure Procedure Detail Performing Clinician Start: 12-24-2023 Adult depression scr eening assessment Mikaela Gonzalez CMA Start: 12-04-2023 Follow-up visit Follow-up ANA ELLISON Start: 12-03-2023 Follow-up visit Follow-up BONITA CHISHOLM Plan of Treatment Date Care Activity Detail Author Start: 12-31-2030 DTaP,Tdap and Td Vaccines (2 - Tdap) DTaP,Tdap and Td Vaccines (2 - Tdap) [facility] Start: 12-23-2024 Adult BMI Screening Adult BMI Screen ing [facility] Start: 12-23-2024 Depression Screening Depression Scre ening [facility] Start: 12-03-2024 Tobacco Screening Tobacco Screening [facility] Start: 08-17-2024 Screening for malign ant neoplasm of colon Colorectal Cancer Screening [facility] Comment on above: Postponed from 02/22 (Other Medical Reasons) Start: 03-18-2024 End: 03-18-2024 Patient encounter procedure 03/18/2024 8:00 AM EST Office Visit [facility] [address] [place] [id number] Leeanne Lacey MD [address] [place] [address] [facility] Start: 02-28-2024 End: 02-28-2024 Patient encounter procedure 02/28/2024 10:30 AM EST Office Visit [facility] [address] [place] [address] Shital Dempsey NP [address] [place] [address] [facility] Start: 02-21-2024 End: 02-21-2024 Patient encounter procedure [facility] Start: 02-21-2024 Subsequent hospital visit by physician 02/21/2024 7:45 AM EST Hospital Encounter [facility] [address] [place] [phone] Sami Ellison MD [address] [place] [address] [facility] Start: 02-01-2024 End: 01-31-2025 NM Heart Perfusion W stress and W radionuclide IV Nuc stress Lex[facility] Routine Resistant hypertension Cryptogenic stroke (CMS-HCC) Expected: 02/01/2024, Expires: 01/31/2025 [facility] Work Phone: Comment on above: Expected: 02/01/2024 , Expires: 01/31/2025 Start: 12-26-2023 End: 12-26-2023 Patient encounter procedure 12/26/2023 2:00 PM EDT Office Visit [facility] [address] [place] [address] Shital Dempsey NP [address] [place] [id number] [facility] Start: 11-18-2023 Influenza vaccination Influ[facility] Start: 1975 Screening for malign ant neoplasm of colon [facility] DIAGNOSTIC CEREBRAL ANGIOGRAM DIAGNOSTIC CEREBRAL ANGIOGRAM Rt. ICH [facility] Immunizations Immunization Date Immunization Notes Care Provider Fa cility 12-31-2020 diphtheria, tetanus toxoids and pertussis vaccine Shital Dempsey NP Work Phone: [facility] Healthcare Payers Date Payer Category Payer Unknown [facility] INMATE [id number] 2019-Present [phone] [place] [address] [id number] 2019 Medicaid [id number] 2019 Medicaid (Managed Care) [facility] MEDICA[facility] [id number] 2019 Medicaid HMO [employer] [id number] 1974 Unknown [id number] 2.16.840.1.402073.3.579.2. 593 1974 Unknown [id number] 2.16.840.1.589478.3.579.2. 593 1974 Unknown [id number] 2.16.840.1.851317.3.579.2. 732 1974 Unknown [id number] 2.16.840.1.349647.3.579.2. 1286 1974 Unknown [id number] 2.16.840.1.106079.3.579.2. 1286 1974 Unknown [id number] 2.16.840.1.626116.3.579.2. 1286 1974 Unknown [id number] 2.16.840.1.680611.3.579.2. 1286 1974 Unknown [id number] 2.16.840.1.210900.3.579.2. 1286 1974 Unknown [id number] 2.16.840.1.640077.3.579.2. 1286 1974 Unknown [id number] 2.16.840.1.010962.3.579.2. 1286 1974 Unknown [id number] 2.16.840.1.283080.3.579.2. 1286 1974 Unknown [id number] 2.16.840.1.072179.3.579.2. 1286 1974 Unknown [id number] 2.16.840.1.222126.3.579.2. 1259 1974 Unknown [id number] 2.16.840.1.681933.3.579.2. 1259 1974 Unknown [id number] 2.16.840.1.206008.3.579.2. 1286 1974 Unknown [id number] 2.16840.1.621575.3.579.2. 1286 1974 Unknown [id number] 2.16840.1.896246.3.579.2. 1286 1974 Unknown [id number] 2.16840.1.888300.3.579.2. 1285 1974 Unknown [id number] 2.16.840.1.131653.3.579.2. 1286 1959 Unknown [id number] Social History Date Type Detail Facility Start: 11-21-2023 End: 12-03-2023 Tobacco smoking status OKIS Ex-smoker [facility] History of tobacco use Current smoker [facility] History of tobacco use Cigarette Smoker [facility] Start: 11-21-2023 End: 12-03-2023 Tobacco use and exposure Former smokeless tobacco user [facility] History of tobacco use Snuff User [facility] History of tobacco use Chews Tobacco [facility] Start: 11-21-2023 End: 12-26-2023 Alcoholic beverage intake Ex-drinker (finding) [facility] Start: 11-02-2023 End: 11-21-2023 Alcoholic beverage intake [facility] Start: 11-02-2023 End: 11-21-2023 Tobacco use panel [facility] Start: 11-21-2023 Alcohol Comment decaf coffee currenly [facility] Start: 1975 Sex assigned at Male [facility] Start: 11-20-2023 Gender identity Identifies as male gender (finding) [facility] Start: 11-02-2023 Sexual orientation Heterosexual (finding) [facility] Start: 12-04-2023 Alcoholic beverage intake Current drinker of alcohol (finding) [facility] Has the [employer], [employer], or water [employer] threatened to shut off services in your home in past 12Mo No [facility] Are you now , , , , never or living with a partner? Living with partner [facility] How often to you hav e a drink containing alcohol? 4 or more times a week [facility] How many standard drinks containing alcohol do you have on a typical day? 10 or more [facility] How often do you hav e 6 or more drinks on 1 occasion? Daily or almost daily [facility] How hard is it for y ou to pay for the very basics like food, housing, medical care, and heating Not hard at all [facility] Do you feel stress - tense, restless, nervous, or anxious, or unable to sleep at night because your mind is troubled all the time - these days [OSQ] To some extent [facility] Start: 12-03-2023 Alcohol Comment daily wine [facility] Start: 1975 Sex assigned at Not on file [facility] Start: 10-22-2014 Sex Male (finding) [facility] Goals Date Patient Goal Desired Activity /State Personal health goal Comment on above: Formatting of this n ote might be different from the original. Evaluation of progress towards goal: to have a safe d/c Personal health goal Comment on above: Formatting of this n ote might be different from the original. Evaluation of progress towards goal: participating in therapy Clinical Notes 04-27-2022 to 02-01-2024 Telephone Encounter - Rosa Villegas RN - 02/01/2024 8:58 AM ESTTelephone Encounter - Rosa Villegas RN - 02/01/2024 8:58 AM ESTTelephone Encounter - Aleena Crews - 01/15/2024 9:24 AM EDT Note Date & Type Note Facility 02-01-2024 Miscellaneous Notes Images from the original note were not included. Sami Ellison MD 01/30/2024 9:35 PM EST Will need ischemia workup. Prefer to proceed with Lexiscan Cardiolite study if the patient agrees proceed will need to make sure he has a follow-up appointment with us right after the test for further workup if needed. documented in this encounter [facility] 02-01-2024 Telephone encounter Note Images from the original note were not included. Sami Ellison MD 01/30/2024 9:35 PM EST Will need ischemia workup. Prefer to proceed with Lexiscan Cardiolite study if the patient agrees proceed will need to make sure he has a follow-up appointment with us right after the test for further workup if needed. [facility] 01-15-2024 Telephone encounter Note Clonipine as well-Drug Dana [facility] 01-15-2024 Miscellaneous Notes Clonipine as well-Drug Dana documented in this encounter [facility] 12-26-2023 History of Present illness Narrative Associated Problem(s): Intraparenchymal hemorrhage of brain (CMS/HCC) Continue with neurology, as well as home health OT/PT Associated Problem(s): Hypertension (CMS/HCC) Was doing well with clonidine 0.3mg TID, in addition to all other meds, then he had about a week of time out of clonidine d/t pharmacy backorder. Restarted it, and has had some SBP less than 100 since, sl dizziness. Without meds had a few days SBP 150 No chest pain/pressure. We will have him trial 0.3mg clonidine BID for the next 5-7 days if BP less than 140 will stick with BID, if above 150 SBP go back to TID They will call office in 1 week to update us on BP reads Fu in 3 months Pt was at neuro recently He has been having low BP and had suggested pt to be on the clonidine 2x daily instead of 3x Pt is also asking for a handicap plaque Images from the original note were not included. [place] is a 48 y.o. male presents with chief complaint of No chief complaint on file. HPI: I have also reviewed his GI notes, as well as cardiology and neurology notes Hypertension This is a chronic problem. The current episode started more than 1 year ago. The problem is unchanged. The problem is controlled. Pertinent negatives include no blurred vision, chest pain, peripheral edema, PND or sweats. There are no associated agents to hypertension. Risk factors for coronary artery disease include smoking/tobacco exposure. Past treatments include beta blockers, calcium channel blockers, angiotensin blockers and direct vasodilators. The current treatment provides significant improvement. There are no compliance problems. SUBJECTIVE: MEDICATIONS: Current Outpatient Medications Medication Instructions acetaminophen (TYLENOL) 650 mg, Oral, Every 6 hours PRN aspirin 81 mg, Oral, Daily RT carvedilol (COREG) 25 mg, Oral, 2 times daily cloNIDine (CATAPRES) 0.3 mg, Oral, 3 times daily diclofenac sodium 2 g, Topical, 4 times daily PRN gabapentin (NEURONTIN) 100 mg, Oral, 3 times daily losartan (COZAAR) 100 mg, Oral, Daily RT nicotine (Nicoderm, Step 2) 14 MG/24HR patch 1 patch, Transdermal, Every 24 hours NIFEdipine XL (PROCARDIA XL) 90 mg, Oral, Daily RT pantoprazole (PROTONIX) 40 mg, Oral, Daily before breakfast QUEtiapine (SEROQUEL) 25 mg, Oral, 2 times daily terazosin (HYTRIN) 5 mg, Oral, Nightly ALLERGIES: No Known Allergies REVIEW OF SYMPTOMS: Review of Systems Constitutional: Positive for fatigue. Negative for activity change, appetite change and unexpected weight change. HENT: Negative for ear pain, nosebleeds, sneezing, trouble swallowing and voice change. Eyes: Negative for blurred vision, pain, discharge and visual disturbance. Respiratory: Negative for apnea, chest tightness and wheezing. Cardiovascular: Negative for chest pain, leg swelling and PND. Gastrointestinal: Negative for abdominal distention, blood in stool, constipation and diarrhea. Genitourinary: Negative for decreased urine volume, difficulty urinating, dysuria and hematuria. Skin: Negative for color change. Neurological: Positive for dizziness and weakness. Negative for tremors and seizures. Psychiatric/Behavioral: Negative for agitation, decreased concentration, hallucinations, self-injury and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 @[id number]@ Medications Scheduled: acetaminophen, 650 mg, oral, q6h amLODIPine, 10 mg, oral, Daily calcium carbonate, 500 mg, oral, Daily cholecalciferol, 2,000 Units, oral, Daily enoxaparin, 40 mg, subcutaneous, Daily hydrALAZINE, 25 mg, oral, q8h ALEXIS lisinopril, 5 mg, oral, Daily Infusions: As Needed: PRN medications: HYDROmorphone, labetaloL, LORazepam OR LORazepam OR LORazepam OR LORazepam, ondansetron ODT OR ondansetron, oxyCODONE OR oxyCODONE ASSESSMENT Essential hypertension with poor control currently 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 No signs of overt bleeding Vitamin D deficiency PLAN No objection to discharge Should be discharged on current antihypertensives Further care per primary Medicine will continue to follow the patient For any questions or concerns please reach out the General Internal Medicine team pager #[phone] Carla Alan Internal Medicine Resident, PGY-2 General Internal Medicine Consult Service [facility] 07-07-2022 Note Attestation signed by Fatemeh Rodriguez MD at 07/07/2022 2:16 PM Patient discussed with me and I agree with above. Orthopedic Surgery Progress Note Attending: Dr. Rodriguez SUBJECTIVE: POD#4 from L femur hardware removal followed by long CMN placement for IT fracture malunion. Patient ambulated yesterday with PT, recs to go home with rolling walker. He denies numbness or weakness to the left lower extremity. Denies fevers, chills, nausea, vomiting, or chest pain. OBJECTIVE BP 151/79 Pulse 99 Temp 36.8 ???C (98.2 ???F) (Oral) Resp 16 Ht 1.803 m (5' 11 ) Wt 67.7 kg (149 lb 4 oz) SpO2 96% BMI 20.82 kg/m??? General: A/O x 3, resting comfortably in bed, cooperative MSK: LLE - Surgical dressings over thigh clean, dry, and intact - Compartments of thigh and lower leg are soft and compressible throughout - SILT in superficial peroneal, deep peroneal, sural, saph nerve distributions - Motor function intact in tibial, deep peroneal, superficial peroneal distributions. Discomfort with any knee ROM - Warm and well-perfused distally, 2+ DP pulse Labs: Lab Results Component Value Date WBC 19.61 (H) 07/05/2022 HGB 8.4 (L) 07/05/2022 HCT 24.6 (L) 07/05/2022 MCV 86.9 07/05/2022 PLT 498 (H) 07/05/2022 Lab Results Component Value Date CALCIUM 8.5 (L) 07/05/2022 NA 132 (L) 07/05/2022 K 3.8 07/05/2022 CO2 26 07/05/2022 CL 101 07/05/2022 BUN 8 07/05/2022 CREATININE 0.86 07/05/2022 ASSESSMENT: This is a 47 y.o. male s/p L femur hardware removal followed by long CMN placement for IT fracture malunion (DOS: 07/03/22) PLAN -Weightbearing and activity status: TTWB to LLE -DVT prophylaxis: EPCs, Lovenox 40mg daily -Pain control as prescribed -Ice and elevate PRN -PT/OT -Appreciate medicine recs for hypertension -Discharge to home today -Follow up with Dr. Rodriguez in 2 weeks for repeat x-rays and staple removal in clinic AYANA RODRIGUEZ MD Orthopedic Surgery, PGY-1 Ortho Pager [phone] 07/07/22 7:43 AM [facility] 07-07-2022 Note Face to face was per formed, deemed medically necessary for rolling walker. Pt requires rolling walker to safely perform ADL's due to s/p left femur HWR and revision CMN . Cane has been ruled out, rolling walker necessary to safely perform ADL's. [facility] 07-06-2022 Note Patient was dc ready but RN stated she spoke with and MD agreed to allow patient to stay one more night due to not having a ride, issues with and family being sick. [employer] informed RN that OTM can assist with getting patient a ride but patient is suspected to dc home tomorrow. Met with patient at bedside to inquire if patient would like a RW as PT/OT recommended it. Patient agreed and stated he would like the information sent to a [employer] near his home in [place], [place]. Script is in Epic but still awaiting F2F which stated would be completed tomorrow. Following. [facility] 07-06-2022 Note Attestation signed by Kathryn Francisco PT at 07/06/2022 4:02 PM This handbook writer present and provided 1:1 supervision and direction of patient care. Kathryn Francisco PT, MPT Physical Therapy Physical Therapy Evaluation Patient Name: Parish Hall : 1975 Today's Date: 07/06/2022 General Subjective: Parish Hall, a 47 y.o. male, underwent L ORIF on 04/27/22 for a closed displaced intertrochanteric fracture of left femur. Found to have malunion at follow-up appointment. Underwent L femoral hardware removal with long intermeduallry nailing placement for intertrochanteric fx malunion on . Patient medically unable to participate POD 1 and refused day 2. Patient in bed POD 3 agreeable to be seen by PT. Patient requests pain medication prior to session. Patient attempted to be return to recliner, but reported it to be too uncomfortable/did not want to sit up d/t stomach pain. Was then returned to the bed with needs and call light in reach. Nursing notified of patient pain med request. 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 Intertrochanteric fracture of left femur, closed, with delayed healing, subsequent encounter Past Medical History: Diagnosis Date Bipolar I disorder, most recent episode depressed ([facility]) 09/25/2017 Hypertension 04/27/2022 Past Surgical History: Procedure Laterality Date LEG SURGERY Left LEG SURGERY Right Precautions Precautions LE Weight Bearing Status: Left, TTWB Medical Precautions: IV, telemetry Pain Pain Assessment Pain Assessment: 0-10 Pain Score: 6 Pain Type: Surgical pain Pain Location: Leg Pain Orientation: Left Pain Frequency: Constant/continuous Pain Interventions: Repositioned (Patient requested medication prior and after session-discussed with nursing) Cognition Cognition Overall Cognitive Status: Within Functional Limits Arousal/Alertness: Appropriate responses to stimuli Following Commands: Follows all commands and directions without difficulty Safety Judgment: Decreased awareness of need for safety (Poor compliance with maintaining WBing status; especially with fatigue) Awareness of Errors: Assistance required to identify errors made Deficits: Fully aware of deficits Attention Span: Appears intact Memory: Appears intact Cognition Comments: Impulsive General Assessment General Assessment Hearing: intact Skin Integrity: Clean dry dressings to L LE Edema: Mild edema around incisional areas Home Living Home Living Type of Home: House Lives With: Spouse, Family (Lives with spouse, elderly, and x2 children (1 child with special needs)) Home Adaptive Equipment: None (Used to have a RW for maintaining TTWB prior to surgery, but 'got rid of it the day of surgery to someone who was in more need of it Therefore, no longer has an AD to use post surgical procedure) Home Living Comments: Plans to sleep on recliner early on d/t 4 y.o. child sleeping in his bed and is nervous she may hurt him Home Layout: Two level, Able to live on main level with bedroom/bathroom Home Access: Stairs to enter without rails Entrance Stairs-Rails: None Entrance Stairs-Number of Steps: 6 Bathroom Shower/Tub: Tub only (Used to have a shower, but it is broken. Discussed needing shower clearance from surgeon prior to bathing in a tub) Bathroom Toilet: Standard Bathroom Equipment: None Bathroom Accessibility: RW fits Prior Level of Function Prior Function Level of [place]: Independent with ADLs and functional transfers, Independent with homemaking with ambulation Prior Functional Mobility: Independent with rolling walker Receives Help From: (Per report, required to assist family with their needs) ADL Assistance: Independent (Reports independence; however, later states his had to help him with wiping. Patient independent with this task today.) Homemaking Assistance: Independent Prior Function Comments: States capable of doing everything, but various tasks were painful Activity Tolerance Activity Tolerance Endurance: Stage IV Stage IV (METs 3.0-3.5) - Standin+ mins Activity Tolerance Comments: Ambulation in hallways and step training General Assessments Activity Tolerance Endurance: Stage IV Stage IV (METs 3.0-3.5) - Standin+ mins Activity Tolerance Comments: Ambulation in hallways and step training Sensation Light Touch: No apparent deficits (However, rep (more content not included)... [facility] 07-06-2022 Note Occupational Therapy Occupational Therapy Evaluation Patient Name: Parish Hall : 1975 Today's Date: 07/06/2022 Time in: 0926 Time out: 1000 Surgery type: revision of L IT femur malunion, HWR Surgery date: 07/03/22 General Subjective: 47yoM with h/o L IT femur fx 04/27/22 s/p fixation, seen in clinic for f/u and continued L hip pain. Pt found to have malunion. OT Diagnosis: Decreased independence in functional tasks s/p L IT femur Repair and HWR. Family/Caregiver Present: No RN ok for pt to be seen at this time. Pt semi-fowlers upon arrival and agreeable to session. Pt completed functional tasks and functional ambulation. Pt was returned to semi-fowlers with call light and needs in reach. RN aware of pt performance. 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 Intertrochanteric fracture of left femur, closed, with delayed healing, subsequent encounter Past Medical History: Diagnosis Date Bipolar I disorder, most recent episode depressed ([facility]) 09/25/2017 Hypertension 04/27/2022 Past Surgical History: Procedure Laterality Date LEG SURGERY Left LEG SURGERY Right Precautions Precautions LE Weight Bearing Status: Left, TTWB Medical Precautions: IV Pain Pain Assessment Pain Assessment: 0-10 Pain Score: 6 Pain Type: Surgical pain, Acute pain Pain Location: Hip Pain Orientation: Left Pain Interventions: (attempted sitting up in chair, pt reports not comfortable and wished to return to bed.) Cognition Cognition Overall Cognitive Status: Within Functional Limits Arousal/Alertness: Appropriate responses to stimuli Following Commands: Follows all commands and directions without difficulty Safety Judgment: Decreased awareness of need for safety, Decreased awareness of need for assistance, Impulsive (As pt fatigues, increasing WB through LLE.) Awareness of Errors: Assistance required to correct errors made, Assistance required to identify errors made Deficits: Fully aware of deficits Attention Span: Appears intact Memory: Appears intact Problem Solving: Assistance required to implement solutions General Assessment General Assessment Hearing: intact Skin Integrity: all viisble skin intact, pt with three surgical sites all bandaged and CDI. Home Living Home Living Type of Home: House Lives With: Spouse, Family (reports 2 children (one with special needs)) Home Adaptive Equipment: None (Pt gave RW to someone who needed it more that me on day he was admitted for surgery. Pt no longer has DME at home.) Home Layout: Two level, Full bath main level, Able to live on main level with bedroom/bathroom (bedroom on main level however reports that he plans to sleep in recliner) Home Access: Stairs to enter without rails Entrance Stairs-Rails: None Entrance Stairs-Number of Steps: 6 Bathroom Shower/Tub: Tub only Bathroom Toilet: Standard Bathroom Equipment: None Prior Level of Function Prior Function Level of [place]: Independent with ADLs and functional transfers, Independent with homemaking with ambulation (questionable accuracy, reports indep, then later states that his was having to assist with hygine after using bathroom.) Prior Functional Mobility: Independent with rolling walker (possibly some time pt was not use RW as he gave it away.) Receives Help From: Family Homemaking Assistance: Independent Prior IADLs Static Sitting Balance Static Sitting Balance Static Sitting-Balance Support: Feet supported Static Sitting-Level of Assistance: Independent Dynamic Sitting Balance Dynamic Sitting Balance Dynamic Sitting-Balance Support: Feet supported Dynamic Sitting Balance-Level of Assistance: Close supervision Static Standing Balance Static Standing Balance Static Standing-Balance Support: Right upper extremity supported, With device, Left upper extremity supported Static Standing-Level of Assistance: Contact guard Dynamic Standing Balance Dynamic Standing Balance Dynamic Standing-Balance Support: Right upper extremity supported, Left upper extremity supported, With device Dynamic Standing Balance-Level of Assistance: Contact guard ADL ADL UE Dressing Assistance: Modified independent (Device) LE Dressing Assistance: Moderate LE Dressing Deficit: Thread LLE into pants, Thread RLE into pants (Pt partially seated EOB and required assist to thread kwasi LEs, unable to sit EOB 2o pain and return to semi-fowlers and was able to bridge to tack puller machine hips.) Bed Mobility Bed Mobility Bed Mobility: Yes Bed Mobility 1 Bed Mobility From 1: Supine (more content not included)... [facility] 07-06-2022 Note Attestation signed by Fatemeh Rodriguez MD at 07/06/2022 4:13 PM I agree with above documentation. Orthopedic Surgery Progress Note Attending: Dr. Rodriguez SUBJECTIVE: POD#3 from L femur hardware removal followed by long CMN placement for IT fracture malunion. Patient refused PT again as his leg pain was too much. He has been sitting on the side of his bed, but he has not yet tried ambulating. He denies numbness or weakness to the left lower extremity. Denies fevers, chills, nausea, vomiting, or chest pain. OBJECTIVE BP 142/76 Pulse 94 Temp 36.8 ???C (98.3 ???F) (Oral) Resp 18 Ht 1.803 m (5' 11 ) Wt 68.5 kg (151 lb 0.2 oz) SpO2 99% BMI 21.06 kg/m??? General: A/O x 3, resting comfortably in bed, cooperative MSK: LLE - Surgical dressings over thigh clean, dry, and intact - Compartments of thigh and lower leg are soft and compressible throughout - SILT in superficial peroneal, deep peroneal, sural, saph nerve distributions - Motor function intact in tibial, deep peroneal, superficial peroneal distributions. Discomfort with any knee ROM - Warm and well-perfused distally, 2+ DP pulse Labs: Lab Results Component Value Date WBC 19.61 (H) 07/05/2022 HGB 8.4 (L) 07/05/2022 HCT 24.6 (L) 07/05/2022 MCV 86.9 07/05/2022 PLT 498 (H) 07/05/2022 Lab Results Component Value Date CALCIUM 8.5 (L) 07/05/2022 NA 132 (L) 07/05/2022 K 3.8 07/05/2022 CO2 26 07/05/2022 CL 101 07/05/2022 BUN 8 07/05/2022 CREATININE 0.86 07/05/2022 ASSESSMENT: This is a 47 y.o. male s/p L femur hardware removal followed by long CMN placement for IT fracture malunion (DOS: 07/03/22) PLAN -Weightbearing and activity status: TTWB to LLE -DVT prophylaxis: EPCs, Lovenox 40mg daily -Pain control as prescribed -Ice and elevate PRN -PT/OT -Appreciate medicine recs for hypertension -Discharge pending PT/OT evaluation and improved pain control, SW consulted appreciate recs -Follow up with Dr. Rodriguez in 2 weeks for repeat x-rays and staple removal in clinic AYANA RODRIGUEZ MD Orthopedic Surgery, PGY-1 Ortho Pager [phone] 07/06/22 7:29 AM [facility] 07-05-2022 Note Met with the patient . He lives with his , special needs person, an elder and his daughter in a 2 story home. His bedroom is on the first floor. He has a bathroom on the first and second floor. He has 5-6 steps to enter his home. He had a walker but stated he donated it to an elderly woman that needed it more than him. He has not used home health, SNF or rehab in the past. Asked about his discharge plan he said he will most likely return home with his at discharge. [facility] 07-05-2022 Note Occupational Therapy Cancel Note Reason: Attempted to see pt 2x this date (AM & PM) and pt states he needs another day to relax prior to participating in evaluation. Pt educated on importance of mobility, OT role and purpose, continues to be resistant to OOB activity and states we will try again tomorrow . OT will continue to follow and will re-attempt as able. Time in: 1502 Check no charge Siva BARKER, OTR/L [facility] 07-05-2022 Note Physical Therapy Attempted PT evaluation x2 today, once in AM and again in PM. Patient resistant to OOB assessment. Does say he will try tomorrow. Will continue to attempt evaluation as able. Will likely require RW upon discharge. Does mention that his left him while he as been here, so he is unsure about his housing situation. Gt Nava PT, DPT [facility] 07-05-2022 Note Attestation signed by Thomas Galloway MD at 07/08/2022 2:29 PM I personally saw and examined the patient on the same date of service as resident. I discussed the findings and therapeutic plan with the resident. I agree with the documentation, except for any edits/updates below. 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 # HTN urgency. # Acute post-anemia, s/p transfusion. # Noncompliance. PLAN: Restart his old regimen, amlodipine, hydralazine and lisinopril. Pain control. Monitor BP closely. [facility] Inpatient Progress Note Patient - Parish Hall Age - 47 y.o. - 1975 Date of Admission - 07/03/2022 5:46 AM Interval history Patient seen and examined at bedside this morning. In no apparent distress. Does relate continuing pain at surgical site that is controlled with medications though he has not attempted to get out of bed and expects that his pain may be worse when he does. OBJECTIVE Vitals height is 1.803 m (5' 11 ) and weight is 69.8 kg (153 lb 14.1 oz). His temporal temperature is 36.7 ???C (98 ???F). His blood pressure is 152/95 (abnormal) and his pulse is 86. His respiration is 16 and oxygen saturation is 100%. Temp: [36.1 ???C (97 ???F)-36.9 ???C (98.4 ???F)] 36.7 ???C (98 ???F) Heart Rate: [79-99] 86 Resp: [11-32] 16 BP: (141-181)/(80-95) 152/95 Weight: Admission weight: 69.8 kg (153 lb 14.1 oz) Wt Readings from Last 1 Encounters: 07/03/22 69.8 kg (153 lb 14.1 oz) Input/Output: Intake/Output Summary (Last 24 hours) at 07/05/2022 0900 Last data filed at 07/05/2022 0649 Gross per 24 hour Intake 2881.25 ml Output 4100 ml Net -1218.75 ml Physical Examination: General: Well-appearing, in no acute distress Head: Normocephalic, atraumatic. HEENT: No scleral icterus. Oral mucosa is moist without erythema, lesions, or ulcerations. Pulm: Clear to auscultation. No audible wheezing, rales, or rhonchi. Breathing is non-labored. Cardiac: Regular rate, regular rhythm. Normal S1/S2. No appreciable murmurs, gallops, or rubs. GI: Abdomen is soft, non-distended, non-tender. Ext: No peripheral edema. Neuro: Alert and oriented x 3. Objective Lab Results Results from last 7 days Lab Units 07/05/22 0551 07/04/22 0601 07/03/22 0622 WBC AUTO 10*3/uL 19.61* 20.13* 17.21* HEMOGLOBIN g/dL 8.4* 6.7* 12.3* HEMATOCRIT % 24.6* 19.5* 37.2* PLATELETS AUTO 10*3/uL 498* 413* 564* Results from last 7 days Lab Units 07/05/22 0551 07/03/22 0622 SODIUM mmol/L 132* 138 POTASSIUM mmol/L 3.8 4.2 CHLORIDE mmol/L 101 103 CO2 mmol/L 26 27 BUN mg/dL 8 10 CREATININE mg/dL 0.86 1.06 GLUCOSE mg/dL 101* 94 CALCIUM mg/dL 8.5* 9.4 No lab exists for component: TOTALPROTEI, LABBILIRUBIN, TOTALBILIRUB, BILIRUB, BILIRUBIND No results found for: HGBA1C Results from last 7 days Lab Units 07/04/22 1919 TROPONIN I ng/mL 0.03 No lab exists for component: ABGPH, ABGPCO2, ABGPO2, ABGHCO3, ABGBASEDEFIC, VEUV9MZQ, ABGOXYGENSOU No lab exists for component: LACTICACID, PROCALCITON No lab exists for component: CHOLHDL No results found for: WBCU, UROBILINOGEN Radiology @[email or web address]@ Medications Scheduled: acetaminophen, 650 mg, oral, q6h amLODIPine, 10 mg, oral, Daily calcium carbonate, 500 mg, oral, Daily ceFAZolin, 2 g, intravenous, q8h cholecalciferol, 2,000 Units, oral, Daily enoxaparin, 40 mg, subcutaneous, Daily hydrALAZINE, 25 mg, oral, q8h ALEXIS lisinopril, 10 mg, oral, Daily Infusions: As Needed: PRN medications: HYDROmorphone, labetaloL, LORazepam OR LORazepam OR LORazepam OR LORazepam, ondansetron ODT OR ondansetron, oxyCODONE OR oxyCODONE ASSESSMENT Essential hypertension with poor control currently 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 No signs of overt bleeding Vitamin D deficiency PLAN Blood pressure has improved with pain control Continue current anti-hypertensives PRN labetalol avialable, has not been used to this point Medicine will continue to follow the patient For any questions or concerns please reach out the General Internal Medicine team pager #[phone] Carla Alan Internal Medicine Resident, PGY-2 General Internal Medicine Consult Service [facility] 07-05-2022 Note Attestation signed by Fatemeh Rodriguez MD at 07/05/2022 6:26 PM Patient seen and examined and I agree with above. Pain better today. Hgb responded appropriately to 1 unit. Plan to go to ortho floor today. TTWB LLE. IV abx. Lovenox. Discharge planning. Orthopedic Surgery Progress Note Attending: Dr. Rodriguez SUBJECTIVE: POD#2 from L femur hardware removal followed by long CMN placement for IT fracture malunion. Patient did not work with PT yesterday as he was in too much pain . He denies numbness or weakness to the left lower extremity. He reports his chest tightness is improving. OBJECTIVE BP (!) 152/95 Pulse 86 Temp 36.7 ???C (98 ???F) (Temporal) Resp 16 Ht 1.803 m (5' 11 ) Wt 69.8 kg (153 lb 14.1 oz) SpO2 100% BMI 21.46 kg/m??? General: A/O x 3, resting comfortably in bed, cooperative MSK: LLE - Surgical dressings over thigh clean, dry, and intact - Compartments of thigh and lower leg are soft and compressible throughout - SILT in superficial peroneal, deep peroneal, sural, saph nerve distributions - Motor function intact in tibial, deep peroneal, superficial peroneal distributions. Discomfort with any knee ROM - Warm and well-perfused distally, 2+ DP pulse Labs: Lab Results Component Value Date WBC 19.61 (H) 07/05/2022 HGB 8.4 (L) 07/05/2022 HCT 24.6 (L) 07/05/2022 MCV 86.9 07/05/2022 PLT 498 (H) 07/05/2022 Lab Results Component Value Date CALCIUM 8.5 (L) 07/05/2022 NA 132 (L) 07/05/2022 K 3.8 07/05/2022 CO2 26 07/05/2022 CL 101 07/05/2022 BUN 8 07/05/2022 CREATININE 0.86 07/05/2022 ASSESSMENT: This is a 47 y.o. male s/p L femur hardware removal followed by long CMN placement for IT fracture malunion (DOS: 07/03/22) PLAN -Received 1u pRBCs yesterday, Hb 6.7 to 8.4, will continue to monitor hemoglobin. -Troponin and EKG negative for NSTEMI/STEMI -Weightbearing and activity status: TTWB to LLE -Antibiotics: kanwal-op Ancef for at least 48 hours -DVT prophylaxis: EPCs, Lovenox 40mg daily -Pain control as prescribed -Ice and elevate PRN -PT/OT -Appreciate medicine recs for hypertension -Discharge potentially today or tomorrow pending PT/OT evaluation and improved pain control -Follow up with Dr. Rodriguez in 2 weeks for repeat x-rays and staple removal in clinic AYANA RODRIGUEZ MD Orthopedic Surgery, PGY-1 Ortho Pager [phone] 07/05/22 7:22 AM [facility] 07-04-2022 Note Occupational Therapy Pt is unable to be seen for therapy at this time secondary to Refused AM and PM due to severe pain and fatigue / nsg aware . Will continue to check back as appropriate. Time attempted: 1500 [facility] 07-04-2022 Note Physical Therapy Patient currently s/p RLE Femoral Nail/Plate Removal with insertion of TNFA/CMN yesterday. This morning, CP currently in 180's, hemoglobin down to 6.7 this morning from 12's yesterday morning (In need of 1 unit RBC transfusion), as well as high levels of pain. Will defer PT evaluation at this time, will evaluate as appropriate. Gt Nava PT, DPT [facility] 07-04-2022 Note Attestation signed by Fatemeh Rodriguez MD at 07/04/2022 5:05 PM I agree with above. Pain getting better under control than it was this AM. Received one unit PRBC, awaiting repeat H&H. Dressings clean and dry. Compartments soft. No palpable hematoma. Will keep hemoglobin above 7.5. TTWB LLE. Continue IV abx and will get pain better controlled before discharge. Orthopedic Surgery Progress Note Attending: Dr. Rodriguez SUBJECTIVE: POD#1 from L femur hardware removal followed by long CMN placement for IT fracture malunion. Patient sleeping on entering room. He endorses significant pain to left thigh this morning. Reports some numbness over the thigh. He has not yet been out of bed. OBJECTIVE BP 162/77 Pulse 83 Temp 37 ???C (98.6 ???F) (Temporal) Resp 19 Ht 1.803 m (5' 11 ) Wt 69.8 kg (153 lb 14.1 oz) SpO2 98% BMI 21.46 kg/m??? General: A/O x 3, resting comfortably in bed, cooperative MSK: LLE - Surgical dressings over thigh clean, dry, and intact - Compartments of thigh and lower leg are soft and compressible throughout - SILT in superficial peroneal, deep peroneal, sural, saph nerve distributions - Motor function intact in tibial, deep peroneal, superficial peroneal distributions. Discomfort with any knee ROM - Warm and well-perfused distally, 2+ DP pulse Labs: Lab Results Component Value Date WBC 17.21 (H) 07/03/2022 HGB 12.3 (L) 07/03/2022 HCT 37.2 (L) 07/03/2022 MCV 88.8 07/03/2022 PLT 564 (H) 07/03/2022 Lab Results Component Value Date CALCIUM 9.4 07/03/2022 NA 138 07/03/2022 K 4.2 07/03/2022 CO2 27 07/03/2022 CL 103 07/03/2022 BUN 10 07/03/2022 CREATININE 1.06 07/03/2022 ASSESSMENT: This is a 47 y.o. male s/p L femur hardware removal followed by long CMN placement for IT fracture malunion (DOS: 07/03/22) PLAN -Hgb 6.7 this morning, down from 12.3 pre-operatively. Will transfuse 1u pRBCs and continue to monitor hemoglobin. -Weightbearing and activity status: TTWB to LLE -Antibiotics: kanwal-op Ancef for at least 48 hours -DVT prophylaxis: EPCs, Lovenox 40mg daily -Pain control as prescribed -Ice and elevate PRN -PT/OT -Discharge potentially today or tomorrow pending PT/OT evaluation and improved pain control -Follow up with Dr. Rodriguez in 2 weeks for repeat x-rays and staple removal in clinic Ely Ayon MD Orthopaedic Surgery Resident, PGY-2 07/04/22 [facility] 07-04-2022 Note Patient: Parish rodriguez Vitals Value Taken Time BP 131/81 07/03/22 1630 Temp 37.2 ???C (99 ???F) 07/03/22 1400 Pulse 97 07/03/22 1710 Resp 20 07/03/22 1710 SpO2 100 % 07/03/22 1709 Vitals shown include unvalidated device data. Post-Anesthesia Patient Progress Note Patient location during evaluation: floor Chart Reviewed: Yes Patient participation: complete - patient participated Mental Status: Alert and oriented x 3 in no acute distress Cardiovascular status: acceptable Respiratory status: acceptable Airway patency: patent Pain management: adequate Post-operative Nausea and Vomiting: No Temperature within normal limits: Yes Hydration status: adequate Apparent anesthesia complications: Patient has no apparent anesthesia complications Diana Quispe MD PGY3 Home Visits Nurse [facility] 07-03-2022 Note Patient: Parish rodriguez Procedure Summary Date: 07/03/22 Room / Location: [facility] OPERATING ROOM 06 / [facility] Operating Room Anesthesia Start: 0735 Anesthesia Stop: 1347 Procedures: FEMORAL NAIL REMOVAL and FEMORAL PLATE REMOVAL (Left: Femur) INSERTION OF TFNA (Left: Femur) Diagnosis: Intertrochanteric fracture of left femur, closed, with delayed healing, subsequent encounter (Intertrochanteric fracture of left femur, closed, with delayed healing, subsequent encounter [S72.141G]) Surgeons: Fatemeh Rodriguez MD Responsible Provider: Khadijah Mcallister MD Anesthesia Type: general ASA Status: 3 Anesthesia Type: general Vitals Value Taken Time BP 140/79 07/03/22 1428 Temp 37.2 ???C (99 ???F) 07/03/22 1400 Pulse 79 07/03/22 1434 Resp 15 07/03/22 1434 SpO2 94 % 07/03/22 1434 Vitals shown include unvalidated device data. Anesthesia Post Evaluation Patient location during evaluation: PACU Patient participation: complete - patient participated Level of consciousness: awake and alert Pain score: 2 Pain management: adequate Multimodal analgesia pain management approach Airway patency: patent Cardiovascular status: acceptable and stable Respiratory status: acceptable, room air, nonlabored ventilation and spontaneous ventilation Hydration status: acceptable Comments: Pt acceptable for discharge from PACU No notable events documented. [facility] 07-03-2022 Note Peripheral Block Patient location during procedure: post-op Start time: 07/03/2022 2:25 PM End time: 07/03/2022 2:32 PM Reason for block: at surgeon's request and post-op pain management Staffing Performed: resident/AGENCY SALES MANAGEMENT ASSISTANT/CAA Anesthesiologist: Khadijah Mcallister MD Resident/AGENCY SALES MANAGEMENT ASSISTANT: Brian Rondon MD Other anesthesia staff: Kamala Dougherty MD Preanesthetic Checklist Completed: patient identified, IV checked, site marked, risks and benefits discussed, surgical consent, monitors and equipment checked, pre-op evaluation and timeout performed Peripheral Block Patient position: supine Prep: ChloraPrep Patient monitoring: heart rate and continuous pulse ox Block type: femoral Laterality: left Injection technique: single-shot Guidance: ultrasound guided Needle Needle type: Quincke Needle gauge: 22 G Needle length: 2 in Needle localization: ultrasound guidance Medications Administered Bupivacaine HCl (Marcaine) 0.5 % (5 mg/mL) injection, 100 mg Assessment Injection assessment: negative aspiration for heme, no paresthesia on injection, incremental injection and local visualized surrounding nerve on ultrasound Heart rate change: no Slow fractionated injection: yes [facility] 07-03-2022 Note Patient: Parish rodriguez Procedure Summary Date: 07/03/22 Room / Location: [facility] OPERATING ROOM 06 / [facility] Operating Room Anesthesia Start: 734 Anesthesia Stop: Procedures: FEMORAL NAIL REMOVAL and FEMORAL PLATE REMOVAL (Left: Femur) INSERTION OF TFNA (Left: Femur) Diagnosis: Intertrochanteric fracture of left femur, closed, with delayed healing, subsequent encounter (Intertrochanteric fracture of left femur, closed, with delayed healing, subsequent encounter [S72.141G]) Surgeons: Fatemeh Rodriguez MD Responsible Provider: Khadijah Mcallister MD Anesthesia Type: general ASA Status: 3 Anesthesia Post Transport Note Transport to: PACU O2 Route: room air Patient Monitor: direct observation Transport: uneventful Patient condition is: stable [facility] 07-03-2022 Note Airway Urgency: elective Airway not difficult General Information and Staff Patient location during procedure: OR Resident/AGENCY SALES MANAGEMENT ASSISTANT/CAA: Rufina Manning MD Performed: resident/AGENCY SALES MANAGEMENT ASSISTANT/CAA Indications and Patient Condition Indications for airway management: anesthesia Spontaneous Ventilation: absent Sedation level: deep Preoxygenated: yes Patient position: sniffing MILS maintained throughout Mask difficulty assessment: 1 - vent by mask Planned trial extubation Final Airway Details Final airway type: endotracheal airway Successful airway: ETT Cuffed: yes Successful intubation technique: direct laryngoscopy Facilitating devices/methods: cricoid pressure and intubating stylet Endotracheal tube insertion site: oral Blade: Kathryn Blade size: #3 ETT size (mm): 7.5 Cormack-Lehane Classification: grade I - full view of glottis Placement verified by: chest auscultation and capnometry Measured from: lips ETT to lips (cm): 23 Number of attempts at approach: 2 Additional Comments Pattie William MS3 one attempt with Nigel with [facility] 07-03-2022 Note Patient: Parish rodriguez Procedure Information Date/Time: 07/03/22 0730 Procedures: FEMORAL NAIL REMOVAL(Possible nahdi nail) and FEMORAL PLATE(Synthes) (Left: Femur) INSERTION, GAMMA NAIL, FEMUR (Left: Femur) - 4HRS. Arik table, Beanbag, SLOPPY LATERAL POSITION, Need [employer] [place] nail extractor, Synthes LAURA, and Synthes TFNA, SYNTHES NOTIFIED 06/30 RON Location: [facility] OPERATING ROOM 06 / [facility] Operating Room Surgeons: Fatemeh Rodriguez MD Past Medical History: Diagnosis Date ??? Bipolar I disorder, most recent episode depressed (CMS/HCC) 09/25/2017 ??? Hypertension 04/27/2022 Relevant Problems Cardio (+) Hypertension Past Medical History: Diagnosis Date ??? Bipolar I disorder, most recent episode depressed (CMS/HCC) 09/25/2017 ??? Hypertension 04/27/2022 Past Surgical History: Procedure Laterality Date ??? LEG SURGERY Left ??? LEG SURGERY Right No results found for this or any previous visit (from the past 4464 hour(s)). No echocardiogram results found for the past 12 months Clinical information reviewed: Allergies Physical Exam Airway Mallampati: II TM distance: >3 FB Neck ROM: full Cardiovascular Rhythm: regular Rate: normal Dental - normal exam Pulmonary Breath sounds clear to auscultation Abdominal - normal exam Other findings: as been admitted for HTN emergency. Current drinker and smoker. Has low sodium on previous labs with hgb 9.2. Labs redrawn. Anesthesia Plan ASA 3 general (Post op block prn if OK'd by ortho) intravenous induction Postoperative administration of opioids is intended. Anesthetic plan and risks discussed with patient. Use of blood products discussed with patient who consented to blood products. Plan discussed with attending. Additional Equipment Requests [facility] 06-30-2022 Note Orthopaedic Surgery Subjective 06/30/22 Parish Hall is a 47 y.o. year old male who returns to clinic today follow-up of his left kanwal-implant intertrochanteric femur fracture status post ORIF (DOS 04/27/2022). He continues to report left hip pain at the site of his hardware. He has been compliant with toe touch weightbearing. He has been ambulating with the walker and using Percocet and medical marijuana for pain control. He would like to discuss surgical revision for his hardware loosening and failure. 06/09/22 Parish Hall is a 47 y.o. year old male who returns to clinic today follow-up of his left kanwal-implant intertrochanteric femur fracture status post ORIF (DOS 04/27/2022). He is now just over 6 weeks out from surgery. He reports he remains compliant with toe-touch weightbearing status. He has been ambulating with the use of a walker. Continues to take Percocet for pain control as well as medical marijuana. He reports he continues to have significant pain about his left hip near his greater trochanter. No falls or injuries since last visit. Patient has completed 2 sessions of physical therapy. Patient History Past Surgical History: Procedure Laterality Date LEG SURGERY Left LEG SURGERY Right Past Medical History: Diagnosis Date Bipolar I disorder, most recent episode depressed ([facility]) 09/25/2017 Hypertension 04/27/2022 Objective General: Body mass index is 21.84 kg/m???. No acute distress, comfortable Respiratory: Unlabored breathing with normal rate, no cough Cardiovascular: Warm well perfused extremities Psych: Appropriate mood and behavior Focused exam of the left hip: Surgical incisions are well-healed without erythema, warmth, or drainage. Scar well healed with tenderness to palpation over lateral hip hardware. Minimal tenderness to palpation distally about the incision. Patient with full flexion of the hip. Internal rotation to about 10 degrees, external rotation to about 20 degrees, limited by pain. Rotational profile of the leg is equal to the contralateral side. Left leg is approximately 1.5 cm shorter than the contralateral side. 5/5 quadricep strength. Neurovascular intact distally. Imaging: X-rays of the left hip obtained 06/30/2022 personally reviewed and interpreted and demonstrate previously placed surgical hardware about kanwal-implant intertrochanteric femur fracture. There has been interval breakage of the third screw from the proximal aspect of the plate. The second screw from the proximal end of the plate remains in a semi-backed out position, but this appears unchanged compared to last visit images. Assessment/Plan Parish Hall is a 47 y.o. year old male with kanwal-implant intertrochanteric femur fracture status post ORIF (DOS 04/27/2022) with mild varus collapse and slight hardware failure. -Discussed clinical and imaging findings at length with the patient today -Discussed operative intervention of left femur hardware removal including plate and nail as well as left cephalomedullary nail placement with LAURA autograft harvest from ipsilateral femur to help correct deformity, leg lengths, and improve healing potential -Consented and booked for OR on 07/03/2022 -All patient questions were addressed, and he is in agreement with plan. -Continue toe-touch weightbearing to left lower extremity AYANA RODRIGUEZ MD Orthopedic Surgery, PGY-1 Ortho Pager [phone] 06/30/22 11:51 AM [facility] 06-09-2022 Note Orthopaedic Surgery Subjective 06/09/22 Parish Hall is a 47 y.o. year old male who returns to clinic today follow-up of his left kanwal-implant intertrochanteric femur fracture status post ORIF (DOS 04/27/2022). He is now just over 6 weeks out from surgery. He reports he remains compliant with toe-touch weightbearing status. He has been ambulating with the use of a walker. Continues to take Percocet for pain control as well as medical marijuana. He reports he continues to have significant pain about his left hip near his greater trochanter. No falls or injuries since last visit. Patient has completed 2 sessions of physical therapy. 05/12/22 Parish Hall is a 47 y.o. male s/p 04/27/2022 open reduction internal fixation of left intertrochanteric femur fracture - Left. Patient states that he is doing well overall pain improving daily but is very significant. He has been taking Percocet and medical marijuana for pain control he has sometimes been drinking whiskey before bed to help him sleep. He continues to smoke 1 pack over the course of 3 days. He says he has been compliant with weightbearing restrictions. No more in the way of his leg on the ground. He was counseled on importance of vitamin D. At this time he is taking vitamin D2 weekly; he is not yet taking calcium. Patient History Past Surgical History: Procedure Laterality Date LEG SURGERY Left LEG SURGERY Right Past Medical History: Diagnosis Date Bipolar I disorder, most recent episode depressed ([facility]) 09/25/2017 Hypertension 04/27/2022 Objective General: Body mass index is 21.84 kg/m???. No acute distress, comfortable Respiratory: Unlabored breathing with normal rate, no cough Cardiovascular: Warm well perfused extremities Psych: Appropriate mood and behavior Focused exam of the left hip: Surgical incisions are well-healed without erythema, warmth, or drainage. There are 3 small scabs related to dissolving sutures, but no evidence of infection. Minimal tenderness to palpation distally about the incision. Tender to palpation about the proximal incision and greater trochanter. Patient with full flexion of the hip. Internal rotation to about 10 degrees, external rotation to about 20 degrees, limited by pain. Rotational profile of the leg is equal to the contralateral side. Left leg is approximately 0.5 cm shorter than the contralateral side. 4/5 quadricep strength. Approximately 5 degree active knee extensor lag is noted, full passive extension can be achieved. Neurovascular intact distally. Imaging: X-rays of the left hip obtained 06/09/2022 personally reviewed and interpreted and demonstrate previously placed surgical hardware about kanwal-implant intertrochanteric femur fracture. There has been interval breakage of the third screw from the proximal aspect of the plate. The second screw from the proximal end of the plate remains in a semi-backed out position, but this appears unchanged compared to prior films. No evidence of interval change with the remaining hardware. Overall fracture alignment does appear to be in increased varus compared to prior imaging. Neck-shaft angle measures approximate 117 degrees at this time. Fracture does appear to have evidence of increased healing. Assessment/Plan Parish Hall is a 47 y.o. year old male with kanwal-implant intertrochanteric femur fracture status post ORIF (DOS 04/27/2022) with mild varus collapse and slight hardware failure -Discussed clinical and imaging findings at length with the patient today -We discussed that although there has been some mild collapse, the limb remains in a relatively acceptable alignment, especially considering the patient's multiple prior injuries to his bilateral lower extremities. We discussed that revision surgery would entail complete hardware removal followed by either antegrade nailing after acceptable reduction was achieved, or if there was sufficient amount of healing, the patient may require a valgus producing osteotomy with potential blade plate fixation -We also discussed that a portion of the patient's discomfort about his lateral hip may be related to the screw that has slightly backed out, causing some bursitis, given his thin habitus -At this time, mutual agreement was made with the patient that we will proceed with close observation as he is not interested in any revision surgery at this time -Continue toe-touch weightbearing to left lower extremity -Continue physical therapy -We will see the patient back in 3 weeks time with new x-rays of the left hip at that visit Sagar Zimmerman MD Orthopaedic Surgery, PGY-5 By using the attestations below, the signing clinician agrees that I have read and verify that the documentation has been personally reviewed by me and ensure that the documentation accurately reflects the encounter. GC: I personally saw this patient on the day of the encounte (more content not included)... [facility] 05-30-2022 Note Physical Therapy Physical Therapy Treatment Patient Name: Parish Hall Total Visit Count: 2 Today's Date: 05/30/2022 Time In: 11:12 AM Time Out: 11:50 AM Intervention Time Breakdown: 11:12 - 11:40 - Ther ex 11:40 - 11:50 - MHP Total Billed Minutes: 38 Subjective: Pt reports a 9/10 pain in the L LE at this time. He states that the pain is always that high, and that any motion will increase it. Objective: Exercise Intensity Sets Reps Comments Ankle Pumps 1 10 [x] Ankle Circles 1 10 [x] Quad Sets 1 10 HEP[x] Glute Sets 1 10 HEP[x] Hip ADD with pillow 1 10 HEP[x] LAQ 1 10 [x] [] [] [] [] [] [] [] [] [] [] [] [] [] [] [] [] [] [] Treatment Comments: Mat strengthening exercises completed to increase L LE strength and to enhance ease of transfers and functional task completion. Exercises printed off and included in existing HEP. Hot Packs: MHP to L lateral thigh/hip in seated position in WC to decrease pain. Home Exercise Program Access Code [email or web address] Assessment/Plan: Tx limited at this time d/t significant pain. Will attempt to progress as tolerated next session. Therapy Goals Active PT Goals Start: 05/18/22 STG - Pt will be independent with HEP for gentle hip. knee and ankle rom Start: 05/18/22 Expected End: 06/02/22 STG - Pt will restore left hip arom to 90 degrees to assist with normal adls Start: 05/18/22 Expected End: 06/16/22 LTG - Pt will restore functional gt once wt bearing status has been restore to full wt bearing Start: 05/18/22 Expected End: 07/14/22 LTG - Pt will improve LE strength to allow stairs reciprocally independently once FWB achieved Start: 05/18/22 Expected End: 07/14/22 Resolved There are no resolved problems. [facility] 05-17-2022 Note Physical Therapy Physical Therapy Evaluation Patient Name: Parish Hall : 1975 Date: 05/17/2022 Total Visit Count: 1 TIME IN: 1412 TIME OUT:1500 TOTAL BILLED MINUTES 48 mins of mod complexity eval from [id number] General Subjective: Parish is a 47 yo male referred to PT for evaluation following ORIF to left femur intertrochanteric fracture , pt fell off a skateboard on 04/26/2022 and had ORIF on 04/27/2022. Pt had previously fractured left femur 1999. Pt is now TTWB, pt resides in a two story home with bed and bath downstairs , 5-6 [address]EROY with rail. 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 PMH: multiple fractures , HTN, pt expresses that he is doing fairly well at home, he notes he is being diligent about following wt bearing precautions, he notes he is sleeping well in his recliner. notes he is getting around the house well with his walker. Patient Active Problem List Diagnosis Closed comminuted intertrochanteric fracture of left femur, initial encounter ([facility]) Bipolar I disorder, most recent episode depressed ([facility]) Elevated WBCs Hypertension Closed displaced intertrochanteric fracture of left femur, initial encounter ([facility]) Past Medical History: Diagnosis Date Bipolar I disorder, most recent episode depressed ([facility]) 09/25/2017 Hypertension 04/27/2022 Past Surgical History: Procedure Laterality Date LEG SURGERY Left LEG SURGERY Right Pain Pain Assessment Pain Score: 7 Pain Type: Acute pain Pain Location: Leg Pain Orientation: Left Home Living Prior Level of Function: remote history of previous left femur fracture but no issues just prior to recent fall Objective Precautions Precautions LE Weight Bearing Status: Left, TTWB General Assessments Sensation Sensation Comments: normal sensation left LE Functional Assessments Transfer 1 Transfer From 1: Sit Transfer Type 1: To and from Transfer to 1: Stand Transfer Device 1: rolling walker Transfer Level of Assistance 1: Independent Ambulation 1 Surface 1: Level tile Device 1: Rolling walker (pt was using std walker at home but does have whhels to convert it , pt plans to convert it to RW once home) Assistance 1: Independent Quality of Gait 1: good maintenance of TTWB Comments/Distance (ft) 1: pt limiting himself to household distances at this time Extremity Assessments Left Hip Observations L Hip Tenderness: (left hip generally tender following ORIF, incision is closed and dry , no redness, pt has a large osteophyte anterior left thigh from previous fracture) Left Hip Active Range of Motion L Hip AROM Flexion: 80 L Hip AROM Extension: 0 L Hip AROM ABduction: 25 Left Hip Passive Range of Motion L Hip PROM Flexion: 90 L Hip PROM Extension: 5 Left Hip Strength L Hip Strength Flexion: 3-/5 L Hip Strength Extension: 3-/5 L Hip Strength ABduction: 3-/5 Left Knee Active Range of Motion L Knee AROM Flexion: 130 L Knee AROM Extension: 0 Left Ankle Active Range of Motion L Ankle AROM Dorsiflexion: 10 L Ankle AROM Plantar Flexion: 50 Left Ankle Strength L Ankle Strength Inversion: 5/5 L Ankle Strength Eversion: 5/5 L Ankle Strength Dorsiflexion: 5/5 L Ankle Strength Plantar Flexion: 5/5 Assessment/Plan PT Assessment Impairments: Decreased strength, Decreased range of motion, Decreased mobility, Pain PT Assessment: Pt presents to PT approx 3 weeks post left intertrochanteric hip fracture with ORIF to repair , pt is currently demosntraing good safe mobility TTWB left LE with RW, pt is functionaing well in his home, pt has some expected deficits in rom, strength and pain, pt is currently limited in what he can do in PT due to wt bearing status and will do well with HEP for now, pt given and instructed in brief HEP for gentle hip rom , knee and ankle rom, pt advised to cont to maintain TTWB status perform exs once daily and follow up with PT in two weeks, pt will likely need more frequent PT once more wt bearing is allowed Prognosis: Good PT Education/Comments: HEP given for 1. cont walking with RW, 2. supine heel slide ( gentle) , 3. LAQ, 4. ankle pumps, 5. standing 3 way hip , all exs to be performed in unrestricted low pain ranges , pt with good understanding, pt given my email to contact me with questions Plan PT Plan: PT interventions will include MHP/cryo as needed, TE for hip/LE rom exs, gt training TTWB for now PT Plan Specifications: Hot/Cold Pack, Gait Training, Therapeutic Exercise PT Frequency: 1 time every other week Duration: 8 weeks Goals: Therapy Goals Active PT Goals Start: 05/18/22 STG - Pt will be independent with HEP for gentle hip. knee and ankle rom Start: 05/18/22 Expected End: 06/02/22 STG - Pt will restore left hip arom to 90 degrees to assist with normal adls Start: 05/18/22 Expected End: 06/16/22 LTG - Pt will restore functional gt once wt bearing status (more content not included)... [facility] 05-17-2022 Note [id number] Parish Hall 1975 M Date Provider Department Center 05/17/2022 [id number], ANGELES MP PT Medical Pavi No family history on file [facility] 05-12-2022 Note Orthopedic Surgery Subjective 04/27/2022 - open reduction internal fixation of left intertrochanteric femur fracture - Left 05/12/22 Parish Hall is a 47 y.o. male s/p 04/27/2022 open reduction internal fixation of left intertrochanteric femur fracture - Left. Patient states that he is doing well overall pain improving daily but is very significant. He has been taking Percocet and medical marijuana for pain control he has sometimes been drinking whiskey before bed to help him sleep. He continues to smoke 1 pack over the course of 3 days. He says he has been compliant with weightbearing restrictions. No more in the way of his leg on the ground. He was counseled on importance of vitamin D. At this time he is taking vitamin D2 weekly; he is not yet taking calcium. Patient History Past Surgical History: Procedure Laterality Date LEG SURGERY Left LEG SURGERY Right Past Medical History: Diagnosis Date Bipolar I disorder, most recent episode depressed ([facility]) 09/25/2017 Hypertension 04/27/2022 Objective Exam: - Incision clean, dry, and intact. TTP diffusely lateral thigh. No drainage or erythema, mild hematoma appreciated proximally, - Reasonable post-surgical ROM, swelling, and tenderness - Sensation grossly intact distally - Brisk capillary refill Assessment/Plan Parish Hall is a 47 y.o. male s/p open reduction internal fixation of left intertrochanteric femur fracture - Left (04/27/2022). Plan: -TTWB LLE -Calcium, vitamin D2 50K weekly, D3 2000 daily -Pain control, percocet, tylenol, ibuprofen -Handicap placard 6 months -Avoid high impact activities -Follow up in 3-4 weeks He will call with any new questions/concerns. Carla Zafar MD Orthopaedic Surgery, Resident Ortho Pager [phone] 05/12/22 11:26 AM I am available via [employer] 6a-6p. May contact the on-call resident with any concerns via the Orthopaedic pager at any time. [facility] 05-03-2022 Note Trauma Discharge [facility] Admission Admitted 04/27/2022 for Closed comminuted intertrochanteric fracture of left femur, initial encounter ([facility]) Discharge Diagnosis Fall from skateboard Acute comminuted left femoral neck/intertrochanteric fracture Acute blood loss anemia Chronic hyponatremia Leukocytosis, reactive, resolved History of essential hypertension Discharge Disposition Group Home Facility Discharge Medications Your medication list START taking these medications Instructions Last Dose Given Next Dose Due acetaminophen 500 mg tablet Commonly known as: Tylenol Take 2 tablets (1,000 mg) by mouth every 8 (eight) hours for 10 days. amLODIPine 10 mg tablet Commonly known as: Norvasc Start taking on: May 04, 2022 Take 1 tablet (10 mg) by mouth in the morning. Do not start before May 04, 2022. bisacodyl 10 mg suppository Commonly known as: Dulcolax Insert 1 suppository (10 mg) into the rectum if needed each day for constipation. calcium 500 mg calcium (1,250 mg) tablet Take 1 tablet (500 mg) by mouth with breakfast and with evening meal. cholecalciferol 50 MCG (2000 UT) tablet Commonly known as: Vitamin D-3 Start taking on: May 04, 2022 Take 1 tablet (50 mcg) by mouth in the morning. Do not start before May 04, 2022. cyclobenzaprine 5 mg tablet Commonly known as: Flexeril Take 1 tablet (5 mg) by mouth in the morning, at noon, and at bedtime. enoxaparin 40 mg/0.4 mL syringe Commonly known as: Lovenox Inject 0.4 mL (40 mg) under the skin in the morning for 28 days. ergocalciferol 1.25 MG (83089 Units) capsule Commonly known as: Vitamin D-2 Start taking on: May 04, 2022 Take 1 capsule (50,000 Units) by mouth 1 (one) time per week. Do not start before May 04, 2022. hydrALAZINE 25 mg tablet Commonly known as: Apresoline Take 1 tablet (25 mg) by mouth every 8 (eight) hours. lidocaine 5 % patch Commonly known as: Lidoderm Start taking on: May 04, 2022 Apply 1 patch topically in the morning for 30 doses. Remove & discard patch within 12 hours or as directed by MD. Do not start before May 04, 2022. lisinopril 5 mg tablet Start taking on: May 04, 2022 Take 1 tablet (5 mg) by mouth in the morning. Do not start before May 04, 2022. magnesium oxide 400 mg (241.3 mg magnesium) tablet Commonly known as: Mag-Ox Take 1 tablet (400 mg) by mouth in the morning and at bedtime. melatonin 3 mg tablet Take 1 tablet (3 mg) by mouth if needed at bedtime for sleep. oxyCODONE 5 mg immediate release tablet Commonly known as: Roxicodone Take 1 tablet (5 mg) by mouth every 6 (six) hours if needed for moderate pain (4-7 pain score) or severe pain (8-10 pain score) for up to 5 days. Where to Get Your Medications These medications were sent to [id number] - [place], [place] - [address] [id number] acetaminophen 500 mg tablet amLODIPine 10 mg tablet bisacodyl 10 mg suppository calcium 500 mg calcium (1,250 mg) tablet cholecalciferol 50 MCG (2000 UT) tablet cyclobenzaprine 5 mg tablet enoxaparin 40 mg/0.4 mL syringe ergocalciferol 1.25 MG (35440 Units) capsule hydrALAZINE 25 mg tablet lidocaine 5 % patch lisinopril 5 mg tablet magnesium oxide 400 mg (241.3 mg magnesium) tablet melatonin 3 mg tablet You can get these medications from any pharmacy Bring a paper prescription for each of these medications oxyCODONE 5 mg immediate release tablet Activity No driving Until cleared by Orthopedic Surgery. Showering instructions: May shower, do not wet dressings, do not itch soak or scrub incisions. Diet Continue on the same type of diet and foods as you were eating before your admission. Drink plenty of water. Allergies Patient has no known allergies. Hospital Course Parish is a 47 year old male patient with a history of essential hypertension and multiple prior orthopedic surgeries to bilateral lower extremities due to prior injuries who presented to the ED on 04/27/22 as a transfer from outside hospital for evaluation of a left intertrochanteric femur fracture following a mechanical fall off a skateboard. Patient was taken to the OR by Orthopedic Surgery on 04/27/22 for ORIF left intertrochanteric femur fracture. Patient with acute blood loss anemia postoperatively, Hgb 11.1 preoperatively and 8.3 the following day. Serial hemoglobin checks trended down to Hgb 6.9 on POD #4 for which 1 unit PRBCs was given with adequate response. Patient tolerated a diet and worked with therapies. Patient initially requested to be discharged to an ECF and later requested to be discharged home instead. Patient stated he felt this was a safe discharge plan. Patient remained stable and was able to be discharged home with home health, therapies, and equipment on 05/03/22. Pertinent Physical Exam At Time of Discharge Physical Exam HENT: (more content not included)... [facility] 05-03-2022 Note [facility] Trauma Surgery PROGRESS NOTE Subjective Patient seen sitting upright in bed on 6AB this morning. Per nursing staff no acute issues overnight. Hgb stable at 9.2 this morning s/p 1 unit PRBCs yesterday. Patient states his pain is improved today. He is tolerating a diet and passing gas. Per therapy notes patient is requesting to go home today as opposed to a facility. Patient remains medically stable for discharge today. Objective Vitals: Vitals: 05/03/22 0700 BP: 170/86 Pulse: 85 Resp: 16 Temp: 36.5 ???C (97.7 ???F) SpO2: 100% I/O last 3 completed shifts: In: 1231.3 (16.8 mL/kg) [P.O.:900; Blood:331.3] Out: 5500 (75 mL/kg) [Urine:5500 (2.1 mL/kg/hr)] Weight: 73.3 kg No intake/output data recorded. Physical Exam HENT: Head: Normocephalic and atraumatic. Right Ear: External ear normal. Left Ear: External ear normal. Nose: Nose normal. Mouth/Throat: Mouth: Mucous membranes are moist. Eyes: Extraocular Movements: Extraocular movements intact. Pupils: Pupils are equal, round, and reactive to light. Cardiovascular: Rate and Rhythm: Normal rate. Pulmonary: Effort: Pulmonary effort is normal. Abdominal: General: Bowel sounds are normal. There is no distension. Palpations: Abdomen is soft. Tenderness: There is no abdominal tenderness. Musculoskeletal: Cervical back: Neck supple. Comments: Left hip dressing clean dry and intact. Local hip tenderness to palpation, compartments soft. Skin: General: Skin is warm and dry. Capillary Refill: Capillary refill takes less than 2 seconds. Neurological: General: No focal deficit present. Mental Status: He is alert and oriented to person, place, and time. Psychiatric: Mood and Affect: Mood normal. Labs: Lab Results Component Value Date WBC 11.17 (H) 05/03/2022 HGB 9.2 (L) 05/03/2022 HCT 26.5 (L) 05/03/2022 PLT 593 (H) 05/03/2022 NA 132 (L) 05/03/2022 K 3.7 05/03/2022 CL 98 05/03/2022 CO2 27 05/03/2022 BUN 15 05/03/2022 GLUCOSE 86 05/03/2022 CALCIUM 8.9 05/03/2022 MG 1.8 (L) 05/03/2022 PHOS 3.2 05/03/2022 Medications: acetaminophen, 1,000 mg, oral, q8h ALEXIS amLODIPine, 10 mg, oral, Daily calcium, 500 mg, oral, BID with meals cholecalciferol, 2,000 Units, oral, Daily cyclobenzaprine, 5 mg, oral, TID enoxaparin, 30 mg, subcutaneous, BID [START ON 05/04/2022] ergocalciferol, 50,000 Units, oral, Weekly hydrALAZINE, 25 mg, oral, q8h ALEXIS lidocaine, 1 patch, topical (top), Daily lisinopril, 5 mg, oral, Daily magnesium oxide, 400 mg, oral, BID Oxygen Therapy, , inhalation, Continuous polyethylene glycol, 17 g, oral, BID sennosides-docusate sodium, 2 tablet, oral, BID Imaging: XR hip left 2 or 3 views Narrative: XR HIP 2 OR 3 VW LEFT CLINICAL INFORMATION: Intertrochanteric fracture of the hip. COMPARISON: 04/27/2022. Impression: *Comminuted intertrochanteric fracture with surgical fixation left hip, no change in alignment. Displaced fracture involving the lesser trochanter present. Mild degenerative changes of the bilateral hips. Electronically signed: Sylvester Foster. Assessment Parish Hall is a 47 y.o. male patient who presented to the emergency department as a transfer from [facility] following a fall from a skateboard on 04/27/22 where he sustained a closed comminuted intertrochanteric fracture of the left femur. He is s/p ORIF 04/27/22. He received 1 unit PRBCs for Hgb 6.9 on 05/02/22. Catalogue of injury / Incidental findings / Medical issues: Fall from skateboard Acute comminuted left femoral neck/intertrochanteric fracture Acute blood loss anemia Chronic hyponatremia Leukocytosis, reactive, resolved History of essential hypertension Plan Neuro: Acute postoperative pain -Every 4 hours neuro checks. -Antiemetics: Zofran 4mg PO or IV. -Pain control: Scheduled Tylenol 1000mg q8hrs, Flexeril 5mg TID, Lidoderm patch q12hrs, PRN Oxycodone 5mg oral q6hr prn for moderate pain, Oxycodone 10mg oral q6hr prn for severe pain, Dilaudid 0.2mg IV q4hr prn for breakthrough pain. CV: Hypertension -Every 4 hours vital signs. -Every 4 hour neurovascular checks. -Frequent compartment checks. -Medicine consulted for HTN, appreciate recommendations: -Amlodipine 10mg oral daily started for HTN. -Hydralazine 25mg oral q8hrs. -Lisinopril 5mg oral daily. -Hydralazine 10mg IV q6hr prn for SBP >160. Respiratory: -Maintain O2 saturation greater than 94%. If respiratory status changes contact trauma service immediately. -IS ten times an hour, every hour while awake. FEN/GI: Hyponatremia / Hypomagnesemia / Hypophosphatemia -IVF: Dced. -Replace electrolytes as needed. -Monitor Na+ 132 (130). -Magnesium oxide 400mg oral BID start 04/28. -Diet: Regular. -Bowel Regimen: Scheduled Senna-Docusate, Miralax, PRN Dulcolax. : -Monitor urinary output. -Q4hr Is/Os. MSK: S/p Left intertrochanteric femur fracture open reduction and internal fixat (more content not included)... [facility] 05-03-2022 Note Attestation signed by Cecilia Brito MD at 05/03/2022 11:32 AM I personally saw and examined the patient on the same date of service as resident/fellow . I discussed the findings and therapeutic plan with the resident/fellow . I agree with the documentation, except for any edits/updates below. Teaching Physician's Revisions: Pain adequately controlled, no nausea or vomiting. No headache or dizziness. Vital signs stable Assessment/plan: 1. Uncontrolled hypertension: Continue hydralazine 25 mg 3 times daily with Norvasc 10 mg, lisinopril 5 mg daily has been added on for better blood pressure control. Patient no evidence close follow-up with PCP in outpatient setting for optimize hypertension management. Has been noncompliant with anticongestive regimen before coming to the hospital. GI Inpatient Progress Note Patient - Parish Hall Age - 47 y.o. - 1975 Date of Admission - 04/27/2022 1:24 AM Interval history Patient was seen and examined at bedside this morning. He is afebrile and hemodynamically stable, satting well on room air. Not in acute distress. BP remains poorly controlled. Denied any associated symptoms. OBJECTIVE Vitals height is 1.829 m (6') and weight is 73.3 kg (161 lb 9.6 oz). His oral temperature is 36.5 ???C (97.7 ???F). His blood pressure is 170/86 and his pulse is 85. His respiration is 16 and oxygen saturation is 100%. Temp: [36.5 ???C (97.7 ???F)-37.2 ???C (98.9 ???F)] 36.5 ???C (97.7 ???F) Heart Rate: [77-90] 85 Resp: [16-18] 16 BP: (146-184)/(73-95) 170/86 Weight: Admission weight: 68 kg (150 lb) Wt Readings from Last 1 Encounters: 05/02/22 73.3 kg (161 lb 9.6 oz) Input/Output: Intake/Output Summary (Last 24 hours) at 05/03/2022 1113 Last data filed at 05/03/2022 0133 Gross per 24 hour Intake 1231.25 ml Output 3600 ml Net -2368.75 ml Physical Examination: General: sleepy, in no acute distress Head: Normocephalic, atraumatic. Pulm: Clear to auscultation. No audible wheezing, rales, or rhonchi. Breathing is non-labored. Cardiac: Regular rate, regular rhythm. Normal S1/S2. No appreciable murmurs, gallops, or rubs. GI: Abdomen is soft, non-distended, non-tender. Ext: No peripheral edema. Incision is dressed, no surrounding erythema, dressing is dry Neuro: Alert and oriented x 3. Objective Lab Results Results from last 7 days Lab Units 05/03/22 0536 05/02/22 1422 05/02/22 0513 05/01/22 0615 WBC AUTO 10*3/uL 11.17* -- 9.99 11.43* HEMOGLOBIN g/dL 9.2* 8.3* 6.9* 7.1* HEMATOCRIT % 26.5* 24.4* 20.4* 20.9* PLATELETS AUTO 10*3/uL 593* -- 522* 457* Results from last 7 days Lab Units 04/27/22 0202 APTT Seconds 31.6 INR 0.98 Results from last 7 days Lab Units 05/03/22 0536 05/02/22 0513 05/01/22 0615 SODIUM mmol/L 132* 130* 131* POTASSIUM mmol/L 3.7 3.7 3.9 CHLORIDE mmol/L 98 96* 96* CO2 mmol/L 27 31 31 BUN mg/dL 15 11 10 CREATININE mg/dL 0.77 0.77 0.84 GLUCOSE mg/dL 86 96 102* CALCIUM mg/dL 8.9 8.8 8.8 MAGNESIUM mg/dL 1.8* 1.8* 2.0 No lab exists for component: TOTALPROTEI, LABBILIRUBIN, TOTALBILIRUB, BILIRUB, BILIRUBIND No results found for: HGBA1C No lab exists for component: TROPI, TROPONIN No lab exists for component: ABGPH, ABGPCO2, ABGPO2, ABGHCO3, ABGBASEDEFIC, [id number], ABGOXYGENSOU No lab exists for component: LACTICACID, PROCALCITON No lab exists for component: CHOLHDL No results found for: WBCU, UROBILINOGEN Medications Scheduled: acetaminophen, 1,000 mg, oral, q8h ALEXIS amLODIPine, 10 mg, oral, Daily calcium, 500 mg, oral, BID with meals cholecalciferol, 2,000 Units, oral, Daily cyclobenzaprine, 5 mg, oral, TID enoxaparin, 30 mg, subcutaneous, BID [START ON 05/04/2022] ergocalciferol, 50,000 Units, oral, Weekly hydrALAZINE, 25 mg, oral, q8h ALEXIS lidocaine, 1 patch, topical (top), Daily lisinopril, 5 mg, oral, Daily magnesium oxide, 400 mg, oral, BID Oxygen Therapy, , inhalation, Continuous polyethylene glycol, 17 g, oral, BID sennosides-docusate sodium, 2 tablet, oral, BID Infusions: As Needed: PRN medications: bisacodyl, hydrALAZINE, HYDROmorphone, melatonin, ondansetron ODT OR ondansetron, oxyCODONE, oxyCODONE ASSESSMENT AND PLAN Essential hypertension. Considering poorly controlled BP, will add Lisinopril 5 mg daily, in addition to current Norvasc 10 QD and Hydralazine 25 TID. Will up titrate lisinopril as needed. Acute blood loss anemia, hgb improved after 1 unit PRBc 05/02/22. Last Hgb 9.2. Fall with resultant closed intertrochanteric fracture of the left femur that is post ORIF left femur 04/27/2022 Vit D deficiency, replacement ordered Nawaf Martines General Internal Medicine Consult Service [facility] 05-03-2022 Note Occupational Therapy Occupational Therapy Treatment Patient Name: Parish Hall : 1975 Today's Date: 05/03/2022 Time in: 915 Time out: 937 OT Check no charge General Subjective: Pt very upset and anxious this am. Is agreeable to participate in therapy. i'm sorry. I just had a bad night last night. Despite education pt does not maintain TTWB. Pt verbalizes understanding but does not demo followthrough of education provided throughout session. Amount of Missed Time (min): 22 Minutes Missed Treatment Reason: (Completed with PT 2o pts anxiety, impulsivity.) Family/Caregiver Present: No RN ok for pt to be seen at this time. Pt semi-fowlers upon arrival and agreeable to session. Pt is frustrated this AM. Pt completed functional tasks and ambulation. Pt was returned to semi-fowlers in bed with call light and needs in reach. RN aware of pt performance. Problem List Patient Active Problem List Diagnosis Closed comminuted intertrochanteric fracture of left femur, initial encounter ([facility]) Bipolar I disorder, most recent episode depressed ([facility]) Elevated WBCs Hypertension Closed displaced intertrochanteric fracture of left femur, initial encounter ([facility]) Pain: Pain Assessment Pain Assessment: 0-10 Pain Score: 10 - Worst possible pain Pain Type: Acute pain, Surgical pain Pain Location: Leg Pain Orientation: Left Objective General Visit Information: OT Last Visit OT Received On: 05/03/22 General Subjective: Pt very upset and anxious this am. Is agreeable to participate in therapy. i'm sorry. I just had a bad night last night. Despite education pt does not maintain TTWB. Pt verbalizes understanding but does not demo followthrough of education provided throughout session. Amount of Missed Time (min): 22 Minutes Missed Treatment Reason: (Completed with PT 2o pts anxiety, impulsivity.) Family/Caregiver Present: No Precautions Precautions LE Weight Bearing Status: Left, TTWB (Pt does not maintain despite significant education.) Medical Precautions: fall risk. Medical Precautions: fall risk, IV Cognition Cognition Orientation Level: Oriented X4 Safety Judgment: Decreased awareness of need for safety, Decreased awareness of need for assistance Awareness of Errors: Decreased awareness of errors Deficits: Decreased awareness of deficits Attention Span: Attends with cues to redirect Cognition Comments: Pt is anxious, impulsive ADL Assessment: LE Dressing LE Dressing: Yes Pants Level of Assistance: Minimum assistance Sock Level of Assistance: Minimum assistance Static Sitting Balance Static Sitting Balance Static Sitting-Balance Support: Unilateral upper extremity supported, Feet supported Static Sitting-Level of Assistance: Contact guard Dynamic Sitting Balance Dynamic Sitting Balance Dynamic Sitting-Balance Support: Right upper extremity supported, Left upper extremity supported, Feet supported Dynamic Sitting-Balance: Forward lean Static Standing Balance Static Standing Balance Static Standing-Balance Support: Right upper extremity supported, Left upper extremity supported (RW) Static Standing-Level of Assistance: Contact guard Dynamic Standing Balance Dynamic Standing Balance Dynamic Standing-Balance Support: Right upper extremity supported, Left upper extremity supported (RW) Dynamic Standing-Balance: Forward lean Dynamic Standing Balance-Level of Assistance: Contact guard Bed Mobility Bed Mobility Bed Mobility: Yes Bed Mobility 1 Bed Mobility From 1: Supine Bed Mobility Type 1: To and from Bed Mobility to 1: Short sit Level of Assistance 1: Minimum assistance Bed Mobility Comments 1: Pt required assist to manage LLE Transfers Transfers Transfer: Yes Transfer 1 Transfer From 1: Bed Transfer Type 1: To and from Transfer to 1: Stand Technique 1: Stand to sit, Sit to stand Transfer Device 1: rolling walker Transfer Level of Assistance 1: Contact guard Trials/Comments 1: Pt ambulated in room and hallway with use of RW. Pt does not maintain TTWB througout session despite education Outcome Assessments AM-PAC 6 Clicks Putting on and taking off regular lower body clothing?: A Little (Min Assist/Contact Guard/Supervision) Bathing(Including washing,rinsing,drying)?: A Little (Min Assist/Contact Guard/Supervision) Toileting, which includes using the toilet,bedpan,or urinal?: A Little (Min Assist/Contact Guard/Supervision) Putting on and taking off regular upper body clothing?: None (Independent) Taking care of personal grooming such as brushing teeth?: None (Independent) Eating meals?: None (Independent) Total Score OT [facility]: 21 Assessment/Plan OT Assessment OT Impairments: Decreased ADL status, Decreased endurance, Decreased safe judgment during ADL, Decreased IADLs OT Assessment/EQUIPMENT PLANNER Summary: Pt with decreased overall activity ganesh (more content not included)... [facility] 02-15-2023 Note Physical Therapy Physical Therapy Treatment Patient Name: Parish Hall : 1975 Today's Date: 05/03/2022 Patient Active Problem List Diagnosis Closed comminuted intertrochanteric fracture of left femur, initial encounter ([facility]) Bipolar I disorder, most recent episode depressed ([facility]) Elevated WBCs Hypertension Closed displaced intertrochanteric fracture of left femur, initial encounter ([facility]) Pain Pain Assessment Pain Assessment: 0-10 Pain Score: 10 - Worst possible pain Pain Type: Acute pain, Surgical pain Pain Location: Leg Pain Orientation: Left Pain Interventions: Cold applied Objective General Visit Information: PT Last Visit PT Received On: 05/03/22 General Subjective: Pt seen at time arranged with patient earlier this AM. RN enters room near start of session. Pt becomes agitated with discussion of prescribed stool softener. Pt does participate in PT session; however, more focused on other issues that are upsetting him than listening to education on L LE wt bearing status and proper ambulation technique. Pt returned to supine in bed at end of session with ice pack in place. RN and social work nurse notified of pt requesting to leave today and go home instead of SNF. Precautions Precautions LE Weight Bearing Status: Left, TTWB (Does NOT maintain despite cues/education throughout session.) Medical Precautions: fall risk. Static Sitting Balance Static Sitting Balance Static Sitting-Balance Support: Unilateral upper extremity supported, Feet supported Static Sitting-Level of Assistance: Close supervision Dynamic Sitting Balance Dynamic Sitting Balance Dynamic Sitting-Balance Support: Right upper extremity supported, Left upper extremity supported, Feet supported Dynamic Sitting-Balance: Forward lean Dynamic Sitting Balance-Level of Assistance: Contact guard Static Standing Balance Static Standing Balance Static Standing-Balance Support: Right upper extremity supported, Left upper extremity supported (walker) Static Standing-Level of Assistance: Contact guard Dynamic Standing Balance Dynamic Standing Balance Dynamic Standing-Balance Support: Right upper extremity supported, Left upper extremity supported (walker) Dynamic Standing Balance-Level of Assistance: Contact guard General Assessments: Activity Tolerance Endurance: Stage III Stage I (METs 1.0-1.4) - Sittin-10 mins Cognition Safety Judgment: Decreased awareness of need for safety, Decreased awareness of need for assistance Awareness of Errors: Decreased awareness of errors Deficits: Decreased awareness of deficits Cognition Comments: Pt anxious, impulsive and focused on issues other than therapy during session. Treatment: Ambulation Ambulation: Yes Ambulation 1 Surface 1: Level tile Device 1: Rolling walker Assistance 1: Contact guard Quality of Gait 1: No LOB. Pt non-compliant with L LE TTWB throughout ambulation. Multiple times pt instructed to turn to return to bed d/t not following wt bearing status, but pt did not follow instruction. As pt became more upset during session, he decreased use of the walker and increased wt bearing to L LE. Comments/Distance (ft) 1: ~124 Stairs Stairs: No (Discussed with pt that he should bump up/down steps to enter his home. Pt agreeable.) Bed Mobility Bed Mobility: Yes Bed Mobility 1 Bed Mobility From 1: Supine Bed Mobility Type 1: To and from Bed Mobility to 1: Short sit Level of Assistance 1: Minimum assistance Bed Mobility Comments 1: pt manages upeer body and scooting well. asssit for LLE Transfers Transfer: Yes Transfer 1 Transfer From 1: Sit Transfer Type 1: To and from Transfer to 1: Stand Technique 1: Sit pivot, Lateral Transfer Device 1: rolling walker Transfer Level of Assistance 1: Contact guard Trials/Comments 1: Pt did not stand up fully or lower LLE to perform stand pivot, pt able to reach armrest of chair to shift wt laterally as therapist supported LLE, other therapist elevated lower part of recliner to support LEs Outcome Assessments 6 Clicks (Mobility) Impairment Codes: Fracture/Other ortho Help from another person turning from your back to your side while in a flat bed without using bedrails: A little Help from another person moving from lying on your back to sitting on the side of a flat bed without using bedrails: A little Help from another person moving to and from a bed to a chair (including a wheelchair): A little Help from another person standing up from a chair using your arms (e.g. wheelchair or bedside chair): A little Help from another person to walk in hospital room: A little Help from another person climbing 3-5 steps with a railing: A lot Mobility 6 Clicks T-Score: 17 Assessment/Plan PT Assessment PT Assessment/RECEIVABLE CLERK Summary: Pt with improved mobility this session; however, he is non-compliant (more content not included)... [facility] 05-02-2022 Note Physical Therapy [facility] 05/02/22 Pt now done with blood transfusion. Pt seated in recliner with LEs elevated, ice pack in place. Pt defers PT at this time- reports today has been a lot for him, including elevated blood pressure. Feels he has a migraine starting. Pt explains he has trust issues and is nervous about attempting to stand with walker. Pt defers therapy at this time, but is agreeable to scheduling a time to work with therapy tomorrow morning. Feels better when he knows a time he will have someone coming to see him. Plan is to check in with patient in early AM to determine a time to work with patient, in coordination with his pain meds. PT check- no charge Time in/out: 14:46/15:07 Kathryn Francisco PT, [facility] 05-02-2022 Note Attestation signed by Cecilia Brito MD at 05/03/2022 11:19 AM I personally saw and examined the patient on the same date of service as resident/fellow . I discussed the findings and therapeutic plan with the resident/fellow . I agree with the documentation, except for any edits/updates below. Teaching Physician's Revisions: Denies nausea or vomiting, mild tremulousness. Denies headache or blurry vision. Vital signs stable Assessment/plan: 1. Chronic alcohol use disorder with alcohol withdrawal: Dr. Mustafa is primarily managing alcohol withdrawal symptoms with [facility] protocol. Hospitalist/internal medicine team will follow along as needed. [facility] Inpatient Progress Note Patient - [facility] Hall Age - 47 y.o. - 1975 Date of Admission - 04/27/2022 1:24 AM Interval history Patient was seen and examined at bedside this morning. He is afebrile and hemodynamically stable, satting well on room air. Not in acute distress. Pain is better today per patient, BP is overall controlled. Hgb this morning 6.9, 1 unit PRBC in being transfused per primary. OBJECTIVE Vitals height is 1.829 m (6') and weight is 73.3 kg (161 lb 9.6 oz). His oral temperature is 36.8 ???C (98.3 ???F). His blood pressure is 166/97 (abnormal) and his pulse is 84. His respiration is 16 and oxygen saturation is 98%. Temp: [36.3 ???C (97.4 ???F)-36.9 ???C (98.4 ???F)] 36.8 ???C (98.3 ???F) Heart Rate: [84-106] 84 Resp: [16] 16 BP: (116-179)/(76-97) 166/97 Weight: Admission weight: 68 kg (150 lb) Wt Readings from Last 1 Encounters: 05/02/22 73.3 kg (161 lb 9.6 oz) Input/Output: Intake/Output Summary (Last 24 hours) at 05/02/2022 1144 Last data filed at 05/02/2022 0159 Gross per 24 hour Intake 360 ml Output 1900 ml Net -1540 ml Physical Examination: General: sleepy, in no acute distress Head: Normocephalic, atraumatic. Pulm: Clear to auscultation. No audible wheezing, rales, or rhonchi. Breathing is non-labored. Cardiac: Regular rate, regular rhythm. Normal S1/S2. No appreciable murmurs, gallops, or rubs. GI: Abdomen is soft, non-distended, non-tender. Ext: No peripheral edema. Incision is dressed, no surrounding erythema, dressing is dry Neuro: Alert and oriented x 3. Objective Lab Results Results from last 7 days Lab Units 05/02/22 0513 05/01/22 0615 04/30/22 1138 04/30/22 0621 WBC AUTO 10*3/uL 9.99 11.43* -- 14.69* HEMOGLOBIN g/dL 6.9* 7.1* 7.1* 7.1* HEMATOCRIT % 20.4* 20.9* 20.8* 21.4* PLATELETS AUTO 10*3/uL 522* 457* -- 404* Results from last 7 days Lab Units 04/27/22 0202 APTT Seconds 31.6 INR 0.98 Results from last 7 days Lab Units 05/02/22 0513 05/01/22 0615 04/30/22 0621 SODIUM mmol/L 130* 131* 130* POTASSIUM mmol/L 3.7 3.9 3.2* CHLORIDE mmol/L 96* 96* 95* CO2 mmol/L 31 31 31 BUN mg/dL 11 10 12 CREATININE mg/dL 0.77 0.84 0.81 GLUCOSE mg/dL 96 102* 119* CALCIUM mg/dL 8.8 8.8 8.4* MAGNESIUM mg/dL 1.8* 2.0 1.7* No lab exists for component: TOTALPROTEI, LABBILIRUBIN, TOTALBILIRUB, BILIRUB, BILIRUBIND No results found for: HGBA1C No lab exists for component: TROPI, TROPONIN No lab exists for component: ABGPH, ABGPCO2, ABGPO2, ABGHCO3, ABGBASEDEFIC, [id number], ABGOXYGENSOU No lab exists for component: LACTICACID, PROCALCITON No lab exists for component: CHOLHDL No results found for: WBCU, UROBILINOGEN Medications Scheduled: acetaminophen, 1,000 mg, oral, q8h ALEXIS amLODIPine, 10 mg, oral, Daily calcium, 500 mg, oral, BID with meals cholecalciferol, 2,000 Units, oral, Daily cyclobenzaprine, 5 mg, oral, TID enoxaparin, 30 mg, subcutaneous, BID [START ON 05/04/2022] ergocalciferol, 50,000 Units, oral, Weekly hydrALAZINE, 25 mg, oral, TID lidocaine, 1 patch, topical (top), Daily magnesium oxide, 400 mg, oral, BID Oxygen Therapy, , inhalation, Continuous polyethylene glycol, 17 g, oral, BID sennosides-docusate sodium, 2 tablet, oral, BID Infusions: sodium chloride, 20 mL/hr As Needed: PRN medications: bisacodyl, hydrALAZINE, HYDROmorphone, melatonin, ondansetron ODT OR ondansetron, oxyCODONE, oxyCODONE ASSESSMENT AND PLAN Essential hypertension. Continue current regimen of Norvasc 10, Hydralazine 25 TID. Might consider decreasing hydralazine to Bid if BP remains well controlled and pain improves. Worsening Normocytic Anemia, likely in setting of recent surgery and left hip hematoma, last Hgb 6.9, receiving 1 unit PRBc today per primary, recheck H&H afterwards. Would keep Hgb>7. Fall with resultant closed intertrochanteric fracture of the left femur that is post ORIF left femur 04/27/2022 Vit D deficiency, replacement ordered Nawaf Martines General Internal Medicine Consult Service [place] (more content not included)... [facility] 05-02-2022 Note [facility] ([facility]) is able to accept pt and is in [place] hometown. Discussed with pt and he would rather go there. Asked [facility] to pull the pre-cert that was just started so [place] and start it. Updated AVS. [facility] 05-02-2022 Note Occupational Therapy [facility] [phone] 05/02/22 Pt currently getting one unit of PRBS for hgb of 6.9. Will continue to follow and complete treatment as able. Marcelo OTR/L, MOT OT Check no charge [facility] 05-02-2022 Note Reviewed 2 accepting SNF's with pt and advised him we still had not heard from 3-4 others yet. Pt okay with starting a pre-cert to [facility] in [place]. Sent updates and asked them to start the pre-cert. AVS updated. [facility] 05-02-2022 Note Physical Therapy [facility] 05/02/22 Pt is unable to be seen for therapy at this time secondary to low Hgb of 6.9 . Pt to receive blood transfusion today. PT held- will continue to check back as appropriate. Time attempted: 08:29 PT check- no charge Kathryn Francisco PT, MPT [facility] 05-02-2022 Note [facility] Trauma Surgery PROGRESS NOTE Subjective Patient seen sitting upright in the bedside chair on 6AB this morning. Per nursing staff no acute issues overnight. Hgb 6.9 this morning, 1 unit PRBCs ordered. Patient states his pain is somewhat improved today. He is tolerating a diet and passing gas but has not yet had a bowel movement. Patient is planning to go to SNF at discharge due to fall risk at home with multiple dogs, per patient. Objective Vitals: Vitals: 05/02/22 0940 BP: (!) 166/97 Pulse: 84 Resp: 16 Temp: 36.8 ???C (98.3 ???F) SpO2: I/O last 3 completed shifts: In: 560 (7.6 mL/kg) [P.O.:360; IV Piggyback:200] Out: 1900 (25.9 mL/kg) [Urine:1900 (0.7 mL/kg/hr)] Weight: 73.3 kg No intake/output data recorded. Physical Exam HENT: Head: Normocephalic and atraumatic. Right Ear: External ear normal. Left Ear: External ear normal. Nose: Nose normal. Mouth/Throat: Mouth: Mucous membranes are moist. Eyes: Extraocular Movements: Extraocular movements intact. Pupils: Pupils are equal, round, and reactive to light. Cardiovascular: Rate and Rhythm: Normal rate. Pulmonary: Effort: Pulmonary effort is normal. Abdominal: General: Bowel sounds are normal. There is no distension. Palpations: Abdomen is soft. Tenderness: There is no abdominal tenderness. Musculoskeletal: Cervical back: Neck supple. Comments: Left hip dressing clean dry and intact. Local hip tenderness to palpation, compartments soft. Skin: General: Skin is warm and dry. Capillary Refill: Capillary refill takes less than 2 seconds. Neurological: General: No focal deficit present. Mental Status: He is alert and oriented to person, place, and time. Psychiatric: Mood and Affect: Mood normal. Labs: Lab Results Component Value Date WBC 9.99 05/02/2022 HGB 6.9 (L) 05/02/2022 HCT 20.4 (L) 05/02/2022 PLT 522 (H) 05/02/2022 NA 130 (L) 05/02/2022 K 3.7 05/02/2022 CL 96 (L) 05/02/2022 CO2 31 05/02/2022 BUN 11 05/02/2022 GLUCOSE 96 05/02/2022 CALCIUM 8.8 05/02/2022 MG 1.8 (L) 05/02/2022 PHOS 2.7 05/02/2022 Medications: acetaminophen, 1,000 mg, oral, q8h ALEXIS amLODIPine, 10 mg, oral, Daily calcium, 500 mg, oral, BID with meals cholecalciferol, 2,000 Units, oral, Daily cyclobenzaprine, 5 mg, oral, TID enoxaparin, 30 mg, subcutaneous, BID [START ON 05/04/2022] ergocalciferol, 50,000 Units, oral, Weekly hydrALAZINE, 25 mg, oral, TID lidocaine, 1 patch, topical (top), Daily magnesium oxide, 400 mg, oral, BID magnesium sulfate, 1 g, intravenous, q1h Oxygen Therapy, , inhalation, Continuous polyethylene glycol, 17 g, oral, BID sennosides-docusate sodium, 2 tablet, oral, BID sodium chloride, 20 mL/hr Imaging: XR hip left 2 or 3 views Narrative: XR HIP 2 OR 3 VW LEFT CLINICAL INFORMATION: Intertrochanteric fracture of the hip. COMPARISON: 04/27/2022. Impression: *Comminuted intertrochanteric fracture with surgical fixation left hip, no change in alignment. Displaced fracture involving the lesser trochanter present. Mild degenerative changes of the bilateral hips. Electronically signed: Sylvester Foster. Assessment [facility] is a 47 y.o. male patient who presented to the emergency department as a transfer from [facility] following a fall from a skateboard on 04/27/22 where he sustained a closed comminuted intertrochanteric fracture of the left femur. He is s/p ORIF 04/27/22. Catalogue of injury / Incidental findings / Medical issues: Fall from skateboard Acute comminuted left femoral neck/intertrochanteric fracture Acute blood loss anemia Chronic hyponatremia Leukocytosis, reactive, resolved History of essential hypertension Plan Neuro: Acute postoperative pain -Every 4 hours neuro checks. -PRN pain/nausea medications: Oxycodone 5mg oral q4hr prn for moderate pain, Oxycodone 10mg oral q4hr prn for severe pain, Dilaudid 0.2mg IV q4hr prn for breakthrough pain, and Zofran 4mg IV q6hr prn for nausea. Scheduled Flexeril, Lidocaine patch added 05/01/22. -Limited stimulation environment for closed head injury. CV: Hypertension -Every 4 hours vital signs. -Every 4 hour neurovascular checks. -Amlodipine 5mg oral daily started for HTN. -Hydralazine 10mg IV q6hr prn for SBP >160. -Frequent compartment checks. Respiratory: -Maintain O2 saturation greater than 94%. If respiratory status changes contact trauma service immediately. -IS ten times an hour, every hour while awake. FEN/GI: Hyponatremia / Hypomagnesemia / Hypophosphatemia -IVF: Dced. -Replace electrolytes as needed. -Monitor Na+ 130 (131). -Magnesium oxide 400mg oral BID start 04/28. -Diet: Regular. -Bowel Regimen: Scheduled Senna-Docusate, Miralax, PRN Dulcolax. : -Monitor urinary output. -Q4hr Is/Os. MSK: S/p Left intertrochanteric femur fracture open reduction and internal fixation 04/27/22 -Ortho surgery consultation for fracture; appreciate rec (more content not included)... [facility] 05-02-2022 Note sSubjective NAEON. Denies any new weakness, numbness, tingling. States he was icing overnight. States pain well controlled, prefers chair. Denies new fevers, chills, CP, SOB, NVD, abdominal pain, additional/systemic symptoms. Objective Patient Vitals for the past 24 hrs: BP Temp Temp src Pulse Resp SpO2 Weight 05/02/22 0400 -- -- -- -- -- -- 73.3 kg (161 lb 9.6 oz) 05/01/22 1943 149/76 36.8 ???C (98.2 ???F) Oral 88 16 98 % -- 05/01/22 1600 (!) 179/93 36.9 ???C (98.4 ???F) Oral 106 16 93 % -- Physical Exam Lab Results Component Value Date NA 130 (L) 05/02/2022 K 3.7 05/02/2022 CL 96 (L) 05/02/2022 ANIONGAP 7 05/02/2022 BUN 11 05/02/2022 CREATININE 0.77 05/02/2022 CALCIUM 8.8 05/02/2022 MG 1.8 (L) 05/02/2022 PHOS 2.7 05/02/2022 No results found for: BILITOT, BILIDIR, ALKPHOS, AST, ALT, PROT, ALBUMIN Lab Results Component Value Date WBC 9.99 05/02/2022 RBC 2.25 (L) 05/02/2022 HGB 6.9 (L) 05/02/2022 HCT 20.4 (L) 05/02/2022 MCV 90.7 05/02/2022 MCH 30.7 05/02/2022 MCHC 33.8 05/02/2022 RDW 13.4 05/02/2022 NEUTOPHILPCT 77.5 (H) 04/27/2022 LYMPHOPCT 12.4 (L) 04/27/2022 MONOPCT 8.7 04/27/2022 EOSPCT 0.3 04/27/2022 BASOPCT 0.7 04/27/2022 NEUTROABS 12.92 (H) 04/27/2022 LYMPHSABS 2.06 04/27/2022 MONOSABS 1.45 (H) 04/27/2022 EOSABS 0.05 04/27/2022 BASOSABS 0.11 04/27/2022 PLT 522 (H) 05/02/2022 NRBC 0.0 04/27/2022 General: NAD, resting, Respiratory: normal respiratory effort and rate; no cough Cardiovascular: warm well perfused extremitites Musculoskeletal: Left Lower Extremity - dressing CDI meplex in place, some ecchymosis around the wound, possible hematoma at proximal aspect of wound, small Mildly TTP, TTP throughout Thigh, significant swelling but soft, compressible compartments, sensation intact to light touch over sp/dp/t, brisk capillary refill, motor + to FHL, EHL, PF's & DF's, and wiggles toes === Imaging Orders, Last 24 Hours === XR HIP 2 OR 3 VW LEFT - Impression - There is a new plate and screws hardware apparatus placed reducing the left hip intertrochanteric fracture with mild residual separation of lesser trochanteric fragments There is a healed distal femur fracture with residual heterotopic new bone formation and deformity and cortical remodeling and a retrograde intramedullary nail in place Electronically signed: Brandon Lu. Assessment/Plan Principal Problem: Closed comminuted intertrochanteric fracture of left femur, initial encounter ([facility]) Active Problems: Hypertension Closed displaced intertrochanteric fracture of left femur, initial encounter ([facility]) Patient is a 47 yo M with L basicervical fracture s/p ORIF L femur 04/27/[address] Rodriguez. Plan: -TTWB LLE -AGGRESSIVE ice, elevation Left lower extremity -COMPRESSIVE DRESSING over leg -Pain control - HGB trending 6.9; vitals stable will continue to monitor patient currently not symptomatic, okay to transfuse if patient becomes symptomatic or trends down. -DVT prophylaxis, we recommend at least 4 weeks per primary -PT/OT evaluation and treatment -Incentive spirometer use -Dressings change PRN, -Medical management, pain control, DVT prophylaxis and remainder of care per primary service. -Patient will need follow up with Dr. Rodriguez in 10-14 days Orthopedic Surgery will be signing off patient at this time. Please call with any questions/concerns, or clinical changes. Carla Zafar MD Orthopedic Surgery, PGY-2 Pager [phone] [facility] 05-01-2022 Note JACK harp met with p justin this morning for SNF choices and was told to come back after lunch. JACK harp followed up after lunch and pt then stated he needed his to look over the list but that she would not be in until 11am tomorrow. This handbook writer followed up with pt advising him that we need to at least get referrals out to see who could accept as the entire process likely will take several days. Asked pt if he had a geographic preference and he would like to stay close to home so family can visit. Advised pt we will send 10 referrals to the closest SNF's to his zip code to see what options are available and he was agreeable. [facility] 05-01-2022 Note Attestation signed by Khadijah Elise DO at 05/01/2022 12:18 PM By using the attestations below, the signing clinician agrees that I have read and verify that the documentation has been personally reviewed by me and ensure that the documentation accurately reflects the encounter. GC: I personally saw this patient on the day of the encounter, performed the mena portion(s) of the service and participated in the management and confirm the resident's documentation. Please note there may be an additional personal documentation from me. [facility] Inpatient Progress Note Patient - [facility] Hall Age - 47 y.o. - 1975 Date of Admission - 04/27/2022 1:24 AM Interval history Patient was seen and examined at bedside this morning. He is afebrile and hemodynamically stable, satting well on room air. Not in acute distress. Pain is better today per patient, BP is overall controlled. OBJECTIVE Vitals height is 1.829 m (6') and weight is 73.3 kg (161 lb 9.6 oz). His oral temperature is 36.5 ???C (97.7 ???F). His blood pressure is 159/90 and his pulse is 87. His respiration is 16 and oxygen saturation is 98%. Temp: [36.5 ???C (97.7 ???F)-36.8 ???C (98.2 ???F)] 36.5 ???C (97.7 ???F) Heart Rate: [87-99] 87 Resp: [16-18] 16 BP: (147-161)/(84-90) 159/90 Weight: Admission weight: 68 kg (150 lb) Wt Readings from Last 1 Encounters: 04/30/22 73.3 kg (161 lb 9.6 oz) Input/Output: Intake/Output Summary (Last 24 hours) at 05/01/2022 1000 Last data filed at 05/01/2022 0900 Gross per 24 hour Intake 945 ml Output 500 ml Net 445 ml Physical Examination: General: sleepy, in no acute distress Head: Normocephalic, atraumatic. Pulm: Clear to auscultation. No audible wheezing, rales, or rhonchi. Breathing is non-labored. Cardiac: Regular rate, regular rhythm. Normal S1/S2. No appreciable murmurs, gallops, or rubs. GI: Abdomen is soft, non-distended, non-tender. Ext: No peripheral edema. Incision is dressed, no surrounding erythema, dressing is dry Neuro: Alert and oriented x 3. Objective Lab Results Results from last 7 days Lab Units 05/01/22 0615 04/30/22 1138 04/30/22 0604/29/22 0629 WBC AUTO 10*3/uL 11.43* -- 14.69* 14.41* HEMOGLOBIN g/dL 7.1* 7.1* 7.1* 7.9* HEMATOCRIT % 20.9* 20.8* 21.4* 23.6* PLATELETS AUTO 10*3/uL 457* -- 404* 390 Results from last 7 days Lab Units 04/27/22 0202 APTT Seconds 31.6 INR 0.98 Results from last 7 days Lab Units 05/01/22 0615 04/30/22 0604/29/22 0629 SODIUM mmol/L 131* 130* 132* POTASSIUM mmol/L 3.9 3.2* 3.7 CHLORIDE mmol/L 96* 95* 99 CO2 mmol/L 31 31 31 BUN mg/dL 10 12 14 CREATININE mg/dL 0.84 0.81 0.86 GLUCOSE mg/dL 102* 119* 102* CALCIUM mg/dL 8.8 8.4* 8.4* MAGNESIUM mg/dL 2.0 1.7* 1.9 No lab exists for component: TOTALPROTEI, LABBILIRUBIN, TOTALBILIRUB, BILIRUB, BILIRUBIND No results found for: HGBA1C No lab exists for component: TROPI, TROPONIN No lab exists for component: ABGPH, ABGPCO2, ABGPO2, ABGHCO3, ABGBASEDEFIC, [id number], ABGOXYGENSOU No lab exists for component: LACTICACID, PROCALCITON No lab exists for component: CHOLHDL No results found for: WBCU, UROBILINOGEN Medications Scheduled: acetaminophen, 1,000 mg, oral, q8h ALEXIS amLODIPine, 10 mg, oral, Daily calcium, 500 mg, oral, BID with meals ceFAZolin, 2 g, intravenous, q8h cholecalciferol, 2,000 Units, oral, Daily cyclobenzaprine, 5 mg, oral, TID enoxaparin, 30 mg, subcutaneous, BID [START ON 05/04/2022] ergocalciferol, 50,000 Units, oral, Weekly gabapentin, 100 mg, oral, TID hydrALAZINE, 25 mg, oral, TID lidocaine, 1 patch, topical (top), Daily magnesium oxide, 400 mg, oral, BID Oxygen Therapy, , inhalation, Continuous polyethylene glycol, 17 g, oral, BID sennosides-docusate sodium, 2 tablet, oral, BID Infusions: As Needed: PRN medications: bisacodyl, hydrALAZINE, HYDROmorphone, melatonin, ondansetron ODT OR ondansetron, oxyCODONE, oxyCODONE ASSESSMENT AND PLAN Essential hypertension, better controlled. Continue current regimen of Norvasc 10, Hydralazine 25 TID. Might consider decreasing hydralazine to Bid if BP remains well controlled and pain improves. Hypomagnesemia, replaced/resolved Hypokalemia, replaced. Normocytic Anemia, likely worsened from surgery, monitor trend. Currently no chest pain or shortness of breath. OP recheck and work up if needed. Fall with resultant closed intertrochanteric fracture of the left femur that is post ORIF left femur 04/27/2022 Vit D deficiency, replacement ordered Nawaf Martines General Internal Medicine Consult Service [facility] 05-01-2022 Note [facility] Trauma Surgery DAILY PROGRESS NOTE Subjective Patient seen sitting upright in the bedside chair on 6AB this morning. Per nursing staff no acute issues overnight. Patient reports persistent pain even with scheduled and PRN pain regimen. Patient states he is tolerating a diet without any nausea or vomiting. Objective Vitals: Vitals: 05/01/22 0700 BP: 159/90 Pulse: 87 Resp: 16 Temp: 36.5 ???C (97.7 ???F) SpO2: 98% I/O last 3 completed shifts: In: 1155 (15.8 mL/kg) [I.V.:355 (4.8 mL/kg); IV Piggyback:800] Out: 500 (6.8 mL/kg) [Urine:500 (0.2 mL/kg/hr)] Weight: 73.3 kg No intake/output data recorded. Physical Exam HENT: Head: Normocephalic and atraumatic. Right Ear: External ear normal. Left Ear: External ear normal. Nose: Nose normal. Mouth/Throat: Mouth: Mucous membranes are moist. Eyes: Extraocular Movements: Extraocular movements intact. Pupils: Pupils are equal, round, and reactive to light. Cardiovascular: Rate and Rhythm: Normal rate. Pulmonary: Effort: Pulmonary effort is normal. Abdominal: General: Bowel sounds are normal. There is no distension. Palpations: Abdomen is soft. Tenderness: There is no abdominal tenderness. Musculoskeletal: Cervical back: Neck supple. Comments: Left hip dressing clean dry and intact. Local hip tenderness to palpation, compartments soft. Skin: General: Skin is warm and dry. Capillary Refill: Capillary refill takes less than 2 seconds. Neurological: General: No focal deficit present. Mental Status: He is alert and oriented to person, place, and time. Psychiatric: Mood and Affect: Mood normal. Labs: Lab Results Component Value Date WBC 11.43 (H) 05/01/2022 HGB 7.1 (L) 05/01/2022 HCT 20.9 (L) 05/01/2022 PLT 457 (H) 05/01/2022 NA 131 (L) 05/01/2022 K 3.9 05/01/2022 CL 96 (L) 05/01/2022 CO2 31 05/01/2022 BUN 10 05/01/2022 GLUCOSE 102 (H) 05/01/2022 CALCIUM 8.8 05/01/2022 MG 2.0 05/01/2022 PHOS 2.8 05/01/2022 Medications: acetaminophen, 1,000 mg, oral, q8h ALEXIS amLODIPine, 10 mg, oral, Daily calcium, 500 mg, oral, BID with meals ceFAZolin, 2 g, intravenous, q8h cholecalciferol, 2,000 Units, oral, Daily enoxaparin, 30 mg, subcutaneous, BID [START ON 05/04/2022] ergocalciferol, 50,000 Units, oral, Weekly hydrALAZINE, 25 mg, oral, TID magnesium oxide, 400 mg, oral, BID Oxygen Therapy, , inhalation, Continuous polyethylene glycol, 17 g, oral, Daily sennosides-docusate sodium, 2 tablet, oral, BID Imaging: XR hip left 2 or 3 views Narrative: History: Follow-up hip fracture EXAM: AP pelvis AP and frog-leg left hip/femur COMPARISON: Earlier the same day FINDINGS: There is a retrograde intramedullary nail reducing the old healed distal femoral shaft fracture deformity There is chronic heterotopic ossification around the healed distal femur fracture There is a new intertrochanteric fracture with new lateral plate and screw hardware apparatus placed using the fracture There is near anatomic reduction There is mild residual separation of a lesser trochanteric fragment The pelvic ring looks relatively symmetric The alignment of the hips looks anatomic There is degenerative change at the hips Postoperative gas and skin tadeo noted Impression: There is a new plate and screws hardware apparatus placed reducing the left hip intertrochanteric fracture with mild residual separation of lesser trochanteric fragments There is a healed distal femur fracture with residual heterotopic new bone formation and deformity and cortical remodeling and a retrograde intramedullary nail in place Electronically signed: Brandon Lu. [place] in [place] Narrative: Study: Left hip and fluoroscopic guided Sign And Symptoms:Proximal left femur fracture, ORIF . Comparison: None. Findings: AP and lateral fluoroscopic views left hip demonstrates ORIF proximal femur fracture with fluoroscopic guidance. Reference air kerma is 32.96 mGy. Impression: Impression: *ORIF proximal femur fracture with fluoroscopic guidance. Electronically signed: Pawel Powers. XR femur left 2+ views Narrative: XR FEMUR 2+ VW LEFT 04/27/2022 2:01 AM CLINICAL INDICATIONS: Fall, left hip pain, deformity COMPARISON: Left femur radiograph 04/26/2022 FINDINGS: Comminuted fracture of the left femoral neck. There is likely an intertrochanteric fracture as well. The femoral head appears to be articulating with the acetabulum appropriately. Medialized fracture fragment measuring 6.1 cm. Patient has intramedullary russ within the left femur. There is chronic appearing osseous remodeling of the distal femur without evidence of acute fracture. This is likely related to prior injury. Partially visualized knee joint is unremarkable. Impression: Acute comminuted left femoral neck/intertrochanteric fracture. Approved by:Francisco Sepulveda04/27/2022 2:37 AM. I, Mason Love,have reviewed the jaden (more content not included)... [facility] 05-01-2022 Note sSubjective NAEON. Denies any new weakness, numbness, tingling. States he was icing overnight. States pain well controlled if not moving. Denies new fevers, chills, CP, SOB, NVD, abdominal pain, additional/systemic symptoms. Objective Patient Vitals for the past 24 hrs: BP Temp Temp src Pulse Resp SpO2 05/01/22 0700 159/90 36.5 ???C (97.7 ???F) Oral 87 16 98 % 04/30/222024 147/89 36.8 ???C (98.2 ???F) -- 97 18 96 % 04/30/22 1515 161/84 36.6 ???C (97.8 ???F) Oral 99 18 100 % Physical Exam Lab Results Component Value Date NA 131 (L) 05/01/2022 K 3.9 05/01/2022 CL 96 (L) 05/01/2022 ANIONGAP 8 05/01/2022 BUN 10 05/01/2022 CREATININE 0.84 05/01/2022 CALCIUM 8.8 05/01/2022 MG 2.0 05/01/2022 PHOS 2.8 05/01/2022 No results found for: BILITOT, BILIDIR, ALKPHOS, AST, ALT, PROT, ALBUMIN Lab Results Component Value Date WBC 11.43 (H) 05/01/2022 RBC 2.27 (L) 05/01/2022 HGB 7.1 (L) 05/01/2022 HCT 20.9 (L) 05/01/2022 MCV 92.1 05/01/2022 MCH 31.3 05/01/2022 MCHC 34.0 05/01/2022 RDW 13.4 05/01/2022 NEUTOPHILPCT 77.5 (H) 04/27/2022 LYMPHOPCT 12.4 (L) 04/27/2022 MONOPCT 8.7 04/27/2022 EOSPCT 0.3 04/27/2022 BASOPCT 0.7 04/27/2022 NEUTROABS 12.92 (H) 04/27/2022 LYMPHSABS 2.06 04/27/2022 MONOSABS 1.45 (H) 04/27/2022 EOSABS 0.05 04/27/2022 BASOSABS 0.11 04/27/2022 PLT 457 (H) 05/01/2022 NRBC 0.0 04/27/2022 General: NAD, resting, Respiratory: normal respiratory effort and rate; no cough Cardiovascular: warm well perfused extremitites Musculoskeletal: Left Lower Extremity - dressing with a little strikethrough TTP about incision meplex changed at bedside, some ecchymosis around the wound, possible hematoma at proximal aspect of wound, small Mildly TTP, TTP throughout Thigh, significant swelling but soft, compressible compartments, sensation intact to light touch over sp/dp/t, brisk capillary refill, motor + to FHL, EHL, PF's & DF's, and wiggles toes === Imaging Orders, Last 24 Hours === XR HIP 2 OR 3 VW LEFT - Impression - There is a new plate and screws hardware apparatus placed reducing the left hip intertrochanteric fracture with mild residual separation of lesser trochanteric fragments There is a healed distal femur fracture with residual heterotopic new bone formation and deformity and cortical remodeling and a retrograde intramedullary nail in place Electronically signed: Brandon Lu. Assessment/Plan Principal Problem: Closed comminuted intertrochanteric fracture of left femur, initial encounter ([facility] Active Problems: Hypertension Closed displaced intertrochanteric fracture of left femur, initial encounter ([facility] Patient is a 47 yo M with L basicervical fracture s/p ORIF L femur 04/27/[address] Rodriguez. Plan: -TTWB LLE -AGGRESSIVE ice, elevation Left lower extremity -COMPRESSIVE DRESSING over leg -Pain control - HGB trending downward 7.1 this AM; vitals stable will continue to monitor patient currently not symptomatic. -DVT prophylaxis, we recommend at least 4 weeks per primary -PT/OT evaluation and treatment -Incentive spirometer use -Dressings change PRN, -Medical management, pain control, DVT prophylaxis and remainder of care per primary service. Carla Zafar MD [facility] 04-30-2022 Note Attestation signed by Reyes Fried MD at 05/23/2022 11:21 AM I personally saw and examined the patient on the same date of service as resident/fellow Janiya Del Castillo MD. I discussed the findings and therapeutic plan with the resident/fellow Janiya Del Castillo MD. I reviewed the patient's events and examined the patient. I viewed the relevant imaging and reviewed recent laboratory results. Co-morbidities addressed and medications reconciled. The plan of care reviewed with the team. I agree with the findings and the plan of care as documented in the detailed note with the following points of emphasis: Patient condition serious at the time of examination on 2022. Is a 47-year-old male who presented with a fall that resulted in closed comminuted intertrochanteric fracture of the left femur patient was also found to have hypertension and closed head injury, patient was admitted for pain management and case discussed with orthopedics for operative intervention of his fracture, patient continued to have left hip pain and is given pain medications appropriately, on physical exam, swelling in the left thigh has decreased from yesterday, vital signs stable pressure 160/84 pulse 99, afebrile, no new findings Hb 7.1, HCT 20.8,, NA 130 K3.2, CO2 31, BUN 12, CR 0.81, hyponatremia and hypomagnesemia have been corrected, patient continued to receive Tylenol 1 g p.o. every 8 hours, amlodipine 10 mg p.o. daily, calcium 500 mg p.o. twice daily, cefazolin 2 g IV every 8 hours, cholecalciferol 2000 units p.o. daily, enoxaparin 30 mg SQ twice daily, hydralazine 25 mg p.o. 3 times daily, magnesium oxide 400 mg p.o. twice daily, continue to work with PT/OT, incentive spirometry encouraged, [facility] Trauma Surgery DAILY PROGRESS NOTE Subjective Patient frustated this AM due to issues with his phone. States he is fine repeatedly. No nausea, vomiting. States he has not had a BM in several days, but notes he is usually constipated. Ros otherwise negative Objective Vitals: Vitals: 04/30/22 1515 BP: 161/84 Pulse: 99 Resp: 18 Temp: 36.6 ???C (97.8 ???F) SpO2: 100% I/O last 3 completed shifts: In: 400 (5.5 mL/kg) [IV Piggyback:400] Out: 750 (10.2 mL/kg) [Urine:750 (0.3 mL/kg/hr)] Weight: 73.3 kg I/O this shift: In: 755 [I.V.:355; IV Piggyback:400] Out: 500 [Urine:500] Physical Exam General Appearance: Awake, Alert & Oriented x3, No Acute Distress Pulmonary: EWOB Cardiac: Regular rate Abdomen: soft, nontender nondistended Extremity: No edema Bilateral Upper and lower Extremities Skin: warm and dry without rash Eyes: no scleral icterus Labs: Results from last 7 days Lab Units 04/30/22 1138 04/30/22 0621 04/29/22 0629 04/28/22 2121 04/28/22 1437 04/28/22 0608 04/27/22 0202 WBC AUTO 10*3/uL -- 14.69* 14.41* -- -- 17.19* 16.66* HEMOGLOBIN g/dL 7.1* 7.1* 7.9* 7.7* 7.8* 8.3* 11.1* HEMATOCRIT % 20.8* 21.4* 23.6* 22.0* 23.7* 25.1* 32.4* PLATELETS AUTO 10*3/uL -- 404* 390 -- -- 404* 432* Results from last 7 days Lab Units 04/30/22 0621 04/29/22 0629 04/28/22 0608 04/27/22 0202 SODIUM mmol/L 130* 132* 129* 131* POTASSIUM mmol/L 3.2* 3.7 4.1 3.7 CO2 mmol/L 31 31 25 28 BUN mg/dL 12 14 22 16 CREATININE mg/dL 0.81 0.86 1.26 1.30 Results from last 7 days Lab Units 04/27/22 0202 INR 0.98 Medications: acetaminophen, 1,000 mg, oral, q8h ALEXIS amLODIPine, 10 mg, oral, Daily calcium, 500 mg, oral, BID with meals ceFAZolin, 2 g, intravenous, q8h cholecalciferol, 2,000 Units, oral, Daily enoxaparin, 30 mg, subcutaneous, BID [START ON 05/04/2022] ergocalciferol, 50,000 Units, oral, Weekly hydrALAZINE, 25 mg, oral, TID magnesium oxide, 400 mg, oral, BID Oxygen Therapy, , inhalation, Continuous polyethylene glycol, 17 g, oral, Daily sennosides-docusate sodium, 2 tablet, oral, BID Imaging: XR hip left 2 or 3 views Narrative: History: Follow-up hip fracture EXAM: AP pelvis AP and frog-leg left hip/femur COMPARISON: Earlier the same day FINDINGS: There is a retrograde intramedullary nail reducing the old healed distal femoral shaft fracture deformity There is chronic heterotopic ossification around the healed distal femur fracture There is a new intertrochanteric fracture with new lateral plate and screw hardware apparatus placed using the fracture There is near anatomic reduction There is mild residual separation of a lesser trochanteric fragment The pelvic ring looks relatively symmetric The alignment of the hips looks anatomic There is degenerative change at the hips Postoperative gas and skin tadeo noted Impression: There is a new plate and screws hardware apparatus placed reducing the left hip intertrochanteric fra (more content not included)... [facility] 04-30-2022 Note Pt okay to see per Tia Victor RN states pt has not wanted to move back to bed from chair since he worked with PT yesterday. RECEIVABLE CLERK enters room and pt is reclined in chair and declines PT,saying he was just moving a little bit ago and is worn out from it. [employer] explains negative impact of declining PT and pt states it's okay, I'm good for today ma'am. Pt's call light is in reach when handbook writer leaves room. CNC. [facility] 04-30-2022 Note Attestation signed by Khadijah Elise DO at 04/30/2022 9:44 PM By using the attestations below, the signing clinician agrees that I have read and verify that the documentation has been personally reviewed by me and ensure that the documentation accurately reflects the encounter. GC: I personally saw this patient on the day of the encounter, performed the mena portion(s) of the service and participated in the management and confirm the resident's documentation. Please note there may be an additional personal documentation from me. GI Inpatient Progress Note Patient - Parish Hall Age - 47 y.o. - 1975 Date of Admission - 04/27/2022 1:24 AM Interval history Patient was seen and examined at bedside this morning. He is afebrile and hemodynamically stable, satting well on room air. Not in acute distress. Per patient, pain is slightly better and well controlled by pain meds. BP is overall controlled. OBJECTIVE Vitals height is 1.829 m (6') and weight is 73.3 kg (161 lb 9.6 oz). His oral temperature is 37 ???C (98.6 ???F). His blood pressure is 137/89 and his pulse is 93. His respiration is 16 and oxygen saturation is 99%. Temp: [36.7 ???C (98 ???F)-37 ???C (98.6 ???F)] 37 ???C (98.6 ???F) Heart Rate: [89-95] 93 Resp: [16-19] 16 BP: (137-167)/(75-89) 137/89 Weight: Admission weight: 68 kg (150 lb) Wt Readings from Last 1 Encounters: 04/30/22 73.3 kg (161 lb 9.6 oz) Input/Output: Intake/Output Summary (Last 24 hours) at 04/30/2022 1102 Last data filed at 04/30/2022 0900 Gross per 24 hour Intake 210 ml Output -- Net 210 ml Physical Examination: General: sleepy, in no acute distress Head: Normocephalic, atraumatic. Pulm: Clear to auscultation. No audible wheezing, rales, or rhonchi. Breathing is non-labored. Cardiac: Regular rate, regular rhythm. Normal S1/S2. No appreciable murmurs, gallops, or rubs. GI: Abdomen is soft, non-distended, non-tender. Ext: No peripheral edema. Incision is dressed, no surrounding erythema, dressing is dry Neuro: Alert and oriented x 3. Objective Lab Results Results from last 7 days Lab Units 04/30/22 0621 04/29/22 0629 04/28/22 2121 04/28/22 1437 04/28/22 0608 WBC AUTO 10*3/uL 14.69* 14.41* -- -- 17.19* HEMOGLOBIN g/dL 7.1* 7.9* 7.7* < > 8.3* HEMATOCRIT % 21.4* 23.6* 22.0* < > 25.1* PLATELETS AUTO 10*3/uL 404* 390 -- -- 404* < > = values in this interval not displayed. Results from last 7 days Lab Units 04/27/22 0202 APTT Seconds 31.6 INR 0.98 Results from last 7 days Lab Units 04/30/22 0621 04/29/22 0629 04/28/22 0608 SODIUM mmol/L 130* 132* 129* POTASSIUM mmol/L 3.2* 3.7 4.1 CHLORIDE mmol/L 95* 99 98 CO2 mmol/L 31 31 25 BUN mg/dL 12 14 22 CREATININE mg/dL 0.81 0.86 1.26 GLUCOSE mg/dL 119* 102* 99 CALCIUM mg/dL 8.4* 8.4* 8.3* MAGNESIUM mg/dL 1.7* 1.9 1.7* No lab exists for component: TOTALPROTEI, LABBILIRUBIN, TOTALBILIRUB, BILIRUB, BILIRUBIND No results found for: HGBA1C No lab exists for component: TROPI, TROPONIN No lab exists for component: ABGPH, ABGPCO2, ABGPO2, ABGHCO3, ABGBASEDEFIC, [id number], ABGOXYGENSOU No lab exists for component: LACTICACID, PROCALCITON No lab exists for component: CHOLHDL No results found for: WBCU, UROBILINOGEN Medications Scheduled: acetaminophen, 1,000 mg, oral, q8h ALEXIS amLODIPine, 10 mg, oral, Daily calcium, 500 mg, oral, BID with meals ceFAZolin, 2 g, intravenous, q8h cholecalciferol, 2,000 Units, oral, Daily enoxaparin, 30 mg, subcutaneous, BID [START ON 05/04/2022] ergocalciferol, 50,000 Units, oral, Weekly hydrALAZINE, 25 mg, oral, TID magnesium oxide, 400 mg, oral, BID magnesium sulfate, 1 g, intravenous, q1h Oxygen Therapy, , inhalation, Continuous polyethylene glycol, 17 g, oral, Daily potassium chloride, 10 mEq, intravenous, q1h sennosides-docusate sodium, 2 tablet, oral, BID Infusions: As Needed: PRN medications: hydrALAZINE, HYDROmorphone, melatonin, ondansetron ODT OR ondansetron, oxyCODONE, oxyCODONE ASSESSMENT AND PLAN Essential hypertension, better controlled, 137/89 this morning. Likely a result of better pain control and current antihypertensive regimen. Continue current Norvasc 10, Hydralazine 25 TID. Might consider decreasing hydralazine to Bid if BP remains well controlled and pain improves. Hypomagnesemia, replaced Hypokalemia, being replaced per primary. Anemia, likely worsened from surgery, monitor trend. Currently no chest pain or shortness of breath. OP recheck and work up if needed Fall with resultant closed intertrochanteric fracture of the left femur that is post ORIF left femur 04/27/2022 Vit D deficiency, replacement ordered Kuldeep-Anyi [facility] Consu (more content not included)... [facility] 04-30-2022 Note Subjective NAEON. Denies any new weakness, numbness, tingling. States he was icing overnight. He was sleeping soundly upon entering the room. States pain well controlled if not moving. Denies new fevers, chills, CP, SOB, NVD, abdominal pain, additional/systemic symptoms. Objective Patient Vitals for the past 24 hrs: BP Temp Temp src Pulse Resp SpO2 Weight 04/30/22 0641 137/89 37 ???C (98.6 ???F) Oral 93 16 99 % -- 04/30/22 0430 -- -- -- -- -- -- 73.3 kg (161 lb 9.6 oz) 04/29/22 2038 167/84 36.8 ???C (98.3 ???F) Oral 89 18 98 % -- 04/29/22 1522 154/75 36.7 ???C (98 ???F) Oral 95 19 95 % -- 04/29/22 1000 -- -- -- -- -- 98 % -- 04/29/22 0850 (!) 177/107 -- -- -- -- -- -- Physical Exam Lab Results Component Value Date NA 130 (L) 04/30/2022 K 3.2 (L) 04/30/2022 CL 95 (L) 04/30/2022 ANIONGAP 7 04/30/2022 BUN 12 04/30/2022 CREATININE 0.81 04/30/2022 CALCIUM 8.4 (L) 04/30/2022 MG 1.7 (L) 04/30/2022 PHOS 2.3 (L) 04/30/2022 No results found for: BILITOT, BILIDIR, ALKPHOS, AST, ALT, PROT, ALBUMIN Lab Results Component Value Date WBC 14.69 (H) 04/30/2022 RBC 2.33 (L) 04/30/2022 HGB 7.1 (L) 04/30/2022 HCT 21.4 (L) 04/30/2022 MCV 91.8 04/30/2022 MCH 30.5 04/30/2022 MCHC 33.2 04/30/2022 RDW 13.3 04/30/2022 NEUTOPHILPCT 77.5 (H) 04/27/2022 LYMPHOPCT 12.4 (L) 04/27/2022 MONOPCT 8.7 04/27/2022 EOSPCT 0.3 04/27/2022 BASOPCT 0.7 04/27/2022 NEUTROABS 12.92 (H) 04/27/2022 LYMPHSABS 2.06 04/27/2022 MONOSABS 1.45 (H) 04/27/2022 EOSABS 0.05 04/27/2022 BASOSABS 0.11 04/27/2022 PLT 404 (H) 04/30/2022 NRBC 0.0 04/27/2022 General: NAD, resting, Respiratory: normal respiratory effort and rate; no cough Cardiovascular: warm well perfused extremitites Musculoskeletal: Left Lower Extremity - dressing with a little strikethrough TTP about incision, some ecchymosis around the wound, TTP Thigh, significant swelling but soft, compressible compartments, sensation intact to light touch over sp/dp/t, brisk capillary refill, motor + to FHL, EHL, PF's & DF's, and wiggles toes === Imaging Orders, Last 24 Hours === XR HIP 2 OR 3 VW LEFT - Impression - There is a new plate and screws hardware apparatus placed reducing the left hip intertrochanteric fracture with mild residual separation of lesser trochanteric fragments There is a healed distal femur fracture with residual heterotopic new bone formation and deformity and cortical remodeling and a retrograde intramedullary nail in place Electronically signed: Brandon Lu. Assessment/Plan Principal Problem: Closed comminuted intertrochanteric fracture of left femur, initial encounter ([facility]) Active Problems: Hypertension Closed displaced intertrochanteric fracture of left femur, initial encounter ([facility]) Patient is a 47 yo M with L basicervical fracture s/p ORIF L femur 04/27/[address] Rodriguez. Plan: -TTWB LLE -AGGRESSIVE ice, elevation Left lower extremity -Pain control - HGB trending downward 7.1 this AM; vitals stable will continue to monitor patient currently not symptomatic. -DVT prophylaxis, we recommend at least 4 weeks per primary -PT/OT evaluation and treatment -Incentive spirometer use -Dressings change PRN, -Medical management, pain control, DVT prophylaxis and remainder of care per primary service. Jeannette Russo MD [facility] 04-29-2022 Note Physical Therapy Physical Therapy Evaluation Patient Name: Parish Hall : 1975 Today's Date: 04/29/2022 POD 2 ORIF L hip s/p fall from [place] General Family/Caregiver Present: No Subjective: Pt agreeable for co eval with OT/PT after earlier attempt. Pt up in recliner following with calllight and tray table, ice pack to LLE in place, legs elevated. RN aware Patient Active Problem List Diagnosis Closed comminuted intertrochanteric fracture of left femur, initial encounter ([facility]) Bipolar I disorder, most recent episode depressed ([facility]) Elevated WBCs Hypertension Closed displaced intertrochanteric fracture of left femur, initial encounter ([facility]) Past Medical History: Diagnosis Date Bipolar I disorder, most recent episode depressed ([facility]) 09/25/2017 Hypertension 04/27/2022 Past Surgical History: Procedure Laterality Date LEG SURGERY Left LEG SURGERY Right Pain Pain Assessment Pain Assessment: 0-10 Pain Score: 7 Pain Type: Surgical pain, Acute pain Pain Location: Leg Pain Orientation: Left, Outer, Lower Pain Radiating Towards: knee Pain Descriptors: Aching, Nagging Pain Frequency: Constant/continuous Pain Onset: Ongoing Clinical Progression: Gradually improving Effect of Pain on Daily Activities: (limited activity tolerance) Patient's Stated Pain Goal: No pain Response to Interventions: (Pt able to work through mobilization to chair with therapy) Home Living Home Living Type of Home: House Lives With: Spouse, Family (children) Home Adaptive Equipment: None Home Living Comments: pt verbalizing multiple concerns/stressors regarding home set up and family dynamics Home Layout: Two level, Able to live on main level with bedroom/bathroom, Full bath main level (shower stall is not functional, only has jacuzzi tub on main floor) Home Access: Stairs to enter without rails Entrance Stairs-Rails: None Entrance Stairs-Number of Steps: 6 Bathroom Shower/Tub: (tub shower upstairs) Bathroom Toilet: Standard Bathroom Equipment: None Prior Level of Function Prior Function Level of [place]: Independent with ADLs and functional transfers, Independent with homemaking with ambulation ADL Assistance: Independent Homemaking Assistance: Independent 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, does not drive Objective Precautions Precautions LE Weight Bearing Status: Left, TTWB Medical Precautions: fall risk Cognition Cognition Arousal/Alertness: Appropriate responses to stimuli Orientation Level: Oriented X4 Following Commands: Follows all commands and directions without difficulty Safety Judgment: Decreased awareness of need for safety, Decreased awareness of need for assistance Awareness of Errors: Assistance required to correct errors made, Assistance required to identify errors made Deficits: Decreased awareness of deficits Attention Span: Attends with cues to redirect Memory: Appears intact Problem Solving: Assistance required to implement solutions, Assistance required to generate solutions, Assistance required to identify errors made Cognition Comments: Pt is anxious, , impulsive and verbal regarding interations, generally cooperative with step by step education of mobility General Assessments Activity Tolerance Ambulation comments: (unable this date) Endurance: Stage I Number of Rest Breaks: 3 Sensation Light Touch: No apparent deficits Postural Control Postural Control: Within Functional Limits Righting Reactions: liited by LLE positioning- pt keeps LLE up onto bed will not attempt dangling ( to place foot on floor) Static Sitting Balance Static Sitting-Balance Support: Right upper extremity supported, Left upper extremity supported (RLE flat on floor, LLE extending up onto bed) Static Sitting-Level of Assistance: Contact guard Static Sitting-Comment/Number of Minutes: 3 Dynamic Sitting Balance Dynamic Sitting-Balance: Forward lean Dynamic Sitting Balance-Level of Assistance: (as above , pt unable to short sit) Dynamic Sitting-Comments: 1 Static Standing Balance Static Standing-Comment/Number of Minutes: NT Dynamic Standing Balance Dynamic Standing-Comments: NT Functional Assessments Bed Mobility Bed Mobility: Yes Bed Mobility 1 Bed Mobility From 1: Supine Bed Mobility Type 1: To Bed Mobility to 1: Long sit (R LE flexed with foot on floor, LLE extended out on bed or in therapists hands) Level of Assistance 1: Minimum assistance Bed Mobility Comments 1: pt manages upeer body and scooting well. assist for LLE Transfers Transfer: Yes Transfer 1 Transfer From 1: Bed Transfer Type 1: To Transfer to 1: Chair with arms Technique 1: Sit pivot, Lateral Transfer Device 1: none Transfer Level of Assistance 1: Minimum assistance (2 assist) Trials/Comments 1: Pt did not stand up fully or lower LLE to perform stand pivot, pt able to bradly (more content not included)... [facility] 04-29-2022 Note Occupational Therapy Occupational Therapy Evaluation Patient Name: Parish Hall : 1975 Today's Date: 04/29/2022 Time in: 1445 Time out: 1511 Surgery type: ORIF L IT femur fx Surgery date: 04/27/22 General Subjective: 47yoM presents s/p fall while longboarding. Pt sustained L IT femur fx. h/o of a retrograde left femoral nail placed in 1999 due to a distal femur fracture. Pt also with h/o kwasi tib/fib fxs Family/Caregiver Present: No RN ok for pt to be seen at this time. Pt semi-fowleers upon arrival and agreeable to session with encouragement. Pt completed functional tasks, functional transfers. Pt was left in recliner with call light and needs in reach. RN aware of pt performance. Patient Active Problem List Diagnosis Closed comminuted intertrochanteric fracture of left femur, initial encounter ([facility]) Bipolar I disorder, most recent episode depressed ([facility]) Elevated WBCs Hypertension Closed displaced intertrochanteric fracture of left femur, initial encounter ([facility]) Past Medical History: Diagnosis Date Bipolar I disorder, most recent episode depressed ([facility]) 09/25/2017 Hypertension 04/27/2022 Past Surgical History: Procedure Laterality Date LEG SURGERY Left LEG SURGERY Right Pain Pain Assessment Pain Assessment: 0-10 Pain Score: 7 Pain Type: Surgical pain, Acute pain Pain Location: Leg Pain Orientation: Left Precautions Precautions LE Weight Bearing Status: Left, TTWB Medical Precautions: fall risk, IV Home Living Home Living Type of Home: House Lives With: Spouse, Family Home Adaptive Equipment: None Home Layout: Two level, Full bath main level (bedroom on main level) Home Access: Stairs to enter with rails Entrance Stairs-Number of Steps: 6 Bathroom Shower/Tub: Tub only (tub shower on second level) Bathroom Toilet: Standard Bathroom Equipment: None Prior Level of Function Prior Function Level of [place]: Independent with ADLs and functional transfers, Independent with homemaking with ambulation ADL Assistance: Independent Homemaking Assistance: Independent Prior IADLs IADL History Homemaking Responsibilities: Yes Meal Prep Responsibility: Secondary Laundry Responsibility: Secondary Cleaning Responsibility: Secondary Current License: No Cognition Cognition Orientation Level: Oriented X4 Safety Judgment: Decreased awareness of need for assistance, Decreased awareness of need for safety Deficits: Decreased awareness of deficits Cognition Comments: Pt with increased anxiety, slightly impusive, pt likes to be informed of plan and timing of therapy. Static Sitting Balance Static Sitting Balance Static Sitting-Balance Support: Feet supported, Left upper extremity supported, Right upper extremity supported Static Sitting-Level of Assistance: Contact guard Dynamic Sitting Balance Dynamic Sitting Balance Dynamic Sitting-Balance Support: Left upper extremity supported, Right upper extremity supported, Feet supported Dynamic Sitting-Balance: Forward lean, Lateral lean (difficulty 2o pain) Static Standing Balance Dynamic Standing Balance Bed Mobility Bed Mobility Bed Mobility: Yes Bed Mobility 1 Bed Mobility From 1: Supine Bed Mobility Type 1: To and from Bed Mobility to 1: Short sit (partial short sit, LLE still extended on bed.) Level of Assistance 1: Minimum assistance (assist with LLE) Transfers Transfers Transfer: Yes Transfer 1 Transfer From 1: Bed, Sit Transfer Type 1: To Transfer to 1: Chair with arms Technique 1: Sit pivot, Lateral (with assist to hold LLE straight throughout entire transfers.) Transfer Device 1: none General Assessments ADL Grooming Assistance: Stand by Bathing Assistance: Moderate UE Dressing Assistance: Minimal LE Dressing Assistance: Maximal Activity Tolerance Endurance: Stage I Stage I (METs 1.0-1.4) - Sitting: <5 mins Sensation Light Touch: No apparent deficits Hand Function Gross Grasp: Functional Coordination: Functional Extremity Assessments RUE Assessment RUE Assessment: Within Functional Limits LUE Assessment LUE Assessment: Within Functional Limits Outcome Assessments AM-PAC 6 Clicks Putting on and taking off regular lower body clothing?: A Lot (Mod/Max Assist) Bathing(Including washing,rinsing,drying)?: A Lot (Mod/Max Assist) Toileting, which includes using the toilet,bedpan,or urinal?: A Lot (Mod/Max Assist) Putting on and taking off regular upper body clothing?: A Little (Min Assist/Contact Guard/Supervision) Taking care of personal grooming such as brushing teeth?: A Little (Min Assist/Contact Guard/Supervision) Eating meals?: None (Independent) Total Score OT [facility]: 16 Assessment/Plan OT Assessment OT Impairments: Decreased ADL status, Decreased safe judgment during ADL, Decreased endurance, Decreased functional mobility, Decreased IADLs, Decre (more content not included)... [facility] 04-29-2022 Note Attestation signed by Khadijah Elise DO at 04/29/2022 12:34 PM By using the attestations below, the signing clinician agrees that I have read and verify that the documentation has been personally reviewed by me and ensure that the documentation accurately reflects the encounter. GC: I personally saw this patient on the day of the encounter, performed the mena portion(s) of the service and participated in the management and confirm the resident's documentation. Please note there may be an additional personal documentation from me. [facility] Inpatient Progress Note Patient - Parish Hall Age - 47 [facility] 1975 [id number] Date of Admission - 04/27/2022 1:24 AM Interval history Patient was seen and examined at bedside this morning. He is afebrile and hemodynamically stable, satting well on room air. Not in acute distress. Still has hip pain, mainly upon exertion. OBJECTIVE Vitals height is 1.829 m (6') and weight is 73.3 kg (161 lb 9.6 oz). His oral temperature is 36.8 ???C (98.3 ???F). His blood pressure is 177/107 (abnormal) and his pulse is 87. His respiration is 18 and oxygen saturation is 98%. Temp: [36.8 ???C (98.2 ???F)-36.9 ???C (98.5 ???F)] 36.8 ???C (98.3 ???F) Heart Rate: [86-87] 87 Resp: [18] 18 BP: (153-194)/(78-107) 177/107 Weight: Admission weight: 68 kg (150 lb) Wt Readings from Last 1 Encounters: 04/29/22 73.3 kg (161 lb 9.6 oz) Input/Output: Intake/Output Summary (Last 24 hours) at 04/29/2022 1032 Last data filed at 04/29/2022 0734 Gross per 24 hour Intake 500 ml Output 1350 ml Net -850 ml Physical Examination: General: sleepy, in no acute distress Head: Normocephalic, atraumatic. Pulm: Clear to auscultation. No audible wheezing, rales, or rhonchi. Breathing is non-labored. Cardiac: Regular rate, regular rhythm. Normal S1/S2. No appreciable murmurs, gallops, or rubs. GI: Abdomen is soft, non-distended, non-tender. Ext: No peripheral edema. Incision is dressed, no surrounding erythema, dressing is dry Neuro: Alert and oriented x 3. Objective Lab Results Results from last 7 days Lab Units 04/29/22 0629 04/28/22 2121 04/28/22 1437 04/28/22 0608 04/27/22 0202 WBC AUTO 10*3/uL 14.41* -- -- 17.19* 16.66* HEMOGLOBIN g/dL 7.9* 7.7* 7.8* 8.3* 11.1* HEMATOCRIT % 23.6* 22.0* 23.7* 25.1* 32.4* PLATELETS AUTO 10*3/uL 390 -- -- 404* 432* Results from last 7 days Lab Units 04/27/22 0202 APTT Seconds 31.6 INR 0.98 Results from last 7 days Lab Units 04/29/22 0629 04/28/22 0608 04/27/22 0202 SODIUM mmol/L 132* 129* 131* POTASSIUM mmol/L 3.7 4.1 3.7 CHLORIDE mmol/L 99 98 99 CO2 mmol/L 31 25 28 BUN mg/dL 14 22 16 CREATININE mg/dL 0.86 1.26 1.30 GLUCOSE mg/dL 102* 99 96 CALCIUM mg/dL 8.4* 8.3* 8.9 MAGNESIUM mg/dL 1.9 1.7* -- No lab exists for component: TOTALPROTEI, LABBILIRUBIN, TOTALBILIRUB, BILIRUB, BILIRUBIND No results found for: HGBA1C No lab exists for component: TROPI, TROPONIN No lab exists for component: ABGPH, ABGPCO2, ABGPO2, ABGHCO3, ABGBASEDEFIC, DRUX1XYS, ABGOXYGENSOU No lab exists for component: LACTICACID, PROCALCITON No lab exists for component: CHOLHDL No results found for: WBCU, UROBILINOGEN Medications Scheduled: acetaminophen, 1,000 mg, oral, q8h ALEXIS amLODIPine, 10 mg, oral, Daily calcium, 500 mg, oral, BID with meals ceFAZolin, 2 g, intravenous, q8h cholecalciferol, 2,000 Units, oral, Daily enoxaparin, 30 mg, subcutaneous, BID [START ON 05/04/2022] ergocalciferol, 50,000 Units, oral, Weekly hydrALAZINE, 25 mg, oral, TID magnesium oxide, 400 mg, oral, BID Oxygen Therapy, , inhalation, Continuous polyethylene glycol, 17 g, oral, Daily sennosides-docusate sodium, 2 tablet, oral, BID sod phos di, mono-K phos mono, 500 mg, oral, q4h Infusions: As Needed: PRN medications: hydrALAZINE, HYDROmorphone, melatonin, ondansetron ODT OR ondansetron, oxyCODONE, oxyCODONE ASSESSMENT AND PLAN Essential hypertension, still uncontrolled, with pain being a contributing factor for now. Will increase Norvasc to 10 mg daily, and add Hydralazine 25 TID with holding parameters. Hyponatremia, improving, likely 2/2 poor po intake. Hypomagnesemia, replaced Anemia, likely worsened from surgery, monitor trend. Currently no chest pain or shortness of breath. OP recheck and work up if needed Fall with resultant closed intertrochanteric fracture of the left femur that is post ORIF left femur 04/27/2022 Vit D deficiency, replacement ordered Nawaf Martines General Internal Medicine Consult Service [facility] 04-29-2022 Note Physical Therapy Can ryan Note Name:Parish Hall :1975 Date: 04/29/2022 Pt unable to be seen for evaluation/treatment due to: High blood pressurereadings continue.RN starting medications, will return later today to reassess if pt able to participate in initial eval, post op ORIF femur fx 04/27/22. Time attempted: 845 Prudence Dunn PT [facility] 04-29-2022 Note I reviewed the patie nt's events and examined the patient. I viewed the relevant imaging and reviewed recent laboratory results. Co-morbidities addressed and medications reconciled. The plan of care reviewed with the team. I agree with the findings and the plan of care as documented in the detailed note with the following points of emphasis: Patient condition serious at the time of examination on 2022. I provided a substantive portion of the care of this patient , I personally performed Medical Decision Making ( Kristie Flowers ) in its entirety for this encounter, My substantive portion of the care is documented in the brief clinical summary and includes the following: Is a 47-year-old male who presented with a fall that resulted in closed comminuted intertrochanteric fracture of the left femur patient was also found to have hypertension and closed head injury, patient was admitted for pain management and case discussed with orthopedics for operative intervention of his fracture, patient continued to have left hip pain and is given pain medications appropriately, no new findings on physical exam, swelling in the left thigh has decreased from yesterday, WBC 14.41, Hb 7.9, HCT 23.6, PLT 319, sodium 132, K3.7, CL 99, CO2 31, BUN 14, CR 0.86, CA 8.4, MG 1.9, Patient continues to receive oxycodone 5 mg p.o. every 4 hours as needed for moderate pain and oxycodone 10 mg p.o. every 4 hours as needed for severe pain and Dilaudid 0.2 mg IV every 4 hours as needed for breakthrough and Zofran 4 mg IV every 6 hours as needed for nausea patient was placed on amlodipine 5 mg p.o. for hypertension and hydralazine 10 mg IV every 6 hours as needed for systolic over 160 , hyponatremic and hypomagnesemic has been improved , patient placed on Lovenox 30 mg SQ twice daily for DVT prophylaxis, patient was also placed on IV antibiotics with Ancef 2 g IV every 8 hours for 5 days Subjective Patient relates he continues to have left hip pain which has improved since yesterday. Denies abdominal pain, chest pain, numbness/tingling of the extremities, or shortness of breath. Objective BP: (153-194)/(78-107) 177/107 (04/29 849) Temp: [36.8 ???C (98.2 ???F)-36.9 ???C (98.5 ???F)] 36.8 ???C (98.3 ???F) (04/29 733) Temp Source: Oral (04/29 733) Heart Rate: [86-87] 87 (04/29 733) Resp: [18] 18 (04/29 733) SpO2: [98 %-99 %] 98 % (04/29 733) Height: -- Weight: [73.3 kg (161 lb 9.6 oz)] 73.3 kg (161 lb 9.6 oz) (04/29 516) Art Coma Scale Score: 15 Intake/Output Summary (Last 24 hours) at 04/29/2022931 Last data filed at 04/29/2022 0734 Gross per 24 hour Intake 500 ml Output 1350 ml Net -850 ml Recent Results (from the past 12 hour(s)) CBC Collection Time: 04/29/22 6:29 AM Result Value Ref Range Auto WBC 14.41 (H) 4.00 - 10.60 10*3/uL RBC 2.57 (L) 4.20 - 5.70 10*6/uL Hemoglobin 7.9 (L) 13.0 - 17.0 g/dL Hematocrit 23.6 (L) 39.0 - 55.0 % MCV 91.8 82.0 - 98.0 fL MCH 30.7 27.0 - 33.0 pg MCHC 33.5 32.0 - 35.0 g/dL RDW 13.3 11.5 - 15.0 % Platelets 390 150 - 400 10*3/uL Basic metabolic panel Collection Time: 04/29/22 6:29 AM Result Value Ref Range Sodium 132 (L) 136 - 145 mmol/L Potassium 3.7 3.5 - 5.1 mmol/L Chloride 99 98 - 107 mmol/L CO2 31 21 - 31 mmol/L BUN 14 7 - 25 mg/dL Creatinine 0.86 0.70 - 1.30 mg/dL Glucose 102 (H) 70 - 100 mg/dL Calcium 8.4 (L) 8.6 - 10.3 mg/dL Anion Gap 6 (L) 7 - 20 mmol/L eGFR 102.5 >60.0 mL/min/1.73m*2 BUN/Creatinine Ratio 16.28 Magnesium Collection Time: 04/29/22 6:29 AM Result Value Ref Range Magnesium 1.9 1.9 - 2.7 mg/dL Phosphorus Collection Time: 04/29/22 6:29 AM Result Value Ref Range Phosphorus 1.8 (L) 2.5 - 5.0 mg/dL No Chest X-ray results found for the past [address] head results found for the past 24 hours Physical Exam: General: Awake, Alert, No acute distress Head: Normocephalic. Small hematoma on left forehead. Eyes: PERRL, EOMI Neurologic: Alert And Oriented to self, place and time. Moving Extremities and Following Commands. Neck: Trachea midline, Supple Lungs: Clear to Auscultation Bilaterally With Normal Work Of Breathing Cardiovascular: Regular rate. Palpable radial/DP pulses bilaterally Abdomen: Soft, Nontender, and Nondistended Extremities: LLE: Surgical dressing in place, Swelling noted to left thigh (improved since yesterday), compartments compressible, Tenderness to palpation around incision site. Hematoma noted to lateral thigh around surgical site. Skin: Warm And Dry Psych: Friendly, Cooperative The patient is a 47 y.o. year old male who presented as a trauma following Fall and sustained the following injuries. Catalogue of Injuries/Incidental findings/medical issues: Assessment/Plan Principal Problem: Closed comminuted intertrochanteric fracture of left femur, initial encounter ([facility]) Active Problems: Hypertension Closed displaced intertrochanteric fracture of left fem (more content not included)... [facility] 04-29-2022 Note Subjective NAEON. Denies any new weakness, numbness, tingling. Says pain in L thigh significant. Has not been icing left lower extremity overnight. Denies new fevers, chills, CP, SOB, NVD, abdominal pain, additional/systemic symptoms. Objective Patient Vitals for the past 24 hrs: BP Temp Temp src Pulse Resp SpO2 Weight 04/29/22 0517 -- -- -- -- -- -- 73.3 kg (161 lb 9.6 oz) 04/28/22 2340 (!) 158/96 36.9 ???C (98.5 ???F) Oral 86 18 98 % -- 04/28/22 1636 153/78 36.8 ???C (98.2 ???F) Oral 86 18 99 % -- 04/28/22 0700 148/73 36.6 ???C (97.9 ???F) Oral 85 18 100 % 71.5 kg (157 lb 10.1 oz) Physical Exam Lab Results Component Value Date NA 129 (L) 04/28/2022 K 4.1 04/28/2022 CL 98 04/28/2022 ANIONGAP 6 (L) 04/28/2022 BUN 22 04/28/2022 CREATININE 1.26 04/28/2022 CALCIUM 8.3 (L) 04/28/2022 MG 1.7 (L) 04/28/2022 PHOS 4.3 04/28/2022 No results found for: BILITOT, BILIDIR, ALKPHOS, AST, ALT, PROT, ALBUMIN Lab Results Component Value Date WBC 17.19 (H) 04/28/2022 RBC 2.70 (L) 04/28/2022 HGB 7.7 (L) 04/28/2022 HCT 22.0 (L) 04/28/2022 MCV 93.0 04/28/2022 MCH 30.7 04/28/2022 MCHC 33.1 04/28/2022 RDW 13.3 04/28/2022 NEUTOPHILPCT 77.5 (H) 04/27/2022 LYMPHOPCT 12.4 (L) 04/27/2022 MONOPCT 8.7 04/27/2022 EOSPCT 0.3 04/27/2022 BASOPCT 0.7 04/27/2022 NEUTROABS 12.92 (H) 04/27/2022 LYMPHSABS 2.06 04/27/2022 MONOSABS 1.45 (H) 04/27/2022 EOSABS 0.05 04/27/2022 BASOSABS 0.11 04/27/2022 PLT 404 (H) 04/28/2022 NRBC 0.0 04/27/2022 General: NAD, resting, Respiratory: normal respiratory effort and rate; no cough Cardiovascular: warm well perfused extremitites Musculoskeletal: Left Lower Extremity - dressing saturated- changed, TTP about incision, TTP Thigh, significant swelling but soft, compressible compartments, sensation intact to light touch over sp/dp/t, brisk capillary refill, motor + to FHL, EHL, PF's & DF's, and wiggles toes === Imaging Orders, Last 24 Hours === XR HIP 2 OR 3 VW LEFT - Impression - There is a new plate and screws hardware apparatus placed reducing the left hip intertrochanteric fracture with mild residual separation of lesser trochanteric fragments There is a healed distal femur fracture with residual heterotopic new bone formation and deformity and cortical remodeling and a retrograde intramedullary nail in place Electronically signed: Brandon Lu. Assessment/Plan Principal Problem: Closed comminuted intertrochanteric fracture of left femur, initial encounter ([facility]) Active Problems: Hypertension Closed displaced intertrochanteric fracture of left femur, initial encounter ([facility]) Patient is a 47 yo M with L basicervical fracture s/p ORIF L femur 04/27/[address] Rodriguez. Plan: -TTWB LLE -AGGRESSIVE ice, elevation Left lower extremity -Pain control -DVT prophylaxis, we recommend at least 4 weeks per primary -PT/OT evaluation and treatment -Incentive spirometer use -Dressings change PRN, -Medical management, pain control, DVT prophylaxis and remainder of care per primary service. Van Bryant MD Orthopedic Surgery Resident Orthopedic Surgery Pager: [phone] 04/29/22 6:41 AM [facility] 04-28-2022 Note Occupational Therapy [place] Hall [phone] 04/28/22 Pt is unable to be seen for therapy secondary to elevated BP readings (RN defers). Will continue to check back as appropriate. Time attempted 1544 OT check - no charge Anuja Holloway OT/S [employer] - Teetee Patel OTR/L, [facility] 04-28-2022 Note Physical Therapy [place] 04/28/22 Pt is unable to be seen for therapy at this time secondary to elevated blood pressure 184/95 (RN defers) . Will continue to check back as appropriate. Time attempted: 15:45 PT check- no charge Kathryn Francisco PT, [facility] 04-28-2022 Note GIM Inpatient Progre ss Note Patient - Parish Hall Age - 47 y.o. - 1975 Date of Admission - 04/27/2022 1:24 AM Interval history Patient was seen and examined at bedside. Awakened from sleep Patient complains of postop pain, he has underlying chronic pain as well. Patient denies fever, chills, chest pain, palpitations, shortness breath, coughing, wheezing, nausea, vomiting, diarrhea, abdominal pain. Patient denies any new numbness or tingling Discussed with nurse, patient's blood pressure does improve with pain management. Patient himself states that his blood pressure is typically always elevated , he is unable to tell me exactly what his blood pressure is typically. OBJECTIVE Vitals height is 1.829 m (6') and weight is 71.5 kg (157 lb 10.1 oz). His oral temperature is 36.6 ???C (97.9 ???F). His blood pressure is 148/73 and his pulse is 85. His respiration is 18 and oxygen saturation is 100%. Temp: [36.4 ???C (97.5 ???F)-37 ???C (98.6 ???F)] 36.6 ???C (97.9 ???F) Heart Rate: [64-96] 85 Resp: [13-18] 18 BP: (144-184)/(73-104) 148/73 Weight: Admission weight: 68 kg (150 lb) Wt Readings from Last 1 Encounters: 04/28/22 71.5 kg (157 lb 10.1 oz) Input/Output: Intake/Output Summary (Last 24 hours) at 04/28/2022 1136 Last data filed at 04/28/2022 1133 Gross per 24 hour Intake 2117.28 ml Output 250 ml Net 1867.28 ml Physical Examination: General: sleepy, in no acute distress Head: Normocephalic, atraumatic. Pulm: Clear to auscultation. No audible wheezing, rales, or rhonchi. Breathing is non-labored. Cardiac: Regular rate, regular rhythm. Normal S1/S2. No appreciable murmurs, gallops, or rubs. GI: Abdomen is soft, non-distended, non-tender. Ext: No peripheral edema. Incision is dressed, no surrounding erythema, dressing is dry Neuro: Alert and oriented x 3. Objective Lab Results Results from last 7 days Lab Units 04/28/22 0608 04/27/22 0202 WBC AUTO 10*3/uL 17.19* 16.66* HEMOGLOBIN g/dL 8.3* 11.1* HEMATOCRIT % 25.1* 32.4* PLATELETS AUTO 10*3/uL 404* 432* Results from last 7 days Lab Units 04/27/22 0202 APTT Seconds 31.6 INR 0.98 Results from last 7 days Lab Units 04/28/22 0608 04/27/22 0202 SODIUM mmol/L 129* 131* POTASSIUM mmol/L 4.1 3.7 CHLORIDE mmol/L 98 99 CO2 mmol/L 25 28 BUN mg/dL 22 16 CREATININE mg/dL 1.26 1.30 GLUCOSE mg/dL 99 96 CALCIUM mg/dL 8.3* 8.9 MAGNESIUM mg/dL 1.7* -- No lab exists for component: TOTALPROTEI, LABBILIRUBIN, TOTALBILIRUB, BILIRUB, BILIRUBIND No results found for: HGBA1C No lab exists for component: TROPI, TROPONIN No lab exists for component: ABGPH, ABGPCO2, ABGPO2, ABGHCO3, ABGBASEDEFIC, [id number], ABGOXYGENSOU No lab exists for component: LACTICACID, PROCALCITON No lab exists for component: CHOLHDL No results found for: WBCU, UROBILINOGEN Medications Scheduled: acetaminophen, 1,000 mg, oral, q8h ALEXIS amLODIPine, 5 mg, oral, Daily calcium, 500 mg, oral, BID with meals ceFAZolin, 2 g, intravenous, q8h cholecalciferol, 2,000 Units, oral, Daily enoxaparin, 30 mg, subcutaneous, BID [START ON 05/04/2022] ergocalciferol, 50,000 Units, oral, Weekly magnesium oxide, 400 mg, oral, BID Oxygen Therapy, , inhalation, Continuous polyethylene glycol, 17 g, oral, Daily sennosides-docusate sodium, 2 tablet, oral, BID Infusions: As Needed: PRN medications: hydrALAZINE, HYDROmorphone, melatonin, ondansetron ODT OR ondansetron, oxyCODONE, oxyCODONE ASSESSMENT AND PLAN Essential hypertension, patient is on his home regimen of Norvasc 5 mg, on hydralazine as needed, pain does increase his blood pressure. Continue to monitor, may need increased dose of Norvasc. Hyponatremia, recheck BMP in the morning, patient did not eat well the past 24 hours, may be from poor p.o. intake Hypomagnesemia, replaced Anemia, likely worsened from surgery, monitor trend. Currently no chest pain or shortness of breath. OP recheck and work up if needed Fall with resultant closed intertrochanteric fracture of the left femur that is post ORIF left femur 04/27/2022 Vit D deficiency, replacement ordered Khadijah Elise DO General Internal Medicine Consult Service [facility] 04-28-2022 Note I reviewed the patie nt's events and examined the patient. I viewed the relevant imaging and reviewed recent laboratory results. Co-morbidities addressed and medications reconciled. The plan of care reviewed with the team. I agree with the findings and the plan of care as documented in the detailed note with the following points of emphasis: Patient condition serious at the time of examination on 2022. I provided a substantive portion of the care of this patient , I personally performed Medical Decision Making ( M D Kristie ) in its entirety for this encounter, My substantive portion of the care is documented in the brief clinical summary and includes the following: Is a 47-year-old male who presented with a fall that resulted in closed comminuted intertrochanteric fracture of the left femur patient was also found to have hypertension and closed head injury, patient was admitted for pain management and case discussed with orthopedics for operative intervention of his fracture, on physical exam no other injuries were identified, left lower extremity surgical dressing in place with significant swelling noted on the left thigh but the compartments are compressible, hematoma noted on the lateral aspect of the thigh, vital signs remained stable WBC 17.19, Hb 8.3, HCT 25.1, PLT 404, sodium 129, K4.1 CL 98 CO2 25 BUN 22 CR 1.26, glucose 99 Mg 1.7, Patient was given oxycodone 5 mg p.o. every 4 hours as needed for moderate pain and oxycodone 10 mg p.o. every 4 hours as needed for severe pain and Dilaudid 0.2 mg IV every 4 hours as needed for breakthrough and Zofran 4 mg IV every 6 hours as needed for nausea patient was placed on amlodipine 5 mg p.o. for hypertension and hydralazine 10 mg IV every 6 hours as needed for systolic over 160 he was also found to be hyponatremic and hypomagnesemic and was given normal saline and magnesium oxide 400 mg p.o. twice daily, patient placed on Lovenox 30 mg SQ twice daily for DVT prophylaxis Subjective Patient relates he continues to have severe pain to his left leg which is somewhat controlled with his current pain medications. Denies abdominal pain, chest pain, numbness/tingling of the extremities, weakness, or shortness of breath. Objective BP: (144-184)/(73-104) 148/73 (04/28 699) Temp: [36.4 ???C (97.5 ???F)-37 ???C (98.6 ???F)] 36.6 ???C (97.9 ???F) (04/28 699) Temp Source: Oral (04/28 699) Heart Rate: [64-96] 85 (04/28 699) Resp: [13-18] 18 (04/28 699) SpO2: [95 %-100 %] 100 % (04/28 699) Height: -- Weight: [71.5 kg (157 lb 10.1 oz)] 71.5 kg (157 lb 10.1 oz) (04/28 699) Art Coma Scale Score: 15 Intake/Output Summary (Last 24 hours) at 04/28/2022 1041 Last data filed at 04/27/2022 1843 Gross per 24 hour Intake 2117.28 ml Output 100 ml Net 2017.28 ml Recent Results (from the past 12 hour(s)) CBC Collection Time: 04/28/22 6:08 AM Result Value Ref Range Auto WBC 17.19 (H) 4.00 - 10.60 10*3/uL RBC 2.70 (L) 4.20 - 5.70 10*6/uL Hemoglobin 8.3 (L) 13.0 - 17.0 g/dL Hematocrit 25.1 (L) 39.0 - 55.0 % MCV 93.0 82.0 - 98.0 fL MCH 30.7 27.0 - 33.0 pg MCHC 33.1 32.0 - 35.0 g/dL RDW 13.3 11.5 - 15.0 % Platelets 404 (H) 150 - 400 10*3/uL Basic metabolic panel Collection Time: 04/28/22 6:08 AM Result Value Ref Range Sodium 129 (L) 136 - 145 mmol/L Potassium 4.1 3.5 - 5.1 mmol/L Chloride 98 98 - 107 mmol/L CO2 25 21 - 31 mmol/L BUN 22 7 - 25 mg/dL Creatinine 1.26 0.70 - 1.30 mg/dL Glucose 99 70 - 100 mg/dL Calcium 8.3 (L) 8.6 - 10.3 mg/dL Anion Gap 6 (L) 7 - 20 mmol/L eGFR 67.0 >60.0 mL/min/1.73m*2 BUN/Creatinine Ratio 17.46 Magnesium Collection Time: 04/28/22 6:08 AM Result Value Ref Range Magnesium 1.7 (L) 1.9 - 2.7 mg/dL Phosphorus Collection Time: 04/28/22 6:08 AM Result Value Ref Range Phosphorus 4.3 2.5 - 5.0 mg/dL Vitamin D 25 hydroxy Collection Time: 04/28/22 6:08 AM Result Value Ref Range Vit D, 25-Hydroxy 24.5 (L) 30.0 - 80.0 ng/mL Physical Exam: Tertiary Survey: General: Awake, Alert, Moderate acute distress due to pain Head: Normocephalic. Small hematoma on left forehead. Eyes: PERRL, EOMI Neurologic: Alert And Oriented to self, place and time. Moving Extremities and Following Commands. Neck: Cervical Spine Is Nontender To Palpation Without Step-Offs, Crepitus, Or Deformity. No Abrasions, Contusions, Or Ecchymosis Noted Lungs: Clear to Auscultation Bilaterally With Normal Work Of Breathing Chest Wall: Chest Rise Symmetrical Cardiovascular: Regular rate. Palpable radial/DP pulses bilaterally Abdomen: Soft, Nontender, and Nondistended Pelvis: Pelvis Is Stable to Compression Extremities: LLE: Surgical dressing in place, saturated, Significant swelling noted to left thigh, compartments compressible, Tenderness to palpation around incision site. Hematoma noted to lateral thigh around surgical site. Skin: Warm And Dry Psych: Friendly, Cooperative The patient is a 47 y (more content not included)... [facility] 04-28-2022 Note Screened pt at [facility] who is alert/ox4. Pt stated that he lives with his child's mother Naomi but unclear how well they get along as pt states she always stresses him out. Also apparently has their 4 year old child at home along w/ Naomi's Aunt who is special needs. Pt reports his support at home would be limited as he would have to mostly rely on Naomi and she works during the daytime. Pt stated he was independent with his ADL's prior to this injury and only has a cane at home that he made. Advised pt we will be awaiting OT/PT recs to see what his needs may be. Asked how he would feel about rehab placement as it was sounding like he had limited support at home and he said he would probably be agreeable. [facility] 04-28-2022 Note Subjective NAEON. Denies any new weakness, numbness, tingling. Says pain in L thigh significant. Has not been icing left lower extremity overnight. Denies new fevers, chills, CP, SOB, NVD, abdominal pain, additional/systemic symptoms. Objective Patient Vitals for the past 24 hrs: BP Temp Temp src Pulse Resp SpO2 04/28/22 0700 148/73 36.6 ???C (97.9 ???F) Oral 85 18 100 % 04/28/22 0445 (!) 184/90 36.6 ???C (97.8 ???F) -- 79 16 96 % 04/28/22 0000 144/89 36.6 ???C (97.8 ???F) -- 81 16 96 % 04/27/22 2132 (!) 162/96 36.6 ???C (97.9 ???F) -- 75 14 95 % 04/27/22 2000 (!) 148/91 36.7 ???C (98 ???F) -- 77 16 97 % 04/27/22 1822 151/82 36.7 ???C (98 ???F) Oral 96 14 96 % 04/27/22 1733 (!) 162/93 36.4 ???C (97.5 ???F) Axillary 84 18 100 % 04/27/22 1645 (!) 156/104 -- -- 67 13 95 % 04/27/22 1630 (!) 166/101 -- -- 67 14 95 % 04/27/22 1615 (!) 166/96 -- -- 64 14 95 % 04/27/22 1601 (!) 160/97 37 ???C (98.6 ???F) Temporal 64 16 98 % 04/27/22 1600 (!) 160/97 37 ???C (98.6 ???F) Temporal 64 16 98 % 04/27/22 0845 (!) 184/95 36.3 ???C (97.3 ???F) Temporal 78 20 100 % Physical Exam Lab Results Component Value Date NA 129 (L) 04/28/2022 K 4.1 04/28/2022 CL 98 04/28/2022 ANIONGAP 6 (L) 04/28/2022 BUN 22 04/28/2022 CREATININE 1.26 04/28/2022 CALCIUM 8.3 (L) 04/28/2022 MG 1.7 (L) 04/28/2022 PHOS 4.3 04/28/2022 No results found for: BILITOT, BILIDIR, ALKPHOS, AST, ALT, PROT, ALBUMIN Lab Results Component Value Date WBC 17.19 (H) 04/28/2022 RBC 2.70 (L) 04/28/2022 HGB 8.3 (L) 04/28/2022 HCT 25.1 (L) 04/28/2022 MCV 93.0 04/28/2022 MCH 30.7 04/28/2022 MCHC 33.1 04/28/2022 RDW 13.3 04/28/2022 NEUTOPHILPCT 77.5 (H) 04/27/2022 LYMPHOPCT 12.4 (L) 04/27/2022 MONOPCT 8.7 04/27/2022 EOSPCT 0.3 04/27/2022 BASOPCT 0.7 04/27/2022 NEUTROABS 12.92 (H) 04/27/2022 LYMPHSABS 2.06 04/27/2022 MONOSABS 1.45 (H) 04/27/2022 EOSABS 0.05 04/27/2022 BASOSABS 0.11 04/27/2022 PLT 404 (H) 04/28/2022 NRBC 0.0 04/27/2022 General: NAD, resting, Respiratory: normal respiratory effort and rate; no cough Cardiovascular: warm well perfused extremitites Musculoskeletal: Left Lower Extremity - dressing saturated, TTP about incision, TTP Thigh, significant swelling but soft, compressible compartments, sensation intact to light touch over sp/dp/t, brisk capillary refill, motor + to FHL, EHL, PF's & DF's, and wiggles toes === Imaging Orders, Last 24 Hours === XR HIP 2 OR 3 VW LEFT - Impression - There is a new plate and screws hardware apparatus placed reducing the left hip intertrochanteric fracture with mild residual separation of lesser trochanteric fragments There is a healed distal femur fracture with residual heterotopic new bone formation and deformity and cortical remodeling and a retrograde intramedullary nail in place Electronically signed: Brandon Lu. Assessment/Plan Principal Problem: Closed comminuted intertrochanteric fracture of left femur, initial encounter ([facility] Active Problems: Hypertension Patient is a 47 yo M with L basicervical fracture s/p ORIF L femur 04/27/[address] Rodriguez. Plan: -TTWB LLE -AGGRESSIVE ice, elevation Left lower extremity -Pain control -DVT prophylaxis, we recommend at least 4 weeks per primary -PT/OT evaluation and treatment -Incentive spirometer use -Dressings change PRN, Anticipating first change tomorrow 04/29/22. Patient deferred due to pain. -Medical management, pain control, DVT prophylaxis and remainder of care per primary service. Please call Orthopedic Surgery with any questions or concerns. Carla Zafar MD Orthopedic Surgery, PGY-2 Pager [phone] [facility] 04-27-2022 Note Patient: Parish rodriguez Procedure Summary Date: 04/27/22 Room / Location: [facility] OPERATING ROOM 05 / [facility] Operating Room Anesthesia Start: 1245 Anesthesia Stop: 1602 Procedure: open reduction internal fixation of left intertrochanteric femur fracture (Left: Femur) Diagnosis: Closed displaced intertrochanteric fracture of left femur, initial encounter ([facility]) (Closed displaced intertrochanteric fracture of left femur, initial encounter ([facility]) [S71.633I]) Surgeons: Fatemeh Rodriguez MD Responsible Provider: Arvind Lindsay MD Anesthesia Type: general ASA Status: 2 - Emergent Anesthesia Type: general Vitals Value Taken Time BP 166/101 04/27/22 1630 Temp 37 ???C (98.6 ???F) 04/27/22 1601 Pulse 67 04/27/22 1630 Resp 14 04/27/22 1630 SpO2 95 % 04/27/22 1630 Anesthesia Post Evaluation Patient location during evaluation: PACU Patient participation: complete - patient participated Level of consciousness: awake and alert Pain management: adequate Multimodal analgesia pain management approach Airway patency: patent Cardiovascular status: acceptable Respiratory status: acceptable Hydration status: acceptable Comments: A&Ox4, moving all extremities, safe for transfer back to floor. No notable events documented. Karlie Calloway MD Home Visits Nurse PGY-2 04/27/2022 4:48 PM [facility] 04-27-2022 Note Airway Date/Time: 04/27/2022 12:54 PM Urgency: elective Airway not difficult General Information and Staff Patient location during procedure: OR Anesthesiologist: Arvind Lindsay MD Resident/AGENCY SALES MANAGEMENT ASSISTANT/CAA: LISSY Gallegos Performed: resident/AGENCY SALES MANAGEMENT ASSISTANT/CAA Indications and Patient Condition Indications for airway management: anesthesia Spontaneous Ventilation: absent Sedation level: deep Preoxygenated: yes Mask difficulty assessment: 1 - vent by mask Final Airway Details Final airway type: endotracheal airway Successful airway: ETT Cuffed: yes Successful intubation technique: video laryngoscopy Endotracheal tube insertion site: oral Blade: Ortiz Blade size: #3 ETT size (mm): 8.0 Cormack-Lehane Classification: grade I - full view of glottis Placement verified by: chest auscultation Measured from: lips ETT to lips (cm): 22 Number of attempts at approach: 1 Additional Comments Eyes taped after induction, before airway management [facility] 04-27-2022 Note Occupational Therapy Parish Rich [phone] 1975 04/27/22 Pt is unable to be seen for therapy at this time secondary to Surgery. Will continue to check back as appropriate. Time attempted: 1206 OT Check no charge Marcelo OTR/L, MJ [facility] 04-27-2022 Note Patient: Parish rodriguez Procedure Information Date/Time: 04/27/22 1029 Procedure: Removal of left femoral nail and open reduction internal fixation of left intertrochanteric femur fracture with cephalomedullary nail. (Left: Femur) Location: [facility] OPERATING ROOM 04 / [facility] Operating Room Surgeons: Fatemeh Rodriguez MD Relevant Problems Cardio (+) Hypertension Clinical information reviewed: Allergies Meds Surg Hx Physical Exam Airway Mallampati: II TM distance: >3 FB Neck ROM: full Cardiovascular - normal exam Rhythm: regular Rate: normal Dental Pulmonary (+) decreased breath sounds Abdominal Other findings: Smokes, cigarettes and marijuana Anesthesia Plan ASA 2 - emergent general The patient is a current smoker. intravenous induction Anesthetic plan and risks discussed with patient. Plan discussed with CAA. Additional Equipment Requests [facility] 04-27-2022 Note Physical Therapy Parish Hall 04/27/22 Pt is unable to be seen for therapy at this time secondary to Surgery. Will continue to check back as appropriate. Time attempted: 08:29 PT check- no charge Kathryn Francisco PT, MPT [facility] Evaluation note Diagnosis Nicotine abuse [facility] Diagnosis Primary hypertension (CMS/HCC)- Primary Unspecified essential hypertension Intraparenchymal hemorrhage of brain (CMS/HCC) [facility] Diagnosis Essential (hemorrhagic) thrombocythemia (CMS/HCC)- Primary Intraparenchymal hemorrhage of brain (CMS/HCC) Primary hypertension (CMS/HCC) Unspecified essential hypertension Double vision Diplopia Nicotine abuse Primary hypertension (CMS/HCC)- Primary Unspecified essential hypertension Intraparenchymal hemorrhage of brain (CMS/HCC) Primary hypertension (CMS/HCC)- Primary Unspecified essential hypertension [facility] Diagnosis Resistant hypertension- Primary Cryptogenic stroke (CMS-HCC) [facility] Essential (hemorrhagic) thrombocythemia (CMS/HCC)- Primary Intraparenchymal hemorrhage of brain (CMS/HCC) Primary hypertension (CMS/HCC) Unspecified essential hypertension Double vision Diplopia Nicotine abuse Primary hypertension (CMS/HCC)- Primary Unspecified essential hypertension Intraparenchymal hemorrhage of brain (CMS/HCC) Essential (hemorrhagic) thrombocythemia (CMS/HCC) [facility] Diagnosis Essential (hemorrhagic) thrombocythemia (CMS/HCC)- Primary Intraparenchymal hemorrhage of brain (CMS/HCC) Primary hypertension (CMS/HCC) Unspecified essential hypertension Double vision Diplopia Nicotine abuse Primary hypertension (CMS/HCC)- Primary Unspecified essential hypertension Intraparenchymal hemorrhage of brain (CMS/HCC) Nicotine abuse documented in this encounter [facility]ructionsNot on filedocumented in this encounterPro[facility]ructionsNot on filedocumented in this encounterPro[facility] Summary Purpose Family History No Family History Records FoundNo Family History Records FoundNo Family History Records FoundNo Family History Records FoundNo Family History Records FoundNo Family History Records FoundNo Family History Records Found Advance Directives Date Activated Date Inactivated Comments 11/02/2023 2:24 PM 11/14/2023 3:49 PM Date Activated Date Inactivated Comments 10/17/2023 12:00 PM 11/02/2023 1:38 PM Date Activated Date Inactivated Comments 09/24/2017 2:09 PM 09/29/2017 3:17 PM Date Activated Date Inactivated Comments 11/02/2023 2:24 PM 11/14/2023 3:49 PM Date Activated Date Inactivated Comments 10/17/2023 12:00 PM 11/02/2023 1:38 PM Date Activated Date Inactivated Comments 09/24/2017 2:09 PM 09/29/2017 3:17 PM Additional Source Comments (unrecognized sect ion and content) No Status Records FoundNo Status Records FoundNo Status Records FoundNo Status Records FoundNo Status Records FoundNo Status Records FoundNo Status Records Found INFORMATION SOURCE (unrecogn ized section and content) DATE CREATED AUTHOR 04/27/2022 [facility] DATE CREATED AUTHOR AUTHOR'S ORGANIZ ATION 11/05/2022 [facility] DATE CREATED AUTHOR AUTHOR'S ORGANIZ ATION 10/24/2023 [facility] DATE CREATED AUTHOR AUTHOR'S ORGANIZ ATION 11/15/2023 [facility] DATE CREATED AUTHOR AUTHOR'S ORGANIZ ATION 12/25/2023 [facility] DATE CREATED AUTHOR AUTHOR'S ORGANIZ ATION 12/28/2023 [facility] EPIC DATE CREATED AUTHOR AUTHOR'S ORGANIZ ATION 02/02/2024 [facility] Care Teams (unrecognized sec tion and content) Teenage Babysitter Relationship Specialty Start Date End Date Colby Vickers MD [address] [place] [address] PCP - General Family Medicine 11/15/23 Shital Dempsey NP [address] [place] [address] Nurse Practitioner Family Medicine 11/15/23 Teenage Babysitter Relationship Specialty Start Date End Date Colby Vickers MD [address] [place] [phone] PCP - General Family Medicine 11/15/23 Shital Dempsey NP [address] [place] [address] Nurse Practitioner Family Medicine 11/15/23 Teenage Babysitter Relationship Specialty Start Date End Date Colby Vickers MD [address] [place] [phone] PCP - General Family Medicine 11/15/23 Shital Dempsey NP [address] [place] [address] Nurse Practitioner Family Medicine 11/15/23 Teenage Babysitter Relationship Specialty Start Date End Date Shital Dempsey, OFFICE CLINICIAN-BUSINESS OFFICE ASSISTANT PCP - General Nurse Practitioner 10/17/23 Teenage Babysitter Relationship Specialty Start Date End Date Colby Vickers MD [address] [place] [phone] PCP - General Family Medicine 11/15/23 Shital Dempsey NP [address] [place] [phone] Nurse Practitioner Family Medicine 11/15/23 Teenage Babysitter Relationship Specialty Start Date End Date Shital Dempsey OFFICE CLINICIAN-BUSINESS OFFICE ASSISTANT PCP - General Nurse Practitioner 10/17/23 Teenage Babysitter Relationship Specialty Start Date End Date Colby Vickers MD [address] [place] [phone] PCP - General Family Medicine 11/15/23 Shital Dempsey NP [address] [place] [phone] Nurse Practitioner [facility] Medicine 11/15/23 Teenage Babysitter Relationship Specialty Start Date End Date Shital Dempsey APRN-BUSINESS OFFICE ASSISTANT PCP - General Nurse Practitioner 10/17/23 Reason for Visit (unrecogniz ed section and content) Reason Onset Date Comments Med Refill 01/15/2024 Reason Onset Date Comments Results 02/01/2024 Reason Onset Date Comments Med Refill 01/28/2024 Reason Comments Med Refill Reason Comments Med Change Request FOR RECORDS PERTAINING TO PATIENTS WHO ARE OR HAVE BEEN ENROLLED IN A CHEMICAL DEPENDENCY/SUBSTANCEABUSE PROGRAM, SOME INFORMATION MAY BE OMITTED. This clinical summary was aggregated from multiple sources. Caution should be exercised in using it in the provision of clinical care. This summary normalizes information from multiple sources, and as a consequence, information in this document may materially change the coding, format and clinical context of patient data. In addition, data may be omitted in some cases. CLINICAL DECISIONS SHOULD BE BASED ON THE PRIMARY CLINICAL RECORDS. [facility] [employer] [facility]. provides no warranty or guarantee of the accuracy or completeness of information in this document.
--- NOTE | 2024-02-16 01:23 | ECG_ITS ---
[facility] Test Date: 2024-02-16 Pat Name: LEANN HALL Department: Room: - Gender: Male Staff Mechanical Engineer: : 1975 Requested By: Lencho Renee Order Number: [id number] Reading MD: RILEY FERRARO Measurements Intervals [place] Rate: 55 P: 21 WI: 160 QRS: 87 QRSD: 90 T: 76 QT: 466 QTc: 454 Interpretive Statements 1100 Sinus rhythm 8304 Long QTc interval 9150 abnormal ECG Compared to ECG 04/26/2022 20:21:23 No significant changes Electronically Signed On 02-17-2024 7:40:08 EST by RILEY FERRARO
--- NOTE | 2024-02-16 01:25 | ED.GENADUL1 ---
HPI HPI - General Adult General Chief complaint: Recheck/Abnormal Lab/Rx Stated complaint: other Time Seen by Provider: 02/16/24 01:00 Mode of arrival: ambulance Limitations: no limitations History of Present Illness HPI narrative: Pt with HTN apparently checked his BP at home and was found to be greater than 200 systolic and greater than 120 diastolic. He became anxious and his fiancee called 911. He took his BP meds later than normal this evening, apparently. He has history of CVA. EMS reported BP 222/149. They gave the pt SL Nitro in route. Patient denied any symptoms on arrival. Related Data Home Medications ?Medication ?Instructions ?Recorded ?Confirmed aspirin 81 mg capsule 81 mg PO DAILY 02/16/24 02/16/24 carvedilol 25 mg tablet 25 mg PO Q12H 02/16/24 02/16/24 clonidine HCl 0.3 mg tablet 0.3 mg PO TID 02/16/24 02/16/24 gabapentin 100 mg capsule 100 mg PO TID 02/16/24 02/16/24 terazosin 5 mg capsule 5 mg PO DAILY 02/16/24 02/16/24 Allergies Allergy/AdvReac Type Severity Reaction Status Date / Time No Known Drug Allergies Allergy Verified 02/16/24 00:49 Opioid HPI Opioid Management Most Recent Opioid Data: Ur Phencyclidine Scrn Negative (NEGATIVE) 10/17/23 09:33 10/17/23 PFSH PFSH Social History Little interest or pleasure in doing things: not at all Feeling down, depressed, or hopeless: not at all Exam Narrative Exam Narrative: Nurses notes and vital signs reviewed and patient is not hypoxic. afebrile General: Well-appearing and in no apparent distress. Skin: Warm, dry, no pallor noted. Head: Normocephalic, atraumatic. Neck: Supple, non-tender. No meningismus. Eye: Pupils are equal, round and EOMI. No scleral icterus. Ears, Nose, Mouth, and Throat: Oral mucosa is moist Cardiovascular: Regular Rate and Rhythm without murmur, gallop or rub. Respiratory: No accessory muscle use or respiratory distress. Lungs are clear to auscultation, no wheezing, rales or rhonchi Musculoskeletal: normal ROM, no calf or popliteal tenderness, no lower extremity edema/swelling GI: Abdomen is soft, non-distended. Normal bowel sounds. No tenderness to palpation. No rebound, guarding, or rigidity noted. Neurological: A&O x4. No cranial nerve dysfunction observed. No truncal ataxia. Moves all extremities. Sensation intact. Psychiatric: Cooperative and interactive. Normal mood and affect. Constitutional Vital Signs, click to edit/add: Last Vital Signs Temp 98.1 F 02/16/24 00:46 Pulse 53 L 02/16/24 02:00 Resp 18 02/16/24 02:00 BP 124/83 02/16/24 02:00 Pulse Ox 98 02/16/24 02:00 O2 Del Method Room Air 02/16/24 00:46 Course Vital Signs Vital signs: Vital Signs Temperature 98.1 F 02/16/24 00:46 Pulse Rate 64 02/16/24 00:46 Respiratory Rate 18 02/16/24 00:46 Blood Pressure 157/84 H 02/16/24 00:46 Pulse Oximetry 98 02/16/24 00:46 Oxygen Delivery Method Room Air 02/16/24 00:46 Temperature 98.1 F 02/16/24 00:46 Pulse Rate 53 L 02/16/24 02:00 Respiratory Rate 18 02/16/24 02:00 Blood Pressure 124/83 02/16/24 02:00 Pulse Oximetry 98 02/16/24 02:00 Oxygen Delivery Method Room Air 02/16/24 00:46 Medical Decision Making [facility] Narrative Medical decision making narrative: Patient was placed on cardiac monitor technician and EKG obtained. Blood drawn and sent for evaluation. EKG unremarkable and his BP has been normal while in the ED. He remains asymptomatic. Labs unremarkable Results discussed with pt - he was discharged home with recommendation to go to his pharmacy to determine the problem with his BP med Rx and call his PCP to resolve it. Lab Data Lab results reviewed: Yes I reviewed the patient's lab results Labs: Lab Results 02/16/24 Range/Units 01:42 WBC 10.0 (4.0-11.0) 10^3/uL RBC 4.07 L (4.70-6.10) 10^6/uL Hgb 12.9 L (14.0-18.0) g/dL Hct 37.1 L (42.0-54.0) % MCV 91.2 (80.0-94.0) fL MCH 31.7 (25.9-34.0) pg MCHC 34.8 (29.9-35.2) g/dL RDW 13.2 (11.0-15.0) % Plt Count 344 (150-450) 10^3/uL MPV 9.1 L (9.5-13.5) fL Neut % (Auto) 68.5 (43.0-75.0) % Lymph % (Auto) 18.3 L (20.5-60.0) % [place] % (Auto) 9.3 (1.7-12.0) % Eos % (Auto) 2.6 (0.9-7.0) % Baso % (Auto) 1.1 (0.2-2.0) % Neut # (Auto) 6.9 H (1.4-6.5) 10^3/uL Lymph # (Auto) 1.8 (1.2-3.8) 10^3/uL [place] # (Auto) 0.9 H (0.3-0.8) 10^3/uL Eos # (Auto) 0.3 (0.0-0.7) 10^3/uL Baso # (Auto) 0.1 (0.0-0.1) 10^3/uL Abs Immat Gran (auto) 0.02 (0.00-0.03) 10^3/uL Imm/Tot Granulo (auto) 0.2 (0.0-0.5) % Sodium 139 (136-145) mmol/L Potassium 3.7 (3.5-5.1) mmol/L Chloride 106 (98-107) mmol/L Carbon Dioxide 25.2 (21.0-32.0) mmol/L Anion Gap 11.5 BUN 13.0 (7.0-18.0) mg/dL Creatinine 1.41 H (0.70-1.30) mg/dL Est GFR ( Amer) >60 (>=60 mL/min/1.73m^2) Est GFR (Non-Af Amer) 53 L (>=60 mL/min/1.73m^2) BUN/Creatinine Ratio 9.2 Glucose 103 (74-106) mg/dL Calcium 8.9 (8.5-10.1) mg/dL ECG Data Attestation: I personally reviewed and interpreted this ECG as follows: Interpretation: EKG interpretation: Emergency Department physician interpretation. Normal sinus rhythm at 55bpm. Normal axis, no ST segment elevation or depression. QTc minimally prolonged at 454 Discharge Plan Discharge Chief Complaint: Recheck/Abnormal Lab/Rx Clinical Impression: Hypertension Patient Disposition: Home, Self-Care Time of Disposition Decision: 01:51 Prescriptions / Home Meds: No Action terazosin 5 mg capsule 5 mg PO DAILY carvedilol 25 mg tablet 25 mg PO Q12H clonidine HCl 0.3 mg tablet 0.3 mg PO TID gabapentin 100 mg capsule 100 mg PO TID aspirin 81 mg capsule 81 mg PO DAILY Print Language: Slovenian Instructions: Hypertension (ED) Referrals: Physician,Non-Staff, MD [Primary Care Provider] - 1 week
[2024-02-16 01:54] LABS: Basophils Absolute Auto 0.1 10^3/uL (0.0-0.1); Basophils Percent Auto 1.1 % (0.2-2.0); Eosinophils Absolute Auto 0.3 10^3/uL (0.0-0.7); Eosinophils Percent Auto 2.6 % (0.9-7.0); Hematocrit 37.1 % (42.0-54.0); Hemoglobin 12.9 g/dL (14.0-18.0); Immature Granulocytes Abs Auto 0.02 10^3/uL (0.00-0.03); Immature Granulocytes Pct Auto 0.2 % (0.0-0.5); Lymphocytes Absolute Auto 1.8 10^3/uL (1.2-3.8); Lymphocytes Percent Auto 18.3 % (20.5-60.0); Mean Corpuscular HGB Conc 34.8 g/dL (29.9-35.2); Mean Corpuscular Hemoglobin 31.7 pg (25.9-34.0); Mean Corpuscular Volume 91.2 fL (80.0-94.0); Mean Platelet Volume 9.1 fL (9.5-13.5); Monocytes Absolute Auto 0.9 10^3/uL (0.3-0.8); Monocytes Percent Auto 9.3 % (1.7-12.0); Neutrophils Absolute Auto 6.9 10^3/uL (1.4-6.5); Neutrophils Percent Auto 68.5 % (43.0-75.0); Platelet Count 344 10^3/uL (150-450); Red Blood Count 4.07 10^6/uL (4.70-6.10); Red Cell Distribution Width 13.2 % (11.0-15.0)
[2024-02-16 02:08] LABS: Anion Gap 11.5; BUN Creatinine Ratio 9.2; Calcium 8.9 mg/dL (8.5-10.1); Carbon Dioxide 25.2 mmol/L (21.0-32.0); Chloride 106 mmol/L (98-107); Estimated GFR (African America >60 (>=60 mL/min/1.73m^2); Estimated GFR (Non-African Ame 53 (>=60 mL/min/1.73m^2); Glucose 103 mg/dL (74-106); Potassium 3.7 mmol/L (3.5-5.1); Sodium 139 mmol/L (136-145)
== END 2024-02-16 02:20 | disposition home or self-care (01) ==
PROVIDERS: Emergency Provider Emergency Medicine
DX: I10 Essential (primary) hypertension (principal); Z86.73 Personal history of transient ischemic attack (TIA), and cerebral infarction without residual deficits
CPT/HCPCS: 36415; 80048; 85025; 93005; 99284